=== PATIENT | female | born 1940 | race Caucasian/White ===

== ENCOUNTER 2016-03-14 10:18 | Inpatient (IN) | payer BC, OTHER ==
[~2016-03-14] VITALS: Ht 154.9 cm; Wt 45.2 kg
[2016-03-14] MEDS ORDERED: SODIUM CHLORIDE 0.9% 1000ML 1,000 ML IV STA (10:57)
[2016-03-14] MEDS ORDERED: MoRPHine SULFATE 10 MG/ML CARP/VIAL IV STA (10:57)
[2016-03-14] MEDS ORDERED: ONDANSETRON INJ 2 MG/ML 2 ML VIAL IV STA (10:57)
[2016-03-14 11:30] LABS: COMPLETE YES; HEMATOCRIT 44.2 % (37-47); IG% 0.2 %; LYMPH % 13.1 %; LYMPH ABS # 1.34 K/uL (1.2-3.4); MEAN CELL VOLUME 89.8 fL (80-100); MEAN CORPUSCULAR HEMOGLOBIN 30.7 pg (25-34); MEAN CORPUSCULAR HGB CONC 34.2 g/dl (32-36); MEAN PLATELET VOLUME 9.8 fL (7.4-10.4); MONO % 5.8 %; NEUT % 80.9 %; PLATELET COUNT 299 K/uL (130-400); RED BLOOD COUNT 4.92 M/uL (4.2-5.4); WHITE BLOOD COUNT 10.25 K/uL (4.8-10.8)
[2016-03-14 11:59] LABS: BUN/CREATININE RATIO 26.3 (10-20); CALCIUM 10.1 mg/dl (8.5-10.1); CREATININE 1.8 mg/dl (0.60-1.20); POTASSIUM 2.3 mmol/L (3.5-5.1)
[2016-03-14] MEDS ORDERED: POTASSIUM CHLORIDE 10 MEQ / 100ML WTR IV STA (12:01)
[2016-03-14] MEDS ORDERED: PRMVC EXT (12:12)
[2016-03-14] MEDS ORDERED: MAGNESIUM SULFATE 1GM / D5W 1 GM BAG IV STA (12:20)
[2016-03-14 13:28] VITALS: BP 128/71; PULSE 84; TEMP 36.9; O2SAT 97; Ht 154.9 cm; Wt 45.2 kg
--- NOTE | 2016-03-14 14:10 | DIAGNOSTIC IMAGING REPORT ---
CT OF THE ABDOMEN AND PELVIS WITH ORAL CONTRAST CT DOSE: 265.37 mGy.cm CLINICAL HISTORY: Abdominal pain and vomiting. TECHNIQUE: Axial images of the abdomen and pelvis were obtained without IV contrast. Oral contrast was administered. COMPARISON STUDY: CT of the abdomen and pelvis March 03, 2015 and abdominal series March 07, 2015. FINDINGS: Lung bases are clear. No pneumatosis, free air or portal venous gas is present. Evaluation of the abdomen and pelvis is suboptimal given the lack of IV contrast. Mild biliary ductal dilatation is similar to CT of March 03, 2015. Unenhanced images of the liver, spleen, adrenal glands, left kidney and pancreas are normal. There is a suspected 8 mm hyperdense cyst within the midpole of the right kidney. This lesion is suboptimally assessed on this unenhanced exam. There are postsurgical findings consistent with a left colon resection. There is a left sided colostomy with a small parastomal hernia containing a small portion of the colon. Note is made of distention of the stomach as well as moderate dilatation of the proximal to mid small bowel. Transition point is difficult to visualize on this exam but is likely within the pelvis. The findings suggest a moderate to high-grade small bowel obstruction. There is minimal associated mesenteric infiltration. The distal small bowel is decompressed. No suspicious skeletal lesions are identified. IMPRESSION: 1. Findings consistent with a moderate to high-grade small bowel obstruction. Transition point is obscured on this exam but likely within the pelvis. Evaluation is suboptimal given the lack of IV contrast. Mild mesenteric infiltration. No pneumatosis, free air or portal venous gas. 2. Findings consistent with a left colon resection with left-sided colostomy. A small parastomal hernia which does not result in the bowel obstruction. Electronically signed by: Cristiano Rosales M.D. 03/14/2016 2:08 PM
--- NOTE | 2016-03-14 14:32 | DIAGNOSTIC IMAGING REPORT ---
ABDOMEN 2VIEW W/PA CHEST RTN CLINICAL HISTORY: Nausea, vomiting, abdominal pain COMPARISON STUDY: CT scan dated 03/14/2016 FINDINGS: The erect chest reveals no free air. There is no focal pulmonary consolidation. There are old left-sided rib fractures.] Supine views the abdomen reveal multiple scattered air-fluid levels. There is a distended stomach. There is a left lower quadrant ostomy. There is an old left ischio pubic ring deformity IMPRESSION: Postsurgical changes of a left-sided ostomy. Probable bowel obstruction with a fluid distended stomach and multiple small bowel air-fluid levels. No free air identified Electronically signed by: Elkin Newby M.D. 03/14/2016 2:30 PM
[2016-03-14 14:56] LABS: URINE APPEARANCE TURBID (CLEAR); URINE BILIRUBIN NEG (NEG); URINE COLOR YELLOW; URINE EPITHELIAL CELL AUTO >30 /lpf (0-5); URINE NITRITE NEG (NEG); URINE PH >= 9.0 (4.5-7.5); URINE SPECIFIC GRAVITY 1.013 (1.000-1.030); UROBILINOGEN NEG (NEG); ZZUR CULT IF INDIC CLEAN CATCH NO
[2016-03-14 15:14] LABS: MANUAL MICROSCOPIC REQUIRED? NO; REVIEW REQ? YES; SULFASALICYLIC ACID POS (NEG)
[2016-03-14] MEDS ORDERED: HYDROmorphone INJ 1 MG/ML SYR IV PRN (15:30)
[2016-03-14] MEDS ORDERED: ONDANSETRON INJ 2 MG/ML 2 ML VIAL IV PRN (15:30)
--- NOTE | 2016-03-14 15:51 | History and Physical ---
History & Physical Date & Time of Service: Mar 14, 2016 at 15:41 Chief Complaint: Abd Pain, Vomiting, Dehydration, Chest Tightness Primary Care Physician: Chris Hendrickson M.D. History of Present Illness Source: patient, spouse Past Medical/Surgical History pt is a 75 year old female who presents to Er for one days history abdominal and nausea & vomiting, pt denies fever, last year pt had same symptom, at that time pt was dx SBO, pt had left colectomy with colostomy in 2007 at [facility], pt had hysterectomy for cancer and radiotion history.now pt denies abdominal pain, some stool in colostomy bag, Family History Cancer Social History Smoking Status: Never Smoker Smokeless Tobacco Use: No Alcohol Use: occasionally Drug Use: none Marital Status: Occupational Status: retired Multi-Drug Resistant Organisms History of MDRO: No Allergies Coded Allergies: No Known Allergies (Unverified , 03/14/16) Home Medications Scheduled Estrogens, Conjugated (Premarin), 1 APPLN EXT 2XWK Review of Systems Constitutional: No chills, No fatigue, No fever, No problem reported, No sweats , No weakness, No weight loss Eyes: No diplopia, No discharge, No eye pain, No problem reported, No redness, No worsening of vision ENT: No dental problems, No hearing loss, No nasal symptoms, No problem reported, No sore throat, No tinnitus, No trouble swallowing, No unusual epistaxis Respiratory: No cough, No dyspnea at rest, No dyspnea on exertion, No hemoptysis, No problem reported, No shortness of breath, No sputum, No wheezing Cardiovascular: No PND, No chest pain, No claudication, No edema, No orthopnea , No palpitations, No problem reported Abdomen: + nausea, + pain, + vomiting Musculoskeletal: No calf pain, No joint pain, No muscle pain, No problem reported, No swelling Neurologic: No balance problems, No memory loss, No numbness/tingling, No paralysis, No problem reported, No vertigo, No weakness Psychiatric: No anhedonism, No anxiety, No depression symptoms, No insomnia, No problem reported, No substance abuse Endocrine: No excessive thirst, No excessive urination, No fatigue, No problem reported Hematologic / Lymphatic: No abnormal bleeding/bruising, No clotting problems, No night sweats, No problem reported, No swollen lymph nodes Allergic / Immunologic: No environmental allergies, No food allergies, No frequent infections, No hives, No pet sensitivities, No poor healing, No problem reported, No prolonged convalescence, No seasonal allergies Physical Exam Vital Signs Date Time Temp Pulse Resp B/P Pulse Ox O2 Delivery O2 Flow Rate FiO2 03/14/16 15:35 76 18 138/78 93 Room Air 03/14/16 14:14 82 20 154/78 96 Room Air 03/14/16 13:28 36.9 84 18 128/71 97 Room Air 03/14/16 12:30 87 18 128/71 97 Room Air 03/14/16 10:41 36.9 94 18 137/94 94 Room Air General Appearance: WD/WN, no apparent distress Head: normocephalic Eyes: normal inspection ENT: normal ENT inspection Neck: supple, no adenopathy Respiratory/Chest: chest non-tender, lungs clear Cardiovascular: regular rate, rhythm, no edema, no gallop, no JVD Abdomen/GI: normal bowel sounds, non tender, soft, no organomegaly Back: normal inspection Extremities/Musculoskelatal: normal inspection 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, no motor/sensory deficits Skin: normal color, warm/dry, no rash Diagnostics Laboratory Results Results Past 24 Hours Test 03/14/16 11:15 03/14/16 14:05 Range/Units White Blood Count 10.25 4.8-10.8 K/uL Red Blood Count 4.92 4.2-5.4 M/uL Hemoglobin 15.1 12.0-16.0 g/dL Hematocrit 44.2 37-47 % Mean Corpuscular Volume 89.8 80-100 fL Mean Corpuscular Hemoglobin 30.7 25-34 pg Mean Corpuscular Hemoglobin Concent 34.2 32-36 g/dl Platelet Count 299 130-400 K/uL Mean Platelet Volume 9.8 7.4-10.4 fL Neutrophils (%) (Auto) 80.9 % Lymphocytes (%) (Auto) 13.1 % Monocytes (%) (Auto) 5.8 % Eosinophils (%) (Auto) 0.0 % Basophils (%) (Auto) 0.0 % Neutrophils # (Auto) 8.30 1.4-6.5 K/uL Lymphocytes # (Auto) 1.34 1.2-3.4 K/uL Monocytes # (Auto) 0.59 0.11-0.59 K/uL Eosinophils # (Auto) 0.00 0-0.5 K/uL Basophils # (Auto) 0.00 0-0.2 K/uL RDW Standard Deviation 44.1 36.4-46.3 fL RDW Coefficient of Variation 13.4 11.5-14.5 % Immature Granulocyte % (Auto) 0.2 % Immature Granulocyte # (Auto) 0.02 0.00-0.02 K/uL Sodium Level 136 136-145 mmol/L Potassium Level 2.3 3.5-5.1 mmol/L Chloride Level 74 98-107 mmol/L Carbon Dioxide Level 55 21-32 mmol/L Anion Gap 7.0 3-11 mmol/L Blood Urea Nitrogen 47 7-18 mg/dl Creatinine 1.80 0.60-1.20 mg/dl Est Creatinine Clear Calc Drug Dose 19.9 ml/min Estimated GFR () 31.8 Estimated GFR (Non- 27.4 BUN/Creatinine Ratio 26.3 10-20 Random Glucose 148 70-99 mg/dl Calcium Level 10.1 8.5-10.1 mg/dl Total Bilirubin 2.2 0.2-1 mg/dl Direct Bilirubin 0.4 0-0.2 mg/dl Aspartate Amino Transf (AST/SGOT) 40 15-37 U/L Alanine Aminotransferase (ALT/SGPT) 36 12-78 U/L Alkaline Phosphatase 54 45-117 U/L Troponin I 0.059 0-0.045 ng/ml Total Protein 8.3 6.4-8.2 gm/dl Albumin 4.5 3.4-5.0 gm/dl Lipase 764 73-393 U/L Urine Color YELLOW Urine Appearance TURBID CLEAR Urine pH >= 9.0 4.5-7.5 Urine Specific [place] 1.013 1.000-1.030 Urine Protein 2+ NEG Urine Glucose (UA) NEG NEG Urine Ketones NEG NEG Urine Occult Blood NEG NEG Urine Nitrite NEG NEG Urine Bilirubin NEG NEG Urine Urobilinogen NEG NEG Urine Leukocyte Esterase NEG NEG Urine WBC (Auto) 1-5 0-5 /hpf Urine RBC (Auto) 5-10 0-4 /hpf Urine Hyaline Casts (Auto) 5-10 0-5 /lpf Urine Epithelial Cells (Auto) >30 0-5 /lpf Urine Bacteria (Auto) NEG NEG Urine Renal Epithelial Cells 0-5 0-5 /lpf Urine Crystals See comments NONE PRSENT Diagnostic Radiology CT scan - abd + pelvis-IMPRESSION: 1. Findings consistent with a moderate to high-grade small bowel obstruction. Transition point is obscured on this exam but likely within the pelvis. Evaluation is suboptimal given the lack of IV contrast. Mild mesenteric infiltration. No pneumatosis, free air or portal venous gas. 2. Findings consistent with a left colon resection with left-sided colostomy. A small parastomal hernia which does not result in the bowel obstruction. Impression Assessment and Plan IMP- SBO Plan: admit to hospital IV fluid, NPO repeat labs in AM, Will F/U, D/W benefits, risks and alternatives of admition, pt and her understood , they agree with the plan, Advanced Directives Existing Advance Directive: No Existing Living Will: No Existing Power of Food Technician: No VTE Prophylaxis VTE Risk Assessment Done? Y/N: Yes Risk Level: Low
[2016-03-14 16:29] VITALS: O2SAT 94
[2016-03-14 16:50] VITALS: BP 150/79; PULSE 82; TEMP 36.8; O2SAT 91
[2016-03-14] MEDS: D5W AND 1/2NSS + 20MEQ KCL 1,000 ML IV SCH (17:35)
--- NOTE | 2016-03-14 18:22 | EMERGENCY ROOM VISIT NOTE ---
History Report prepared by Maggie: Radha Whitten Under the Supervision of: Dr. Morro Burgess D.O. First contact with patient: 10:44 Chief Complaint: ABDOMINAL PAIN Stated Complaint: ABD PAIN, VOMITING, DEHYDRATION, CHEST TIGHTNESS Nursing Triage Summary: Triage note: pt reports mid abd pain nausea and vomitting since sunday. pt reports she has a colostomy. History of Present Illness The patient is a 75 year old female who presents to the Emergency Room with complaints of constant diffuse abdominal pain that started 3 days ago. Nothing seems to make the pain better or worse. She states that the pain started 3 days ago after she ate a sandwich. The pain was severe for 2-3 hours after eating the sandwich and then she vomited up her meal. She continued to experience persistent vomiting the rest of the night. The vomit became clear and she continued to experience two episodes of vomiting 2 days ago. After those episodes, she stopped eating. Her adds that she has been belching more than usual and she states that she has been experiencing more reflux than normal also. The patient developed chest tightness last night that seemed to start at her sternum then radiate into both sides of her chest. She is unsure of if the chest pain is radiating from her abdomen. The chest pain does not radiate from her chest and nothing makes it better or worse. She denies shortness of breath. She has not taken aspirin. The patient denies any recent sick contacts. The patient's states that she had a bowel obstruction last year. She had a hysterectomy in 1992 as well as radiation treatments. After that, they identified rectal prolapse and rectal ulcers so a colostomy was put in. She has been experiencing decreased output in her colostomy. The patient still has her gallbladder but thinks that she had an appendectomy. The patient denies any history of MIs. Source of History: patient, spouse/significant other () Onset: 3 days ago Position: abdomen (diffuse) Timing: constant Modifying Factors (Worsening): other (none) Modifying Factors (Relieving): other (none) Associated Symptoms: + chest pain (tightness), + nausea, + vomiting, No SOB Note: increased belching and reflux Review of Systems See HPI for pertinent positives & negatives. A total of 10 systems reviewed and were otherwise negative. Past Medical & Surgical Medical Problems: (1) SBO (small bowel obstruction) Family History Cancer Social History Smoking Status: Never Smoker Alcohol Use: none Drug Use: none Marital Status: Housing Status: lives with significant other Occupation Status: retired Current/Historical Medications Scheduled Estrogens, Conjugated (Premarin), 1 APPLN EXT 2XWK Allergies Coded Allergies: No Known Allergies (Unverified , 03/14/16) Physical Exam Vital Signs Date Time Temp Pulse Resp B/P Pulse Ox O2 Delivery O2 Flow Rate FiO2 03/14/16 15:35 76 18 138/78 93 Room Air 03/14/16 14:14 82 20 154/78 96 Room Air 03/14/16 13:28 36.9 84 18 128/71 97 Room Air 03/14/16 12:30 87 18 128/71 97 Room Air 03/14/16 10:41 36.9 94 18 137/94 94 Room Air Physical Exam GENERAL: alert, sitting up in bed, well appearing, well nourished, no distress, non-toxic EYE EXAM: normal conjunctiva OROPHARYNX: no exudate, no erythema, lips, buccal mucosa, and tongue normal and mucous membranes are moist NECK: supple, no nuchal rigidity, no adenopathy, non-tender LUNGS: Clear to auscultation. Normal chest wall mechanics HEART: no murmurs, S1 normal and S2 normal ABDOMEN: abdomen soft, non-tender, normo-active bowel sounds, no masses, no rebound or guarding, ostomy in place left of umbilicus with minimal dark stool in ostomy bag. BACK: Back is symmetrical on inspection and there is no deformity, no midline tenderness, no CVA tenderness. SKIN: no rashes and no bruising UPPER EXTREMITIES: upper extremities are grossly normal. Radial pulses equal bilaterally. LOWER EXTREMITIES: No pitting edema. NEURO EXAM: Normal sensorium, cranial nerves II-XII grossly intact, normal speech, no gross weakness of arms, no gross weakness of legs. Medical Decision & Procedures ER Provider Diagnostic Interpretation: Xray results per the radiologist and my interpretation. Other results have been interpreted by the radiologist and reviewed by me. ABDOMEN 2VIEW W/PA CHEST RTN CLINICAL HISTORY: Nausea, vomiting, abdominal pain COMPARISON STUDY: CT scan dated 03/14/2016 FINDINGS: The erect chest reveals no free air. There is no focal pulmonary consolidation. There are old left-sided rib fractures.] Supine views the abdomen reveal multiple scattered air-fluid levels. There is a distended stomach. There is a left lower quadrant ostomy. There is an old left ischio pubic ring deformity IMPRESSION: Postsurgical changes of a left-sided ostomy. Probable bowel obstruction with a fluid distended stomach and multiple small bowel air-fluid levels. No free air identified Electronically signed by: Elkin Newby M.D. 03/14/2016 2:[address] OF THE ABDOMEN AND PELVIS WITH ORAL CONTRAST CT DOSE: 265.37 mGy.cm CLINICAL HISTORY: Abdominal pain and vomiting. TECHNIQUE: Axial images of the abdomen and pelvis were obtained without IV contrast. Oral contrast was administered. COMPARISON STUDY: CT of the abdomen and pelvis March 03, 2015 and abdominal series March 07, 2015. FINDINGS: Lung bases are clear. No pneumatosis, free air or portal venous gas is present. Evaluation of the abdomen and pelvis is suboptimal given the lack of IV contrast. Mild biliary ductal dilatation is similar to CT of March 03, 2015. Unenhanced images of the liver, spleen, adrenal glands, left kidney and pancreas are normal. There is a suspected 8 mm hyperdense cyst within the midpole of the right kidney. This lesion is suboptimally assessed on this unenhanced exam. There are postsurgical findings consistent with a left colon resection. There is a left sided colostomy with a small parastomal hernia containing a small portion of the colon. Note is made of distention of the stomach as well as moderate dilatation of the proximal to mid small bowel. Transition point is difficult to visualize on this exam but is likely within the pelvis. The findings suggest a moderate to high-grade small bowel obstruction. There is minimal associated mesenteric infiltration. The distal small bowel is decompressed. No suspicious skeletal lesions are identified. IMPRESSION: 1. Findings consistent with a moderate to high-grade small bowel obstruction. Transition point is obscured on this exam but likely within the pelvis. Evaluation is suboptimal given the lack of IV contrast. Mild mesenteric infiltration. No pneumatosis, free air or portal venous gas. 2. Findings consistent with a left colon resection with left-sided colostomy. A small parastomal hernia which does not result in the bowel obstruction. Electronically signed by: Cristiano Rosales M.D. 03/14/2016 2:08 PM Laboratory Results 03/14/16 11:15 Red Blood Count 4.92, Mean Corpuscular Volume 89.8, Mean Corpuscular Hemoglobin 30.7, Mean Corpuscular Hemoglobin Concent 34.2, Mean Platelet Volume 9.8, Neutrophils (%) (Auto) 80.9, Lymphocytes (%) (Auto) 13.1, Monocytes (%) (Auto) 5.8, Eosinophils (%) (Auto) 0.0, Basophils (%) (Auto) 0.0, Neutrophils # (Auto) 8.30, Lymphocytes # (Auto) 1.34, Monocytes # (Auto) 0.59, Eosinophils # (Auto) 0.00, Basophils # (Auto) 0.00 03/14/16 11:15 Test 03/14/16 11:15 03/14/16 14:05 White Blood Count 10.25 K/uL (4.8-10.8) Red Blood Count 4.92 M/uL (4.2-5.4) Hemoglobin 15.1 g/dL (12.0-16.0) Hematocrit 44.2 % (37-47) Mean Corpuscular Volume 89.8 fL (80-100) Mean Corpuscular Hemoglobin 30.7 pg (25-34) Mean Corpuscular Hemoglobin Concent 34.2 g/dl (32-36) Platelet Count 299 K/uL (130-400) Mean Platelet Volume 9.8 fL (7.4-10.4) Neutrophils (%) (Auto) 80.9 % Lymphocytes (%) (Auto) 13.1 % Monocytes (%) (Auto) 5.8 % Eosinophils (%) (Auto) 0.0 % Basophils (%) (Auto) 0.0 % Neutrophils # (Auto) 8.30 K/uL (1.4-6.5) Lymphocytes # (Auto) 1.34 K/uL (1.2-3.4) Monocytes # (Auto) 0.59 K/uL (0.11-0.59) Eosinophils # (Auto) 0.00 K/uL (0-0.5) Basophils # (Auto) 0.00 K/uL (0-0.2) RDW Standard Deviation 44.1 fL (36.4-46.3) RDW Coefficient of Variation 13.4 % (11.5-14.5) Immature Granulocyte % (Auto) 0.2 % Immature Granulocyte # (Auto) 0.02 K/uL (0.00-0.02) Anion Gap 7.0 mmol/L (3-11) Est Creatinine Clear Calc Drug Dose 19.9 ml/min Estimated GFR () 31.8 Estimated GFR (Non- 27.4 BUN/Creatinine Ratio 26.3 (10-20) Calcium Level 10.1 mg/dl (8.5-10.1) Total Bilirubin 2.2 mg/dl (0.2-1) Direct Bilirubin 0.4 mg/dl (0-0.2) Aspartate Amino Transf (AST/SGOT) 40 U/L (15-37) Alanine Aminotransferase (ALT/SGPT) 36 U/L (12-78) Alkaline Phosphatase 54 U/L (45-117) Troponin I 0.059 ng/ml (0-0.045) Total Protein 8.3 gm/dl (6.4-8.2) Albumin 4.5 gm/dl (3.4-5.0) Lipase 764 U/L (73-393) Urine Color YELLOW Urine Appearance TURBID (CLEAR) Urine pH >= 9.0 (4.5-7.5) Urine Specific [place] 1.013 (1.000-1.030) Urine Protein 2+ (NEG) Urine Glucose (UA) NEG (NEG) Urine Ketones NEG (NEG) Urine Occult Blood NEG (NEG) Urine Nitrite NEG (NEG) Urine Bilirubin NEG (NEG) Urine Urobilinogen NEG (NEG) Urine Leukocyte Esterase NEG (NEG) Urine WBC (Auto) 1-5 /hpf (0-5) Urine RBC (Auto) 5-10 /hpf (0-4) Urine Hyaline Casts (Auto) 5-10 /lpf (0-5) Urine Epithelial Cells (Auto) >30 /lpf (0-5) Urine Bacteria (Auto) NEG (NEG) Urine Renal Epithelial Cells 0-5 /lpf (0-5) Urine Crystals See comments (NONE PRSENT) Laboratory results per my review. Medications Administered Medications (Trade) Dose Ordered Sig/Nimisha Route Start Time Stop Time Status Last Admin Dose Admin Sodium Chloride (Nss 1000ml) 1,000 ml @ 999 mls/hr Q1H1M STAT IV 03/14/16 10:57 03/14/16 11:57 DC 03/14/16 11:21 999 MLS/HR Ondansetron HCl (Zofran Inj) 4 mg NOW STAT IV 1/3/17 10:57 03/14/16 10:59 DC 03/14/16 11:22 4 MG Morphine Sulfate (MoRPHine SULFATE INJ) 6 mg NOW STAT IV 03/14/16 10:57 03/14/16 10:59 DC 03/14/16 11:22 6 MG Potassium Chloride (Kcl 10 Meq / Wtr) 10 meq NOW STAT IV 03/14/16 12:01 03/14/16 12:02 DC 03/14/16 12:53 10 MEQ Magnesium Sulfate (Magnesium Sulfate) 2 gm NOW STAT IV 03/14/16 12:20 03/14/16 12:21 DC 03/14/16 12:53 2 GM ECG Indication: abdominal pain Rate (beats per minute): 80 Rhythm: sinus rhythm Findings: nonspecific-ST abn (Lateral), no ectopy, other (normal axis, poor baseline in inferior leads) Comparison ECG Date: 03/03/2015 Change: nonspecific ST abnormalities in lateral leads are new ED Course ED COURSE: Vital signs were reviewed and showed normal. The patients medical record was reviewed The above diagnostic studies were performed and reviewed. ED treatments and interventions as stated above. 1048: The patient was evaluated in room C10. A complete history and physical examination was performed. 1057: Ordered Morphine Sulfate 6 mg IV, Zofran 4 mg IV, Sodium Chloride 1000 ml @ 999 mls/hr IV 1201: Ordered Potassium Chloride 10 meq IV 1218: I reevaluated the patient. 1220: Ordered Magnesium Sulfate 2 gm IV 1326: I reassessed and updated the patient. 1432: I reviewed the patient's case with Dr. Sommer - General Surgery. The patient will be evaluated for further management. 1440: Upon reevaluation, the patient is resting comfortably. I discussed my findings with the patient and she understands and agrees with the treatment plan. Based on the patients age, coexisting illnesses, exam and lab findings the decision to treat as an inpatient was made. The patient remained stable while under my care. The patient will be evaluated for further management. Medical Decision Differential diagnoses includes but is not limited to gastritis, peptic ulcer disease, GERD, gallbladder disease, pancreatitis, small bowel obstruction, acute coronary syndrome, pericarditis, ischemic bowel, irritable bowel disease, irritable bowel syndrome, appendicitis, diverticulitis, malignancy, hernia, urinary tract infection, torsion, /ectopic , perforation, trauma, infectious. Patient is a 75-year-old female who presents the ER for abdominal pain associated with vomiting and low ostomy outputs. Multiple previous bili surgeries. On exam she slightly distended. No fevers. IV was established she is given Zofran along with normal saline and IV narcotics. Labs show a significant hypokalemia along with an elevated bilirubin and acute kidney injury with a creatinine of 1.8. Her troponin was also elevated with minimal chest pressure. CT of the abdomen and pelvis shows a high-grade small bowel obstruction. EKG was nondiagnostic for acute STEMI. Based on exam and presentation I do feel this is likely secondary to obstruction. I did not place her on any heparin because of this. The potassium was repleted. Patient family were updated at bedside and she is evaluated by general surgery. She is admitted for further workup of her small bowel obstruction hypokalemia elevated troponin along with acute kidney injury. Consults Time Called: 1415 Consulting Physician: Dr. Sommer - General Surgery Returned Call: [phone] I reviewed the patient's case with Dr. Sommer - General Surgery. The patient will be evaluated for further management. Impression Primary Impression: Small bowel obstruction Additional Impressions: Hypokalemia, Elevated troponin, Elevated bilirubin, INNA (acute kidney injury) Scribe Attestation The scribe's documentation has been prepared under my direction and personally reviewed by me in its entirety. I confirm that the note above accurately reflects all work, treatment, procedures, and medical decision making performed by me. Departure Information Dispostion Being Evaluated By Surgeon Chris Mccollum M.D. (PCP)
[2016-03-14] MEDS ORDERED: NURSING VERBAL MED ORDER ONE ×2 (22:15→22:30)
[2016-03-14] MEDS: CEFAZOLIN IV 1,000 MG in DEXTROSE 5% 50ML 50 ML IV SCH (22:24)
[2016-03-14] MEDS ORDERED: BISACODYL 5 MG TABEC PO ONE (22:45)
[2016-03-14 22:58] VITALS: BP 156/77; PULSE 71; TEMP 37; O2SAT 91
[2016-03-14] MEDS ORDERED: PREMARIN VAG CRM 14 APPLN/30 GM TUBE PV SCH (23:00)
[2016-03-15] MEDS: D5W AND 1/2NSS + 20MEQ KCL 1,000 ML IV SCH ×3 (03:15→22:37)
[2016-03-15] MEDS ORDERED: NURSING VERBAL MED ORDER ONE ×2 (03:45→16:45)
[2016-03-15] MEDS ORDERED: PROMETHAZINE HCL INJ 25 MG in SODIUM CHLORIDE 0.9% 50ML 50 ML IV PRN (04:15)
[2016-03-15] MEDS: CEFAZOLIN IV 1,000 MG in DEXTROSE 5% 50ML 50 ML IV SCH ×2 (05:29→14:00)
[2016-03-15 07:00] VITALS: BP 113/68; PULSE 71; TEMP 36.6; O2SAT 92
[2016-03-15 07:13] LABS: BASO % 0.1 %; BASO ABS # 0.01 K/uL (0-0.2); COMPLETE YES; HEMATOCRIT 38.9 % (37-47); IG% 0.2 %; LYMPH % 8.5 %; LYMPH ABS # 0.88 K/uL (1.2-3.4); MEAN CELL VOLUME 90.7 fL (80-100); MEAN CORPUSCULAR HEMOGLOBIN 29.8 pg (25-34); MEAN CORPUSCULAR HGB CONC 32.9 g/dl (32-36); MEAN PLATELET VOLUME 9.9 fL (7.4-10.4); MONO % 10.6 %; NEUT % 80.6 %; PLATELET COUNT 246 K/uL (130-400); RED BLOOD COUNT 4.29 M/uL (4.2-5.4); WHITE BLOOD COUNT 10.33 K/uL (4.8-10.8)
[2016-03-15 08:05] LABS: CARBON DIOXIDE 49 mmol/L (21-32)
[2016-03-15 08:08] LABS: ALKALINE PHOSPHATASE 44 U/L (45-117); ALT/SGPT 26 U/L (12-78); AST/SGOT 38 U/L (15-37); BLOOD UREA NITROGEN 39 mg/dl (7-18); BUN/CREATININE RATIO 35.5 (10-20); CALCIUM 8.1 mg/dl (8.5-10.1); CHLORIDE 83 mmol/L (98-107); GLUCOSE 136 mg/dl (70-99); POTASSIUM 2.3 mmol/L (3.5-5.1); SODIUM 138 mmol/L (136-145)
[2016-03-15] MEDS ORDERED: NURSING DECISION MEDICATION ORDER SCH (08:30)
[2016-03-15] MEDS: BISACODYL 5 MG TABEC PO SCH (08:42)
[2016-03-15] MEDS: POTASSIUM CHLR 10MEQ / WTR IV SCH ×6 (09:31→19:33)
--- NOTE | 2016-03-15 13:48 | Surgery Progress Note ---
Surgery Progress Note Date of Service Mar 15, 2016. Subjective + feeling well last night , pt had one time vomiting, pt had NG tube placement, now pt feels better, no abdominal pain, no N/V, some stool on colostomy bag, pt's K is 2.3, I ordered to replace low K. Objective Vital Signs: Date Time Temp Pulse Resp B/P Pulse Ox O2 Delivery O2 Flow Rate FiO2 03/15/16 08:05 Room Air 03/15/16 07:00 36.6 71 18 113/68 92 Room Air 03/14/16 23:45 Room Air 03/14/16 22:58 37.0 71 16 156/77 91 Room Air 03/14/16 17:15 Room Air 03/14/16 16:50 36.8 82 16 150/79 91 Room Air 03/14/16 16:29 72 16 135/79 94 Room Air 03/14/16 15:35 76 18 138/78 93 Room Air 03/14/16 14:14 82 20 154/78 96 Room Air General Appearance: WD/WN Head: normocephalic Neck: supple Respiratory/Chest: chest non-tender, lungs clear Cardiovascular: regular rate, rhythm, no edema Abdomen: normal bowel sounds, non tender Extremities: normal range of motion, non-tender Laboratory Results: Results Past 24 Hours Test 03/14/16 14:05 03/15/16 06:20 Range/Units Urine Color YELLOW Urine Appearance TURBID CLEAR Urine pH >= 9.0 4.5-7.5 Urine Specific [place] 1.013 1.000-1.030 Urine Protein 2+ NEG Urine Glucose (UA) NEG NEG Urine Ketones NEG NEG Urine Occult Blood NEG NEG Urine Nitrite NEG NEG Urine Bilirubin NEG NEG Urine Urobilinogen NEG NEG Urine Leukocyte Esterase NEG NEG Urine WBC (Auto) 1-5 0-5 /hpf Urine RBC (Auto) 5-10 0-4 /hpf Urine Hyaline Casts (Auto) 5-10 0-5 /lpf Urine Epithelial Cells (Auto) >30 0-5 /lpf Urine Bacteria (Auto) NEG NEG Urine Renal Epithelial Cells 0-5 0-5 /lpf Urine Crystals See comments NONE PRSENT White Blood Count 10.33 4.8-10.8 K/uL Red Blood Count 4.29 4.2-5.4 M/uL Hemoglobin 12.8 12.0-16.0 g/dL Hematocrit 38.9 37-47 % Mean Corpuscular Volume 90.7 80-100 fL Mean Corpuscular Hemoglobin 29.8 25-34 pg Mean Corpuscular Hemoglobin Concent 32.9 32-36 g/dl Platelet Count 246 130-400 K/uL Mean Platelet Volume 9.9 7.4-10.4 fL Neutrophils (%) (Auto) 80.6 % Lymphocytes (%) (Auto) 8.5 % Monocytes (%) (Auto) 10.6 % Eosinophils (%) (Auto) 0.0 % Basophils (%) (Auto) 0.1 % Neutrophils # (Auto) 8.32 1.4-6.5 K/uL Lymphocytes # (Auto) 0.88 1.2-3.4 K/uL Monocytes # (Auto) 1.10 0.11-0.59 K/uL Eosinophils # (Auto) 0.00 0-0.5 K/uL Basophils # (Auto) 0.01 0-0.2 K/uL RDW Standard Deviation 44.3 36.4-46.3 fL RDW Coefficient of Variation 13.5 11.5-14.5 % Immature Granulocyte % (Auto) 0.2 % Immature Granulocyte # (Auto) 0.02 0.00-0.02 K/uL Sodium Level 138 136-145 mmol/L Potassium Level 2.3 3.5-5.1 mmol/L Chloride Level 83 98-107 mmol/L Carbon Dioxide Level 49 21-32 mmol/L Anion Gap 3-11 mmol/L Blood Urea Nitrogen 39 7-18 mg/dl Creatinine 1.10 0.60-1.20 mg/dl Est Creatinine Clear Calc Drug Dose 32.5 ml/min Estimated GFR () 57.7 Estimated GFR (Non- 49.8 BUN/Creatinine Ratio 35.5 10-20 Random Glucose 136 70-99 mg/dl Calcium Level 8.1 8.5-10.1 mg/dl Total Bilirubin 1.3 0.2-1 mg/dl Aspartate Amino Transf (AST/SGOT) 38 15-37 U/L Alanine Aminotransferase (ALT/SGPT) 26 12-78 U/L Alkaline Phosphatase 44 45-117 U/L Total Protein 6.1 6.4-8.2 gm/dl Albumin 3.1 3.4-5.0 gm/dl Globulin 3.0 2.5-4.0 gm/dl Albumin/Globulin Ratio 1.0 0.9-2 Assessment & Plan IMP, SBO Plan: corect low K, continue NGT, repeat labs in AM, Will F/U
[2016-03-15 15:13] VITALS: BP 115/69; PULSE 76; TEMP 37.8; O2SAT 91
[2016-03-15 15:35] LABS: BASO % 0.1 %; BASO ABS # 0.01 K/uL (0-0.2); COMPLETE YES; EOS % 0.4 %; HEMATOCRIT 37.8 % (37-47); IG% 0.2 %; LYMPH % 11.6 %; LYMPH ABS # 0.99 K/uL (1.2-3.4); MEAN CELL VOLUME 90.2 fL (80-100); MEAN CORPUSCULAR HEMOGLOBIN 29.8 pg (25-34); MEAN CORPUSCULAR HGB CONC 33.1 g/dl (32-36); MEAN PLATELET VOLUME 9.2 fL (7.4-10.4); NEUT % 76.7 %; PLATELET COUNT 220 K/uL (130-400); RED BLOOD COUNT 4.19 M/uL (4.2-5.4); WHITE BLOOD COUNT 8.53 K/uL (4.8-10.8)
[2016-03-15 16:16] LABS: BUN/CREATININE RATIO 35.4 (10-20); CALCIUM 8.1 mg/dl (8.5-10.1); CREATININE 0.92 mg/dl (0.60-1.20); POTASSIUM 2.6 mmol/L (3.5-5.1)
[2016-03-15 23:06] VITALS: BP 110/70; PULSE 69; TEMP 36.9; O2SAT 92
[2016-03-16 05:12] LABS: CALCIUM 7.9 mg/dl (8.5-10.1); CREATININE 0.82 mg/dl (0.60-1.20); POTASSIUM 2.9 mmol/L (3.5-5.1)
[2016-03-16] MEDS ORDERED: NURSING VERBAL MED ORDER ONE (05:30)
[2016-03-16] MEDS: POTASSIUM CHLR 10MEQ / WTR IV SCH ×4 (05:53→09:05)
--- NOTE | 2016-03-16 06:44 | Surgery Progress Note ---
Surgery Progress Note Date of Service Mar 16, 2016. Subjective + feeling well F/U SBO, pt is stable, no abdominal pain, no N/V, pt passed some stool yesterday , Objective Vital Signs: Date Time Temp Pulse Resp B/P Pulse Ox O2 Delivery O2 Flow Rate FiO2 03/15/16 23:20 Room Air 03/15/16 23:06 36.9 69 18 110/70 92 Room Air 03/15/16 19:30 Room Air 03/15/16 15:13 37.8 76 16 115/69 91 Room Air 03/15/16 08:05 Room Air 03/15/16 07:00 36.6 71 18 113/68 92 Room Air General Appearance: WD/WN Head: normocephalic Neck: supple Respiratory/Chest: chest non-tender, lungs clear Cardiovascular: regular rate, rhythm, no edema Abdomen: normal bowel sounds, non tender, non distended, soft Laboratory Results: Results Past 24 Hours Test 03/15/16 15:29 03/16/16 04:34 Range/Units White Blood Count 8.53 4.8-10.8 K/uL Red Blood Count 4.19 4.2-5.4 M/uL Hemoglobin 12.5 12.0-16.0 g/dL Hematocrit 37.8 37-47 % Mean Corpuscular Volume 90.2 80-100 fL Mean Corpuscular Hemoglobin 29.8 25-34 pg Mean Corpuscular Hemoglobin Concent 33.1 32-36 g/dl Platelet Count 220 130-400 K/uL Mean Platelet Volume 9.2 7.4-10.4 fL Neutrophils (%) (Auto) 76.7 % Lymphocytes (%) (Auto) 11.6 % Monocytes (%) (Auto) 11.0 % Eosinophils (%) (Auto) 0.4 % Basophils (%) (Auto) 0.1 % Neutrophils # (Auto) 6.54 1.4-6.5 K/uL Lymphocytes # (Auto) 0.99 1.2-3.4 K/uL Monocytes # (Auto) 0.94 0.11-0.59 K/uL Eosinophils # (Auto) 0.03 0-0.5 K/uL Basophils # (Auto) 0.01 0-0.2 K/uL RDW Standard Deviation 44.3 36.4-46.3 fL RDW Coefficient of Variation 13.3 11.5-14.5 % Immature Granulocyte % (Auto) 0.2 % Immature Granulocyte # (Auto) 0.02 0.00-0.02 K/uL Sodium Level 137 137 136-145 mmol/L Potassium Level 2.6 2.9 3.5-5.1 mmol/L Chloride Level 88 90 98-107 mmol/L Carbon Dioxide Level 43 41 21-32 mmol/L Anion Gap 6.0 6.0 3-11 mmol/L Blood Urea Nitrogen 33 27 7-18 mg/dl Creatinine 0.92 0.82 0.60-1.20 mg/dl Est Creatinine Clear Calc Drug Dose 38.9 43.6 ml/min Estimated GFR () 71.6 82.3 Estimated GFR (Non- 61.8 71.0 BUN/Creatinine Ratio 35.4 33.0 10-20 Random Glucose 126 116 70-99 mg/dl Calcium Level 8.1 7.9 8.5-10.1 mg/dl Total Bilirubin 1.7 1.6 0.2-1 mg/dl Aspartate Amino Transf (AST/SGOT) 30 27 15-37 U/L Alanine Aminotransferase (ALT/SGPT) 26 23 12-78 U/L Alkaline Phosphatase 43 40 45-117 U/L Total Protein 5.9 5.3 6.4-8.2 gm/dl Albumin 3.0 2.7 3.4-5.0 gm/dl Globulin 2.9 2.6 2.5-4.0 gm/dl Albumin/Globulin Ratio 1.0 1.0 0.9-2 Assessment & Plan IMP, SBO K is low 2.9 Plan: correct low K, continue NGT, repeat labs in AM, Will F/U IMP, SBO Plan: corect low K, continue NGT, repeat labs in AM, Will F/U
[2016-03-16 07:06] VITALS: BP 159/83; PULSE 66; TEMP 37; O2SAT 92
--- NOTE | 2016-03-16 07:31 | Clinical Documentation Query ---
QUERY 1 OF [address] DOVER, In your clinical opinion is this patient being managed for: ( ) Acute kidney failure ( ) Other explanation of clinical findings (Please Explain) ( ) Unable to determine (Please Define) ( ) Need to Discuss ( ) Not Agree The medical record reflects the following clinical findings, treatment, and risk factors. Clinical Indicators: 75 yo female presenting with a small bowel obstruction. Initial BUN 47, Cr 1.80 which has improved significantly to BUN 27, Cr 0.82. Treatment: IV fluids, daily CMP, I/O Risk Factors: small bowel obstruction, NG tube drainage (2800 cc), vomiting Please clarify and document your clinical opinion in the progress notes and discharge summary. Terms such as "probable", "suspected", "likely", "questionable", "possible", or "still to be ruled out" are acceptable. IF IN AGREEMENT, YOU MUST DOCUMENT ABOVE DIAGNOSTIC STATEMENT IN DAILY PROGRESS NOTES AND DISCHARGE SUMMARY. This document is not part of the patient's record. QUERY 2 OF 2 "Low K" cannot be coded as hypokalemia In your clinical opinion is this patient being managed for: ( ) Hypokalemia ( ) Other explanation of clinical findings (Please Explain) ( ) Unable to determine (Please Define) ( ) Need to Discuss ( ) Not Agree The medical record reflects the following clinical findings, treatment, and risk factors. Clinical Indicators: Documentation in the clinical record indicates low K. Treatment: IV KCL replacements, daily CMP, I/O Risk Factors: SBO, NG tube drainage, vomiting Please clarify and document your clinical opinion in the progress notes and discharge summary. Terms such as "probable", "suspected", "likely", "questionable", "possible", or "still to be ruled out" are acceptable. IF IN AGREEMENT, YOU MUST DOCUMENT ABOVE DIAGNOSTIC STATEMENT IN DAILY PROGRESS NOTES AND DISCHARGE SUMMARY. This document is not part of the patient's record. Thank You, Maria E Fischer, DON [phone]
[2016-03-16] MEDS: D5W AND 1/2NSS + 20MEQ KCL 1,000 ML IV SCH ×2 (08:14→17:57)
[2016-03-16] MEDS: BISACODYL 5 MG TABEC PO SCH (09:03)
--- NOTE | 2016-03-16 15:07 | Surgery Progress Note ---
Surgery Progress Note Date of Service Mar 16, 2016. Subjective + feeling well some stool in colostomy bag, pt is doing fine, no abdominal pain, no N/V, Objective Vital Signs: Date Time Temp Pulse Resp B/P Pulse Ox O2 Delivery O2 Flow Rate FiO2 03/16/16 07:44 Room Air 03/16/16 07:06 37.0 66 16 159/83 92 Room Air 03/15/16 23:20 Room Air 03/15/16 23:06 36.9 69 18 110/70 92 Room Air 03/15/16 19:30 Room Air 03/15/16 15:13 37.8 76 16 115/69 91 Room Air General Appearance: WD/WN Head: normocephalic Neck: supple Respiratory/Chest: chest non-tender, lungs clear Cardiovascular: regular rate, rhythm, no edema Abdomen: normal bowel sounds, non tender, non distended, soft Laboratory Results: Results Past 24 Hours Test 03/15/16 15:29 03/16/16 04:34 Range/Units White Blood Count 8.53 4.8-10.8 K/uL Red Blood Count 4.19 4.2-5.4 M/uL Hemoglobin 12.5 12.0-16.0 g/dL Hematocrit 37.8 37-47 % Mean Corpuscular Volume 90.2 80-100 fL Mean Corpuscular Hemoglobin 29.8 25-34 pg Mean Corpuscular Hemoglobin Concent 33.1 32-36 g/dl Platelet Count 220 130-400 K/uL Mean Platelet Volume 9.2 7.4-10.4 fL Neutrophils (%) (Auto) 76.7 % Lymphocytes (%) (Auto) 11.6 % Monocytes (%) (Auto) 11.0 % Eosinophils (%) (Auto) 0.4 % Basophils (%) (Auto) 0.1 % Neutrophils # (Auto) 6.54 1.4-6.5 K/uL Lymphocytes # (Auto) 0.99 1.2-3.4 K/uL Monocytes # (Auto) 0.94 0.11-0.59 K/uL Eosinophils # (Auto) 0.03 0-0.5 K/uL Basophils # (Auto) 0.01 0-0.2 K/uL RDW Standard Deviation 44.3 36.4-46.3 fL RDW Coefficient of Variation 13.3 11.5-14.5 % Immature Granulocyte % (Auto) 0.2 % Immature Granulocyte # (Auto) 0.02 0.00-0.02 K/uL Sodium Level 137 137 136-145 mmol/L Potassium Level 2.6 2.9 3.5-5.1 mmol/L Chloride Level 88 90 98-107 mmol/L Carbon Dioxide Level 43 41 21-32 mmol/L Anion Gap 6.0 6.0 3-11 mmol/L Blood Urea Nitrogen 33 27 7-18 mg/dl Creatinine 0.92 0.82 0.60-1.20 mg/dl Est Creatinine Clear Calc Drug Dose 38.9 43.6 ml/min Estimated GFR () 71.6 82.3 Estimated GFR (Non- 61.8 71.0 BUN/Creatinine Ratio 35.4 33.0 10-20 Random Glucose 126 116 70-99 mg/dl Calcium Level 8.1 7.9 8.5-10.1 mg/dl Total Bilirubin 1.7 1.6 0.2-1 mg/dl Aspartate Amino Transf (AST/SGOT) 30 27 15-37 U/L Alanine Aminotransferase (ALT/SGPT) 26 23 12-78 U/L Alkaline Phosphatase 43 40 45-117 U/L Total Protein 5.9 5.3 6.4-8.2 gm/dl Albumin 3.0 2.7 3.4-5.0 gm/dl Globulin 2.9 2.6 2.5-4.0 gm/dl Albumin/Globulin Ratio 1.0 1.0 0.9-2 Assessment & Plan IMP, SBO, resolved K is low 2.9 Plan: correct low K, D/C NGT, clear diet repeat labs in AM, Will F/U possible D/c home tomorrow. I update information to pt and her . IMP, SBO K is low 2.9 Plan: correct low K, continue NGT, repeat labs in AM, Will F/U
[2016-03-16 15:23] VITALS: BP 161/91; PULSE 74; TEMP 36.9; O2SAT 94
[2016-03-16 23:09] VITALS: BP 156/84; PULSE 70; TEMP 37.1; O2SAT 97
[2016-03-17] MEDS: D5W AND 1/2NSS + 20MEQ KCL 1,000 ML IV SCH (03:53)
[2016-03-17 06:55] LABS: BASO % 0.2 %; BASO ABS # 0.01 K/uL (0-0.2); COMPLETE YES; HEMATOCRIT 36.7 % (37-47); IG% 0.2 %; LYMPH % 19.3 %; LYMPH ABS # 1.28 K/uL (1.2-3.4); MEAN CELL VOLUME 88.2 fL (80-100); MEAN CORPUSCULAR HEMOGLOBIN 30.3 pg (25-34); MEAN CORPUSCULAR HGB CONC 34.3 g/dl (32-36); MEAN PLATELET VOLUME 9.6 fL (7.4-10.4); NEUT % 70.3 %; PLATELET COUNT 219 K/uL (130-400); RED BLOOD COUNT 4.16 M/uL (4.2-5.4); WHITE BLOOD COUNT 6.62 K/uL (4.8-10.8)
[2016-03-17 07:05] VITALS: BP 151/83; PULSE 68; TEMP 36.8; O2SAT 96
[2016-03-17 09:09] LABS: ALB/GLOB RATIO 0.9 (0.9-2); BUN/CREATININE RATIO 25.7 (10-20); CALCIUM 8.1 mg/dl (8.5-10.1); CREATININE 0.63 mg/dl (0.60-1.20)
[2016-03-17 09:15] LABS: POTASSIUM 3.5 mmol/L (3.5-5.1)
[2016-03-17] MEDS: BISACODYL 5 MG TABEC PO SCH (10:08)
--- NOTE | 2016-03-17 13:21 | Surgery Progress Note ---
Surgery Progress Note Date of Service Mar 17, 2016. Subjective + feeling well pt passed BM, she tolerated clear diet, pt has no abdominal pain, no N/V, pt wants to go home today. Objective Vital Signs: Date Time Temp Pulse Resp B/P Pulse Ox O2 Delivery O2 Flow Rate FiO2 03/17/16 08:00 Room Air 03/17/16 07:05 36.8 68 15 151/83 96 Room Air 03/16/16 23:09 37.1 70 18 156/84 97 Room Air 03/16/16 20:20 Room Air 03/16/16 16:25 Room Air 03/16/16 15:23 36.9 74 16 161/91 94 Room Air General Appearance: WD/WN Head: normocephalic Neck: supple, no adenopathy Respiratory/Chest: chest non-tender, lungs clear Cardiovascular: regular rate, rhythm, no edema, no gallop Abdomen: normal bowel sounds, non tender, non distended, soft Extremities: normal range of motion, non-tender Laboratory Results: Results Past 24 Hours Test 03/17/16 06:25 03/17/16 08:15 Range/Units White Blood Count 6.62 4.8-10.8 K/uL Red Blood Count 4.16 4.2-5.4 M/uL Hemoglobin 12.6 12.0-16.0 g/dL Hematocrit 36.7 37-47 % Mean Corpuscular Volume 88.2 80-100 fL Mean Corpuscular Hemoglobin 30.3 25-34 pg Mean Corpuscular Hemoglobin Concent 34.3 32-36 g/dl Platelet Count 219 130-400 K/uL Mean Platelet Volume 9.6 7.4-10.4 fL Neutrophils (%) (Auto) 70.3 % Lymphocytes (%) (Auto) 19.3 % Monocytes (%) (Auto) 10.0 % Eosinophils (%) (Auto) 0.0 % Basophils (%) (Auto) 0.2 % Neutrophils # (Auto) 4.66 1.4-6.5 K/uL Lymphocytes # (Auto) 1.28 1.2-3.4 K/uL Monocytes # (Auto) 0.66 0.11-0.59 K/uL Eosinophils # (Auto) 0.00 0-0.5 K/uL Basophils # (Auto) 0.01 0-0.2 K/uL RDW Standard Deviation 39.6 36.4-46.3 fL RDW Coefficient of Variation 12.4 11.5-14.5 % Immature Granulocyte % (Auto) 0.2 % Immature Granulocyte # (Auto) 0.01 0.00-0.02 K/uL Sodium Level 136 136-145 mmol/L Potassium Level 3.5 3.5-5.1 mmol/L Chloride Level 97 98-107 mmol/L Carbon Dioxide Level 33 21-32 mmol/L Anion Gap 6.0 3-11 mmol/L Blood Urea Nitrogen 16 7-18 mg/dl Creatinine 0.63 0.60-1.20 mg/dl Est Creatinine Clear Calc Drug Dose 56.7 ml/min Estimated GFR () 103.1 Estimated GFR (Non- 89.0 BUN/Creatinine Ratio 25.7 10-20 Random Glucose 96 70-99 mg/dl Calcium Level 8.1 8.5-10.1 mg/dl Total Bilirubin 1.8 0.2-1 mg/dl Aspartate Amino Transf (AST/SGOT) 44 15-37 U/L Alanine Aminotransferase (ALT/SGPT) 46 12-78 U/L Alkaline Phosphatase 46 45-117 U/L Total Protein 5.0 6.4-8.2 gm/dl Albumin 2.4 3.4-5.0 gm/dl Globulin 2.6 2.5-4.0 gm/dl Albumin/Globulin Ratio 0.9 0.9-2 Assessment & Plan IMP, SBO, resolved K is low 3.5 D/C home today, I gave pt the instruction, F/U 1 week, IMP, SBO, resolved K is low 2.9 Plan: correct low K, D/C NGT, clear diet repeat labs in AM, Will F/U possible D/c home tomorrow. I update information to pt and her .
--- NOTE | 2016-03-17 13:25 | Discharge Instructions ---
Discharge Instructions Admission Reason for Admission: SBO Discharge Discharge Diagnosis / Problem: SBO Discharge Goals Goal(s): Decrease discomfort, Improve function Activity Recommendations Activity Limitations: resume your previous activity Lifting Limitations: none Exercise/Sports Limitations: gradually increase as tolerated May Resume Sexual Activity: when tolerated Shower/Bathe: no limitations Driving or Machine Use: no limitations . Instructions / Follow-Up Instructions / Follow-Up follow up 1 week [phone] Current Hospital Diet Patient's current hospital diet: Clear Liquid Diet Discharge Diet Recommended Diet: Regular Diet Procedures Procedures Performed: none Pending Studies Studies pending at discharge: no Laboratory Results K 3.5 Medical Emergencies . Who to Call and When: Medical Emergencies: If at any time you feel your situation is an emergency, please call 911 immediately. . Non-Emergent Contact Non-Emergency issues call your: Primary Care Provider Call Non-Emergent contact if: you have a fever, temperature is above 100.5, your pain is not controlled, your pain is worsening Dr. Sommer [phone] follow up 1 week, . "Provider Documentation" section prepared by Debra Sommer. VTE Core Measure Inpt VTE Proph given/why not?: SCD's
[2016-03-17 13:35] VITALS: BP 151/83; PULSE 68; TEMP 36.8; O2SAT 96
--- NOTE | 2016-03-17 14:59 | DISCHARGE SUMMARY ---
DATE OF DISCHARGE: 03/17/2016. ADMITTING DIAGNOSIS: Small bowel obstruction. DISCHARGE DIAGNOSIS: Same. OPERATION: None. SURGEON: Dr. Debra Sommer. DETAILS OF DISCHARGE SUMMARY: This is a 75-year-old female who presented to the ER with couple day history of nausea and vomiting and abdominal pain. The patient had CT scan that shows small bowel obstruction. The patient was admitted to the hospital, given IV fluid, NPO, NG tube and later we found patient has a low potassium 2.3 so we corrected the potassium and gave IV potassium. Over 2 days the potassium go back normal 3.5. Since yesterday the patient already passed stool, passed gas. The patient started clear diet yesterday. The patient tolerated clear diet. The patient has no abdominal pain, no nausea, no vomiting. On physical exam temperature is 36.8, heart rate is 68, respiratory rate 16, blood pressure 161/83, O2 sat reaching 96% on room air. The patient is alert, awake, oriented x3, no distress. HEENT within normal limitation. Neurologic exam intact. On the neck no JVD. On chest bilateral lung sounds clear. Heart normal S1 and S2. No murmur. Abdomen is soft, no tenderness, no distention. Bowel sounds positive. Extremities no edema. The patient wanted to go home today. I gave the patient instructions at home and the patient will resume the soft diet at home then take advanced diet. We will follow up the patient in 1 week. Also instructed the patient the patient should come back to the hospital ER if patient develops severe abdominal pain, nausea, vomiting. The patient understands. The patient agreed to go home.
== END 2016-03-17 15:00 | disposition home or self-care (01) | DRG 390 ==
LOC: ENRESERVTM → ENRESERVDT → C.EDB 10:20 → C.MSW 15:41
PROVIDERS: ADMIT Surgery; ATTEND Surgery
DX: K56.60 Unspecified intestinal obstruction (principal); Z93.3 Colostomy status; E86.0 Dehydration; Z90.49 Acquired absence of other specified parts of digestive tract; Z90.710 Acquired absence of both cervix and uterus; Z80.9 Family history of malignant neoplasm, unspecified; E87.6 Hypokalemia

== ENCOUNTER → 2016-06-26 | Outpatient (CLI) | payer BC ==
[~2016-06-26] MED LIST: PRMVC EXT
== END | disposition home or self-care (01) ==
LOC: C.PAPS 14:40
PROVIDERS: ATTEND Obstetrics & Gynecology
DX: Z01.419 Encounter for gynecological examination (general) (routine) without abnormal findings (principal); Z85.42 Personal history of malignant neoplasm of other parts of uterus

== ENCOUNTER → 2016-06-29 | Outpatient (CLI) | payer BC ==
[2016-06-29 17:07] LABS: BASO % 0.3 %; BASO ABS # 0.02 K/uL (0-0.2); COMPLETE YES; EOS % 1.2 %; HEMATOCRIT 38.9 % (37-47); IG% 0.1 %; LYMPH % 12.8 %; LYMPH ABS # 0.89 K/uL (1.2-3.4); MEAN CELL VOLUME 90.7 fL (80-100); MEAN CORPUSCULAR HEMOGLOBIN 30.5 pg (25-34); MEAN CORPUSCULAR HGB CONC 33.7 g/dl (32-36); MEAN PLATELET VOLUME 10.6 fL (7.4-10.4); MONO % 8.1 %; NEUT % 77.5 %; PLATELET COUNT 273 K/uL (130-400); RED BLOOD COUNT 4.29 M/uL (4.2-5.4); WHITE BLOOD COUNT 6.95 K/uL (4.8-10.8)
[2016-06-29 17:27] LABS: ALT/SGPT 30 U/L (12-78); BLOOD UREA NITROGEN 17 mg/dl (7-18); BUN/CREATININE RATIO 22.5 (10-20); CARBON DIOXIDE 29 mmol/L (21-32); CHLORIDE 99 mmol/L (98-107); CHOLESTEROL 210 mg/dl (0-200); CREATININE 0.75 mg/dl (0.60-1.20); GLUCOSE 94 mg/dl (70-99); POTASSIUM 4.1 mmol/L (3.5-5.1); SODIUM 135 mmol/L (136-145); TRIGLYCERIDES 98 mg/dl (0-150); VERY LOW DENSITY LIPOPROT CALC 20 mg/dl
[2016-06-29 17:37] LABS: ALB/GLOB RATIO 1.3 (0.9-2); ALKALINE PHOSPHATASE 53 U/L (45-117); AST/SGOT 35 U/L (15-37); CHOLESTEROL/HDL RATIO 2.2; HDL CHOLESTEROL 95 mg/dl; LDL CHOLESTEROL CALCULATED 95 mg/dl; THYROID STIMULATING HORMONE 0.652 uIu/ml (0.300-4.500)
== END | disposition home or self-care (01) ==
LOC: C.LABBC 15:12
PROVIDERS: ATTEND Internal Medicine Geriatric Medicine
DX: M85.80 Other specified disorders of bone density and structure, unspecified site (principal); I70.0 Atherosclerosis of aorta; Z85.42 Personal history of malignant neoplasm of other parts of uterus; Z86.2 Personal history of diseases of the blood and blood-forming organs and certain disorders involving the immune mechanism

== ENCOUNTER → 2016-09-07 | Outpatient (CLI) | payer BC ==
--- NOTE | 2016-09-08 12:10 | MAMMOGRAPHY REPORT ---
BILATERAL DIGITAL SCREENING MAMMOGRAM WITH CAD: 09/07/2016 CLINICAL HISTORY: Routine screening. Patient has no complaints. TECHNIQUE: Current study was also evaluated with a Computer Aided Detection (CAD) system. Bilateral CC and MLO views were obtained. COMPARISON: Comparison is made to exams dated: 09/06/2015 mammogram, 09/02/2014 mammogram, 09/01/2013 m ammogram, 08/29/2012 mammogram, 08/29/2011 mammogram, and 08/25/2010 mammogram - [facility] enter. BREAST COMPOSITION: There are scattered areas of fibroglandular density in both breasts. FINDINGS: No suspicious masses, calcifications, or areas of architectural distortion are noted in ei ther breast. There has been no significant interval change compared to prior exams. Scattered bilater al benign-appearing calcifications are not significantly changed. Nodular asymmetry in the right sup erior breast on the MLO view is stable dating back to at least the 2006 exam. IMPRESSION: ACR BI-RADS CATEGORY 2: BENIGN There is no mammographic evidence of malignancy. A 1 year screening mammogram is recommended. The pa tient will receive written notification of the results. Approximately 10% of breast cancers are not detected with mammography. A negative mammographic report should not delay biopsy if a clinically suggestive mass is present. Cleena Brizuela M.D. /:09/07/2016 14:46:34 Blankbook Forwarder: Maxine TAM(Jennifer)(Elvi)(BD), [facility] letter sent: Normal 1/2 BI-RADS Code: ACR BI-RADS Category 2: Benign
== END | disposition home or self-care (01) ==
LOC: C.MAMM 13:13
PROVIDERS: ATTEND Obstetrics & Gynecology
DX: Z12.31 Encounter for screening mammogram for malignant neoplasm of breast (principal)

== ENCOUNTER → 2017-06-29 | Outpatient (CLI) | payer BC ==
--- NOTE | 2017-06-29 16:03 | DIAGNOSTIC IMAGING REPORT ---
L FOOT MIN 3 VIEWS ROUTINE CLINICAL HISTORY: LEFT ANKLE PAIN pain COMPARISON: None. DISCUSSION: Moderate degenerative change first metatarsophalangeal joint. Minimal degenerative change of the remaining articular services. Mild soft tissue edema. IMPRESSION: 1. Moderate degenerative change first metatarsophalangeal joint. 2. Minimal degenerative change all remaining articular services. 3. No acute process. The above report was generated using voice recognition software. It may contain grammatical, syntax or spelling errors. Electronically signed by: Dani Little M.D. 06/29/2017 4:01 PM Dictated Date/Time: 06/29/2017 4:00 PM
== END | disposition home or self-care (01) ==
LOC: C.RADBC 15:15
PROVIDERS: ATTEND Family Medicine Adult Medicine
DX: M25.572 Pain in left ankle and joints of left foot (principal)

== ENCOUNTER → 2017-07-03 | Outpatient (CLI) | payer BC ==
[2017-07-03 17:00] LABS: BASO % 0.4 %; BASO ABS # 0.03 K/uL (0-0.2); EOS ABS # 0.14 K/uL (0-0.5); HEMATOCRIT 37.4 % (37-47); HEMOGLOBIN 12.6 g/dL (12.0-16.0); IG# 0.01 K/uL (0.00-0.02); LYMPH % 12.5 %; LYMPH ABS # 0.89 K/uL (1.2-3.4); MEAN CELL VOLUME 88.4 fL (80-100); MEAN CORPUSCULAR HEMOGLOBIN 29.8 pg (25-34); MEAN CORPUSCULAR HGB CONC 33.7 g/dl (32-36); MEAN PLATELET VOLUME 9.8 fL (7.4-10.4); MONO ABS # 0.57 K/uL (0.11-0.59); NEUT ABS # 5.48 K/uL (1.4-6.5); PLATELET COUNT 307 K/uL (130-400); RED CELL DISTRIBUTION WIDTH CV 13.3 % (11.5-14.5); RED CELL DISTRIBUTION WIDTH SD 43.2 fL (36.4-46.3); WHITE BLOOD COUNT 7.12 K/uL (4.8-10.8)
[2017-07-03 17:12] LABS: ALBUMIN 3.8 gm/dl (3.4-5.0); AST/SGOT 29 U/L (15-37); BLOOD UREA NITROGEN 17 mg/dl (7-18); CALCIUM 8.6 mg/dl (8.5-10.1); CARBON DIOXIDE 28 mmol/L (21-32); CHOLESTEROL 177 mg/dl (0-200); CREATININE 0.83 mg/dl (0.60-1.20); GLUCOSE 90 mg/dl (70-99); POTASSIUM 4.1 mmol/L (3.5-5.1); SODIUM 133 mmol/L (136-145)
[2017-07-03 17:23] LABS: ALKALINE PHOSPHATASE 55 U/L (45-117); ALT/SGPT 26 U/L (12-78); LDL CHOLESTEROL CALCULATED 68 mg/dl; TOTAL PROTEIN 7.2 gm/dl (6.4-8.2)
== END | disposition home or self-care (01) ==
LOC: C.LABBC 15:12
PROVIDERS: ATTEND Internal Medicine Geriatric Medicine
DX: Z00.00 Encounter for general adult medical examination without abnormal findings (principal); M85.80 Other specified disorders of bone density and structure, unspecified site; Z85.42 Personal history of malignant neoplasm of other parts of uterus; Z86.2 Personal history of diseases of the blood and blood-forming organs and certain disorders involving the immune mechanism; I70.0 Atherosclerosis of aorta

== ENCOUNTER → 2017-10-02 | Outpatient (CLI) | payer BC | END | disposition home or self-care (01) | LOC: C.LABSPEC 17:40 | PROVIDERS: ATTEND Obstetrics & Gynecology | DX: R35.0 Frequency of micturition (principal); R39.15 Urgency of urination; M85.80 Other specified disorders of bone density and structure, unspecified site; Z93.3 Colostomy status ==

== ENCOUNTER → 2017-10-03 | Outpatient (CLI) | payer BC | END | disposition home or self-care (01) | LOC: C.PAPS 08:48 | PROVIDERS: ATTEND Obstetrics & Gynecology | DX: Z85.42 Personal history of malignant neoplasm of other parts of uterus (principal) ==

== ENCOUNTER 2018-07-08 15:51 | Inpatient (IN) ==
[2018-07-08] MEDS ORDERED: MoRPHine SULFATE 4 MG/ML 1 ML CARP\\VIAL IV STA ×2 (16:42→20:19)
[2018-07-08] MEDS ORDERED: ONDANSETRON INJ 2 MG/ML 2 ML VIAL IV STA ×2 (16:42→20:19)
[2018-07-08] MEDS ORDERED: SODIUM CHLORIDE 0.9% 1000ML 1,000 ML IV SCH (16:45)
[2018-07-08 17:30] LABS: Basophils # (auto) 0.01 K/uL (0-0.2); Basophils % (auto) 0.1 %; Hematocrit (blood only) 35.9 % (37-47); Hemoglobin 12.3 g/dL (12.0-16.0); Immature Granulocytes # (auto) 0.03 K/uL (0.00-0.02); Immature Granulocytes % (auto) 0.3 %; Lymphocytes # (auto) 0.75 K/uL (1.2-3.4); Lymphocytes % (auto) 7.3 %; Mean Corpuscular Hgb Conc 34.3 g/dL (32-36); Mean Platelet Volume 9.9 fL (7.4-10.4); Monocytes # (auto) 0.33 K/uL (0.11-0.59); Monocytes % (auto) 3.2 %; Neutrophils # (auto) 9.17 K/uL (1.4-6.5); Neutrophils % (auto) 89.1 %; Platelet Count 255 K/uL (130-400); RDW Coefficient of Variation 13.9 % (11.5-14.5); RDW Standard Deviation 45.1 fL (36.4-46.3); Red Blood Count 4.08 M/uL (4.2-5.4); White Blood Count 10.29 K/uL (4.8-10.8)
[2018-07-08 17:36] LABS: Alanine Aminotransferase 26 U/L (12-78); Albumin Level 3.4 gm/dl (3.4-5.0); Aspartate Aminotransferase 29 U/L (15-37); Blood Urea Nitrogen 22 mg/dl (7-18); Calcium 9.1 mg/dl (8.5-10.1); Carbon Dioxide 31 mmol/L (21-32); Chloride 101 mmol/L (98-107); Creatinine Clr Calc Pharmacy 28.9 ml/min; Est GFR (African American) 50.7; Est GFR (Non-African American) 43.7; Glucose 129 mg/dl (70-99); Potassium 3.4 mmol/L (3.5-5.1); Sodium 140 mmol/L (136-145)
[2018-07-08 17:41] LABS: Alkaline Phosphatase 49 U/L (45-117); Bilirubin,Total 1.3 mg/dl (0.2-1); Globulin 3.5 gm/dl (2.5-4.0); Total Protein 6.9 gm/dl (6.4-8.2); Troponin I < 0.015 ng/ml (0-0.045)
[2018-07-08 17:44] LABS: Prothrombin Time 10.3 Seconds (9.0-12.0)
[2018-07-08] MEDS ORDERED: IOVERSOL 100ml IV PRN (18:10)
--- NOTE | 2018-07-08 18:14 | XRay Report ---
KUB HISTORY: Acute generalized abdominal pain ab pain COMPARISON: CT abdomen and pelvis of same day FINDINGS: There are multiple dilated air-filled loops of small bowel noted throughout the central abd omen. No pneumatosis or pneumoperitoneum. No urolith identified. Degenerative changes of the spine, p roc and hips. IMPRESSION: Multiple air-filled dilated loops of small bowel are suspicious for small bowel obstruction. No pneum atosis or pneumoperitoneum. Electronically signed by: Nicholas Knowles M.D. 07/08/2018 6:13 PM
--- NOTE | 2018-07-08 18:31 | CT Scan Report ---
ABDOMEN AND PELVIS CT WITH IV CONTRAST CT DOSE: 241.48 mGy.cm HISTORY: Acute generalized abdominal pain with possible small bowel obstruction. History of prior lef t-sided partial colectomy with left-sided ostomy. h/o uter CA, colost, SBO TECHNIQUE: Multiaxial CT images of the abdomen and pelvis were performed following the use of intrave nous contrast. A dose lowering technique was utilized adhering to the principles of ALARA. COMPARISON STUDY: CT abdomen pelvis 04/29/2018. FINDINGS: Subsegmental bibasilar opacities suggestive of atelectasis/scarring. There is no pneumatosis or pneum operitoneum. The imaged inferior cardiac chambers are unremarkable with coronary arterial calcificati ons noted. Pancreatic duct measures in the upper limits of normal at 3 mm. The common bile duct is normal in jaziel iber. Gallbladder, liver, spleen and adrenal glands are unremarkable. Punctate calcifications noted a bout the pancreatic head. Mild bilateral hydronephrosis has decreased from comparison.] Left bilatera l urothelial enhancement is noted. Mild wall thickening about the urinary bladder. Moderate calcifica tion about the abdominal aorta without aneurysm. There is no adenopathy by CT size criteria. Patency of the hepatic and portal veins. There are multiple air and fluid-filled loops of small bowel throughout the abdomen and pelvis which measure up to 3.2 cm transversely. Moderate amount of interloop edema is noted along with trace volum e of abdominopelvic ascites. Postoperative changes from prior partial left colectomy with left lower quadrant ostomy. Stool-filled loops of distal ileum are noted. There is an apparent transition point noted within the left pelvis on image 234 series 3. No obstructing mass identified. Mild subcutaneous edema about the body wall. Degenerative changes of the spine, pelvis and hips. Unch anged mixed lucent and sclerotic changes about the left superior pubic ramus. Severe disc space narro wing at L5-S1 with spondylitic spurring. IMPRESSION: 1. High-grade small bowel obstruction with transition point noted about the left upper pelvis, likely secondary to underlying small bowel adhesions. 2. Moderate interloop edema with trace abdominopelvic ascites. No pneumatosis or pneumoperitoneum marizol ntified. 3. Postoperative changes from prior left partial colectomy with left lower quadrant ostomy. 4. Additional findings as above. Electronically signed by: Nicholas Knowles M.D. 07/08/2018 6:30 PM
--- NOTE | 2018-07-08 19:14 | Surgery Consultation ---
Date of Consultation July 08, 2018 Assessment & Plan (1) SBO (small bowel obstruction): Patient will be admitted to the hospital for medical management with NG decompression IV fluids close monitoring of her electrolytes. We will follow her closely from a surgical standpoint. With her prior history of hysterectomy, radiation, colectomy and colostomy-an operation may be quite difficult. She appears to be stable at the present time. History of Present Illness History of Present Illness Patient is a 77-year-old female admitted to the emergency room with nausea and vomiting and findings on CAT scan of small bowel obstruction. She has a prior history of multiple small bowel obstructions with resolution via nonsurgical intervention. He has a history of hysterectomy for uterine cancer with radiation back in the . He also has a history of elective me with colostomy at the [facility] in 2007. He does not complain of significant abdominal pain mostly nausea and vomiting. She has had worse pain in the past. Her white blood cell count is 10.2 her CO2 is 31. Allergies Allergy/AdvReac Type Severity Reaction Status Date / Time No Known Allergies Allergy Unverified 07/08/18 17:38 Home Medications Home Medications Medication Instructions Recorded Confirmed Type calcium citrate-vitamin D3 1 tab PO BID 02/13/18 07/08/18 History [Citracal Regular] lutein 10 mg PO QDL 02/13/18 07/08/18 History multivitamin [Multiple Vitamins] 1 tab PO QDL 02/13/18 07/08/18 History omega 7-wcg-dgy-fish oil [Fish Oil] 2,000 mg PO QDL 02/13/18 07/08/18 History amlodipine 2.5 mg PO QAM 07/08/18 07/08/18 History lisinopril 10 mg PO HS 07/08/18 07/08/18 History mirabegron [Myrbetriq] 0 mg PO QAM 07/08/18 07/08/18 History Patient History Medical History SBO (small bowel obstruction) (Acute) Hypertension Colostomy in place Uterine carcinoma Family History Other Heart attack Heart disease Liver disease Social History Preferred Language: Wolof Communication Ability: Effective Visual Impairment: No Limitations Hearing Ability: Normal Beliefs That Will Affect Care: None Current Living Situation: Spouse Feels Safe at Home: Yes Smoking Status: Never smoker Second Hand Exposure: No Hx Alcohol Use: Yes Alcohol type: beer Hx Substance Use: No Review of Systems Review of Systems: All systems reviewed & are unremarkable except as noted in HPI & below Physical Exam Physical Exam: Currently on examination her vital signs are stable her heart rate is in the 9 knees. She is awake and alert and responsive. She has dry mucous membranes. Sclera anicteric skin is without rashes neck is supple she has no respiratory difficulties. Heart shows regular rhythm. Her abdomen is mildly distended with decreased bowel sounds it is not rigid. Extremities are warm and well-perfused. Results & Data Vital Signs (Past 12 Hours) Vital Signs Temp Pulse Resp BP Pulse Ox 07/08/18 18:17 92 07/08/18 18:01 124/75 90 07/08/18 18:00 92 07/08/18 17:50 86 21 97 07/08/18 17:40 90 15 97 07/08/18 17:34 91 H 20 07/08/18 17:20 86 17 07/08/18 17:13 97 07/08/18 17:10 86 14 07/08/18 17:00 85 12 148/85 H 97 07/08/18 16:51 87 20 138/84 96 07/08/18 16:02 37.3 C 91 H 20 130/79 97 I did review the CAT scan
[2018-07-08] MEDS ORDERED: MoRPHine SULFATE 4 MG/ML 1 ML CARP\\VIAL ONE (20:21)
[2018-07-08] MEDS ORDERED: ONDANSETRON INJ 2 MG/ML 2 ML VIAL ONE (20:21)
[2018-07-08] MEDS: SODIUM CHLORIDE 0.9% 500 ML IV SCH ×2 (20:25→21:36)
[2018-07-08] MEDS ORDERED: PIPERACILL/TAZOBAC CONSULT ACTIVE PRN (20:56)
[2018-07-08] MEDS ORDERED: ONDANSETRON INJ 2 MG/ML 2 ML VIAL IV PRN ×2 (20:56)
[2018-07-08] MEDS ORDERED: ACETAMINOPHEN 1000 MG/100 ML IV IV PRN (20:56)
--- NOTE | 2018-07-08 21:02 | Emergency Department Note ---
Entered by Raoul Boykin acting as a scribe for Carlos Enrique Bentley MD History of Present Illness General Chief complaint: Constipation Stated complaint: BOWEL OBSTRUCTION Time Seen by Provider: 07/08/18 16:27 Source: patient History of Present Illness Onset (ago): day(s) (last night) Location: abdomen (left-lower) Severity: similar to prior episodes Pain Consistency: + constant Maximum Pain Intensity: 7 Associated symptoms: + other (Positive for nausea and vomiting. Negative for hematemesis. ) The patient is a 77 year old female with a PMHx of hypertension, uterine cancer, and a previous SBO who presents to the emergency department with complaints of constant left lower abdominal pain beginning last night. The patient states that her current symptoms feel like her previous SBO episodes. She also complains of nausea and vomiting x10. She denies any hematemesis. She also denies any recent travel, antibiotic use, and known sick contacts. She notes that she has not had any stream/well water recently. She reports that she has a colostomy bag and she states that it has been putting out stool. The patient states that she started taking myrbetriq a week ago. Home Medications Home Medications Medication Instructions Recorded Confirmed Type calcium citrate-vitamin D3 1 tab PO BID 02/13/18 07/08/18 History [Citracal Regular] lutein 10 mg PO QDL 02/13/18 07/08/18 History multivitamin [Multiple Vitamins] 1 tab PO QDL 02/13/18 07/08/18 History omega 8-jbr-ayx-fish oil [Fish Oil] 2,000 mg PO QDL 02/13/18 07/08/18 History amlodipine 2.5 mg PO QAM 07/08/18 07/08/18 History lisinopril 10 mg PO HS 07/08/18 07/08/18 History mirabegron [Myrbetriq] 0 mg PO QAM 07/08/18 07/08/18 History Allergies Allergy/AdvReac Type Severity Reaction Status Date / Time No Known Allergies Allergy Unverified 07/08/18 17:38 Past Med/Surg History Medical History SBO (small bowel obstruction) (Acute) Hypertension Colostomy in place Uterine carcinoma Family History Other Heart attack Heart disease Liver disease Social History Preferred Language: [place] Communication Ability: Effective Visual Impairment: No Limitations Hearing Ability: Normal 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 and A total of 10 systems reviewed and were otherwise negative Physical Exam Vital Signs Vital Signs - 24 hr 07/08/18 16:02 07/08/18 16:51 07/08/18 17:00 Temperature 37.3 C Temperature Source Oral Sepsis Recent Fever Within 48 Hours No Sepsis Action Taken by Nursing No Action Required Pulse Rate 91 H 87 85 Pulse Rate from SpO2 Sensor 88 85 Pulse Rhythm Regular Pulse Strength Normal Respiratory Rate 20 20 12 Respiratory Effort / Characteristics Non-Labored Spontaneous Respiratory Depth Normal Respiratory Pattern Regular Blood Pressure 130/79 138/84 148/85 H Blood Pressure Mean 96 102 106 Blood Pressure Position Sitting Pulse Oximetry 97 96 97 Oxygen Delivery Method Room Air 07/08/18 17:10 07/08/18 17:13 07/08/18 17:20 Temperature Temperature Source Sepsis Recent Fever Within 48 Hours Sepsis Action Taken by Nursing Pulse Rate 86 86 Pulse Rate from SpO2 Sensor Pulse Rhythm Pulse Strength Respiratory Rate 14 17 Respiratory Effort / Characteristics Respiratory Depth Respiratory Pattern Blood Pressure Blood Pressure Mean Blood Pressure Position Pulse Oximetry 97 Oxygen Delivery Method Room Air 07/08/18 17:34 07/08/18 17:40 07/08/18 17:50 Temperature Temperature Source Sepsis Recent Fever Within 48 Hours Sepsis Action Taken by Nursing Pulse Rate 91 H 90 86 Pulse Rate from SpO2 Sensor 91 H 86 Pulse Rhythm Pulse Strength Respiratory Rate 20 15 21 Respiratory Effort / Characteristics Respiratory Depth Respiratory Pattern Blood Pressure Blood Pressure Mean Blood Pressure Position Pulse Oximetry 97 97 Oxygen Delivery Method 07/08/18 18:00 07/08/18 18:01 07/08/18 18:17 Temperature Temperature Source Sepsis Recent Fever Within 48 Hours Sepsis Action Taken by Nursing Pulse Rate Pulse Rate from SpO2 Sensor 86 85 90 Pulse Rhythm Pulse Strength Respiratory Rate Respiratory Effort / Characteristics Respiratory Depth Respiratory Pattern Blood Pressure 124/75 Blood Pressure Mean 91 Blood Pressure Position Pulse Oximetry 92 90 92 Oxygen Delivery Method 07/08/18 18:20 07/08/18 18:30 07/08/18 18:40 Temperature Temperature Source Sepsis Recent Fever Within 48 Hours Sepsis Action Taken by Nursing Pulse Rate 94 H 90 Pulse Rate from SpO2 Sensor 93 H 94 H 91 H Pulse Rhythm Pulse Strength Respiratory Rate Respiratory Effort / Characteristics Respiratory Depth Respiratory Pattern Blood Pressure 138/78 Blood Pressure Mean 98 Blood Pressure Position Pulse Oximetry 91 92 95 Oxygen Delivery Method 07/08/18 18:50 07/08/18 19:00 07/08/18 19:10 Temperature Temperature Source Sepsis Recent Fever Within 48 Hours Sepsis Action Taken by Nursing Pulse Rate 93 H 86 89 Pulse Rate from SpO2 Sensor 93 H 87 89 Pulse Rhythm Pulse Strength Respiratory Rate Respiratory Effort / Characteristics Respiratory Depth Respiratory Pattern Blood Pressure 138/74 Blood Pressure Mean 95 Blood Pressure Position Pulse Oximetry 94 95 94 Oxygen Delivery Method 07/08/18 19:20 07/08/18 19:30 07/08/18 19:40 Temperature Temperature Source Sepsis Recent Fever Within 48 Hours Sepsis Action Taken by Nursing Pulse Rate 91 H 92 H Pulse Rate from SpO2 Sensor 88 91 H 93 H Pulse Rhythm Pulse Strength Respiratory Rate Respiratory Effort / Characteristics Respiratory Depth Respiratory Pattern Blood Pressure 141/78 H Blood Pressure Mean 99 Blood Pressure Position Pulse Oximetry 93 94 94 Oxygen Delivery Method 07/08/18 19:50 07/08/18 20:01 07/08/18 20:10 Temperature Temperature Source Sepsis Recent Fever Within 48 Hours Sepsis Action Taken by Nursing Pulse Rate 94 H Pulse Rate from SpO2 Sensor 92 H Pulse Rhythm Pulse Strength Respiratory Rate 20 Respiratory Effort / Characteristics Respiratory Depth Respiratory Pattern Blood Pressure 146/96 H Blood Pressure Mean 112 Blood Pressure Position Pulse Oximetry 93 Oxygen Delivery Method Room Air 07/08/18 20:33 Temperature Temperature Source Sepsis Recent Fever Within 48 Hours Sepsis Action Taken by Nursing Pulse Rate 90 Pulse Rate from SpO2 Sensor Pulse Rhythm Pulse Strength Respiratory Rate 20 Respiratory Effort / Characteristics Respiratory Depth Respiratory Pattern Blood Pressure 146/96 H Blood Pressure Mean Blood Pressure Position Pulse Oximetry 94 Oxygen Delivery Method Room Air GENERAL: Well appearing, well nourished, NAD, non-toxic, wearing glasses. EYE EXAM: Normal conjunctiva. PERRL, no anisocoria and EOM's grossly intact w/o pain. OROPHARYNX: Moist mucus membranes. Grossly normal dentition. NECK: Supple, no nuchal rigidity, no adenopathy, non-tender. no signs of meningismus. LUNGS: Clear to auscultation. Normal chest wall mechanics. HEART: NSR, no MRG. ABDOMEN: Abdomen soft, normo-active bowel sounds, no masses, no rebound or guarding, mild diffuse abdominal discomfort, colostomy in left abdomen, negative obturators and psoas. BACK: No CVA TTP. SKIN: No rashes and no bruising. UPPER EXTREMITIES: Upper extremities are grossly normal. LOWER EXTREMITIES: No pitting edema. No calf pain. NEURO EXAM: A&O x3, cranial nerves II-XII grossly intact, normal speech, moves all 4 extremities on command w/o issue. Course 1632: The patient was evaluated in room B8, and a complete history and physical examination were performed. 1839: I reevaluated and updated the patient. 1848: I discussed the patient's case [place] Dr[place] Medeiros [facility] [place] recommends medicine admit and an NG tube. 1853: I rechecked the patient. I informed her about the NG tube and she is agreeable. 2014: On reevaluation, the patient is stable. I discussed the results and findings with the patient. She verbalized agreement of the treatment plan. I spoke with Dr. Borja of the [facility] [place]. The patient will be evaluated for further management and care. Consultations Consultation #1: I discussed the patient's case with Dr. Mike Medeiros [facility] [place] recommends medicine admit and an NG tube. Time: 18:48 Consultation #2: I spoke with Dr. Borja of the [facility] [place]. The patient will be evaluated for further management and care. Time: 20:15 Administered Medications Sodium Chloride (Nss) 500 mls @ 80 mls/hr IV .[id number] [facility] Stop: 08/07/18 18:59 Last Admin: 07/08/18 20:25 Dose: 80 mls/hr Documented by: [id number] Ioversol (Optiray 320 100ml) 94 ml IV ONCE PRN PRN Reason: Interaction Checking Stop: 07/12/18 18:09 Last Admin: 07/08/18 18:11 Dose: 94 ml Documented by: [id number] Discontinued Medications Sodium Chloride (Nss 1000ml) 1,000 mls @ 999 mls/hr IV .Q1H1M [facility] Stop: 07/08/18 17:45 Last Infusion: 07/08/18 18:54 Dose: 0 mls/hr Documented by: [id number] Admin: 07/08/18 17:40 Dose: 999 mls/hr Documented by: [id number] Morphine Sulfate (Morphine Sulfate) 4 mg IV NOW STA Stop: 07/08/18 16:43 Last Admin: 07/08/18 17:39 Dose: 4 mg Documented by: [id number] Morphine Sulfate (Morphine Sulfate) 4 mg IV NOW STA Stop: 07/08/18 20:20 Last Admin: 07/08/18 20:23 Dose: 4 mg Documented by: [id number] Morphine Sulfate (Morphine Sulfate) Confirm Administered Dose 4 mg .ROUTE .STK- MED ONE Stop: 07/08/18 20:22 Last Admin: 07/08/18 20:23 Dose: Not Given Documented by: [id number] Ondansetron HCl (Zofran) 4 mg IV NOW STA Stop: 07/08/18 16:43 Last Admin: 07/08/18 17:39 Dose: 4 mg Documented by: [id number] Ondansetron HCl (Zofran) 4 mg IV NOW STA Stop: 07/08/18 20:20 Last Admin: 07/08/18 20:23 Dose: 4 mg Documented by: [id number] Ondansetron HCl (Zofran) Confirm Administered Dose 4 mg .ROUTE .STK-MED ONE Stop: 07/08/18 20:22 Last Admin: 07/08/18 20:24 Dose: Not Given Documented by: [id number] Medical Decision Making Medical Records Attestation: I reviewed the patient's medical records. Home Medications Current Medication List: was personally reviewed by me Laboratory Data Attestation: I reviewed the patient's lab results. Result diagrams: 07/08/18 17:15 07/08/18 17:09 Lab Results 07/08/18 07/08/18 07/08/18 Range/Units 17:09 17:09 17:15 WBC 10.29 (4.8-10.8) K/uL RBC 4.08 L (4.2-5.4) M/uL Hgb 12.3 (12.0-16.0) g/dL Hct 35.9 L (37-47) % MCV 88.0 (80-100) fL MCH 30.1 (25-34) pg MCHC 34.3 (32-36) g/dL RDW Std Deviation 45.1 (36.4-46.3) fL RDW Coeff of Pardeep 13.9 (11.5-14.5) % Plt Count 255 (130-400) K/uL MPV 9.9 (7.4-10.4) fL Immature Gran % (Auto) 0.3 % Neut % (Auto) 89.1 % Lymph % (Auto) 7.3 % [place] % (Auto) 3.2 % Eos % (Auto) 0.0 % Baso % (Auto) 0.1 % Immature Gran # (Auto) 0.03 H (0.00-0.02) K/uL Neut # (Auto) 9.17 H (1.4-6.5) K/uL Lymph # (Auto) 0.75 L (1.2-3.4) K/uL [place] # (Auto) 0.33 (0.11-0.59) K/uL Eos # (Auto) 0.00 (0-0.5) K/uL Baso # (Auto) 0.01 (0-0.2) K/uL PT 10.3 (9.0-12.0) Seconds INR 1.0 (0.9-1.1) Sodium 140 (136-145) mmol/L Potassium 3.4 L (3.5-5.1) mmol/L Chloride 101 (98-107) mmol/L Carbon Dioxide 31 (21-32) mmol/L Anion Gap 8.0 (3-11) BUN 22 H (7-18) mg/dl Creatinine 1.21 H (0.6-1.2) mg/dl Est Cr Clr Drug Dosing 28.9 ml/min Est GFR ( Amer) 50.7 Est GFR (Non-Af Amer) 43.7 BUN/Creatinine Ratio 18.0 (10-20) Glucose 129 H (70-99) mg/dl Calcium 9.1 (8.5-10.1) mg/dl Total Bilirubin 1.3 H (0.2-1) mg/dl AST 29 (15-37) U/L ALT 26 (12-78) U/L Alkaline Phosphatase 49 (45-117) U/L Troponin I < 0.015 (0-0.045) ng/ml Total Protein 6.9 (6.4-8.2) gm/dl Albumin 3.4 (3.4-5.0) gm/dl Globulin 3.5 (2.5-4.0) gm/dl Albumin/Globulin Ratio 1.0 (0.9-2) Lipase 111 (73-393) U/L Imaging Data Radiologist's Impression: Radiology results as stated below per my review and the radiologist's interpretation: KUB FINDINGS: There are multiple dilated air-filled loops of small bowel noted throughout the central abdomen. No pneumatosis or pneumoperitoneum. No urolith identified. Degenerative changes of the spine, pelvis and hips. IMPRESSION: Multiple air-filled dilated loops of small bowel are suspicious for small bowel obstruction. No pneumatosis or pneumoperitoneum. Electronically signed by: Nicholas Knowles M.D. 07/08/2018 6:13 [address] AND PELVIS CT WITH IV CONTRAST FINDINGS: Subsegmental bibasilar opacities suggestive of atelectasis/scarring. There is no pneumatosis or pneumoperitoneum. The imaged inferior cardiac chambers are unremarkable with coronary arterial calcifications noted. Pancreatic duct measures in the upper limits of normal at 3 mm. The common bile duct is normal in caliber. Gallbladder, liver, spleen and adrenal glands are unremarkable. Punctate calcifications noted about the pancreatic head. Mild bilateral hydronephrosis has decreased from comparison.] Left bilateral urothelial enhancement is noted. Mild wall thickening about the urinary bladder. Moderate calcification about the abdominal aorta without aneurysm. There is no adenopathy by CT size criteria. Patency of the hepatic and portal veins. There are multiple air and fluid-filled loops of small bowel throughout the abdomen and pelvis which measure up to 3.2 cm transversely. Moderate amount of interloop edema is noted along with trace volume of abdominopelvic ascites. Postoperative changes from prior partial left colectomy with left lower quadrant ostomy. Stool-filled loops of distal ileum are noted. There is an apparent transition point noted within the left pelvis on image 234 series 3. No obstructing mass identified. Mild subcutaneous edema about the body wall. Degenerative changes of the spine, pelvis and hips. Unchanged mixed lucent and sclerotic changes about the left superior pubic ramus. Severe disc space narrowing at L5-S1 with spondylitic spurring. IMPRESSION: 1. High-grade small bowel obstruction with transition point noted about the left upper pelvis, likely secondary to underlying small bowel adhesions. 2. Moderate interloop edema with trace abdominopelvic ascites. No pneumatosis or pneumoperitoneum identified. 3. Postoperative changes from prior left partial colectomy with left lower quadrant ostomy. 4. Additional findings as above. Electronically signed by: Nicholas Knowles M.D. 07/08/2018 6:30 PM ECG Data Attestation: I personally reviewed and interpreted this ECG as follows: Indication: abdominal pain Rate (beats per minute): 79 Rhythm: normal sinus Findings: no T-wave inversion Additional Comments: Normal axis, normal intervals, no ST changes. Blood Pressure Blood Pressure Findings: Normal blood pressure Blood Pressure Disposition: did not require urgent referral MDM Narrative The patient is a 77 year old female with a PMHx of hypertension, uterine cancer, and a previous SBO who presents to the emergency department with complaints of constant left lower abdominal pain beginning last night. Differential diagnosis: Etiologies such as biliary colic, cholecystitis, hepatitis, perihepatitis, pancreatitis, cardiac disease, pancreatitis, gastritis, peptic ulcer disease, appendicitis, ovarian cyst, ovarian torsion, ectopic , pelvic inflammatory disease, cystitis, diverticulitis, mesenteric ischemia, inflammatory bowel disease, ileus, bowel obstruction, aortic pathology, shingles, as well as others were considered. Patient was seen and evaluated the bedside. The patient was relating that she was having some mild diffuse abdominal discomfort and associated vomiting. Patient's believes that she has had 10 episodes of nonbloody nonbilious emesis over the last 12 to 24 hours. Patient denies any recent sick contacts, recent travel, or stream or well water tick bites. Patient never completed which is unremarkable. EKG was unremarkable. The patient had a CT scan concerning for small bowel obstruction. This was listed as high-grade. No evidence of any fluid collection. I did speak with the on- call general surgeon recommended given the high-grade nature even without vomiting should have an NG placed. This was ordered in place. I did speak the hospitalist agreed to further evaluate to the patient. Patient was admitted to the medicine service. Impression & Plan SBO (small bowel obstruction), Abdominal pain, Nausea & vomiting Discharge Plan Visit Data Chief Complaint: Constipation Stated Complaint: BOWEL OBSTRUCTION ED Provider: Carlos Enrique eBntley Discharge Problem: SBO (small bowel obstruction), Abdominal pain, Nausea & vomiting Patient Disposition: Being Evaluated by Hospitalist Discharge Instructions Interventions: ED Discharge Assessment Last Done: 07/08/18 20:33 Discharge Problem: Abdominal pain Qualifiers: Abdominal location: generalized Qualified Code(s): R10.84 - Generalized abdominal pain Nausea & vomiting Qualifiers: Vomiting type: unspecified Vomiting Intractability: non-intractable Qualified Code(s): R11.2 - Nausea with vomiting, unspecified The scribe's documentation has been prepared under my direction and personally reviewed by me in its entirety. I confirm that the note above accurately reflects all work, treatment, procedures, and medical decision making performed by me.
[2018-07-08] MEDS ORDERED: PIPERACILLIN/TAZOBACTAM 3.375 GM in DEXTROSE 5% 100 ML IV ONE (21:45)
[2018-07-08] MEDS ORDERED: ACETAMINOPHEN 65 ML IV PRN (22:00)
--- NOTE | 2018-07-08 22:02 | History & Physical Report ---
Date of Service July 08, 2018 Assessment & Plan (1) SBO (small bowel obstruction): Recurrent small bowel obstruction- Presenting with abdominal pain, nausea vomiting x10. CT suggests high-grade small bowel obstruction with transition point left upper pelvis, likely secondary to adhesions. Prior left partial colectomy. NG tube to low intermittent suction. N.p.o. NSS + KCl 20 mEq at 100 mils per hour. Zofran 4 mg IV every 6 hours as needed. Famotidine 20 mg IV every 12 hours. Zosyn 3.375 mg IV every [address] Mejia Mckeon has already seen the patient in the ED. Present on Admission?: Yes (2) Nausea & vomiting: See above Present on Admission?: Yes (3) Abdominal pain: See above Present on Admission?: Yes (4) Colostomy in place: Ostomy output appears to be normal. Present on Admission?: Yes (5) Hypertension: Hold amlodipine and lisinopril. Hydralazine 10 mg IV every 4 hours as needed systolic blood pressure above 160. Present on Admission?: Yes (6) Urinary retention: CT notes decreasing mild bilateral hydronephrosis and urothelial enhancement. Patient reports following with Dr. Gabriel in the outpatient setting, who is aware of these findings. Holding Myrbetriq while n.p.o. Monitor urinary output Present on Admission?: Yes (7) Uterine carcinoma: Noted. Not active Present on Admission?: Yes History of Present Illness And vomiting son which patch Chief Complaint: The patient presents to the emergency department with report of the acute onset of abdominal discomfort, nausea and vomiting at 11:30 the previous night. Primary Care Provider: Merrill Aleman MD The patient is a 77-year-old female with a past medical history including prior small bowel obstructions, left partial colectomy, and left lower quadrant ostomy, who presents to the emergency department with similar symptoms as in the past suggesting SBO with acute onset of left sided upper abdominal discomfort, nausea and vomiting x10. She has not had any recent changes in dietary habits to either liquids or solids. She has not had any recent travels or sick exposures. Allergies Allergy/AdvReac Type Severity Reaction Status Date / Time No Known Allergies Allergy Unverified 07/08/18 17:38 Home Medications Home Medications Medication Instructions Recorded Confirmed Type calcium citrate-vitamin D3 1 tab PO BID 02/13/18 07/08/18 History [Citracal Regular] lutein 10 mg PO QDL 02/13/18 07/08/18 History multivitamin [Multiple Vitamins] 1 tab PO QDL 02/13/18 07/08/18 History omega 1-nvp-cto-fish oil [Fish Oil] 2,000 mg PO QDL 02/13/18 07/08/18 History amlodipine 2.5 mg PO QAM 07/08/18 07/08/18 History lisinopril 10 mg PO HS 07/08/18 07/08/18 History mirabegron [Myrbetriq] 0 mg PO QAM 07/08/18 07/08/18 History Past Med/Surg History Medical History SBO (small bowel obstruction) (Acute) Hypertension Colostomy in place Uterine carcinoma Family History Other Heart attack Heart disease Liver disease Social History Preferred Language: Angolan Communication Ability: Effective Visual Impairment: No Limitations Hearing Ability: Normal Bsw Required: No Beliefs That Will Affect Care: Yazidism Yazidism Beliefs: Synagogue Current Living Situation: Spouse Other Information That Helps Us Care for You: No Feels Safe at Home: Yes Safety Concerns: Feels Safe At This Time Smoking Status: Never smoker Do You Dip or Chew Tobacco: No Second Hand Exposure: No Hx Alcohol Use: No Hx Substance Use: No Review of Systems Review of Systems: The patient denies chest pain, palpitations, shortness of breath, dyspnea on exertion, cough, lower extremity swelling, sore throat, fevers, chills, sweats, diarrhea , constipation, change in her usual ostomy output, Blood in urine or stool, dysuria, urinary frequency or urgency, lightheadedness, dizziness, headache, memory loss, loss of consciousness, rash, abnormal bruising or bleeding, imbalance, focal or generalized weakness, numbness or tingling in arms or legs, generalized arthralgias or myalgias, back or neck pain, or night sweats. The review of systems is otherwise negative other than for that already noted above, and at least 10 systems have been reviewed. Physical Exam Physical Exam: The patient is awake, alert and oriented 3, normocephalic and atraumatic, lying in bed and in no acute distress. HEENT--PERRL, EOMI, mucous membranes and oropharynx dry. Neck--supple. No JVD. No bruits. Thyroid normal, trachea midline, no adenopathy. Heart--normal S1 and S2. No murmurs, rubs or gallops. Lungs--clear bilaterally, no respiratory distress, no accessory muscle use. Abdomen--decreased bowel sounds, soft. Epigastric and left upper quadrant tenderness . Nondistended. Ostomy output noted. Extremities--no cyanosis or clubbing. No edema. There are good distal pulses b/l. Dermatologic--normal skin turgor, normal color, no abnormal lymph nodes, no rash. Neurologic--cranial nerves II through XII grossly intact. Rheumatologic--normal range of motion. Psychiatric--normal affect. Results & Data Vital Signs (Past 12 Hours) Vital Signs Temp Pulse Pulse Resp BP BP Pulse Ox 07/08/18 21:26 98.1 F 82 12 130/79 95 07/08/18 20:33 90 20 146/96 H 94 07/08/18 20:01 146/96 H 93 07/08/18 19:50 94 H 20 07/08/18 19:40 92 H 94 07/08/18 19:30 91 H 141/78 H 94 07/08/18 19:20 93 07/08/18 19:10 89 94 07/08/18 19:00 86 138/74 95 07/08/18 18:50 93 H 94 07/08/18 18:40 90 95 07/08/18 18:30 94 H 138/78 92 07/08/18 18:20 91 07/08/18 18:17 92 07/08/18 18:01 124/75 90 07/08/18 18:00 92 07/08/18 17:50 86 21 97 07/08/18 17:40 90 15 97 07/08/18 17:34 91 H 20 07/08/18 17:20 86 17 07/08/18 17:13 97 07/08/18 17:10 86 14 07/08/18 17:00 85 12 148/85 H 97 07/08/18 16:51 87 20 138/84 96 07/08/18 16:02 99.1 F 91 H 20 130/79 97 Laboratory Results Laboratory Results WBC 10.29 K/uL (4.8-10.8) 07/08/18 17:15 RBC 4.08 M/uL (4.2-5.4) L 07/08/18 17:15 Hgb 12.3 g/dL (12.0-16.0) 07/08/18 17:15 Hct 35.9 % (37-47) L 07/08/18 17:15 MCV 88.0 fL (80-100) 07/08/18 17:15 MCH 30.1 pg (25-34) 07/08/18 17:15 MCHC 34.3 g/dL (32-36) 07/08/18 17:15 RDW Std Deviation 45.1 fL (36.4-46.3) 07/08/18 17:15 RDW Coeff of Pardeep 13.9 % (11.5-14.5) 07/08/18 17:15 Plt Count 255 K/uL (130-400) 07/08/18 17:15 MPV 9.9 fL (7.4-10.4) 07/08/18 17:15 Immature Gran % (Auto) 0.3 % 07/08/18 17:15 Neut % (Auto) 89.1 % 07/08/18 17:15 Lymph % (Auto) 7.3 % 07/08/18 17:15 [place] % (Auto) 3.2 % 07/08/18 17:15 Eos % (Auto) 0.0 % 07/08/18 17:15 Baso % (Auto) 0.1 % 07/08/18 17:15 Immature Gran # (Auto) 0.03 K/uL (0.00-0.02) H 07/08/18 17:15 Neut # (Auto) 9.17 K/uL (1.4-6.5) H 07/08/18 17:15 Lymph # (Auto) 0.75 K/uL (1.2-3.4) L 07/08/18 17:15 [place] # (Auto) 0.33 K/uL (0.11-0.59) 07/08/18 17:15 Eos # (Auto) 0.00 K/uL (0-0.5) 07/08/18 17:15 Baso # (Auto) 0.01 K/uL (0-0.2) 07/08/18 17:15 PT 10.3 Seconds (9.0-12.0) 07/08/18 17:09 INR 1.0 (0.9-1.1) 07/08/18 17:09 Sodium 140 mmol/L (136-145) 07/08/18 17:09 Potassium 3.4 mmol/L (3.5-5.1) L 07/08/18 17:09 Chloride 101 mmol/L (98-107) 07/08/18 17:09 Carbon Dioxide 31 mmol/L (21-32) 07/08/18 17:09 Anion Gap 8.0 (3-11) 07/08/18 17:09 BUN 22 mg/dl (7-18) H 07/08/18 17:09 Creatinine 1.21 mg/dl (0.6-1.2) H 07/08/18 17:09 Est Cr Clr Drug Dosing 28.9 ml/min 07/08/18 17:09 Est GFR ( Amer) 50.7 07/08/18 17:09 Est GFR (Non-Af Amer) 43.7 07/08/18 17:09 BUN/Creatinine Ratio 18.0 (10-20) 07/08/18 17:09 Glucose 129 mg/dl (70-99) H 07/08/18 17:09 Calcium 9.1 mg/dl (8.5-10.1) 07/08/18 17:09 Total Bilirubin 1.3 mg/dl (0.2-1) H 07/08/18 17:09 AST 29 U/L (15-37) 07/08/18 17:09 ALT 26 U/L (12-78) 07/08/18 17:09 Alkaline Phosphatase 49 U/L (45-117) 07/08/18 17:09 Troponin I < 0.015 ng/ml (0-0.045) 07/08/18 17:09 Total Protein 6.9 gm/dl (6.4-8.2) 07/08/18 17:09 Albumin 3.4 gm/dl (3.4-5.0) 07/08/18 17:09 Globulin 3.5 gm/dl (2.5-4.0) 07/08/18 17:09 Albumin/Globulin Ratio 1.0 (0.9-2) 07/08/18 17:09 Lipase 111 U/L (73-393) 07/08/18 17:09 Diagnostic Findings [place], [place] [phone] CT Scan Report Patient: SHIVA GUO Date: 07/08/18 MR#: [id number]: [address] [facility] Acct ID:[id number]: [facility] Zip[facility] [place] [address] Age: 77Location: ED Sex: F Room/Bed: Att Phy: Diagnosis: BOWEL OBSTRUCTION Khushi Phy: Casey Aleman, MDService Date: 07/08/18 Fam Phy: Interpreting Phy: Devendra Knowles Admit Phy: Ordering Phy: Carlos Enrique Bentley M.D. cc: ~ ABDOMEN AND PELVIS CT WITH IV CONTRAST CT DOSE: 241.48 mGy.cm HISTORY: Acute generalized abdominal pain with possible small bowel obstruction. History of prior left-sided partial colectomy with left-sided ostomy. h/o uter CA, colost, SBO TECHNIQUE: Multiaxial CT images of the abdomen and pelvis were performed following the use of intravenous contrast. A dose lowering technique was utilized adhering to the principles of ALARA. COMPARISON STUDY: CT abdomen pelvis 04/29/2018. FINDINGS: Subsegmental bibasilar opacities suggestive of atelectasis/scarring. There is no pneumatosis or pneumoperitoneum. The imaged inferior cardiac chambers are unremarkable with coronary arterial calcifications noted. Pancreatic duct measures in the upper limits of normal at 3 mm. The common bile duct is normal in caliber. Gallbladder, liver, spleen and adrenal glands are unremarkable. Punctate calcifications noted about the pancreatic head. Mild bilateral hydronephrosis has decreased from comparison.] Left bilateral urothelial enhancement is noted. Mild wall thickening about the urinary bladder. Moderate calcification about the abdominal aorta without aneurysm. There is no adenopathy by CT size criteria. Patency of the hepatic and portal veins. There are multiple air and fluid-filled loops of small bowel throughout the abdomen and pelvis which measure up to 3.2 cm transversely. Moderate amount of interloop edema is noted along with trace volume of abdominopelvic ascites. Postoperative changes from prior partial left colectomy with left lower quadrant ostomy. Stool-filled loops of distal ileum are noted. There is an apparent transition point noted within the left pelvis on image 234 series 3. No obstructing mass identified. Mild subcutaneous edema about the body wall. Degenerative changes of the spine, pelvis and hips. Unchanged mixed lucent and sclerotic changes about the left superior pubic ramus. Severe disc space narrowing at L5-S1 with spondylitic spurring. IMPRESSION: 1. High-grade small bowel obstruction with transition point noted about the left upper pelvis, likely secondary to underlying small bowel adhesions. 2. Moderate interloop edema with trace abdominopelvic ascites. No pneumatosis or pneumoperitoneum identified. 3. Postoperative changes from prior left partial colectomy with left lower quadrant ostomy. 4. Additional findings as above. Electronically signed by: Nicholas Knowles M.D. 07/08/2018 6:30 PM Dictated: 07/08/181817 Transcribed: 07/08/181817 [place], [place] [phone] XRay Report Patient: SHIVA GUO Date: 07/08/18 MR#: [id number]: [facility] Acct ID:[id number]: [facility] Zip: [place] [address] Age: 77Location: ED Sex: F Room/Bed: Att Phy: Diagnosis: BOWEL OBSTRUCTION Khushi Phy: Casey Aleman, BHARATervice Date: 07/08/18 Fam Phy: Interpreting Phy: Devendra Knowles Admit Phy: Ordering Phy: Carlos Enrique Bentley M.D. cc: ~ KUB HISTORY: Acute generalized abdominal pain ab pain COMPARISON: CT abdomen and pelvis of same day FINDINGS: There are multiple dilated air-filled loops of small bowel noted throughout the central abdomen. No pneumatosis or pneumoperitoneum. No urolith identified. Degenerative changes of the spine, pelvis and hips. IMPRESSION: Multiple air-filled dilated loops of small bowel are suspicious for small bowel obstruction. No pneumatosis or pneumoperitoneum. Electronically signed by: Nicholas Knowles M.D. 07/08/2018 6:13 PM Dictated: 07/08/181811 Transcribed: 07/08/181811 Code Status & VTE Plan Code Status Full code VTE Prophylaxis Plan VTE Prophylaxis will be ordered: Yes (1) Nausea & vomiting Vomiting Intractability: non-intractable Vomiting type: unspecified Qualified Code(s): R11.2 - Nausea with vomiting, unspecified (2) Abdominal pain Abdominal location: generalized Qualified Code(s): R10.84 - Generalized abdominal pain
[2018-07-08] MEDS: NSS + 20MEQ KCL 20 MEQ/1,000 ML BAG IV SCH (22:06)
[2018-07-08] MEDS ORDERED: HydrALAZINE HCL 20 MG/ML VIAL IV PRN (22:29)
[2018-07-08] MEDS ORDERED: FAMOTIDINE 20 MG in DEXTROSE 5% 100 ML IV SCH (22:30)
--- OUTSIDE RECORDS SUMMARY | 2018-07-08 23:37 | External Medical Summary | Continuity of Care Document ---
:1940 Author Name Tawanda Sánchez, Provider Address Unavailable Unavailable , Care Team Providers Name Role Phone Pricila Dodd PA-C Unavailable [email or web address] Nery Sánchez, Chris Unavailable [email or web address] Unavailable [email or web address] M.[email or web address]. 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) Anemia, unspecified type (285.9) (D64.9) Hydronephrosis (591) (N13.30) Hematuria, microscopic (599.72) (R31.29) History of endometrial cancer (V10.42) (Z85.42) Status: Resolved Colostomy in place (V44.3) (Z93.3) Hospital discharge follow-up (V67.59) (Z09) Urinary urgency (788.63) (R39.15) Urinary frequency (788.41) (R35.0) Osteopenia (733.90) (M85.80) Pain in joint of left ankle or foot (719.47) (M25.572) Aortic atherosclerosis (440.0) (I70.0) History of adenomatous polyp of colon (V12.72) (Z86.010) Status: Resolved Rhinorrhea (478.19) (J34.89) Urinary tract infection (599.0) (N39.0) Allergies and Adverse Reactions No Known Drug Allergies (Allergy) Medications Shingrix 50 MCG Intramuscular Suspension Reconstituted; INJECT 0.5 ML Intramuscular JOSE Dodd Start: 08-Feb-2018 Quantity: 0.5 Refills: 0 Premarin 0.625 MG/GM Vaginal Cream; 1/4 applicatorful vaginally twice a week. Princess Ventura Obudlia BolesStiven Start: 15-Feb-2011 Quantity: 3 30 GM Tube Refills: 3 Multiple Vitamins Oral Tablet; TAKE 1 TABLET DAILY. Refills: 0 [place] Calcium/Vitamin D 200-250 MG-UNIT Oral Tablet; 2 tabs daily Refills: 0 Lee 3 CAPS; pt takes 1150 mg qd Refills: 0 Lisinopril 10 MG Oral Tablet; TAKE 1 TABLET BY MOUTH E VERY DAY DIRECTED MARY ELLEN Hendrickson Start: 09-Jun-2018 Quantity: 30 Refills: 0 Myrbetriq 25 MG Oral Tablet Extended Release 24 Hour; Take 1 tablet daily Princess Gabriel Start: 17-Jun-2018 Quantity: 30 Refills: 11 amLODIPine Besylate 2.5 MG Oral Tablet; TAKE 1 TABLET BY MOUTH EVERY DAY MARY ELLEN Hendrickson Start: 13-May-2018 Quantity: 30 Refills: 3 Procedures NM Renal Scan Diuretic - MAG3 Date: 12-Jun-2018 History of Total Abdominal Hysterectomy With Status: Completed Removal Of Both Ovaries History of Partial Colectomy - Sigmoid S tatus: Completed History of Tonsillectomy Status: Complet ed History of Complete Colonoscopy Status: Completed Immunizations Td On: 14-Oct-2009 Family History Unknown Family Member Family history of Father At Age ___ Status: Active Comments: Family History Family history of Mother At Age ___ Status: Active Comments: Family History Father Family history of Alcohol Abuse Status: Active Mother Family history of Heart Disease (V17.49) Status: Active natural daughter Family history of Systemic Lupus Erythematosus Status: Activ e Social History - Smoking Status Never smoker Plan of Treatment Planned Encounters Appointment; Chris Gabriel M.D. Start: 16-Dec-2018 1 4:00 Request Planned Observations Planned Goals not documented Results NM Renal Scan Diuretic - MAG3 Laboratory: [facility] [place] Diagnostic I aden [place] 13-Jun-2018 15:25 RENAL SCAN DIURETIC (MAG 3) [facility], [place] [phone] Nuclea r Medicine Report Patient: SHIVA GUO Admit Date: 06/28 MR#: [id number] Address1: [address] [place] [address] Acct ID:[id number] Add ress2: Date: [address] [facility] Zip: [place] [address] Age: 77 Location: CT Sex: F Room/Bed: Att Phy: Sharif Gabriel MD Diagnos is: HYDRONEPHROSIS Khushi Phy: Casey Aleman MD Service Date : 06/13/18 Fam Phy: Obdulia Ventura MD Interpret ing Phy: Cristiano Jordan Admit Phy: Ordering Phy: Chris Gabriel MD cc: NM renal scan diuretic MAG 3 CLINICAL HISTORY: Hydronephrosis. COMPARISON STUDY: CT of the abdomen and pelvis April 29, 2018. TECHNIQUE : 8.2 mCi of technetium 99m MAG3 was injected IV at 2:12 PM on June 13, 2018. Flow images in the posterior projection were immediately ob tained following injection. Split function was assessed. 20 mg of Lasix was administere d IV at 2:36 PM. Flow and function curves wer e obtained. FINDINGS: Flow to both ki dneys was preserved. There was slight delay in flow to the left kidney. Split function was 4 9% left kidney and 51% right kidney. Delaye d excretion of radiotracer from the right kidney was noted. No significant excretion from the right kidney was noted following Lasix administration initially. Eventually, excretion into the right ureter was note d. There was delayed excretion of radiotrac er from the left kidney. Partial response following Lasix administration was noted . Time to maximum for the left kidney was 21 mi nutes. Time to maximum for the right kidney was 45 minutes. IMPRESSION: 1. Spli t function 49% left kidney and 51% right k idney. 2. Abnormal radiotracer accumulatio n within the right collecting system with mild response to Lasix. This favors a partial ly obstructed system. 3. Abnormal radiotracer cannulation within the left collecting system with partial response to Lasix. This favors a patulous collecting system without significant obstruction. Electronically signed by: Cristiano Rosales M.D. 06/13/2018 3:33 PM Dictated: 06/13/18 1525 Transcribe d: 06/13/18 1525 In-House UA (Urology) (Pending) Laboratory: In House 17-Jun-2018 13:36 VOID, CC, CATH CC Turbid, Clear, Hazy Clear Gluc 0 Prot 0 Nitrate 0 Leuk 0 Blood 0 pH 7.0 X-ray 1 view Abdomen (KUB) (Pending) Laboratory: [facility] [place] Diagnostic Imaging [facility] 08-Jul-2018 18:12 KUB [facility] [place] [phone] XRay Report Patient: SHIVA GUO Admit Date: MR#: [id number] Address1: [address] [place] [address] Acct ID:[id number] Add ress2: Date: [address] [place] [address] Zip: [facility] [address] [address] Age: 77 Location: ED Sex: F Room/Bed: Att Phy: Diagnosis: BOWEL OBSTRUCTION Khushi Phy: Casey Aleman MD Service Date : 07/08/18 Fam Phy: Interpreting Phy: Devendra Mora her Admit Phy: Ordering Phy: Carlos Enrique Bentley M.D. c c: KUB HISTORY: Acute generalized abdominal pain ab pain COMPARISON: CT abdomen and pelvis of same day FIND INGS: There are multiple dilated air-filled lo ops of small bowel noted throughout the central abdomen. No pneumatosis or pneumoperiton eum. No urolith identified. Degenerative alvares ges of the spine, pelvis and hips. IMPRESS ION: Multiple air-filled dilated loops of s mall bowel are suspicious for small bowel obstruction. No pneumatosis or pneumoperitoneum. Electronica lly signed by: Nicholas Knowles M.D. 07/08 6:13 PM Dictated: 07/08/181811 Transcribed: 07/08/181811 CT abd pelvis IV con only (Pending) Laboratory: [facility] [place] Diagnostic Imaging [facility] 08-Jul-2018 18:18 CT abd pelvis IV con only [facility] [place] [phone] C T Scan Report Patient: ROSLYN GUO Admit Date: MR#: [id number] Address1: [address] [place] [address] A cct ID:[id number] Address2: Date: [address] Zip: [facility] [place] [address] Age: 77 Location: ED Sex: F Room/Bed: Att Phy: Diagnosis: BOWEL OBSTRUCTION Khushi Phy: Casey Aleman MD Service Date : 07/08/18 [facility] Phy: Interpreting Phy: Devendra Mora her Admit Phy: Ordering Phy: Carlos Enrique Bentley M.D. c c: ABDOMEN AND PELVIS CT WITH IV CONTR AST CT DOSE: 241.48 mGy.cm HISTORY: A cute generalized abdominal pain with possible small bowel obstruction. History of prior left -sided partial colectomy with left-sided ostomy . h/o uter CA, colost, SBO TECHNIQUE: Multiaxial CT images of the abdomen and pelvis were performed following the use of intravenous contrast. A dose lowering technique was utilized adhering to the principles of ALARA. COMPARISON FRANKY DY: CT abdomen pelvis 04/29/2018. FINDINGS: Subsegmental bibasilar opacities suggest bryce of atelectasis/scarring. There is no pneuma tosis or pneumoperitoneum. The imaged inferior cardiac chambers are unremarkable with coronary arterial calcifications noted. Pancreatic duct measures in the upper li mits of normal at 3 mm. The common bile duct is normal in caliber. Gallbladder, liver, s pleen and adrenal glands are unremarkable. Pun ctate calcifications noted about the pancreati c head. Mild bilateral hydronephrosis has decreased from comparison.] Left bilater al urothelial enhancement is noted. Mild wa ll thickening about the urinary bladder. Mo derate calcification about the abdominal aorta without aneurysm. There is no adenopathy by CT size criteria. Patency of the hepatic an d portal veins. There are multiple ai r and fluid-filled loops of small bowel throug hout the abdomen and pelvis which measure up to 3.2 cm transversely. Moderate amount of inte rloop edema is noted along with trace volume o f abdominopelvic ascites. Postoperative ch anges from prior partial left colectomy withle ft lower quadrant ostomy. Stool-filled loop s of distal ileum are noted. There is an appa rent transition point noted within the left p roc on image 234 series 3. No obstructing ma ss identified. Mild subcutaneous edema about the body wall. Degenerative changes of t he spine, pelvis and hips. Unchanged mixed lucent and sclerotic changes about the left sup erior pubic ramus. Severe disc space narrowing at L5-S1 with spondylitic spurring. IMPRESSION: 1. High-grade small jayden wel obstruction with transition point noted about the left upper pelvis, likely secondary to underlying small bowel adhesions. 2. Moderate interloop edema with trace abdominopelvic ascites. No pneumatosis o r pneumoperitoneum identified. 3. Postoperative changes from prior left pa rtial colectomy with left lower quadrant ostom y. 4. Additional findings as above. Electronically signed by: Nicholas garcia M.D. 07/08/2018 6:30 PM Dictat ed: 07/08/181817 Transcribed: 1817 Encounters Appointment; Chris Gabriel M.D. 17-Jun-2018 13:10 Encounter Diagnosis: Problem not documented Appointment; Nurse Amalia 09-Apr-2018 7:30 Encounter Diagnosis: Problem not documented Appointment; Elizabeth Hendrickson CRNP 27-Mar-2018 13:30 Encounter Diagnosis: Problem not documented Appointment; Chris Gabriel M.D. 08-Mar-2018 13:20 Encounter Diagnosis: Problem not documented Appointment; Chris Hendrickson M.D. 27-Feb-2018 10:30 Encounter Diagnosis: Problem not documented Appointment; Pricila Dodd PA-C 08-Feb-2018 14:00 Encounter Diagnosis: Problem not documented Appointment; Obdulia Ventura M.D. 02-Oct-2017 14:40 Encounter Diagnosis: Problem not documented Appointment; Chris Hendrickson M.D. 02-Jul-2017 14:00 Encounter Diagnosis: Problem not documented Appointment; Silva Wick M.D. 29-Jun-2017 14:45 Encounter Diagnosis: Problem not documented Appointment; Chris Gabriel M.D. 16-Dec-2018 14:00 Encounter Diagnosis: Problem not documented
[2018-07-08 23:50] LABS: Appearance Urine Clear (Clear); Bacteria Urine Automated Negative (Negative); Bilirubin Urine Negative (Negative); Blood Urine Negative (Negative); Color Urine Yellow; Epithelial Cell Urine Auto >30 /lpf (0-5); Glucose Urine UA Negative (Negative); Ketones Urine Trace (Negative); Leukocyte Esterase Urine Trace (Negative); Nitrite Urine Negative (Negative); Protein Urine Negative (Negative); RBC Urine Automated 0-4 /hpf (0-4); Specific Gravity Urine > 1.045 (1.000-1.030); Urobilinogen Urine Negative (Negative)
[2018-07-09] MEDS: FAMOTIDINE 20 MG in SYRINGE 3 ML IV SCH ×2 (00:32→13:08)
[2018-07-09] MEDS: HEPARIN SOD 5,000 UNIT/0.5 ML VIAL SQ SCH ×4 (00:38→21:23)
[2018-07-09] MEDS: PIPERACILLIN/TAZOBACTAM 3.375 GM in DEXTROSE 5% 100 ML IV SCH ×3 (04:28→20:43)
[2018-07-09 06:12] LABS: Basophils # (auto) 0.01 K/uL (0-0.2); Basophils % (auto) 0.2 %; Eosinophils # (auto) 0.11 K/uL (0-0.5); Hemoglobin 10.3 g/dL (12.0-16.0); Immature Granulocytes # (auto) 0.01 K/uL (0.00-0.02); Immature Granulocytes % (auto) 0.2 %; Lymphocytes # (auto) 0.63 K/uL (1.2-3.4); Lymphocytes % (auto) 11.2 %; Mean Corpuscular Hgb Conc 33.2 g/dL (32-36); Mean Corpuscular Volume 89.3 fL (80-100); Mean Platelet Volume 10.1 fL (7.4-10.4); Monocytes % (auto) 12.4 %; Neutrophils # (auto) 4.17 K/uL (1.4-6.5); Platelet Count 210 K/uL (130-400); RDW Coefficient of Variation 14.1 % (11.5-14.5); RDW Standard Deviation 46.4 fL (36.4-46.3); Red Blood Count 3.47 M/uL (4.2-5.4); White Blood Count 5.63 K/uL (4.8-10.8)
[2018-07-09 06:33] LABS: Partial Thromboplastin Ratio 0.9; Partial Thromboplastin Time 25.2 Seconds (21.0-31.0); Prothrombin Time 10.7 Seconds (9.0-12.0)
[2018-07-09 06:45] LABS: Albumin Globulin Ratio 0.9 (0.9-2); Albumin Level 2.6 gm/dl (3.4-5.0); BUN Creatinine Ratio 18.6 (10-20); Bilirubin,Total 1.4 mg/dl (0.2-1); Calcium 8.1 mg/dl (8.5-10.1); Creatinine Clr Calc Pharmacy 32.6 ml/min; Est GFR (African American) 58.8; Est GFR (Non-African American) 50.7; Globulin 3.1 gm/dl (2.5-4.0); Potassium 3.9 mmol/L (3.5-5.1); Total Protein 5.7 gm/dl (6.4-8.2)
[2018-07-09] MEDS: NSS + 20MEQ KCL 20 MEQ/1,000 ML BAG IV SCH ×2 (08:25→18:24)
--- NOTE | 2018-07-09 09:18 | Surgery Progress Note ---
Date of Service July 09, 2018 Assessment & Plan (1) SBO (small bowel obstruction): exam benign, awaiting ostomy output can have ice chips cont NG, consider clamping soon Subjective no complaints, no air in pouch but usually doesn't have much, no stool since Sunday Physical Exam Gastrointestinal (Abdomen): Inspection/Auscultation: abdomen not distended Percussion/Palpation: abdomen soft; abdomen nontender NG secure at 55 cm only 15 cc out overnight, flushes easily Results & Data Vital Signs (Past 12 Hours) Vital Signs Temp Pulse Pulse Resp BP Pulse Ox 07/09/18 07:10 36.9 C 70 16 128/66 94 07/08/18 23:10 37.1 C 74 16 118/65 93 07/08/18 21:26 36.7 C 82 12 130/79 95
[2018-07-09] MEDS: SODIUM CHLORIDE 0.9% 500 ML IV SCH (10:42)
--- NOTE | 2018-07-09 12:54 | Hospitalist Progress Note ---
Date of Service July 09, 2018 Assessment & Plan (1) SBO (small bowel obstruction): Recurrent small bowel obstruction- Presenting with abdominal pain, nausea vomiting x10. CT suggests high-grade small bowel obstruction with transition point left upper pelvis, likely secondary to adhesions. Prior left partial colectomy. NG tube to low intermittent suction. NPO but will allow ice chips today continue NSS + KCl 20 mEq at 100 mils per hour. Zofran 4 mg IV every 6 hours as needed. Famotidine 20 mg IV every 12 hours. Zosyn 3.375 mg IV every 8 hours. 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 Hydralazine 10 mg IV every 4 hours as needed systolic blood pressure above 160. (6) Urinary retention: CT notes decreasing mild bilateral hydronephrosis and urothelial enhancement. Patient reports following with Dr. Gabriel in the outpatient setting, who is aware of these findings. Holding Myrbetriq while n.p.o. Monitor urinary output (7) Uterine carcinoma: Noted. Not active Subjective patient feeling a little better today, nausea is controlled with the NGT no gas or liquids in ostomy appreciate surgery note, will allow some ice chips discussed ambulating in hallway with patient, she agrees discussed care plan with RN reviewed labs, electrolytes stable Review of Systems Review of Systems: All systems reviewed & are unremarkable except as noted in HPI & below Gastrointestinal: + constipation (and obstipation, nothing in ostomy bag); no abdominal pain, no nausea and no vomiting Physical Exam Constitutional: WD/WN, vitals as above Eyes: PERRL, conjunctivae normal, anicteric sclerae ENMT: external ear and nose normal, oropharynx normal Neck: trachea midline, no thyromegaly Respiratory: normal respiratory effort, lungs clear to auscultation Cardiovascular: RRR, no murmur, no edema Gastrointestinal (Abdomen): Inspection/Auscultation: abdomen normal to inspection; abdomen not distended and + abnormal bowel sounds (slightly hypoactive) Percussion/Palpation: abdomen soft; abdomen nontender, no abdominal mass and no ascites Musculoskeletal: no cyanosis or clubbing, extremities motor strength 5/5 Skin: no rashes, warm and dry Neurologic: patellar DTR's 2+ bilat, sensation intact and PERRL, EOMI, accommodation nl, no face palsy, no dysarthria Psychiatric: A+Ox3, euthymic affect Lymphatic: no cervical or axillary lymphadenopathy Results & Data Vital Signs (Past 12 Hours) Vital Signs Temp Pulse Resp BP Pulse Ox 07/09/18 07:10 36.9 C 70 16 128/66 94 Laboratory Results Laboratory Results - last 24 hr 07/08/18 07/08/18 07/08/18 17:09 17:09 17:15 WBC 10.29 RBC 4.08 L Hgb 12.3 Hct 35.9 L MCV 88.0 MCH 30.1 MCHC 34.3 RDW Std Deviation 45.1 RDW Coeff of Pardeep 13.9 Plt Count 255 MPV 9.9 Immature Gran % (Auto) 0.3 Neut % (Auto) 89.1 Lymph % (Auto) 7.3 [place] % (Auto) 3.2 Eos % (Auto) 0.0 Baso % (Auto) 0.1 Immature Gran # (Auto) 0.03 H Neut # (Auto) 9.17 H Lymph # (Auto) 0.75 L [place] # (Auto) 0.33 Eos # (Auto) 0.00 Baso # (Auto) 0.01 PT 10.3 INR 1.0 APTT PTT Ratio Sodium 140 Potassium 3.4 L Chloride 101 Carbon Dioxide 31 Anion Gap 8.0 BUN 22 H Creatinine 1.21 H Est Cr Clr Drug Dosing 28.9 Est GFR ( Amer) 50.7 Est GFR (Non-Af Amer) 43.7 BUN/Creatinine Ratio 18.0 Glucose 129 H Calcium 9.1 Total Bilirubin 1.3 H AST 29 ALT 26 Alkaline Phosphatase 49 Troponin I < 0.015 Total Protein 6.9 Albumin 3.4 Globulin 3.5 Albumin/Globulin Ratio 1.0 Lipase 111 Specimen Hemolysis Urine Color Urine Appearance Urine pH Ur Specific [place] Urine Protein Urine Glucose (UA) Urine Ketones Urine Blood Urine Nitrite Urine Bilirubin Urine Urobilinogen Ur Leukocyte Esterase Urine WBC (Auto) Urine RBC (Auto) U Hyaline Cast (Auto) U Epithel Cells (Auto) Urine Bacteria (Auto) 07/08/18 07/09/18 07/09/18 23:15 05:59 05:59 WBC 5.63 RBC 3.47 L Hgb 10.3 L Hct 31.0 L MCV 89.3 MCH 29.7 MCHC 33.2 RDW Std Deviation 46.4 H RDW Coeff of Pardeep 14.1 Plt Count 210 MPV 10.1 Immature Gran % (Auto) 0.2 Neut % (Auto) 74.0 Lymph % (Auto) 11.2 [place] % (Auto) 12.4 Eos % (Auto) 2.0 Baso % (Auto) 0.2 Immature Gran # (Auto) 0.01 Neut # (Auto) 4.17 Lymph # (Auto) 0.63 L [place] # (Auto) 0.70 H Eos # (Auto) 0.11 Baso # (Auto) 0.01 PT 10.7 INR 1.0 APTT 25.2 PTT Ratio 0.9 Sodium Potassium Chloride Carbon Dioxide Anion Gap BUN Creatinine Est Cr Clr Drug Dosing Est GFR ( Amer) Est GFR (Non-Af Amer) BUN/Creatinine Ratio Glucose Calcium Total Bilirubin AST ALT Alkaline Phosphatase Troponin I Total Protein Albumin Globulin Albumin/Globulin Ratio Lipase Specimen Hemolysis Urine Color Yellow Urine Appearance Clear Urine pH 7.0 Ur Specific [place] > 1.045 H Urine Protein Negative Urine Glucose (UA) Negative Urine Ketones Trace H Urine Blood Negative Urine Nitrite Negative Urine Bilirubin Negative Urine Urobilinogen Negative Ur Leukocyte Esterase Trace H Urine WBC (Auto) 5-10 H Urine RBC (Auto) 0-4 U Hyaline Cast (Auto) 1-5 U Epithel Cells (Auto) >30 H Urine Bacteria (Auto) Negative 07/09/18 05:59 WBC RBC Hgb Hct MCV MCH MCHC RDW Std Deviation RDW Coeff of Pardeep Plt Count MPV Immature Gran % (Auto) Neut % (Auto) Lymph % (Auto) [place] % (Auto) Eos % (Auto) Baso % (Auto) Immature Gran # (Auto) Neut # (Auto) Lymph # (Auto) [place] # (Auto) Eos # (Auto) Baso # (Auto) PT INR APTT PTT Ratio Sodium 144 Potassium 3.9 Chloride 112 H Carbon Dioxide 27 Anion Gap 5.0 BUN 20 H Creatinine 1.07 Est Cr Clr Drug Dosing 32.6 Est GFR ( Amer) 58.8 Est GFR (Non-Af Amer) 50.7 BUN/Creatinine Ratio 18.6 Glucose 99 Calcium 8.1 L Total Bilirubin 1.4 H AST 30 ALT 22 Alkaline Phosphatase 41 L Troponin I Total Protein 5.7 L Albumin 2.6 L Globulin 3.1 Albumin/Globulin Ratio 0.9 Lipase Specimen Hemolysis Urine Color Urine Appearance Urine pH Ur Specific [place] Urine Protein Urine Glucose (UA) Urine Ketones Urine Blood Urine Nitrite Urine Bilirubin Urine Urobilinogen Ur Leukocyte Esterase Urine WBC (Auto) Urine RBC (Auto) U Hyaline Cast (Auto) U Epithel Cells (Auto) Urine Bacteria (Auto) Medications Administered Current Inpatient Medications Heparin Sodium (Porcine) (Heparin Sodium (Porcine)) 5,000 units SQ Q8 [facility] Stop: 08/07/18 21:59 Last Admin: 07/09/18 05:45 Dose: 5,000 units Documented by: Hydralazine HCl (Hydralazine Hcl) 10 mg IV Q4H PRN PRN Reason: Blood Pressure - High Stop: 08/07/18 22:28 Potassium Chloride/Sodium Chloride (Normal Saline W/20 Meq Kcl) 20 meq in 1,000 mls @ 100 mls/hr IV .Q10H [facility] Stop: 08/07/18 21:59 Last Admin: 07/09/18 08:25 Dose: 100 mls/hr Documented by: Piperacillin Sod/Tazobactam (Sod 3.375 gm/ Dextrose) 115 mls @ 28.75 mls/hr IV Q8H [facility]; Protocol Stop: 07/19/18 03:59 Last Infusion: 07/09/18 08:31 Dose: Infused Documented by: Acetaminophen (Ofirmev) 65 mls @ 260 mls/hr IV Q6H PRN PRN Reason: Pain or Fever Stop: 08/07/18 21:59 Famotidine 20 mg/ Syringe 5 mls @ 2.5 mls/min IV Q12H [facility] Stop: 08/07/18 23:29 Last Admin: 07/09/18 00:32 Dose: 2.5 mls/min Documented by: Ioversol (Optiray 320 100ml) 94 ml IV ONCE PRN PRN Reason: Interaction Checking Stop: 07/12/18 18:09 Last Admin: 07/08/18 18:11 Dose: 94 ml Documented by: Miscellaneous Information (Consult) 1 ea N/A UD PRN PRN Reason: Consult Stop: 08/07/18 20:55 Ondansetron HCl (Zofran) 4 mg IV Q6H PRN PRN Reason: NAUSEA/VOMITING Stop: 08/07/18 20:55 (1) Nausea & vomiting Vomiting Intractability: non-intractable Vomiting type: unspecified Qualified Code(s): R11.2 - Nausea with vomiting, unspecified (2) Abdominal pain Abdominal location: generalized Qualified Code(s): R10.84 - Generalized abdominal pain
[2018-07-10] MEDS: FAMOTIDINE 20 MG in SYRINGE 3 ML IV SCH ×2 (00:39→11:35)
[2018-07-10] MEDS: NSS + 20MEQ KCL 20 MEQ/1,000 ML BAG IV SCH ×2 (03:57→13:29)
[2018-07-10] MEDS: PIPERACILLIN/TAZOBACTAM 3.375 GM in DEXTROSE 5% 100 ML IV SCH ×2 (03:57→11:35)
[2018-07-10] MEDS: HEPARIN SOD 5,000 UNIT/0.5 ML VIAL SQ SCH ×3 (05:39→21:11)
[2018-07-10 06:54] LABS: Basophils # (auto) 0.01 K/uL (0-0.2); Basophils % (auto) 0.2 %; Eosinophils % (auto) 2.4 %; Hematocrit (blood only) 25.2 % (37-47); Hemoglobin 8.7 g/dL (12.0-16.0); Lymphocytes # (auto) 0.79 K/uL (1.2-3.4); Lymphocytes % (auto) 18.6 %; Mean Corpuscular Hgb Conc 34.5 g/dL (32-36); Mean Corpuscular Volume 89.4 fL (80-100); Mean Platelet Volume 9.9 fL (7.4-10.4); Monocytes # (auto) 0.38 K/uL (0.11-0.59); Monocytes % (auto) 8.9 %; Neutrophils # (auto) 2.97 K/uL (1.4-6.5); Neutrophils % (auto) 69.9 %; Platelet Count 176 K/uL (130-400); RDW Standard Deviation 46.3 fL (36.4-46.3); Red Blood Count 2.82 M/uL (4.2-5.4); White Blood Count 4.25 K/uL (4.8-10.8)
[2018-07-10 07:01] LABS: INR 1.1 (0.9-1.1); Prothrombin Time 11.5 Seconds (9.0-12.0)
[2018-07-10] MEDS ORDERED: SENNA 8.8 MG/5 ML UDP PO PRN (07:35)
[2018-07-10] MEDS ORDERED: MINERAL OIL 30 ML UDC PO ONE (07:35)
--- NOTE | 2018-07-10 07:40 | Progress Note ---
Date of Service July 10, 2018 Assessment & Plan (1) Nausea & vomiting: appears to be gaining some GI function will give some min oil and senna syrup via NG/ clamp- may consider removing NG later today Vomiting Intractability: non-intractable Vomiting type: unspecified Qualified Code(s): R11.2 - Nausea with vomiting, unspecified Subjective resting comfortably had bowel movement last pm min from NG Physical Exam Physical Exam: no acute chgs Results & Data Vital Signs (Past 12 Hours) Vital Signs Temp Pulse Resp BP Pulse Ox 07/09/18 23:20 37 C 81 16 153/68 H 95
[2018-07-10 07:43] LABS: Albumin Globulin Ratio 0.9 (0.9-2); Albumin Level 2.4 gm/dl (3.4-5.0); BUN Creatinine Ratio 19.1 (10-20); Bilirubin,Total 1.4 mg/dl (0.2-1); Calcium 7.7 mg/dl (8.5-10.1); Creatinine Clr Calc Pharmacy 44.8 ml/min; Est GFR (African American) 86.2; Est GFR (Non-African American) 74.4; Globulin 2.6 gm/dl (2.5-4.0); Magnesium 1.6 mg/dl (1.8-2.4); Potassium 3.1 mmol/L (3.5-5.1)
[2018-07-10] MEDS: POTASSIUM CHLORIDE / WTR 10 MEQ/100 ML PLCT IV SCH ×3 (13:58→16:00)
--- NOTE | 2018-07-10 20:49 | Hospitalist Progress Note ---
Date of Service July 10, 2018 Assessment & Plan (1) SBO (small bowel obstruction): Recurrent small bowel obstruction- Presenting with abdominal pain, nausea vomiting x10. CT suggests high-grade small bowel obstruction with transition point left upper pelvis, likely secondary to adhesions. Prior left partial colectomy. 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 Patient reports following with Dr. Gabriel in the outpatient setting, who is aware of these findings. Holding Myrbetriq while n.p.o. Monitor urinary output (7) Uterine carcinoma: Noted. Not active (8) Hypokalemia: low at 3.1, will replace with 30mEq IV today repeat tomorrow Subjective patient feeling a lot better had several stools in her ostomy with gas as well tolerating liquid diet, she would take it slow ambulating a lot in the hallway d/w Dr. Mckeon, likely okay for d/c tomorrow labs reviewed Review of Systems Review of Systems: All systems reviewed & are unremarkable except as noted in HPI & below Gastrointestinal: no abdominal pain, no nausea, no vomiting, no constipation and no diarrhea/loose stools Physical Exam Constitutional: WD/WN, vitals as above Eyes: PERRL, conjunctivae normal, anicteric sclerae ENMT: external ear and nose normal, oropharynx normal Neck: trachea midline, no thyromegaly Respiratory: normal respiratory effort, lungs clear to auscultation Cardiovascular: RRR, no murmur, no edema Gastrointestinal (Abdomen): Inspection/Auscultation: abdomen normal to inspection and normal bowel sounds; abdomen not distended Percussion/Palpation: abdomen soft; abdomen nontender, no abdominal mass and no ascites Musculoskeletal: no cyanosis or clubbing, extremities motor strength 5/5 Skin: no rashes, warm and dry Neurologic: patellar DTR's 2+ bilat, sensation intact and PERRL, EOMI, accommodation nl, no face palsy, no dysarthria Psychiatric: A+Ox3, euthymic affect Lymphatic: no cervical or axillary lymphadenopathy Results & Data Vital Signs (Past 12 Hours) Vital Signs Temp Pulse Resp BP Pulse Ox 07/10/18 15:41 36.5 C 64 19 167/75 H 97 (1) Nausea & vomiting Vomiting Intractability: non-intractable Vomiting type: unspecified Qualified Code(s): R11.2 - Nausea with vomiting, unspecified (2) Abdominal pain Abdominal location: generalized Qualified Code(s): R10.84 - Generalized abdominal pain
[2018-07-10] MEDS ORDERED: LISINOPRIL 10 MG TAB PO SCH (22:00)
[2018-07-11] MEDS: HEPARIN SOD 5,000 UNIT/0.5 ML VIAL SQ SCH ×2 (05:58→15:10)
[2018-07-11 08:08] LABS: Basophils # (auto) 0.03 K/uL (0-0.2); Basophils % (auto) 0.7 %; Hematocrit (blood only) 29.9 % (37-47); Hemoglobin 10.2 g/dL (12.0-16.0); Immature Granulocytes # (auto) 0.01 K/uL (0.00-0.02); Immature Granulocytes % (auto) 0.2 %; Lymphocytes # (auto) 1.16 K/uL (1.2-3.4); Lymphocytes % (auto) 27.5 %; Mean Corpuscular Hgb Conc 34.1 g/dL (32-36); Mean Corpuscular Volume 87.7 fL (80-100); Monocytes # (auto) 0.32 K/uL (0.11-0.59); Monocytes % (auto) 7.6 %; Platelet Count 201 K/uL (130-400); RDW Coefficient of Variation 13.7 % (11.5-14.5); RDW Standard Deviation 43.9 fL (36.4-46.3); Red Blood Count 3.41 M/uL (4.2-5.4); White Blood Count 4.22 K/uL (4.8-10.8)
[2018-07-11 08:16] LABS: INR 1.1 (0.9-1.1); Prothrombin Time 11.2 Seconds (9.0-12.0)
[2018-07-11 08:39] LABS: Albumin Level 2.8 gm/dl (3.4-5.0); BUN Creatinine Ratio 10.2 (10-20); Calcium 8.2 mg/dl (8.5-10.1); Creatinine Clr Calc Pharmacy 39.7 ml/min; Est GFR (African American) 74.5; Est GFR (Non-African American) 64.3; Magnesium 1.6 mg/dl (1.8-2.4); Potassium 2.6 mmol/L (3.5-5.1)
[2018-07-11 08:43] LABS: Albumin Globulin Ratio 0.8 (0.9-2); Bilirubin,Total 1.2 mg/dl (0.2-1); Globulin 3.3 gm/dl (2.5-4.0); Total Protein 6.1 gm/dl (6.4-8.2)
[2018-07-11] MEDS ORDERED: AMLODIPINE BESYLATE 5 MG TAB PO SCH (09:00)
--- NOTE | 2018-07-11 10:09 | Discharge Summary ---
Date of Service July 11, 2018 Admission HPI Per Admitting Provider The patient is a 77-year-old female with a past medical history including prior small bowel obstructions, left partial colectomy, and left lower quadrant ostomy, who presents to the emergency department with similar symptoms as in the past suggesting SBO with acute onset of left sided upper abdominal discomfort, nausea and vomiting x10. She has not had any recent changes in dietary habits to either liquids or solids. She has not had any recent travels or sick exposures. Admission Exam Per Admitting Provider The patient is awake, alert and oriented 3, normocephalic and atraumatic, lying in bed and in no acute distress. HEENT--PERRL, EOMI, mucous membranes and oropharynx dry. Neck--supple. No JVD. No bruits. Thyroid normal, trachea midline, no adenopathy. Heart--normal S1 and S2. No murmurs, rubs or gallops. Lungs--clear bilaterally, no respiratory distress, no accessory muscle use. Abdomen--decreased bowel sounds, soft. Epigastric and left upper quadrant tenderness . Nondistended. Ostomy output noted. Extremities--no cyanosis or clubbing. No edema. There are good distal pulses b/l. Dermatologic--normal skin turgor, normal color, no abnormal lymph nodes, no rash. Neurologic--cranial nerves II through XII grossly intact. Rheumatologic--normal range of motion. Psychiatric--normal affect. Principal Diagnosis Partial small bowel obstruction, resolved Discharge Exam Constitutional WD/WN, vitals as above Eyes PERRL, conjunctivae normal, anicteric sclerae ENMT external ear and nose normal, oropharynx normal Neck trachea midline, no thyromegaly Respiratory normal respiratory effort, lungs clear to auscultation Cardiovascular RRR, no murmur, no edema Gastrointestinal (Abdomen) Inspection/Auscultation: abdomen normal to inspection (ostomy in right lower quadrant, with bowel function) and normal bowel sounds; abdomen not distended Percussion/Palpation: abdomen soft; abdomen nontender, no abdominal mass and no ascites Musculoskeletal no cyanosis or clubbing, extremities motor strength 5/5 Skin no rashes, warm and dry Neurologic patellar DTR's 2+ bilat, sensation intact and PERRL, EOMI, accommodation nl, no face palsy, no dysarthria Psychiatric A+Ox3, euthymic affect Lymphatic no cervical or axillary lymphadenopathy Discharge Data Allergies Allergy/AdvReac Type Severity Reaction Status Date / Time No Known Allergies Allergy Unverified 07/08/18 17:38 Consultations 07/08/18 18:59 ED Decision to Admit Stat 07/08/18 20:56 Consult General Surgery Routine Ordered Studies 07/08/18 16:42 CT abd pelvis IV con only Stat Hospital Course (1) SBO (small bowel obstruction): Recurrent small bowel obstruction- Presenting with abdominal pain, nausea vomiting x10. CT suggests high-grade small bowel obstruction with transition point left upper pelvis, likely secondary to adhesions. Prior left partial colectomy. 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 Patient reports following with Dr. Gabriel in the outpatient setting, who is aware of these findings. Holding Myrbetriq while n.p.o. Monitor urinary output (7) Uterine carcinoma: Noted. Not active (8) Hypokalemia: resolved with IV replacement Total Time Total Time Spent Total Time Spent (In Minutes): 35 minutes Total Time Includes: Examination of the Patient, Discharge Planning, Medication Reconciliation and Communication With Other Providers (Dr. Mckeon) Discharge Plan Discharge Items Patient Disposition: Home - Self-Care Reason For Visit: SMALL BOWEL OBSTRUCTION Discharge Diagnosis: Small bowel obstruction Condition: Good Discharge Goals: Improve disease control and Improve function Activity: Resume your previous activity Non-emergency contact: Primary Care Provider and Surgeon Call non-emergency contact if: you have any medication questions Follow-up/Referrals: Merrill Aleman MD [Primary Care Provider] - 07/17/18 11:30 am (Please, follow up at Dr. Aleman's office with his associate, Olivia HYDE, on SundayJuly 17 at 11:30 am. *If you need to change this appointment, call the office at [phone].) Diet: Regular Addtl Provider Instructions: Medications: no changes Continue to stay well hydrated, stay active, eat high fiber diet Prescriptions: Continued multivitamin [Multiple Vitamins] Tablet 1 tab PO QDL RF: 0 calcium citrate-vitamin D3 [Citracal Regular] 250 mg calcium- 200 unit Tablet 1 tab PO BID RF: 0 lutein 10 mg Tablet 10 mg PO QDL RF: 0 omega [id number] oil [Fish Oil] 1,000 mg (120 mg-180 mg) Capsule 2,000 mg PO QDL RF: 0 Myrbetriq 25 mg Tablet Extended Release 24 Hr PO QAM RF: 0 amlodipine 2.5 mg tablet 2.5 mg PO QAM RF: 0 lisinopril 10 mg tablet 10 mg PO HS RF: 0 Stand-Alone Forms: [facility]/Other Patient Handouts: Diet Low Residue Discharge Orders: Discharge Order (Routine); Ordered 07/11/18 Ordered By: Ray Myers Admission Data Admit Date/Time: 07/08/18 19:49 Attending Provider: Ray Myers Admit Provider: Manuelito Borja Primary Care Provider: Merrill Aleman Other Providers: Flo Gabriel ; Elizabeth Hendrickson I ; Manuelito Borja ; Ravi Mckoen Service: Surgical Services Other Interventions: Discharge Summary Assessment (RN) Last Done: 07/11/18 15:06 DC Date/Time DO NOT enter until pt leaves facility: 07/11/18 16:00
== END 2018-07-11 16:00 | disposition home or self-care (01) | DRG 390 ==
LOC: ED 15:51 → SUATTDRO 19:49 → 3N 19:49

== ENCOUNTER 2019-06-03 15:16 | Inpatient (IN) ==
[2019-06-03] MEDS ORDERED: SODIUM CHLORIDE 0.9% 1000ML 1,000 ML IV ONE ×2 (15:39→16:39)
[2019-06-03] MEDS ORDERED: ACETAMINOPHEN 1,000 MG/100 ML VIAL IV STA (15:39)
[2019-06-03] MEDS ORDERED: cefTRIAXone SODIUM 1,000 MG/50 ML BAG IV STA (15:43)
--- NOTE | 2019-06-03 16:01 | XRay Report ---
XR chest 1V portable CLINICAL HISTORY: SEPSIS COMPARISON STUDY: No previous studies for comparison. FINDINGS: The bones soft tissues and hemidiaphragms are normal. The cardiomediastinal silhouette is n ormal. The lungs are clear. The pulmonary vasculature is normal. IMPRESSION: Negative chest. ACT 112: Negative or not required by law. The above report was generated using voice recognition software. It may contain grammatical, syntax or spelling errors. Electronically signed by: Dani Little M.D. 06/03/2019 3:59 PM
[2019-06-03 16:07] LABS: Basophils # (auto) 0.01 K/uL (0-0.2); Basophils % (auto) 0.1 %; Hematocrit (blood only) 29.1 % (37-47); Hemoglobin 9.8 g/dL (12.0-16.0); Immature Granulocytes # (auto) 0.02 K/uL (0.00-0.02); Immature Granulocytes % (auto) 0.3 %; Lymphocytes # (auto) 0.22 K/uL (1.2-3.4); Lymphocytes % (auto) 2.8 %; Mean Corpuscular Hemoglobin 29.8 pg (25-34); Mean Corpuscular Hgb Conc 33.7 g/dL (32-36); Mean Corpuscular Volume 88.4 fL (80-100); Mean Platelet Volume 9.8 fL (7.4-10.4); Monocytes # (auto) 0.27 K/uL (0.11-0.59); Monocytes % (auto) 3.4 %; Neutrophils # (auto) 7.46 K/uL (1.4-6.5); Neutrophils % (auto) 93.4 %; Platelet Count 210 K/uL (130-400); RDW Coefficient of Variation 13.4 % (11.5-14.5); RDW Standard Deviation 43.5 fL (36.4-46.3); Red Blood Count 3.29 M/uL (4.2-5.4); White Blood Count 7.98 K/uL (4.8-10.8)
[2019-06-03 16:21] LABS: Alanine Aminotransferase 28 U/L (12-78); Albumin Level 3.1 gm/dl (3.4-5.0); Aspartate Aminotransferase 39 U/L (15-37); BUN Creatinine Ratio 28.5 (10-20); Blood Urea Nitrogen 32 mg/dl (7-18); Calcium 8.4 mg/dl (8.5-10.1); Carbon Dioxide 24 mmol/L (21-32); Chloride 105 mmol/L (98-107); Creatinine Clr Calc Pharmacy 32.2 ml/min; Est GFR (African American) 55.3; Est GFR (Non-African American) 47.7; Glucose 133 mg/dl (70-99); Magnesium 1.4 mg/dl (1.8-2.4); Sodium 132 mmol/L (136-145)
[2019-06-03 16:26] LABS: Albumin Globulin Ratio 0.9 (0.9-2); Alkaline Phosphatase 49 U/L (45-117); Globulin 3.3 gm/dl (2.5-4.0); Total Protein 6.4 gm/dl (6.4-8.2); Troponin I < 0.015 ng/ml (0-0.045)
[2019-06-03 16:28] LABS: Partial Thromboplastin Ratio 0.9; Partial Thromboplastin Time 25.6 Seconds (21.0-31.0)
--- NOTE | 2019-06-03 16:33 | Emergency Department Note ---
History of Present Illness General Chief complaint: Fever Stated complaint: fever Time Seen by Provider: 06/03/19 15:28 Source: patient and family Mode of arrival: ambulatory Limitations: no limitations History of Present Illness Provider complaint: Fever Onset (ago): hour(s) 2 Radiation: non-radiation Pain Consistency: + constant Maximum Pain Intensity: 0 Quality: + constant Relieved By: + none Exacerbated By: + none Associated symptoms: + confusion, + fever/chills, + malaise, + nausea/vomiting and + weakness This is a 78-year-old female who presents today due to concern for fever, confusion, and urinary tract infection. Patient has been states she has had urinary tract infections previously and does follow with Dr. Gabriel. Patient states she has been taking Macrobid for 3 days. They also states she had a urine culture performed yesterday. They do not know the results of this yet. states patient was acting normally until she developed a fever this afternoon. He states after that she appeared to be in distress, seemed confused, and not look well. They deny any loss of consciousness. No trauma, no other change in activities. Patient denies any other change in recent medica tions. Patient denies vomiting or change in bowel movements, however states she was slightly nauseated. Patient admits to pelvic pain recently which she associates as being part of her urinary tract infection. Denies abdominal pain or back pain. No other recent URI symptoms. No travel or recent exposure to coronavirus positive individual. No recent Grullon catheter or instrumentation of the urinary tract. Home Medications Home Medications Medication Instructions Recorded Confirmed Type multivitamin [Multiple Vitamins] 1 tab PO QDL 02/13/18 06/03/19 History omega 0-bhj-ueh-fish oil [Fish Oil] 2,000 mg PO QDL 02/13/18 06/03/19 History conjugated estrogens 0.625 mg/gram 0.25 applic PV DAILY PRN #3 gm 09/25/18 History vaginal cream calcium citrate 250 mg 1 tab PO QAM tab 05/08/19 06/03/19 History calcium-vitamin D3 200 unit tablet nitrofurantoin 100 mg PO BID 3 Days #6 cap 06/02/19 06/03/19 Rx monohydrate/macrocrystals 100 mg capsule amlodipine 2.5 mg PO QAM 06/03/19 06/03/19 History lisinopril 10 mg PO HS 06/03/19 06/03/19 History mirabegron [Myrbetriq] 50 mg PO HS 06/03/19 06/03/19 History Allergies Allergy/AdvReac Type Severity Reaction Status Date / Time No Known Drug Allergies Allergy Verified 06/03/19 16:15 Past Med/Surg History Medical History Colostomy in place History of anemia Hx of colonic polyp Hypertension Uterine carcinoma Surgical History History of total abdominal hysterectomy S/P colostomy S/P tonsillectomy Family History Daughter Systemic lupus Mother Myocardial infarction Brother Pancreatic cancer Brain cancer Lung cancer Denies family history of Ovarian cancer Prostate cancer Breast cancer Colorectal cancer Stroke Social History Preferred Language: Portuguese Communication Ability: Effective Visual Impairment: No Limitations Hearing Ability: Normal Investor Relations Manager Required: No Beliefs That Will Affect Care: None Current Living Situation: Spouse Other Information That Helps Us Care for You: No Feels Safe at Home: Yes Safety Concerns: Feels Safe At This Time Smoking Status: Never smoker Do You Dip or Chew Tobacco: No ; Second Hand Exposure: No ; Tobacco Cessation Education Requested by Patient: No Hx Alcohol Use: No Hx Substance Use: No Review of Systems See HPI for pertinent positives & negatives. and A total of 10 systems reviewed and were otherwise negative Physical Exam Vital Signs Vital Signs - 24 hr 06/03/19 15:22 06/03/19 16:32 06/03/19 17:00 Temperature 39.9 C H Temperature Source Oral Pulse Rate 114 H 99 H 94 H Pulse Rate from SpO2 Sensor 99 H 94 H Respiratory Rate 24 20 18 Respiratory Effort / Characteristics Non-Labored Spontaneous Respiratory Depth Normal Blood Pressure 163/81 H 130/72 130/77 Blood Pressure Mean 108 78 92 Blood Pressure Position Sitting Pulse Oximetry 95 94 96 Oxygen Delivery Method Room Air Sepsis Recent Fever Within 48 Hours Yes Sepsis New/Unexplained Change in Mental Status Yes Sepsis Action Taken by Nursing Physician Notified 06/03/19 17:29 Temperature 37.4 C Temperature Source Oral Pulse Rate Pulse Rate from SpO2 Sensor Respiratory Rate Respiratory Effort / Characteristics Respiratory Depth Blood Pressure Blood Pressure Mean Blood Pressure Position Pulse Oximetry Oxygen Delivery Method Sepsis Recent Fever Within 48 Hours Sepsis New/Unexplained Change in Mental Status Sepsis Action Taken by Nursing GENERAL: alert, ill appearing, well nourished, no distress, non-toxic, warm to touch EYE EXAM: normal conjunctiva, PERRL and EOM's grossly intact OROPHARYNX: no exudate, no erythema, lips, buccal mucosa, and tongue normal and mucous membranes are moist NECK: supple, no nuchal rigidity, no adenopathy, non-tender LUNGS: Clear to auscultation. Normal chest wall mechanics, no w/r/r HEART: no murmurs, S1 normal and S2 normal, tachycardia ABDOMEN: abdomen soft, non-tender, normo-active bowel sounds, no masses, no rebound or guarding. BACK: Back is symmetrical on inspection and there is no deformity, no midline tenderness, no CVA tenderness. SKIN: no rashes and no bruising, no petechiae UPPER EXTREMITIES: upper extremities are grossly normal. FROM, nml pulses b/l. LOWER EXTREMITIES: No pitting edema. FROM, nml pulses b/l. NEURO EXAM: Patient answers questions appropriately, however catches herself occasionally with providing incorrect information normal sensorium, cranial nerves II-XII grossly intact, normal speech, no gross weakness of arms, no gross weakness of legs. Gross sensation intact. Course Course 165: Patient states she is feeling improved. Discussed all results with she and at bedside. Discussed concern given likely evolving sepsis, they were in agreement with plan. 1710: Case discussed with Jessica Rodriguez PA-C with [facility]. Administered Medications Discontinued Medications Sodium Chloride (Nss 1000ml) 1,000 mls @ 999 mls/hr IV .Q1H1M ONE Stop: 06/03/19 16:39 Last Infusion: 06/03/19 18:15 Dose: 0 mls/hr Documented by: [id number] Admin: 06/03/19 16:15 Dose: 999 mls/hr Documented by: [id number] Acetaminophen (Ofirmev) 1,000 mg in 100 mls @ 400 mls/hr IV NOW STA Stop: 06/03/19 15:53 Last Infusion: 06/03/19 16:46 Dose: 0 mls/hr Documented by: [id number] Admin: 06/03/19 16:20 Dose: 400 mls/hr Documented by: [id number] Ceftriaxone Sodium (Rocephin) 1,000 mg in 50 mls @ 100 mls/hr IV NOW STA Stop: 06/03/19 16:12 Last Infusion: 06/03/19 17:02 Dose: 0 mls/hr Documented by: [id number] Admin: 06/03/19 16:38 Dose: 100 mls/hr Documented by: [id number] Sodium Chloride (Nss 1000ml) 1,000 mls @ 999 mls/hr IV .Q1H1M ONE Stop: 06/03/19 17:39 Last Admin: 06/03/19 18:16 Dose: Not Given Documented by: [id number] Medical Decision Making Differential Diagnosis Differential diagnosis includes etiologies such as sepsis, UTI, pneumonia, metabolic, electrolyte abnormalities, cardiac sources, intracerebral event, toxicologic, neurologic, as well as others were entertained. Medical Records Attestation: I reviewed the patient's medical records. Home Medications Current Medication List: was personally reviewed by me Laboratory Data Attestation: I reviewed the patient's lab results. Result diagrams: 06/03/19 15:45 06/03/19 15:45 Lab Results 06/03/19 06/03/19 06/03/19 Range/Units 15:45 15:45 15:45 WBC 7.98 (4.8-10.8) K/uL RBC 3.29 L (4.2-5.4) M/uL Hgb 9.8 L (12.0-16.0) g/dL Hct 29.1 L (37-47) % MCV 88.4 (80-100) fL MCH 29.8 (25-34) pg MCHC 33.7 (32-36) g/dL RDW Std Deviation 43.5 (36.4-46.3) fL RDW Coeff of Pardeep 13.4 (11.5-14.5) % Plt Count 210 (130-400) K/uL MPV 9.8 (7.4-10.4) fL Immature Gran % (Auto) 0.3 % Neut % (Auto) 93.4 % Lymph % (Auto) 2.8 % Baxter % (Auto) 3.4 % Eos % (Auto) 0.0 % Baso % (Auto) 0.1 % Immature Gran # (Auto) 0.02 (0.00-0.02) K/uL Neut # (Auto) 7.46 H (1.4-6.5) K/uL Lymph # (Auto) 0.22 L (1.2-3.4) K/uL Baxter # (Auto) 0.27 (0.11-0.59) K/uL Eos # (Auto) 0.00 (0-0.5) K/uL Baso # (Auto) 0.01 (0-0.2) K/uL PT 11.0 (9.0-12.0) Seconds INR 1.0 (0.9-1.1) APTT 25.6 (21.0-31.0) Seconds PTT Ratio 0.9 Sodium 132 L (136-145) mmol/L Potassium 4.0 (3.5-5.1) mmol/L Chloride 105 (98-107) mmol/L Carbon Dioxide 24 (21-32) mmol/L Anion Gap 3.0 (3-11) BUN 32 H (7-18) mg/dl Creatinine 1.12 (0.6-1.2) mg/dl Est Cr Clr Drug Dosing 32.2 ml/min Est GFR ( Amer) 55.3 Est GFR (Non-Af Amer) 47.7 BUN/Creatinine Ratio 28.5 H (10-20) Glucose 133 H (70-99) mg/dl Lactate (0.4-2.0) mmol/L Calcium 8.4 L (8.5-10.1) mg/dl Magnesium 1.4 L (1.8-2.4) mg/dl Total Bilirubin 1.0 (0.2-1) mg/dl AST 39 H (15-37) U/L ALT 28 (12-78) U/L Alkaline Phosphatase 49 (45-117) U/L Troponin I < 0.015 (0-0.045) ng/ml Total Protein 6.4 (6.4-8.2) gm/dl Albumin 3.1 L (3.4-5.0) gm/dl Globulin 3.3 (2.5-4.0) gm/dl Albumin/Globulin Ratio 0.9 (0.9-2) Procalcitonin (0-0.5) ng/ml Urine Color Urine Appearance (Clear) Urine pH (4.5-7.5) Ur Specific [place] (1.000-1.030) Urine Protein (Negative) Urine Glucose (UA) (Negative) Urine Ketones (Negative) Urine Blood (Negative) Urine Nitrite (Negative) Urine Bilirubin (Negative) Urine Urobilinogen (Negative) Ur Leukocyte Esterase (Negative) Urine RBC (0-4) /hpf Urine WBC (0-5) /hpf Ur Epithelial Cells (0-5) /lpf Urine Bacteria (Negative) 06/03/19 06/03/19 06/03/19 Range/Units 15:45 15:45 16:30 WBC (4.8-10.8) K/uL RBC (4.2-5.4) M/uL Hgb (12.0-16.0) g/dL Hct (37-47) % MCV (80-100) fL MCH (25-34) pg MCHC (32-36) g/dL RDW Std Deviation (36.4-46.3) fL RDW Coeff of Pardeep (11.5-14.5) % Plt Count (130-400) K/uL MPV (7.4-10.4) fL Immature Gran % (Auto) % Neut % (Auto) % Lymph % (Auto) % Baxter % (Auto) % Eos % (Auto) % Baso % (Auto) % Immature Gran # (Auto) (0.00-0.02) K/uL Neut # (Auto) (1.4-6.5) K/uL Lymph # (Auto) (1.2-3.4) K/uL Baxter # (Auto) (0.11-0.59) K/uL Eos # (Auto) (0-0.5) K/uL Baso # (Auto) (0-0.2) K/uL PT (9.0-12.0) Seconds INR (0.9-1.1) APTT (21.0-31.0) Seconds PTT Ratio Sodium (136-145) mmol/L Potassium (3.5-5.1) mmol/L Chloride (98-107) mmol/L Carbon Dioxide (21-32) mmol/L Anion Gap (3-11) BUN (7-18) mg/dl Creatinine (0.6-1.2) mg/dl Est Cr Clr Drug Dosing ml/min Est GFR ( Amer) Est GFR (Non-Af Amer) BUN/Creatinine Ratio (10-20) Glucose (70-99) mg/dl Lactate 1.1 (0.4-2.0) mmol/L Calcium (8.5-10.1) mg/dl Magnesium (1.8-2.4) mg/dl Total Bilirubin (0.2-1) mg/dl AST (15-37) U/L ALT (12-78) U/L Alkaline Phosphatase (45-117) U/L Troponin I (0-0.045) ng/ml Total Protein (6.4-8.2) gm/dl Albumin (3.4-5.0) gm/dl Globulin (2.5-4.0) gm/dl Albumin/Globulin Ratio (0.9-2) Procalcitonin 0.07 (0-0.5) ng/ml Urine Color Yellow Urine Appearance Slightly Cloudy (Clear) Urine pH 6.5 (4.5-7.5) Ur Specific [place] 1.020 (1.000-1.030) Urine Protein Trace H (Negative) Urine Glucose (UA) Negative (Negative) Urine Ketones Negative (Negative) Urine Blood 3+ H (Negative) Urine Nitrite Negative (Negative) Urine Bilirubin Negative (Negative) Urine Urobilinogen Negative (Negative) Ur Leukocyte Esterase 2+ H (Negative) Urine RBC 5-10 H (0-4) /hpf Urine WBC 5-10 H (0-5) /hpf Ur Epithelial Cells 10-20 H (0-5) /lpf Urine Bacteria Negative (Negative) Imaging Data Radiologist's Impression: XR chest 1V portable CLINICAL HISTORY: SEPSIS COMPARISON STUDY: No previous studies for comparison. FINDINGS: The bones soft tissues and hemidiaphragms are normal. The cardiomediastinal silhouette is normal. The lungs are clear. The pulmonary vasculature is normal. IMPRESSION: Negative chest. ACT 112: Negative or not required by law. The above report was generated using voice recognition software. It may contain grammatical, syntax or spelling errors. Electronically signed by: Dani Little M.D. 06/03/2019 3:59 PM ABDOMEN AND PELVIS CT WITHOUT CONTRAST CT DOSE: 226.19 mGy.cm HISTORY: Acute low back pain with urinary tract infection uti, fever, back pain TECHNIQUE: Multiaxial CT images of the abdomen and pelvis were performed without contrast. A dose lowering technique was utilized adhering to the principles of ALARA. COMPARISON STUDY: CT abdomen and pelvis 07/08/2018, 04/29/2018, 02/13/2018. FINDINGS: Lung bases are generally clear. There is no pneumatosis or pneumoperitoneum. Coronary artery calcifications. The imaged inferior cardiac chambers are unremarkable. Limited evaluation of the solid abdominal organs without the use of IV contrast. Within the limitations of the exam the spleen, pancreas, visualized adrenal glands, gallbladder and liver appear unremarkable. Progressively worsened bilateral hydroureteronephrosis, severe on the right and moderate on the left. Right greater than left perinephric stranding is also progressed. 8 mm hyperdense lesion of the inferior pole right kidney is suggestive of proteinaceous or hemorrhagic cyst. There has been chronic dilation of the ureters and collecting systems which was moderate on the 04/29/2018 study bilaterally. Again, no obstructing calculus or lesion identified. Tapered narrowing of the mid to distal ureters redemonstrated. Circumferential wall thickening the bladder with perivesicular stranding. Hysterectomy. No adnexal mass lesion identified. Calcified plaque of the abdominal aorta without aneurysm. Retroaortic left renal vein. No definite adenopathy. Trace free fluid within the dependent pelvis. Moderate fecal retention. Postoperative changes of partial left hemicolectomy with left lower quadrant colostomy. Small parastomal hernia contains a loop of colon without obstruction. No small bowel obstruction. Soft tissues are unremarkable. Healed remote fracture of the left inferior pubic ramus. Unchanged bony expansion with sclerosis and possible hemangioma of the left pubic bone. Severe disc space narrowing at L5-S1. Severe facet arthrosis at L4-L5 and L5-S1 with multilevel annular disc bulging and spurring. IMPRESSION: 1. Progressively worsened right greater than left hydroureteronephrosis, now severe on the right and moderate on the left. Again, there are no obstructing stones or lesions identified and there is progressive tapering/narrowing of the distal ureters. Waxing and waning degrees of obstructive uropathy have been present on multiple exams dating back to 2018. 2. Urinary bladder wall thickening with perivesicular stranding suggests cystitis. Additionally, there is asymmetric right-sided perinephric stranding which may be reactive secondary to the obstructive uropathy or be secondary to ascending infectious etiology. Correlate with urinalysis. 3. Postoperative changes of partial left hemicolectomy with left lower quadrant colostomy. 4. Moderate fecal retention. 5. No bowel obstruction or bowel wall thickening. 6. Additional findings as above. ACT 112: Negative or not required by law. The above report was generated using voice recognition software. It may contain grammatical, syntax or spelling errors. Electronically signed by: Nicholas Knowles M.D. 06/03/2019 4:36 PM Blood Pressure Blood Pressure Findings: Elevated blood pressure Blood Pressure Disposition: further management by hospitalist MDM Narrative Patient ill-appearing on arrival and concern for evolving sepsis. Patient with recent use of antibiotics for 3 days for a urinary tract infection which she has had previously. Patient with fever and slight confusion per description of . This resolved with resolution of fever and improved hydration. No significant leukocytosis noted, although I question if she has been partially treated with antibiotic. Patient with anemia, this stable compared to prior. No evidence of acute renal dysfunction. CT suggestive of evolving cystitis and possible pyelonephritis. Patient with hydroureter and hydronephrosis that appears stable compared to prior as this is been previously noted. Patient's heart rate improved with fever control and IV fluids. Patient was given 30 mL/KG of normal saline per sepsis protocol. Patient started on IV Rocephin for likely urine etiology. No history of drug-resistant organisms. Patient with no other URI symptoms or GI symptoms to suggest other source of infection. Patient and family made aware of all results. Case discussed with hospitalist for additional evaluation and management. Impression & Plan Sepsis, Acute UTI (urinary tract infection), Hydroureter, Hydronephrosis, Anemia, Hypomagnesemia Discharge Plan Visit Data Chief Complaint: Fever Stated Complaint: fever ED Provider: Ailyn Lainez Discharge Problem: Sepsis, Acute UTI (urinary tract infection), Hydroureter, Hydronephrosis, Anemia, Hypomagnesemia Patient Disposition: Being Evaluated by Hospitalist Condition: Good Discharge Instructions Interventions: ED Discharge Assessment Last Done: 06/03/19 18:16 Forms Stand Alone Forms: Seelio Prescriptions Prescriptions: No Action nitrofurantoin monohyd/m-cryst [Macrobid] 100 mg capsule 100 mg PO BID 3 Days Qty: 6 RF: 0 Premarin 0.625 mg/gram cream 0.25 applic PV DAILY PRN (Reason: Other) Qty: 3 RF: 0 multivitamin [Multiple Vitamins] Tablet 1 tab PO QDL RF: 0 omega 5-xau-lrn-fish oil [Fish Oil] 1,000 mg (120 mg-180 mg) Capsule 2,000 mg PO QDL RF: 0 calcium citrate-vitamin D3 [Citracal Regular] 250 mg calcium- 200 unit tablet 1 tab PO QAM RF: 0 amlodipine 2.5 mg tablet 2.5 mg PO QAM RF: 0 lisinopril 10 mg tablet 10 mg PO HS RF: 0 Myrbetriq 50 mg tablet extended release 24 hr 50 mg PO HS RF: 0 Referrals Referrals: Arian Shah MD [Primary Care Provider] -
--- NOTE | 2019-06-03 16:38 | CT Scan Report ---
ABDOMEN AND PELVIS CT WITHOUT CONTRAST CT DOSE: 226.19 mGy.cm HISTORY: Acute low back pain with urinary tract infection uti, fever, back pain TECHNIQUE: Multiaxial CT images of the abdomen and pelvis were performed without contrast. A dose lo wering technique was utilized adhering to the principles of ALARA. COMPARISON STUDY: CT abdomen and pelvis 07/08/2018, 04/29/2018, 02/13/2018. FINDINGS: Lung bases are generally clear. There is no pneumatosis or pneumoperitoneum. Coronary artery calcific ations. The imaged inferior cardiac chambers are unremarkable. Limited evaluation of the solid abdomi nal organs without the use of IV contrast. Within the limitations of the exam the spleen, pancreas, v isualized adrenal glands, gallbladder and liver appear unremarkable. Progressively worsened bilateral hydroureteronephrosis, severe on the right and moderate on the left. Right greater than left perinephric stranding is also progressed. 8 mm hyperdense lesion of the infe rior pole right kidney is suggestive of proteinaceous or hemorrhagic cyst. There has been chronic dil ation of the ureters and collecting systems which was moderate on the 04/29/2018 study bilaterally. Ag ain, no obstructing calculus or lesion identified. Tapered narrowing of the mid to distal ureters red emonstrated. Circumferential wall thickening the bladder with perivesicular stranding. Hysterectomy. No adnexal mass lesion identified. Calcified plaque of the abdominal aorta without aneurysm. Retroaor tic left renal vein. No definite adenopathy. Trace free fluid within the dependent pelvis. Moderate fecal retention. Postoperative changes of part ial left hemicolectomy with left lower quadrant colostomy. Small parastomal hernia contains a loop of colon without obstruction. No small bowel obstruction. Soft tissues are unremarkable. Healed remote fracture of the left inferior pubic ramus. Unchanged bony expansion with sclerosis and possible heman gioma of the left pubic bone. Severe disc space narrowing at L5-S1. Severe facet arthrosis at L4-L5 a nd L5-S1 with multilevel annular disc bulging and spurring. IMPRESSION: 1. Progressively worsened right greater than left hydroureteronephrosis, now severe on the right and moderate on the left. Again, there are no obstructing stones or lesions identified and there is progr essive tapering/narrowing of the distal ureters. Waxing and waning degrees of obstructive uropathy colmenares ve been present on multiple exams dating back to 2018. 2. Urinary bladder wall thickening with perivesicular stranding suggests cystitis. Additionally, ther e is asymmetric right-sided perinephric stranding which may be reactive secondary to the obstructive uropathy or be secondary to ascending infectious etiology. Correlate with urinalysis. 3. Postoperative changes of partial left hemicolectomy with left lower quadrant colostomy. 4. Moderate fecal retention. 5. No bowel obstruction or bowel wall thickening. 6. Additional findings as above. ACT 112: Negative or not required by law. The above report was generated using voice recognition software. It may contain grammatical, syntax o r spelling errors. Electronically signed by: Nicholas Knowles M.D. 06/03/2019 4:36 PM
[2019-06-03 16:46] LABS: Appearance Urine Slightly Cloudy (Clear); Bilirubin Urine Negative (Negative); Blood Urine 3+ (Negative); Color Urine Yellow; Glucose Urine UA Negative (Negative); Ketones Urine Negative (Negative); Leukocyte Esterase Urine 2+ (Negative); Nitrite Urine Negative (Negative); Protein Urine Trace (Negative); Urobilinogen Urine Negative (Negative); pH Urine 6.5 (4.5-7.5)
[2019-06-03 17:05] LABS: Bacteria Urine Negative (Negative)
--- NOTE | 2019-06-03 17:46 | History & Physical Report ---
Date of Service June 03, 2019 Assessment & Plan (1) Sepsis: - Febrile, tachycardic in setting of known UTI. - IV fluids in the ER + NS at 80 cc/hr. - Ceftriaxone IV for empiric coverage, will follow UC from 06/01. (2) Acute UTI (urinary tract infection): - UC 06/01 +gram negative bacilli, will follow culture results. - CT A/P with urinary bladder wall thickening c/w cystitis. - U/a on admission +3 blood, +2 leuk est, 10-20 epithelial cells. - On Macrobid x 3 doses as outpatient; started Ceftriaxone IV for empiric coverage. - NS at 80 cc/hr for IV fluid hydration. (3) Hydronephrosis: - CT A/P showed right > left hydroureteronephrosis, appears to be chronic issue for patient. No evidence of obstructing stones. - Monitor as outpatient, follows with urology. (4) Hematuria: - U/a positive for blood dating back to Feb 2018. - Follows with urology; unclear if hematuria is related to acute infections vs. require further work up. - CT A/P did show hydronephrosis but was negative for obstructing stones. (5) Dehydration: - Elevated BUN noted on labs in setting of poor PO intake. - NS at 80 cc/hr. (6) Hyponatremia: - Na level 132, hypovolemic hyponatremia. - NS at 80 cc/hr. - Repeat BMP level in the morning. (7) History of endometrial cancer: - H/o, in the . - Led to radiation therapy induced colonic bleeding, placement of ostomy. (8) Colostomy in place: - Due to complications noted above. (9) Hypertension: - Continue Lisinopril and Amlodipine as prescribed. - BP has been normo-hypertensive. (10) Anemia: - Baseline hgb ~10, normocytic. - Continue to monitor closely. (11) Hypomagnesemia: - Mag level 1.4 - mag sulfate 2 gm IV. - Repeat level in the AM. (12) DVT prophylaxis: - SCDs; holding Heparin in setting of acute hematuria. Dispo: Med/surg with tele for treatment of UTI. History of Present Illness Chief Complaint: UTI Primary Care Provider: Arian Shah MD Ms. Goncalves is a 78 y/o female with PMHx HTN, Overactive bladder, Uterine cancer, Ostomy placement who presented with UTI related symptoms. Patient started a course of Macrobid on 06/01 for newly diagnosed UTI; she took 2 doses yesterday and one dose this morning. Patient developed a high fever this morning but did not take temp at home. She initially complained of dysuria and hematuria starting on Sunday evening. Denies flank pain, suprapubic pain, chills at home. Symptoms were improving after starting Macrobid leading up to fever/confusion this morning. Her is present at bedside, stated that patient is usually alert and oriented x 3 but was very confused this morning. She received IV fluids and IV abx in the ER. Will admit for treatment of UTI. Allergies Allergy/AdvReac Type Severity Reaction Status Date / Time No Known Drug Allergies Allergy Verified 06/03/19 16:15 Home Medications Home Medications Medication Instructions Recorded Confirmed Type multivitamin [Multiple Vitamins] 1 tab PO QDL 02/13/18 06/03/19 History omega 2-vfu-aqn-fish oil [Fish Oil] 2,000 mg PO QDL 02/13/18 06/03/19 History conjugated estrogens 0.625 mg/gram 0.25 applic PV DAILY PRN #3 gm 09/25/18 06/03/19 History vaginal cream calcium citrate 250 mg 1 tab PO QAM tab 05/08/19 06/03/19 History calcium-vitamin D3 200 unit tablet nitrofurantoin 100 mg PO BID 3 Days #6 cap 06/02/19 06/03/19 Rx monohydrate/macrocrystals 100 mg capsule amlodipine 2.5 mg PO QAM 06/03/19 06/03/19 History lisinopril 10 mg PO HS 06/03/19 06/03/19 History mirabegron [Myrbetriq] 50 mg PO HS 06/03/19 06/03/19 History Past Med/Surg History Medical History Colostomy in place History of anemia Hx of colonic polyp Hypertension Uterine carcinoma Surgical History History of total abdominal hysterectomy S/P colostomy S/P tonsillectomy Family History Daughter Systemic lupus Mother Myocardial infarction Brother Pancreatic cancer Brain cancer Lung cancer Denies family history of Ovarian cancer Prostate cancer Breast cancer Colorectal cancer Stroke Social History Preferred Language: Occitan Communication Ability: Effective Visual Impairment: No Limitations Hearing Ability: Normal Recreation Therapy Aide Required: No Beliefs That Will Affect Care: None Current Living Situation: Spouse Other Information That Helps Us Care for You: No Feels Safe at Home: Yes Safety Concerns: Feels Safe At This Time Smoking Status: Never smoker Do You Dip or Chew Tobacco: No ; Second Hand Exposure: No ; Tobacco Cessation Education Requested by Patient: No Hx Alcohol Use: No Hx Substance Use: No Review of Systems Review of Systems: All systems reviewed & are unremarkable except as noted in HPI & below Constitutional: + fever, + fatigue and + weakness; no chills and no anorexia Respiratory: no cough, no dyspnea and no dyspnea on exertion Cardiovascular: no chest pain, no palpitations and no edema Gastrointestinal: no abdominal pain, no nausea, no vomiting, no constipation and no diarrhea/loose stools Genitourinary: + dysuria, + urinary frequency and + hematuria; no difficulty urinating and no flank pain Musculoskeletal: no back pain and no joint pain Integumentary: no non-healing lesions Neurologic: + confusion Physical Exam Physical Exam: General: Resting comfortably HEENT: NC/AT; PERRLA with EOMI; Casas conjunctiva, MMM. No erythema of posterior pharynx Neck: Supple and nontender Cardiac: RRR Lungs: CTA bilaterally Abdomen: Ostomy with good output; Bowel normoactive X 4; Nontender to palpation Extremities: Warm. No edema present Neuro: No focal weakness Skin: No rash Results & Data Vital Signs (Past 12 Hours) Vital Signs Temp Pulse Resp BP Pulse Ox 06/03/19 17:29 37.4 C 06/03/19 17:00 94 H 18 130/77 96 06/03/19 16:32 99 H 20 130/72 94 06/03/19 15:22 39.9 C H 114 H 24 163/81 H 95 Laboratory Results 06/03/19 06/03/19 06/03/19 Range/Units 16:30 15:45 15:45 WBC (4.8-10.8) K/uL RBC (4.2-5.4) M/uL Hgb (12.0-16.0) g/dL Hct (37-47) % MCV (80-100) fL MCH (25-34) pg MCHC (32-36) g/dL RDW Std Deviation (36.4-46.3) fL RDW Coeff of Pardeep (11.5-14.5) % Plt Count (130-400) K/uL MPV (7.4-10.4) fL Immature Gran % (Auto) % Neut % (Auto) % Lymph % (Auto) % [place] % (Auto) % Eos % (Auto) % Baso % (Auto) % Immature Gran # (Auto) (0.00-0.02) K/uL Neut # (Auto) (1.4-6.5) K/uL Lymph # (Auto) (1.2-3.4) K/uL [place] # (Auto) (0.11-0.59) K/uL Eos # (Auto) (0-0.5) K/uL Baso # (Auto) (0-0.2) K/uL PT (9.0-12.0) Seconds INR (0.9-1.1) APTT (21.0-31.0) Seconds PTT Ratio Sodium (136-145) mmol/L Potassium (3.5-5.1) mmol/L Chloride (98-107) mmol/L Carbon Dioxide (21-32) mmol/L Anion Gap (3-11) BUN (7-18) mg/dl Creatinine (0.6-1.2) mg/dl Est Cr Clr Drug Dosing ml/min Est GFR ( Amer) Est GFR (Non-Af Amer) BUN/Creatinine Ratio (10-20) Glucose (70-99) mg/dl Lactate 1.1 (0.4-2.0) mmol/L Calcium (8.5-10.1) mg/dl Magnesium (1.8-2.4) mg/dl Total Bilirubin (0.2-1) mg/dl AST (15-37) U/L ALT (12-78) U/L Alkaline Phosphatase (45-117) U/L Troponin I (0-0.045) ng/ml Total Protein (6.4-8.2) gm/dl Albumin (3.4-5.0) gm/dl Globulin (2.5-4.0) gm/dl Albumin/Globulin Ratio (0.9-2) Procalcitonin 0.07 (0-0.5) ng/ml Urine Color Yellow Urine Appearance Slightly Cloudy (Clear) Urine pH 6.5 (4.5-7.5) Ur Specific Boyd 1.020 (1.000-1.030) Urine Protein Trace H (Negative) Urine Glucose (UA) Negative (Negative) Urine Ketones Negative (Negative) Urine Blood 3+ H (Negative) Urine Nitrite Negative (Negative) Urine Bilirubin Negative (Negative) Urine Urobilinogen Negative (Negative) Ur Leukocyte Esterase 2+ H (Negative) Urine RBC 5-10 H (0-4) /hpf Urine WBC 5-10 H (0-5) /hpf Ur Epithelial Cells 10-20 H (0-5) /lpf Urine Bacteria Negative (Negative) 06/03/19 06/03/19 06/03/19 Range/Units 15:45 15:45 15:45 WBC 7.98 (4.8-10.8) K/uL RBC 3.29 L (4.2-5.4) M/uL Hgb 9.8 L (12.0-16.0) g/dL Hct 29.1 L (37-47) % MCV 88.4 (80-100) fL MCH 29.8 (25-34) pg MCHC 33.7 (32-36) g/dL RDW Std Deviation 43.5 (36.4-46.3) fL RDW Coeff of Pardeep 13.4 (11.5-14.5) % Plt Count 210 (130-400) K/uL MPV 9.8 (7.4-10.4) fL Immature Gran % (Auto) 0.3 % Neut % (Auto) 93.4 % Lymph % (Auto) 2.8 % [place] % (Auto) 3.4 % Eos % (Auto) 0.0 % Baso % (Auto) 0.1 % Immature Gran # (Auto) 0.02 (0.00-0.02) K/uL Neut # (Auto) 7.46 H (1.4-6.5) K/uL Lymph # (Auto) 0.22 L (1.2-3.4) K/uL [place] # (Auto) 0.27 (0.11-0.59) K/uL Eos # (Auto) 0.00 (0-0.5) K/uL Baso # (Auto) 0.01 (0-0.2) K/uL PT 11.0 (9.0-12.0) Seconds INR 1.0 (0.9-1.1) APTT 25.6 (21.0-31.0) Seconds PTT Ratio 0.9 Sodium 132 L (136-145) mmol/L Potassium 4.0 (3.5-5.1) mmol/L Chloride 105 (98-107) mmol/L Carbon Dioxide 24 (21-32) mmol/L Anion Gap 3.0 (3-11) BUN 32 H (7-18) mg/dl Creatinine 1.12 (0.6-1.2) mg/dl Est Cr Clr Drug Dosing 32.2 ml/min Est GFR ( Amer) 55.3 Est GFR (Non-Af Amer) 47.7 BUN/Creatinine Ratio 28.5 H (10-20) Glucose 133 H (70-99) mg/dl Lactate (0.4-2.0) mmol/L Calcium 8.4 L (8.5-10.1) mg/dl Magnesium 1.4 L (1.8-2.4) mg/dl Total Bilirubin 1.0 (0.2-1) mg/dl AST 39 H (15-37) U/L ALT 28 (12-78) U/L Alkaline Phosphatase 49 (45-117) U/L Troponin I < 0.015 (0-0.045) ng/ml Total Protein 6.4 (6.4-8.2) gm/dl Albumin 3.1 L (3.4-5.0) gm/dl Globulin 3.3 (2.5-4.0) gm/dl Albumin/Globulin Ratio 0.9 (0.9-2) Procalcitonin (0-0.5) ng/ml Urine Color Urine Appearance (Clear) Urine pH (4.5-7.5) Ur Specific Boyd (1.000-1.030) Urine Protein (Negative) Urine Glucose (UA) (Negative) Urine Ketones (Negative) Urine Blood (Negative) Urine Nitrite (Negative) Urine Bilirubin (Negative) Urine Urobilinogen (Negative) Ur Leukocyte Esterase (Negative) Urine RBC (0-4) /hpf Urine WBC (0-5) /hpf Ur Epithelial Cells (0-5) /lpf Urine Bacteria (Negative) Code Status & VTE Plan VTE Prophylaxis Plan VTE Prophylaxis will be ordered: Yes Supervising Physician Co-Signing Physician Notes During my face to face encounter, patient seen and examined at bedside. Discussed case with APC Jessica Rodriguez. I reviewed above note and agree with it. My history and physical examination did not differ. Patient is a 78 yo female who came in for change of mental status and urinary tract infection. By time of admission, her mental status had improved. As stated above, patient tried one day of antibiotics but did not feel significant improvement in regards to fever. Patient will be admitted with a UTI and placed on IV antibiotics while waiting the urine culture that was done on 06/01. Hoping sensitivity results come back by tomorrow. PG Care Time/CCT Total # of Minutes Spent Total Time Spent with Patient: Total time spent is greater than 50% in coordination of care (as documented) at patient's floor/unit and/or counseling patient: Coding Level of Care Code 38305 Initial Inpt Care Lvl 3 Diagnoses Sepsis A41.9 Sepsis acute organ dysfunction status: without acute organ dysfunction Sepsis type: sepsis due to unspecified organism Acute UTI (urinary tract infection) N39.0 Hydronephrosis N13.30 Hydronephrosis type: unspecified Hematuria R31.9 Dehydration E86.0 Hyponatremia E87.1 History of endometrial cancer Z85.[address] Z93.3 Hypertension I10 Anemia D64.9 Hypomagnesemia E83.42 DVT prophylaxis Z29.9 (1) Hydronephrosis Hydronephrosis type: unspecified Qualified Code(s): N13.30 - Unspecified hydronephrosis (2) Sepsis Sepsis acute organ dysfunction status: without acute organ dysfunction Sepsis type: sepsis due to unspecified organism Qualified Code(s): A41.9 - Sepsis, unspecified organism
[2019-06-03] MEDS ORDERED: ACETAMINOPHEN 325 MG TAB PO PRN (19:15)
[2019-06-03] MEDS: MAGNESIUM SULFATE / D5W 1 GM/100 ML BAG IV SCH ×2 (19:40→20:45)
[2019-06-03] MEDS: SODIUM CHLORIDE 0.9% 1000ML 1,000 ML IV SCH (19:41)
[2019-06-03] MEDS: MIRABEGRON ER 25 MG TAB PO SCH (20:47)
[2019-06-03] MEDS ORDERED: lisinopriL 10 MG TAB PO SCH (21:00)
[2019-06-04 05:48] LABS: Hematocrit (blood only) 25.2 % (37-47); Hemoglobin 8.6 g/dL (12.0-16.0); Mean Corpuscular Hemoglobin 30.1 pg (25-34); Mean Corpuscular Hgb Conc 34.1 g/dL (32-36); Mean Corpuscular Volume 88.1 fL (80-100); Mean Platelet Volume 9.3 fL (7.4-10.4); Platelet Count 166 K/uL (130-400); RDW Coefficient of Variation 13.6 % (11.5-14.5); RDW Standard Deviation 43.9 fL (36.4-46.3); Red Blood Count 2.86 M/uL (4.2-5.4); White Blood Count 5.17 K/uL (4.8-10.8)
[2019-06-04 06:22] LABS: BUN Creatinine Ratio 23.8 (10-20); Calcium 7.7 mg/dl (8.5-10.1); Creatinine Clr Calc Pharmacy 35.1 ml/min; Est GFR (African American) 61.2; Est GFR (Non-African American) 52.8; Magnesium 2.1 mg/dl (1.8-2.4); Potassium 3.9 mmol/L (3.5-5.1)
[2019-06-04] MEDS: SODIUM CHLORIDE 0.9% 1000ML 1,000 ML IV SCH ×2 (08:23→20:30)
[2019-06-04] MEDS: AMLODIPINE BESYLATE 5 MG TAB PO SCH (08:24)
--- NOTE | 2019-06-04 10:08 | Hospitalist Progress Note ---
Date of Service June 04, 2019 Assessment & Plan (1) Sepsis: - Sepsis related to gram negative bacteremia likely primary urinary source - presented febrile, tachycardic, source - urine -- Low normal pressures today but mentation is appropriate - will hold anti- hypertensives at this time - BCx (1 of 2) + for gram neg bacilli - UCx from 06/01 with proteus vulgaris - Continue NS at 80 mL/hr - boluses pending further BP monitoring - Continue Rocephin and await Cx; repeat BCx obtained this AM (2) Acute UTI (urinary tract infection): - UCx with proteus vulgaris - which likely will correspond with one positive BCx -- Largely pansensitive - intermediate resistance to amp/sul and imipenem - CT - urinary bladder wall thickening c/w cystitis - Started Macrobid as outpatient - only took 3 doses prior to coming in; continue Rocephin daily for now -- Suspect can convert to oral antibiotics x 14 days from sterile BCx (3) Hydronephrosis: - CT A/P showed progressively worsening right > left hydrouretero nephrosis, appears to be chronic issue for patient. No evidence of obstructing stones. - Monitor as outpatient, follows with urology. -given sepsis, UTI, progressive hydro--> consult Urology to see if any further urological eval needs to be done while inpatient (4) Hematuria: - U/A positive for blood dating back to Feb 2018; Follows with Urology (5) Hyponatremia: - Na level 132, hypovolemic hyponatremia. - Resolved on AM labs; continue to monitor (6) History of endometrial cancer: - ; S/P radiation therapy -- Due to this resulted in colonic bleeding and placement of ostomy (7) Hypertension: - Was normotensive on admission; having softer BPs today but mentation is stable - Will hold Amlodipine and Lisinopril at this time; bolus fluids PRN (8) Anemia: - Baseline hgb ~10, normocytic. - Slight drop today at 8.6 and will monitor - possibly related to dilution with IVF - Continue to monitor closely. (9) DVT prophylaxis: - SCDs; holding Heparin in setting of acute hematuria. Disposition; New BCx are pending at this time - await identification of 1 of 2 + BC; likely can convert to oral medications on D/C Admission and Anticipated Discharge Date Admission Date: June 03, 2019 Supervising Physician Co-Signing Physician Notes PA Supervision Note: I did not personally see or examine the patient today, but I verified all knapp points of GONZALES Moreland's assessment and plan with the following exceptions/additions: None Subjective Reports she is feeling much better today. Still with occasional fevers this afternoon. Denies feeling fevered/chilled. She is alert and oriented at this time. She states she only took about 3 pills of the Macrobid before her symptoms worsened. She is tolerating a diet without issue. Verbalizes no complaints at this time Review of Systems Constitutional: + fever; no chills Respiratory: no cough and no dyspnea Cardiovascular: no chest pain, no lightheadedness and no edema Gastrointestinal: no abdominal pain, no nausea and no vomiting Genitourinary: no dysuria Integumentary: no rash Physical Exam Constitutional: WD/WN, vitals as above Eyes: + anicteric sclerae ENMT: Ears: no hearing impairment Neck: trachea midline Respiratory: normal respiratory effort, lungs clear to auscultation Cardiovascular: RRR, no murmur, no edema Gastrointestinal (Abdomen): Inspection/Auscultation: normal bowel sounds +ostomy Musculoskeletal: Head/Neck/Chest: normocephalic and head atraumatic Extremities: no cyanosis Skin: no rashes, warm and dry Neurologic: moves all extremities Psychiatric: A+Ox3, euthymic affect PG Care Time/CCT Total # of Minutes Spent Total Time Spent with Patient: Total time spent is greater than 50% in coordination of care (as documented) at patient's floor/unit and/or counseling patient: Coding Level of Care Code 95721 Subseq Hosp Care Lvl 3 Diagnoses Sepsis A41.9 Sepsis acute organ dysfunction status: without acute organ dysfunction Sepsis type: sepsis due to unspecified organism Acute UTI (urinary tract infection) N39.0 Hydronephrosis N13.30 Hydronephrosis type: unspecified Hematuria R31.9 Hyponatremia E87.1 History of endometrial cancer Z85.42 Hypertension I10 Anemia D64.9 DVT prophylaxis Z29.9 (1) Hydronephrosis Hydronephrosis type: unspecified Qualified Code(s): N13.30 - Unspecified hydronephrosis (2) Sepsis Sepsis acute organ dysfunction status: without acute organ dysfunction Sepsis type: sepsis due to unspecified organism Qualified Code(s): A41.9 - Sepsis, unspecified organism
[2019-06-04] MEDS: ACETAMINOPHEN 325 MG TAB PO PRN ×2 (11:16→23:28)
--- NOTE | 2019-06-04 14:03 | Electrocardiogram Report ---
Test Reason : Blood Pressure : / mmHG Vent. Rate : 097 BPM Atrial Rate : 097 BPM P-R Int : 146 ms QRS Dur : 072 ms QT Int : 318 ms P-R-T Axes : 078 050 065 degrees QTc Int : 403 ms Normal sinus rhythm Possible Left atrial enlargement Borderline ECG When compared with ECG of 08-JUL-2018 16:49, No significant change was found Confirmed by Chris Sánchez ([id number]) on 06/04/2019 2:02:56 PM Referred By: REFERRED SELF Confirmed By:Sharif Sánchez
[2019-06-04] MEDS: CEFTRIAXONE SODIUM IV SCH (15:57)
[2019-06-04] MEDS: DEXTROSE 5% IV SCH (15:57)
[2019-06-04] MEDS: METHYLCELLULOSE POWDER 454 GM JAR PO SCH (17:07)
[2019-06-04] MEDS: MIRABEGRON ER 25 MG TAB PO SCH (20:30)
--- NOTE | 2019-06-05 01:05 | Urology Consultation ---
Date of Consultation June 05, 2019 Assessment & Plan (1) Acute UTI (urinary tract infection): Assessment #1 urinary tract infection patient currently on IV antibiotics would continue these until she is afebrile x24 hours then switch to oral antibiotic for 2 weeks based on the sensitivities from the urine culture #2 bilateral hydronephrosis. This is a chronic problem. I do not see any point of obstruction there were no stones no obstructing lesions visible Since she is also having no flank pain or anything to suggest upper tract infection I do not think she needs stents placed at this time Since stenting would allow free reflux of the infected urine from the bladder up into the upper tracts which might potentially cause more problems History of Present Illness Attending Physician: Anne Messer MD History of Present Illness Patient is a 78-year-old white female admitted with fevers chills and apparent change in mental status. She was noted to have a urinary tract infection with a urine culture growing out Proteus. She had taken several doses of Macrobid before becoming more ill. While in the hospital she had spiking temperatures. She is currently on ceftriaxone. Her mental status currently seems intact that she is answering questions appropriately She says she actually feels better than when she came in. She is having no flank pain Said she is voiding without problem I reviewed her CT which shows bilateral hydronephrosis but there is no obstructing stone or lesion seen This hydronephrosis dates back at least to 2017 so is an old finding There does not appear to be any abscess in either kidney or any significant perinephric stranding Allergies Allergy/AdvReac Type Severity Reaction Status Date / Time No Known Drug Allergies Allergy Verified 06/03/19 16:15 Home Medications Home Medications Medication Instructions Recorded Confirmed Type multivitamin [Multiple Vitamins] 1 tab PO QDL 02/13/18 06/03/19 History omega 1-inh-ygi-fish oil [Fish Oil] 2,000 mg PO QDL 02/13/18 06/03/19 History conjugated estrogens 0.625 mg/gram 0.25 applic PV DAILY PRN #3 gm 09/25/18 06/03/19 History vaginal cream calcium citrate 250 mg 1 tab PO QAM tab 05/08/19 06/03/19 History calcium-vitamin D3 200 unit tablet nitrofurantoin 100 mg PO BID 3 Days #6 cap 06/02/19 06/03/19 Rx monohydrate/macrocrystals 100 mg capsule amlodipine 2.5 mg PO QAM 06/03/19 06/03/19 History lisinopril 10 mg PO HS 06/03/19 06/03/19 History mirabegron [Myrbetriq] 50 mg PO HS 06/03/19 06/03/19 History Patient History Medical History Colostomy in place History of anemia Hx of colonic polyp Hypertension Uterine carcinoma Surgical History History of total abdominal hysterectomy S/P colostomy S/P tonsillectomy Family History Daughter Systemic lupus Mother Myocardial infarction Brother Pancreatic cancer Brain cancer Lung cancer Denies family history of Ovarian cancer Prostate cancer Breast cancer Colorectal cancer Stroke Social History Preferred Language: Korean Communication Ability: Effective Visual Impairment: No Limitations Hearing Ability: Normal Photo Cartographer Required: No Beliefs That Will Affect Care: None Current Living Situation: Spouse Other Information That Helps Us Care for You: No Feels Safe at Home: Yes Safety Concerns: Feels Safe At This Time Smoking Status: Never smoker Do You Dip or Chew Tobacco: No ; Second Hand Exposure: No ; Tobacco Cessation Education Requested by Patient: No Hx Alcohol Use: No Hx Substance Use: No Physical Exam Physical Exam: Constitutional Well-developed well-nourished In no acute distress, Healthy appearing Neuro/psych Alert and oriented x3 Normal mood Normal affect Normal coordination Skin Normal color Normal turgor No rashes Warm and Dry Neck Normal visual inspection Pulmonary Normal rhythm and effort No respiratory distress No audible wheezes Able to speak in complete sentences Cardiac No peripheral edema Genitourinary No flank pain Results & Data Vital Signs (Past 12 Hours) Vital Signs Temp Pulse Pulse Resp BP BP Pulse Ox 06/05/19 00:13 39.0 C H 06/04/19 23:27 39.4 C H 96 H 20 137/71 94 06/04/19 22:56 106 H 06/04/19 19:47 37.1 C 89 18 120/57 L 94 06/04/19 16:05 79 06/04/19 15:03 37.6 C H 81 18 110/61 95 06/04/19 13:36 37.4 C Laboratory Results Laboratory Results - last 24 hr 06/04/19 06/04/19 06/04/19 05:35 05:35 22:23 WBC 5.17 RBC 2.86 L Hgb 8.6 L Hct 25.2 L MCV 88.1 MCH 30.1 MCHC 34.1 RDW Std Deviation 43.9 RDW Coeff of Pardeep 13.6 Plt Count 166 MPV 9.3 Sodium 136 Potassium 3.9 Chloride 109 H Carbon Dioxide 21 Anion Gap 6.0 BUN 25 H Creatinine 1.03 Est Cr Clr Drug Dosing 35.1 Est GFR ( Amer) 61.2 Est GFR (Non-Af Amer) 52.8 BUN/Creatinine Ratio 23.8 H Glucose 128 H Calcium 7.7 L Magnesium 2.1 Stool Occult Bld Scrn Negative PG Care Time/CCT Total # of Minutes Spent Total Time Spent with Patient: Total time spent is greater than 50% in coordination of care (as documented) at patient's floor/unit and/or counseling patient: Coding Level of Care Code 41237 Initial Inpt Care Lvl 2 Diagnoses Acute UTI (urinary tract infection) N39.0
[2019-06-05 06:57] LABS: Hematocrit (blood only) 28.4 % (37-47); Hemoglobin 9.5 g/dL (12.0-16.0); Mean Corpuscular Hemoglobin 29.7 pg (25-34); Mean Corpuscular Hgb Conc 33.5 g/dL (32-36); Mean Corpuscular Volume 88.8 fL (80-100); Mean Platelet Volume 9.9 fL (7.4-10.4); Platelet Count 181 K/uL (130-400); RDW Coefficient of Variation 13.8 % (11.5-14.5); RDW Standard Deviation 45.7 fL (36.4-46.3); White Blood Count 4.57 K/uL (4.8-10.8)
[2019-06-05 07:24] LABS: Creatinine Clr Calc Pharmacy 38.8 ml/min; Est GFR (African American) 69.2; Est GFR (Non-African American) 59.7; Potassium 3.8 mmol/L (3.5-5.1)
[2019-06-05 07:30] LABS: Ferritin 109.1 ng/ml (8-388)
[2019-06-05 08:17] LABS: Vitamin B12 603 pg/ml (211-911)
[2019-06-05 08:18] LABS: Folate (Folic Acid) > 24.00 ng/ml (>5.38)
[2019-06-05] MEDS: SODIUM CHLORIDE 0.9% 1000ML 1,000 ML IV SCH (08:31)
[2019-06-05] MEDS: METHYLCELLULOSE POWDER 454 GM JAR PO SCH (09:33)
[2019-06-05] MEDS ORDERED: IRON SUCROSE 200 MG in 0.9 % SODIUM CHLORIDE 100 ML IV ONE (10:30)
--- NOTE | 2019-06-05 10:48 | Hospitalist Progress Note ---
Date of Service June 05, 2019 Assessment & Plan (1) Sepsis: - Sepsis related to gram negative bacteremia likely primary urinary source - presented febrile, tachycardic, source - urine -- BP improving since yesterday - will monitor off antihypertensives at this time - BCx (1 of 2) + for gram neg bacilli - UCx from 06/01 with proteus vulgaris - Continue NS at 80 mL/hr - boluses pending further BP monitoring - Continue Rocephin and await Cx; repeat BCx so far NGTD -- Likely convert to Cefdinir to complete a total of 14 days Abx (2) Acute UTI (urinary tract infection): - UCx with proteus vulgaris - which likely will correspond with one posit bryce BCx -- Largely pansensitive - intermediate resistance to amp/sul and imipenem - CT - urinary bladder wall thickening c/w cystitis - Started Macrobid as outpatient - only took 3 doses prior to coming in; continue Rocephin daily for now -- Suspect can convert to oral antibiotics x 14 days from sterile BCx (3) Hydronephrosis: - CT A/P showed progressively worsening right > left hydroureteronephrosis, appears to be chronic issue for patient. No evidence of obstructing stones. - Monitor as outpatient, follows with urology - Given Sepsis/UTI/progressive hydro - consulted Urology - no intervention needed at this time - appreciate their input (4) Hematuria: - U/A positive for blood dating back to Feb 2018; Follows with Urology (5) Hyponatremia: - Na level 132, hypovolemic hyponatremia. - Resolved on AM labs; continue to monitor (6) History of endometrial cancer: - ; S/P radiation therapy -- Due to this resulted in colonic bleeding and placement of ostomy (7) Hypertension: - Was normotensive on admission; having softer BPs yesterday but improved today - Will hold Amlodipine and Lisinopril at this time; bolus fluids PRN (8) Anemia: - Baseline hgb ~10, normocytic. - Slight drop yesterday at 8.6 and now back to 9.5 - possibly related to dilution with IVF - Low iron levels - will utilize Venofer today and likely another dose tomorrow -- Reports H/O bowel obstructions and will try and avoid oral supplementation at this time - can supply list of foods with good iron sources (9) DVT prophylaxis: - SCDs; holding Heparin in setting of hematuria. Disposition: New BCx are pending at this time but NGTD; - await identification of 1 of 2 + BC; likely can convert to oral medications on D/C and possible home tomorrow Admission and Anticipated Discharge Date Admission Date: June 03, 2019 Supervising Physician Co-Signing Physician Notes GONZALES Supervision Note: I did not personally see or examine the patient today, but I verified all knapp points of GONZALES Moreland's assessment and plan with the following exceptions/additions: None Subjective Reports feeling well today. She did feel fevered overnight but can recall it breaking and having sweating overnight. She states she feels better today then yesterday even. Her Hgb is trending up and she reports she has had loss of blood with hematuria and previously with the bowels leading to her colostomy. Given her anemia her iron studies show NICOLE and will start Venofer. Hgb did improve to 9.5 today. She is tolerating her diet. Reports her bowels have been moving adequately and no changes noted in the presentation of her stool. Review of Systems Constitutional: + fever (overnight - felt it break) and + sweats (overnight with fever break); no chills Respiratory: no cough and no dyspnea Cardiovascular: no chest pain, no palpitations and no edema Gastrointestinal: no abdominal pain, no nausea, no vomiting, no constipation and no diarrhea/loose stools Genitourinary: no dysuria Integumentary: no rash Physical Exam Constitutional: WD/WN, vitals as above Eyes: + anicteric sclerae ENMT: Ears: no hearing impairment Neck: trachea midline Respiratory: normal respiratory effort, lungs clear to auscultation Cardiovascular: RRR, no murmur, no edema Gastrointestinal (Abdomen): Inspection/Auscultation: normal bowel sounds Percussion/Palpation: abdomen soft; abdomen nontender + ostomy Musculoskeletal: Head/Neck/Chest: normocephalic and head atraumatic Extremities: no cyanosis Skin: no rashes, warm and dry Neurologic: moves all extremities Psychiatric: A+Ox3, euthymic affect Results & Data Results & Data ([facility]) Vital Signs (Past 12 Hours) Vital Signs Temp Pulse Pulse Resp BP BP Pulse Ox 06/05/19 07:27 37.0 C 73 18 127/63 97 06/05/19 04:42 36.5 C 75 22 115/65 97 06/05/19 00:13 39.0 C H 06/04/19 23:27 39.4 C H 96 H 20 137/71 94 06/04/19 22:56 106 H PG Care Time/CCT Total # of Minutes Spent Total Time Spent with Patient: Total time spent is greater than 50% in coordination of care (as documented) at patient's floor/unit and/or counseling patient: Coding Level of Care Code 37706 Subseq Hosp Care Lvl 3 Diagnoses Sepsis A41.9 Sepsis acute organ dysfunction status: without acute organ dysfunction Sepsis type: sepsis due to unspecified organism Acute UTI (urinary tract infection) N39.0 Hydronephrosis N13.30 Hydronephrosis type: unspecified Hematuria R31.9 Hyponatremia E87.1 History of endometrial cancer Z85.42 Hypertension I10 Anemia D64.9 DVT prophylaxis Z29.9 (1) Hydronephrosis Hydronephrosis type: unspecified Qualified Code(s): N13.30 - Unspecified hydronephrosis (2) Sepsis Sepsis acute organ dysfunction status: without acute organ dysfunction Sepsis type: sepsis due to unspecified organism Qualified Code(s): A41.9 - Sepsis, unspecified organism
[2019-06-05] MEDS: metroNIDAZOLE 500 MG/100 ML BAG IV SCH ×2 (14:39→22:01)
[2019-06-05] MEDS: DEXTROSE 5% IV SCH (16:14)
[2019-06-05] MEDS: CEFTRIAXONE SODIUM IV SCH (16:14)
[2019-06-05] MEDS ORDERED: METHYLCELLULOSE POWDER 454 GM JAR PO SCH (16:30)
[2019-06-05] MEDS: MIRABEGRON ER 25 MG TAB PO SCH (21:09)
[2019-06-06 05:49] LABS: Hematocrit (blood only) 26.9 % (37-47); Hemoglobin 8.8 g/dL (12.0-16.0); Mean Corpuscular Hemoglobin 29.1 pg (25-34); Mean Corpuscular Hgb Conc 32.7 g/dL (32-36); Mean Corpuscular Volume 89.1 fL (80-100); Mean Platelet Volume 9.7 fL (7.4-10.4); Platelet Count 195 K/uL (130-400); RDW Coefficient of Variation 13.8 % (11.5-14.5); RDW Standard Deviation 45.2 fL (36.4-46.3); Red Blood Count 3.02 M/uL (4.2-5.4); White Blood Count 5.46 K/uL (4.8-10.8)
[2019-06-06] MEDS: metroNIDAZOLE 500 MG/100 ML BAG IV SCH (05:56)
[2019-06-06 06:22] LABS: BUN Creatinine Ratio 11.5 (10-20); Calcium 8.3 mg/dl (8.5-10.1); Creatinine Clr Calc Pharmacy 37.6 ml/min; Est GFR (African American) 66.6; Est GFR (Non-African American) 57.4; Potassium 3.9 mmol/L (3.5-5.1)
[2019-06-06] MEDS ORDERED: IRON SUCROSE 200 MG in 0.9 % SODIUM CHLORIDE 100 ML IV ONE (08:30)
--- NOTE | 2019-06-06 09:24 | Urology Progress Note ---
Date of Service June 06, 2019 Assessment & Plan (1) Acute UTI (urinary tract infection): (2) Sepsis: (3) Hydronephrosis: 78 year-old female patient admitted with sepsis, acute UTI, and bilateral hydronephrosis, right greater than left. -Patient clinically progressing. -Afebrile overnight. -Creatinine stable. -Preliminary urine culture growing Proteus Vulgaris - IV antibiotics per primary team. -Repeat blood cultures preliminary no growth after 24 hours. -Recommend continuing IV antibiotic therapy until she is afebrile x24 hours then transition to oral antibiotics for total of 2 weeks based on final sensitivities. -In regards to her bilateral hydronephrosis, does appear to be chronic for patient however has increased. No evidence of obstruction noted on CT. No visible stones. -No acute intervention required at this time. -Reviewed with Dr. Gabriel. Will need close follow-up as outpatient for on- going monitoring. -Recommend keeping scheduled appointment 06/18/19 with urology service. -Patient's updated. He and patient are in agreement with plan. -Continue to follow while inpatient. Subjective Patient alert, awake, non-toxic appearing. She reports she is feeling "much better". She slept well overnight without reported issues. Denies fevers or chills. She has been voiding spontaneously without dysuria, hematuria, frequency, or urgency. Denies flank or abdominal pain. Tolerating diet without nausea or vomiting. Has been up ambulating without dizziness or lightheadedness. She reports she would like to go home today. Chart Review: Afebrile overnight, last elevated temperature was 06/04 at 1500 (37.7). Wbc 5.46 Hgb 8.8 Creatinine 0.96 Urine culture from 06/01 showing Proteus Vulgaris - patient currently on IV Ceftriaxone and IV Flagyl. Initial preliminary blood culture x1 on 06/02 also showing Proteus Vulgaris. Repeat blood cultures 06/03 preliminary no growth after 24 hours. Review of Systems Constitutional: no fever and no chills Respiratory: no cough and no dyspnea Gastrointestinal: no nausea and no vomiting Genitourinary: as per Subjective / HPI Neurologic: no dizziness and no syncope Physical Exam Constitutional: well developed and well nourished; no acute distress and not ill appearing Respiratory: normal respiratory effort and able to speak in complete sentences; no respiratory distress and no audible wheezes Cardiovascular: Extremities: no calf tenderness and no edema Gastrointestinal (Abdomen): Inspection/Auscultation: abdomen normal to inspection; abdomen not distended Percussion/Palpation: abdomen soft; abdomen nontender and no guarding Psychiatric: Orientation: alert, oriented x 3 and cooperative Affect: euthymic affect Genitourinary: no CVA tenderness Results & Data Vital Signs (Past 12 Hours) Vital Signs Temp Pulse Resp BP BP Pulse Ox 06/06/19 07:00 36.8 C 81 16 161/80 H 94 06/05/19 23:43 37.4 C 87 18 159/75 H 94 PG Care Time/CCT Total # of Minutes Spent Total Time Spent with Patient: Total time spent is greater than 50% in coordination of care (as documented) at patient's floor/unit and/or counseling patient: Coding Level of Care Code 01099 Subseq Hosp Care Lvl 2 Diagnoses Acute UTI (urinary tract infection) N39.0 Sepsis A41.9 Sepsis acute organ dysfunction status: without acute organ dysfunction Sepsis type: sepsis due to unspecified organism Hydronephrosis N13.30 Hydronephrosis type: unspecified (1) Hydronephrosis Hydronephrosis type: unspecified Qualified Code(s): N13.30 - Unspecified hydronephrosis (2) Sepsis Sepsis acute organ dysfunction status: without acute organ dysfunction Sepsis type: sepsis due to unspecified organism Qualified Code(s): A41.9 - Sepsis, unspecified organism
[2019-06-06] MEDS: AMLODIPINE BESYLATE 5 MG TAB PO SCH (10:31)
[2019-06-06] MEDS: CEFTRIAXONE SODIUM IV SCH (10:57)
[2019-06-06] MEDS: DEXTROSE 5% IV SCH (10:57)
--- NOTE | 2019-06-06 11:33 | Discharge Summary ---
Date of Service June 06, 2019 Admission HPI Per Admitting Provider Ms. Goncalves is a 78 y/o female with PMHx HTN, Overactive bladder, Uterine cancer, Ostomy placement who presented with UTI related symptoms. Patient started a course of Macrobid on 06/01 for newly diagnosed UTI; she took 2 doses yesterday and one dose this morning. Patient developed a high fever this morning but did not take temp at home. She initially complained of dysuria and hematuria starting on Sunday evening. Denies flank pain, suprapubic pain, chills at home. Symptoms were improving after starting Macrobid leading up to fever/confusion this morning. Her is present at bedside, stated that patient is usually alert and oriented x 3 but was very confused this morning. She received IV fluids and IV abx in the ER. Will admit for treatment of UTI. Principal Diagnosis Sepsis from Bacteremia and UTI - Proteus Vulgaris Discharge Exam Constitutional WD/WN, vitals as above Eyes + anicteric sclerae ENMT Ears: no hearing impairment Neck trachea midline Respiratory normal respiratory effort, lungs clear to auscultation Cardiovascular RRR, no murmur, no edema Gastrointestinal (Abdomen) Inspection/Auscultation: normal bowel sounds Percussion/Palpation: abdomen soft; abdomen nontender Musculoskeletal Head/Neck/Chest: normocephalic and head atraumatic Extremities: no cyanosis Skin no rashes, warm and dry Neurologic moves all extremities Psychiatric A+Ox3, euthymic affect Discharge Data Allergies Allergy/AdvReac Type Severity Reaction Status Date / Time No Known Drug Allergies Allergy Verified 06/03/19 16:15 Consultations 06/03/19 17:15 ED Decision to Admit Stat 06/04/19 16:45 Consult Urology Routine Ordered Studies 06/03/19 15:39 CT abd pelvis wo con Stat Hospital Course (1) Sepsis: - Sepsis related to proteus vulgaris bacteremia likely primary urinary source - presented febrile, tachycardic, source - urine - BCx (1 of 2) + for proteus vulgaris - UCx from 06/01 with proteus vulgaris; Repeat BCx with NGTD - Treated with Rocephin IV; added Flagyl given blood culture was gram neg on the anaerobic culture however turned out to be proteus vulgaris regardless -- Will complete treatment with Cefdinir 300 mg BID x 10 more days to complete 14 days total. She had Rocephin on day of D/C. (2) Acute UTI (urinary tract infection): - UCx with proteus vulgaris -- Largely pansensitive - intermediate resistance to amp/sul and imipenem - CT - urinary bladder wall thickening c/w cystitis and progressive R>L hydronephrosis as below - Started Macrobid as outpatient - only took 3 doses prior to coming in -- Converted to oral antibiotics x 14 days total as discussed above (3) Hydronephrosis: - CT A/P showed progressively worsening right > left hydroureteronephrosis, appears to be chronic issue for patient. No evidence of obstructing stones. - Given Sepsis/UTI/progressive hydro - consulted Urology - no intervention needed at this time and will continue to monitor as outpatient - appreciate their input (4) Hematuria: - U/A positive for blood dating back to Feb 2018; Follows with Urology (5) History of endometrial cancer: - ; S/P radiation therapy -- Due to this resulted in colonic bleeding and placement of ostomy (6) Hypertension: - Was normotensive on admission; having softer BPs initially now improved and will continue Amlodipine and Lisinopril on D/C (7) Anemia: - Baseline hgb ~10, normocytic. - Slight drop yesterday at 8.6 and now at 8.8 - possibly related to dilution with IVF - Low iron levels - transferrin sat only 2%--> utilized Venofer x 2 doses; recommend slow Fe as outpatient to help bring these stores up and reduce GI upset/symptoms - strongly recommend GI evaluation with EGD and colonoscopy for iron deficiency anemia - will need to F/U with PCP-discussed with pt (8) DVT prophylaxis: - SCDs Disposition: Plans to return home; complete antibiotic course; Urology follow-up as deemed necessary by them. Total Time Total Time Spent Total Time Spent (In Minutes): Greater than 30 minutes Discharge Plan Discharge Items Patient Disposition: Home - Self-Care Reason For Visit: UTI Discharge Diagnosis: Urinary Tract Infection and Bacteremia Condition on Discharge: Good Activity: Resume your previous activity Non-emergency contact: Primary Care Provider and Urologist Call non-emergency contact if: you have any medication questions, your symptoms worsen and you have a fever Follow-up/Referrals: Pro,Arian Jacobsen MD [Primary Care Provider] - (Please call your primary care doctor's office and see if they want you to make a follow up appointment with them.) Diet: Regular Addtl Attending Provider Instructions: Urinary Tract Infection and Bacteremia: - Your urinary tract is growing Proteus vulgaris, this is a type of bacteria. This bacteria did get into your blood stream and we saw this on a blood culture. Thankfully, it appears this was caught pretty early and now new blood cultures do not show any bacterial growth. - We do need to complete a 14 day total course of antibiotics to make sure we get this all out of your system. This includes the antibiotics you had here in the hospital. -- You will take Cefdinir 300 mg twice a day until June 15. Therefore, you can get rid of the Macrobid you were given prior to admission as this is not needed. Hydronephrosis: - This is when fluid builds up around the kidney. This is chronic for you and will need to be continuously watched by your Urologist. They saw you here in the hospital and no intervention is needed at this time - Please follow-up with them as needed Anemia: - Your hemoglobin on average is around 10. It has been around 8.8-9.5 here. Some of this fluctuation can be from getting IV fluids as it can dilute out the count numbers when we run labs. - However, when looking at your lab work you are iron deficient. We gave you Venofer which is iron through the IV. Sometimes it is hard to take iron supplements and it can cause some GI upset or constipation. Could consider taking a once daily ferrous sulfate (iron) if you would want as it may cause less GI issues. -- Some foods that are good sources of iron are - iron-enriched cereals, liver, tuna, eggs, shrimp (meat iron tends to absorb better), tofu, spinach - It may not be a bad idea to have routine iron testing with your family doctor in a few months to see how this is going. They may also want to explore more as you can lose microscopic blood in your stool or urine. - We were discussing how you were on an easy to digest iron supplement. This is an over the counter formulation called Slow Fe. This is a slow release formulation that tends to cause less GI symptoms then the immediate release formulations we tend to use. If you would use this you can follow the directions on the package. Pending Studies at Discharge: No Stand-Alone Forms: My [facility] Medications and DC Order Prescriptions: New cefdinir 300 mg capsule 300 mg PO BID 10 Days Qty: 20 RF: 0 Continued conjugated estrogens 0.625 mg/gram cream 0.25 applic PV DAILY PRN (Reason: Other) Qty: 3 RF: 0 multivitamin [Multiple Vitamins] Tablet 1 tab PO QDL RF: 0 omega 7-cnx-yhg-fish oil [Fish Oil] 1,000 mg (120 mg-180 mg) Capsule 2,000 mg PO QDL RF: 0 calcium citrate-vitamin D3 [Citracal Regular] 250 mg calcium- 200 unit tablet 1 tab PO QAM RF: 0 amlodipine 2.5 mg tablet 2.5 mg PO QAM RF: 0 lisinopril 10 mg tablet 10 mg PO HS RF: 0 Myrbetriq 50 mg tablet extended release 24 hr 50 mg PO HS RF: 0 Discontinued nitrofurantoin monohyd/m-cryst [Macrobid] 100 mg capsule 100 mg PO BID 3 Days Qty: 6 RF: 0 Discharge Orders: Discharge Order (Routine); Ordered 06/06/19 Ordered By: Anne Messer Admission Data Admit Date/Time: 06/03/19 17:29 Attending Provider: Anne Messer Admit Provider: Napoleon Bishop Primary Care Provider: Arian Shah Other Providers: Napoleon Bishop ; Cayden Duran DC Date/Time DO NOT enter until pt leaves facility: 06/06/19 14:05 Supervising Physician Co-Signing Physician Notes PA Supervision Note: I personally saw and examined the patient. I verified all knapp points and agree with GONZALES Moreland with the following exceptions and/or additions: Pt feeling much improved. No abd pains, no fevers, Denies chest pain or SOB. Is ambulating the halls. No urinary symptoms Vitals reviewed NAD, AAOx3 RRR no mgr CTAB no wcr ABd +BS soft NT ND, colostomy in place with brown stool Ext no edema or calf tenderness 78 yo female who presented with acute metabolic encephalopathy with AMS, septicemia and UTI. With chronic urinary issues and hydronephrosis possibly due to previous h/o XRT to pelvis for endometrial CA. Overall much improved and dc to home on po antibiotics for Proteus vilgaris UTI and bacteremia for total 14 days. Seen by Urol for bilat hydro and no intervention deemed necessary Discussed importance of following up with PCP and GI for significant iron def anemia. Has not had colonoscopy in over 10 years she states Coding Level of Care Code D/C Day Management >30 mins Diagnoses Sepsis A41.9 Sepsis acute organ dysfunction status: without acute organ dysfunction Sepsis type: sepsis due to unspecified organism Acute UTI (urinary tract infection) N39.0 Hydronephrosis N13.30 Hydronephrosis type: unspecified Hematuria R31.9 History of endometrial cancer Z85.42 Hypertension I10 Anemia D64.9 DVT prophylaxis Z29.9
== END 2019-06-06 14:05 | disposition home or self-care (01) | DRG 871 ==
LOC: ED 15:16 → 2W 17:29 → SUATTDRO 17:29 → 2W 18:16

== ENCOUNTER 2019-07-31 20:04 | Inpatient (IN) ==
[2019-07-31] MEDS ORDERED: SODIUM CHLORIDE 0.9% 1000ML 1,000 ML IV ONE (20:11)
[2019-07-31] MEDS ORDERED: MoRPHine SULFATE 4 MG/ML 1 ML CARP\\VIAL IV STA (20:20)
[2019-07-31] MEDS ORDERED: ONDANSETRON INJ 2 MG/ML 2 ML VIAL IV STA (20:20)
[2019-07-31 20:35] LABS: Basophils # (auto) 0.02 K/uL (0-0.2); Basophils % (auto) 0.2 %; Hematocrit (blood only) 33.7 % (37-47); Hemoglobin 11.3 g/dL (12.0-16.0); Immature Granulocytes # (auto) 0.01 K/uL (0.00-0.02); Immature Granulocytes % (auto) 0.1 %; Lymphocytes # (auto) 0.72 K/uL (1.2-3.4); Lymphocytes % (auto) 6.9 %; Mean Corpuscular Hemoglobin 29.9 pg (25-34); Mean Corpuscular Hgb Conc 33.5 g/dL (32-36); Mean Corpuscular Volume 89.2 fL (80-100); Mean Platelet Volume 9.4 fL (7.4-10.4); Monocytes # (auto) 0.43 K/uL (0.11-0.59); Monocytes % (auto) 4.1 %; Neutrophils # (auto) 9.33 K/uL (1.4-6.5); Neutrophils % (auto) 88.7 %; Platelet Count 312 K/uL (130-400); RDW Coefficient of Variation 14.2 % (11.5-14.5); RDW Standard Deviation 46.5 fL (36.4-46.3); Red Blood Count 3.78 M/uL (4.2-5.4); White Blood Count 10.51 K/uL (4.8-10.8)
[2019-07-31 20:45] LABS: iSTAT Creatinine 1.2 mg/dl (0.6-1.3); iSTAT Hemoglobin 11.6 g/dl (12.0-16.0); iSTAT Ionized Calcium 1.15 mmol/l (1.12-1.32); iSTAT Potassium 3.7 mmol/L (3.3-5.0)
[2019-07-31] MEDS ORDERED: IOVERSOL 100ml IV PRN ×2 (20:51→20:52)
[2019-07-31 21:02] LABS: Albumin Level 3.4 gm/dl (3.4-5.0); BUN Creatinine Ratio 24.3 (10-20); Bilirubin,Total 1.4 mg/dl (0.2-1); Calcium 9.6 mg/dl (8.5-10.1); Creatinine Clr Calc Pharmacy 26.4 ml/min; Est GFR (African American) 44.9; Est GFR (Non-African American) 38.7; Globulin 3.6 gm/dl (2.5-4.0); Potassium 3.7 mmol/L (3.5-5.1)
--- NOTE | 2019-07-31 21:15 | CT Scan Report ---
ABDOMEN AND PELVIS CT WITH IV CONTRAST CT DOSE: 231.74 mGy.cm HISTORY: Acute generalized abdominal pain with history of prior small bowel obstruction. abd pain wi th previous sbo TECHNIQUE: Multiaxial CT images of the abdomen and pelvis were performed following the IV administrat ion of 93 cc of Optiray 320, A dose lowering technique was utilized adhering to the principles of AL KOKI. COMPARISON STUDY: CT abdomen and pelvis 06/03/2019, 02/13/2018 FINDINGS: Lung bases appear clear. No pneumatosis or pneumoperitoneum identified. The imaged inferior cardiac c hambers are unremarkable. Coronary artery calcifications. Spleen and adrenal glands are unremarkable. Liver is also within normal limits. Mild to moderate gallbladder distention. No cholelithiasis. Ther e is mild dilation of the common bile duct measures 8 mm transversely. The pancreatic duct measures t he upper limits of normal at 3 mm. No obstructing stone or lesion identified. Bilateral cortical thinning of the kidneys with severe right and moderate to severe left hydrouretero nephrosis, unchanged from comparison. There is tapering of the distal ureters without obstructing sto ne or lesion identified. Moderate wall thickening of the urinary bladder. Calcified plaque of the abd ominal aorta without aneurysm. No adenopathy. Unremarkable IVC. Retroaortic left renal vein. Postoperative changes of partial left hemicolectomy with left lower quadrant colostomy. Moderate-size d parastomal hernia is unchanged which contains mesenteric fat, free fluid and a loop of decompressed large bowel. Moderate fecal retention. Trace abdominopelvic ascites with mild diffuse mesenteric bryan ma. Multiple stool-filled loops of small bowel. Multiple air and fluid-filled distended loops of smal l bowel are also noted measuring up to 4.1 cm transversely. With tapering narrowed loop of bowel seen within the abdominal right lower quadrant on image 220 series 3 with decompressed loops seen distall y. No obstructing lesion identified. Degenerative changes of the pelvis and spine. Unchanged bony exp ansion with sclerosis and possible hemangioma of the left pubic body. IMPRESSION: 1. Multiple air and fluid-filled dilated loops of small bowel and stool-filled loops of small bowel a re noted compatible with at least a moderate grade small bowel obstruction with transition point with in the abdominal right lower quadrant. 2. No pneumatosis or pneumoperitoneum. 3. Trace likely reactive abdominal pelvic ascites. 4. Severe right and moderate to severe left hydroureteronephrosis appears unchanged from comparison. 5. Prior partial left hemicolectomy with left lower quadrant colostomy. 6. Additional findings as above. ACT 112: Negative or not required by law. The above report was generated using voice recognition software. It may contain grammatical, syntax o r spelling errors. Electronically signed by: Nicholas Knowles M.D. 07/31/2019 9:14 PM
--- NOTE | 2019-07-31 21:32 | Emergency Department Note ---
Impression & Plan Small bowel obstruction, Abdominal pain, Nausea, Vomiting ED Provider Note NAME: SHIVA GUO AGE: 78 SEX: F : 1940 ARRIVES VIA: Walk-In INFORMANT: Patient ED PROVIDER(S): Morro Burgess DO CHIEF COMPLAINT: Abdominal pain HPI: Patient is a 78-year-old female who presents the ER for abdominal pain. Pain is located in periumbilical region. She notes it started about 2 days ago and associated with nausea and vomiting. She does have an ostomy and notes that she has had diminished outputs for the past 48 hours. She notes the ostomy is secondary to uterine cancer and adhesions. Pain is currently a 7 out of 10. She does have some nausea now. No dysuria urgency or frequency. Pain is constant and has been unremitting. Notes this feels exactly like previous bowel obstructions. Symptoms are improved with not eating or drinking. ROS: See above HPI for pertinent positives & negatives. A total of 10 systems reviewed and were otherwise negative. PAST MEDICAL HISTORY:See Below PAST SURGICAL HISTORY:See Below FAMILY HISTORY:See Below SOCIAL HISTORY:See Below HOME MEDICATIONS:See Below ALLERGIES:See Below VITALS:See Below PHYSICAL EXAMINATION: GENERAL: Sitting up in bed, chronically ill-appearing, no acute distress, nontoxic EYE EXAM: normal conjunctiva. OROPHARYNX: no exudate, no erythema, lips, buccal mucosa, and tongue normal and mucous membranes are moist NECK: supple, no nuchal rigidity, no adenopathy, non-tender LUNGS: Clear to auscultation. Normal chest wall mechanics HEART: no murmurs, S1 normal and S2 normal ABDOMEN: abdomen soft, ostomy in the left midabdomen with no output, normo- active bowel sounds, no masses, no rebound or guarding. BACK: Back is symmetrical on inspection and there is no deformity, no midline te nderness, no CVA tenderness. SKIN: no rashes and no bruising UPPER EXTREMITIES: upper extremities are grossly normal. LOWER EXTREMITIES: No pitting edema. NEURO EXAM: Normal sensorium, cranial nerves II-XII grossly intact, normal speech, no gross weakness of arms, no gross weakness of legs. MEDICAL DECISION MAKING: Patient is a 78-year-old female with past medical history of bowel obstructions that presents the ER for abdominal pain, swelling and decreased ostomy outputs. IV was established blood work was obtained. Labs show no significant leukocytosis but a mild anemia. BMP was unremarkable. There were was a slightly elevated glucose at 132. LFTs bilirubin and lipase was unremarkable. CT abdomen pelvis shows small bowel obstruction. This was discussed with Benny Almanzar from general surgery. Recommended admission to the hospitalist. Discussed with Dr. Manuelito Dwyer. Patient was admitted for further work-up of her small bowel obstruction. Of note she was given IV fluids and Zofran as well as IV morphine while in the ER. Triage Nursing notes reviewed. Prior medical records reviewed Vital Signs: reviewed and remarkable for no significant abnormalities Differential diagnosis: Differential diagnoses includes but is not limited to gastritis, peptic ulcer disease, GERD, gallbladder disease, pancreatitis, small bowel obstruction, acute coronary syndrome, pericarditis, ischemic bowel, irritable bowel disease, irritable bowel syndrome, appendicitis, diverticulitis, malignancy, hernia, u rinary tract infection, torsion, [/ectopic (if female)], perforation, trauma, infectious. ER treatment provided: See below Diagnostics interpreted by me: ECG: none Cardiac Monitoring: An order was placed for continuous cardiac monitoring. The monitor shows a rate of 86 with sinus rhythm. Laboratory studies: As stated above and show below. Imaging studies: CT abdomen pelvis shows small bowel obstruction Consultation(s): Discussed with Christ Almanzar from [facility] surgery. Discussed with Dr. Manuelito Dwyer from not any hospitalist. ED COURSE: Procedures: none Critical Care: None Past Med/Surg History Medical History (Updated 07/31/19 @ 21:32 by Morro Buregss DO) Colostomy in place History of anemia History of urinary frequency (Inactive) Hx of colonic polyp Hypertension Uterine carcinoma Surgical History (Updated 07/01/19 @ 10:41 by Tatiana Braun MA) History of colonoscopy History of partial colectomy History of total abdominal hysterectomy S/P colostomy S/P tonsillectomy Family History (Updated 07/01/19 @ 10:42 by Tatiana Braun MA) Daughter Systemic lupus Mother Myocardial infarction Heart disease Brother Pancreatic cancer Brain cancer Lung cancer Father Alcohol abuse Denies family history of Ovarian cancer Prostate cancer Breast cancer Colorectal cancer Stroke Social History (Updated 07/01/19 @ 10:42 by Tatiana Braun MA) Preferred Language: Congolese Communication Ability: Effective Visual Impairment: No Limitations Hearing Ability: Normal Therapeutic Recreation Leader Required: No Beliefs That Will Affect Care: None marital status: Current Living Situation: Spouse current occupational status: retired Feels Safe at Home: Yes Smoking Status: Never smoker Second Hand Exposure: No ; Hx Alcohol Use: No Hx Substance Use: No Allergies Allergies Allergy/AdvReac Type Severity Reaction Status Date / Time No Known Drug Allergies Allergy Verified 07/31/19 21:10 Home Meds Home Medications Medication Instructions Recorded Confirmed multivitamin [Multiple Vitamins] 1 tab PO QDL 02/13/18 07/31/19 omega 7-zrn-vjj-fish oil [Fish Oil] 2,000 mg PO QDL 02/13/18 07/31/19 conjugated estrogens 0.625 mg/gram 0.25 applic PV DAILY PRN #3 gm 09/25/18 0 07/31/19 vaginal cream calcium citrate 250 mg 1 tab PO QAM tab 05/08/19 07/31/19 calcium-vitamin D3 200 unit tablet amlodipine 2.5 mg PO QAM 06/03/19 07/31/19 lisinopril 10 mg PO HS 06/03/19 07/31/19 acetaminophen [Tylenol] 325 mg PO QID PRN 07/31/19 07/31/19 nitrofurantoin macrocrystal 50 mg PO QAM 07/31/19 07/31/19 Previous Rx's Medication Instructions Recorded mirabegron 50 mg tablet,extended 50 mg PO HS #90 tab 06/18/19 release 24 hr Results & Data (ED) Vital Signs Vital Signs - 24 hr 07/31/19 20:06 07/31/19 21:27 Temperature 36.8 C Temperature Source Oral Pulse Rate 95 H Pulse Rate [Right Finger] 88 Respiratory Rate 18 16 Respiratory Effort / Characteristics Non-Labored Spontaneous Respiratory Depth Normal Blood Pressure 142/85 H Blood Pressure [Right Arm] 141/77 H Blood Pressure Mean 104 Blood Pressure Mean [Right Arm] 98 Pulse Oximetry 95 97 Oxygen Delivery Method Room Air Sepsis Recent Fever Within 48 Hours No Sepsis New/Unexplained Change in Mental Status No Sepsis Action Taken by Nursing No Action Required Laboratory Data Result diagrams: 07/31/19 20:25 07/31/19 20:25 Lab Results 07/31/19 07/31/19 07/31/19 Range/Units 20:25 20:25 20:32 WBC 10.51 (4.8-10.8) K/uL RBC 3.78 L (4.2-5.4) M/uL Hgb 11.3 L (12.0-16.0) g/dL POC Hgb 11.6 L (12.0-16.0) g/dl Hct 33.7 L (37-47) % POC Hct 34 L (37-47) % MCV 89.2 (80-100) fL MCH 29.9 (25-34) pg MCHC 33.5 (32-36) g/dL RDW Std Deviation 46.5 H (36.4-46.3) fL RDW Coeff of Pardeep 14.2 (11.5-14.5) % Plt Count 312 (130-400) K/uL MPV 9.4 (7.4-10.4) fL Immature Gran % (Auto) 0.1 % Neut % (Auto) 88.7 % Lymph % (Auto) 6.9 % [place] % (Auto) 4.1 % Eos % (Auto) 0.0 % Baso % (Auto) 0.2 % Immature Gran # (Auto) 0.01 (0.00-0.02) K/uL Neut # (Auto) 9.33 H (1.4-6.5) K/uL Lymph # (Auto) 0.72 L (1.2-3.4) K/uL [place] # (Auto) 0.43 (0.11-0.59) K/uL Eos # (Auto) 0.00 (0-0.5) K/uL Baso # (Auto) 0.02 (0-0.2) K/uL POC Sodium 137 (135-144) mmol/L Sodium 138 (136-145) mmol/L POC Potassium 3.7 (3.3-5.0) mmol/L Potassium 3.7 (3.5-5.1) mmol/L POC Chloride 99 L (101-112) mmol/L Chloride 101 (98-107) mmol/L Carbon Dioxide 27 (21-32) mmol/L POC Total CO2 26 (24-31) mmol/L Anion Gap 10.0 (3-11) POC Anion Gap 17.0 (16-25) mmol/L POC BUN 30 H (7-18) mg/dl BUN 32 H (7-18) mg/dl Creatinine 1.33 H (0.6-1.2) mg/dl POC Creatinine 1.2 (0.6-1.3) mg/dl Est Cr Clr Drug Dosing 26.4 ml/min Est GFR ( Amer) 44.9 Est GFR (Non-Af Amer) 38.7 BUN/Creatinine Ratio 24.3 H (10-20) Glucose 132 H (70-99) mg/dl POC Glucose (other) 127 H (70-99) mg/dl Calcium 9.6 (8.5-10.1) mg/dl POC Ioniz Calcium Rafiq 1.15 (1.12-1.32) mmol/l Total Bilirubin 1.4 H (0.2-1) mg/dl AST 23 (15-37) U/L ALT 21 (12-78) U/L Alkaline Phosphatase 53 (45-117) U/L Total Protein 7.0 (6.4-8.2) gm/dl Albumin 3.4 (3.4-5.0) gm/dl Globulin 3.6 (2.5-4.0) gm/dl Albumin/Globulin Ratio 1.0 (0.9-2) Lipase 76 (73-393) U/L Administered Medications Ioversol (Optiray 320 100ml) 93 ml IV ONCE PRN PRN Reason: Interaction Checking Stop: 08/04/19 20:51 Last Admin: 07/31/19 20:52 Dose: 93 ml Documented by: [id number] Discontinued Medications Sodium Chloride (Nss 1000ml) 1,000 mls @ 999 mls/hr IV .Q1H1M ONE Stop: 07/31/19 21:11 Last Infusion: 07/31/19 21:28 Dose: 0 mls/hr Documented by: [id number] Admin: 07/31/19 20:38 Dose: 999 mls/hr Documented by: [id number] Morphine Sulfate (Morphine Sulfate) 4 mg IV NOW STA Stop: 07/31/19 20:21 Last Admin: 07/31/19 20:37 Dose: 4 mg Documented by: [id number] Ondansetron HCl (Zofran) 4 mg IV NOW STA Stop: 07/31/19 20:21 Last Admin: 07/31/19 20:37 Dose: 4 mg Documented by: [id number] Discharge Plan Visit Data Chief Complaint: GI Assessment Stated Complaint: BOWEL OBSTRUCTION ED Provider: Morro Burgess Discharge Problem: Small bowel obstruction, Abdominal pain, Nausea, Vomiting Forms Stand Alone Forms: My [facility] [employer] Prescriptions Prescriptions: No Action conjugated estrogens 0.625 mg/gram cream 0.25 applic PV DAILY PRN (Reason: Other) Qty: 3 RF: 0 Myrbetriq 50 mg tablet extended release 24 hr 50 mg PO HS Qty: 90 RF: 3 multivitamin [Multiple Vitamins] Tablet 1 tab PO QDL RF: 0 omega 7-occ-icj-fish oil [Fish Oil] 1,000 mg (120 mg-180 mg) Capsule 2,000 mg PO QDL RF: 0 calcium citrate-vitamin D3 [Citracal Regular] 250 mg calcium- 200 unit tablet 1 tab PO QAM RF: 0 acetaminophen [Tylenol] 325 mg Tablet 325 mg PO QID PRN (Reason: Pain) RF: 0 nitrofurantoin macrocrystal 50 mg capsule 50 mg PO QAM RF: 0 amlodipine 2.5 mg tablet 2.5 mg PO QAM RF: 0 lisinopril 10 mg tablet 10 mg PO HS RF: 0 Discharge Problem: Abdominal pain Qualifiers: Abdominal location: unspecified location Qualified Code(s): R10.9 - Unspecified abdominal pain Vomiting Qualifiers: Vomiting type: unspecified Vomiting Intractability: unspecified Nausea presence: unspecified Qualified Code(s): R11.10 - Vomiting, unspecified
--- NOTE | 2019-07-31 22:30 | History & Physical Report ---
Date of Service July 31, 2019 Assessment & Plan (1) Small bowel obstruction: Zina Goncalves is a 78y/o F w/ PMH significant for uterine cancer s/p hysterectomy, left hemicolectomy w/ colostomy, anemia, and HTN; who presented to the emergency department for continued abdominal pain. Small bowel obstruction: - CT Abd/Pelvis: 1. Multiple air and fluid-filled dilated loops of small bowel and stool- filled loops of small bowel are noted compatible with at least a moderate grade small bowel obstruction with transition point within the abdominal right lower quadrant. 2. No pneumatosis or pneumoperitoneum. 3. Trace likely reactive abdominal pelvic ascites. 4. Severe right and moderate to severe left hydroureteronephrosis appears unchanged from comparison. 5. Prior partial left hemicolectomy with left lower quadrant colostomy. - will make NPO for bowel rest - NG tube placed with KUB confirmation of placement Anemia: - Hgb 11.3 this admission, previous admissions Hgb 8-9 - continue to monitor HTN: - hold home oral regimen at this time' - continue to monitor Diet: NPO DVT ppx: deferred at this time Code Status: Full code History of Present Illness Primary Care Provider: Arian Shah MD Zina Goncalves is a 78y/o F w/ PMH significant for uterine cancer s/p hysterectomy, left hemicolectomy w/ colostomy, anemia, and HTN; who presented to the emergency department for continued abdominal pain. Started about 2 days ago and has been associated with nausea and vomiting. Pain has stuck around the center of her abdomen and has not moved or She does have an ostomy and notes that she has had diminished outputs for the past 48 hours. Pain is currently a 7 out of 10. She does have some nausea now. No dysuria urgency or frequency. Pain is constant and was unrelenting prior to receiving morphine in the ED. N this feels exactly like previous bowel obstructions, and since she has had this prior she attempted to do the bowel rest at home and has avoided eating or drinking since this initially started. Allergies Allergy/AdvReac Type Severity Reaction Status Date / Time No Known Drug Allergies Allergy Verified 07/31/19 21:10 Home Medications Home Medications Medication Instructions Recorded Confirmed Type multivitamin [Multiple Vitamins] 1 tab PO QDL 02/13/18 07/31/19 History omega 7-xvn-lna-fish oil [Fish Oil] 2,000 mg PO QDL 02/13/18 07/31/19 History conjugated estrogens 0.625 mg/gram 0.25 applic PV DAILY PRN #3 gm 09/25/18 07/31/19 History vaginal cream calcium citrate 250 mg 1 tab PO QAM tab 05/08/19 07/31/19 History calcium-vitamin D3 200 unit tablet amlodipine 2.5 mg PO QAM 06/03/19 07/31/19 History lisinopril 10 mg PO HS 06/03/19 07/31/19 History mirabegron 50 mg tablet,extended 50 mg PO HS #90 tab 06/18/19 07/31/19 Rx release 24 hr acetaminophen [Tylenol] 325 mg PO QID PRN 07/31/19 07/31/19 History nitrofurantoin macrocrystal 50 mg PO QAM 07/31/19 07/31/19 History Past Med/Surg History Medical History (Updated 08/01/19 @ 18:11 by Shona Rapp DO) Colostomy in place History of anemia History of urinary frequency (Inactive) Hx of colonic polyp Hypertension Uterine carcinoma Surgical History (Updated 07/01/19 @ 10:41 by Tatiana Braun MA) History of colonoscopy History of partial colectomy History of total abdominal hysterectomy S/P colostomy S/P tonsillectomy Family History (Updated 07/01/19 @ 10:42 by Tatiana Braun MA) Daughter Systemic lupus Mother Myocardial infarction Heart disease Brother Pancreatic cancer Brain cancer Lung cancer Father Alcohol abuse Denies family history of Ovarian cancer Prostate cancer Breast cancer Colorectal cancer Stroke Social History (Updated 07/01/19 @ 10:42 by Tatiana Braun MA) Preferred Language: Turkish Communication Ability: Effective Visual Impairment: No Limitations Hearing Ability: Normal Manufacturing Design Engineer Required: Yes Beliefs That Will Affect Care: Moravian Moravian Beliefs: Confucianism marital status: Current Living Situation: Spouse Current Living Situation Comment: Home with current occupational status: retired Feels Safe at Home: Yes Smoking Status: Never smoker Second Hand Exposure: No ; Hx Alcohol Use: Yes Alcohol type: beer Hx Substance Use: No Review of Systems Review of Systems: All systems reviewed & are unremarkable except as noted in HPI & below Physical Exam Constitutional: WD/WN, vitals as above Eyes: PERRL, conjunctivae normal, anicteric sclerae ENMT: external ear and nose normal, oropharynx normal Neck: normal visual inspection Respiratory: normal respiratory effort, lungs clear to auscultation Cardiovascular: Rate/Rhythm: regular rate and regular rhythm Heart Sounds: normal S1 and normal S2; no gallop, no murmur and no cardiac rub Vessels: no JVD Extremities: no edema Gastrointestinal (Abdomen): Inspection/Auscultation: abdomen not distended and + abnormal bowel sounds Percussion/Palpation: + abdomen tender and + guarding; abdomen not rigid ostomy present over LLQ Musculoskeletal: no cyanosis or clubbing, extremities motor strength 5/5 Skin: no rashes, warm and dry Neurologic: patellar DTR's 2+ bilat, sensation intact CN's II-XI intact bilaterally Psychiatric: A+Ox3, euthymic affect Lymphatic: no cervical or axillary lymphadenopathy Results & Data Results & Data ([facility]) Vital Signs (Past 12 Hours) Vital Signs Temp Pulse Pulse Resp BP BP Pulse Ox 07/31/19 21:27 88 16 141/77 H 97 07/31/19 20:06 36.8 C 95 H 18 142/85 H 95 Laboratory Results 08/01/19 07/31/19 07/31/19 Range/Units 00:40 20:32 20:25 WBC (4.8-10.8) K/uL RBC (4.2-5.4) M/uL Hgb (12.0-16.0) g/dL POC Hgb 11.6 L (12.0-16.0) g/dl Hct (37-47) % POC Hct 34 L (37-47) % MCV (80-100) fL MCH (25-34) pg MCHC (32-36) g/dL RDW Std Deviation (36.4-46.3) fL RDW Coeff of Pardeep (11.5-14.5) % Plt Count (130-400) K/uL MPV (7.4-10.4) fL Immature Gran % (Auto) % Neut % (Auto) % Lymph % (Auto) % Cross % (Auto) % Eos % (Auto) % Baso % (Auto) % Immature Gran # (Auto) (0.00-0.02) K/uL Neut # (Auto) (1.4-6.5) K/uL Lymph # (Auto) (1.2-3.4) K/uL Cross # (Auto) (0.11-0.59) K/uL Eos # (Auto) (0-0.5) K/uL Baso # (Auto) (0-0.2) K/uL POC Sodium 137 (135-144) mmol/L Sodium 138 (136-145) mmol/L POC Potassium 3.7 (3.3-5.0) mmol/L Potassium 3.7 (3.5-5.1) mmol/L POC Chloride 99 L (101-112) mmol/L Chloride 101 (98-107) mmol/L Carbon Dioxide 27 (21-32) mmol/L POC Total CO2 26 (24-31) mmol/L Anion Gap 10.0 (3-11) POC Anion Gap 17.0 (16-25) mmol/L POC BUN 30 H (7-18) mg/dl BUN 32 H (7-18) mg/dl Creatinine 1.33 H (0.6-1.2) mg/dl POC Creatinine 1.2 (0.6-1.3) mg/dl Est Cr Clr Drug Dosing 26.4 ml/min Est GFR ( Amer) 44.9 Est GFR (Non-Af Amer) 38.7 BUN/Creatinine Ratio 24.3 H (10-20) Glucose 132 H (70-99) mg/dl POC Glucose (other) 127 H (70-99) mg/dl Calcium 9.6 (8.5-10.1) mg/dl POC Ioniz Calcium Rafiq 1.15 (1.12-1.32) mmol/l Total Bilirubin 1.4 H (0.2-1) mg/dl AST 23 (15-37) U/L ALT 21 (12-78) U/L Alkaline Phosphatase 53 (45-117) U/L Total Protein 7.0 (6.4-8.2) gm/dl Albumin 3.4 (3.4-5.0) gm/dl Globulin 3.6 (2.5-4.0) gm/dl Albumin/Globulin Ratio 1.0 (0.9-2) Lipase 76 (73-393) U/L Urine Color Yellow Urine Appearance Clear (Clear) Urine pH 6.5 (4.5-7.5) Ur Specific [place] 1.045 H (1.000-1.030) Urine Protein Negative (Negative) Urine Glucose (UA) Negative (Negative) Urine Ketones 1+ H (Negative) Urine Blood 1+ H (Negative) Urine Nitrite Negative (Negative) Urine Bilirubin Negative (Negative) Urine Urobilinogen Negative (Negative) Ur Leukocyte Esterase Negative (Negative) Urine WBC (Auto) 5-10 H (0-5) /hpf Urine RBC (Auto) 5-10 H (0-4) /hpf U Hyaline Cast (Auto) 0 (0-5) /lpf U Epithel Cells (Auto) 10-20 H (0-5) /lpf Urine Bacteria (Auto) Negative (Negative) 07/31/19 Range/Units 20:25 WBC 10.51 (4.8-10.8) K/uL RBC 3.78 L (4.2-5.4) M/uL Hgb 11.3 L (12.0-16.0) g/dL POC Hgb (12.0-16.0) g/dl Hct 33.7 L (37-47) % POC Hct (37-47) % MCV 89.2 (80-100) fL MCH 29.9 (25-34) pg MCHC 33.5 (32-36) g/dL RDW Std Deviation 46.5 H (36.4-46.3) fL RDW Coeff of Pardeep 14.2 (11.5-14.5) % Plt Count 312 (130-400) K/uL MPV 9.4 (7.4-10.4) fL Immature Gran % (Auto) 0.1 % Neut % (Auto) 88.7 % Lymph % (Auto) 6.9 % Cross % (Auto) 4.1 % Eos % (Auto) 0.0 % Baso % (Auto) 0.2 % Immature Gran # (Auto) 0.01 (0.00-0.02) K/uL Neut # (Auto) 9.33 H (1.4-6.5) K/uL Lymph # (Auto) 0.72 L (1.2-3.4) K/uL Cross # (Auto) 0.43 (0.11-0.59) K/uL Eos # (Auto) 0.00 (0-0.5) K/uL Baso # (Auto) 0.02 (0-0.2) K/uL POC Sodium (135-144) mmol/L Sodium (136-145) mmol/L POC Potassium (3.3-5.0) mmol/L Potassium (3.5-5.1) mmol/L POC Chloride (101-112) mmol/L Chloride (98-107) mmol/L Carbon Dioxide (21-32) mmol/L POC Total CO2 (24-31) mmol/L Anion Gap (3-11) POC Anion Gap (16-25) mmol/L POC BUN (7-18) mg/dl BUN (7-18) mg/dl Creatinine (0.6-1.2) mg/dl POC Creatinine (0.6-1.3) mg/dl Est Cr Clr Drug Dosing ml/min Est GFR ( Amer) Est GFR (Non-Af Amer) BUN/Creatinine Ratio (10-20) Glucose (70-99) mg/dl POC Glucose (other) (70-99) mg/dl Calcium (8.5-10.1) mg/dl POC Ioniz Calcium Rafiq (1.12-1.32) mmol/l Total Bilirubin (0.2-1) mg/dl AST (15-37) U/L ALT (12-78) U/L Alkaline Phosphatase (45-117) U/L Total Protein (6.4-8.2) gm/dl Albumin (3.4-5.0) gm/dl Globulin (2.5-4.0) gm/dl Albumin/Globulin Ratio (0.9-2) Lipase (73-393) U/L Urine Color Urine Appearance (Clear) Urine pH (4.5-7.5) Ur Specific [place] (1.000-1.030) Urine Protein (Negative) Urine Glucose (UA) (Negative) Urine Ketones (Negative) Urine Blood (Negative) Urine Nitrite (Negative) Urine Bilirubin (Negative) Urine Urobilinogen (Negative) Ur Leukocyte Esterase (Negative) Urine WBC (Auto) (0-5) /hpf Urine RBC (Auto) (0-4) /hpf U Hyaline Cast (Auto) (0-5) /lpf U Epithel Cells (Auto) (0-5) /lpf Urine Bacteria (Auto) (Negative) Medications Administered Current Inpatient Medications Sodium Chloride (Nss 1000ml) 1,000 mls @ 80 mls/hr IV .[id number] Stop: 08/30/19 23:41 Last Admin: 08/01/19 00:19 Dose: 80 mls/hr Documented by: Ioversol (Optiray 320 100ml) 933 ml IV ONCE PRN PRN Reason: Interaction Checking Stop: 08/04/19 20:50 Ioversol (Optiray 320 100ml) 93 ml IV ONCE PRN PRN Reason: Interaction Checking Stop: 08/04/19 20:51 Last Admin: 07/31/19 20:52 Dose: 93 ml Documented by: Ondansetron HCl (Zofran) 4 mg IV Q6H PRN PRN Reason: Nausea Stop: 08/30/19 23:41 Supervising Physician Co-Signing Physician Notes Attending addendum: I have physically seen this patient, have supervised the medical residents activities, and agree with the H&P unless as otherwise noted. Assessment and Plan: Moderate grade small bowel obstruction/transition point in right lower quadrant, with previous transition in left upper quadrant- Partial left hemicolectomy with left lower quadrant colostomy N.p.o. NG tube to low intermittent suction IV fluids Zosyn IV. Famotidine 20 mg IV every 12 hours. Zofran 4 mg IV every 6 hours PRN Consult general surgery, and has seen Dr. Mckeon in the past Remainder of orders and notations as noted. Resident Activity Tracking Resident Involvement: Resident Care Provided Care Provided: Adult Hospital Medicine
--- NOTE | 2019-07-31 23:06 | XRay Report ---
KUB HISTORY: Status post placement of an enteric tube NG placement COMPARISON: CT abdomen and pelvis of same day FINDINGS: Status post placement of an enteric tube, distal tip terminating in the expected location o f the gastric antrum. Persistent small bowel dilation. Bilateral hydroureteronephrosis redemonstrated . Degenerative changes of the spine. IMPRESSION: Status post placement of an enteric tube, distal tip terminating in the expected location of the jenni jacque antrum. ACT 112: Negative or not required by law. The above report was generated using voice recognition software. It may contain grammatical, syntax o r spelling errors. Electronically signed by: Nicholas Knowles M.D. 07/31/2019 11:04 PM
[2019-07-31] MEDS ORDERED: ONDANSETRON INJ 2 MG/ML 2 ML VIAL IV PRN (23:42)
[2019-08-01] MEDS: SODIUM CHLORIDE 0.9% 1000ML 1,000 ML IV SCH ×2 (00:19→13:26)
[2019-08-01 00:52] LABS: Appearance Urine Clear (Clear); Bacteria Urine Automated Negative (Negative); Bilirubin Urine Negative (Negative); Blood Urine 1+ (Negative); Cast Urine Automated 0 /lpf (0-5); Color Urine Yellow; Glucose Urine UA Negative (Negative); Ketones Urine 1+ (Negative); Leukocyte Esterase Urine Negative (Negative); Nitrite Urine Negative (Negative); Protein Urine Negative (Negative); Specific Gravity Urine 1.045 (1.000-1.030); Urobilinogen Urine Negative (Negative); pH Urine 6.5 (4.5-7.5)
--- NOTE | 2019-08-01 06:40 | Surgery Consultation ---
Date of Consultation August 01, 2019 Assessment & Plan (1) Small bowel obstruction: Patient admitted with abdominal pain nausea and vomiting with evidence of mild bowel dilatation consistent with small bowel obstruction This is very similar to an episode 1 year ago which resolved typically well with medical management We will continue her NG tube at least 24 to 48 hours IV fluids and electrolytes as needed, check her mag and Phos We will give her some senna syrup and mineral oil via the NG tube Depending on her progress may consider CT with contrast via the NG tube in 1 to 2 days when she does advance well Dr. Sommer will be covering over the weekend History of Present Illness Attending Physician: Manuelito Borja MD History of Present Illness Patient is a 78-year-old female admitted to the emergency room with abdominal pain nausea and vomiting She was noted on CAT scan to have moderate small bowel dilatation with a possible transition point in the right lower quadrant This is very similar to an episode in June 2018 which appeared to be almost identical-this resolved without operation She does have a history of colostomy for surgery secondary to uterine cancer Currently she is in bed awake in no distress with an NG tube in place Allergies Allergy/AdvReac Type Severity Reaction Status Date / Time No Known Drug Allergies Allergy Verified 07/31/19 21:10 Home Medications Home Medications Medication Instructions Recorded Confirmed Type multivitamin [Multiple Vitamins] 1 tab PO QDL 02/13/18 07/31/19 History omega 5-hxv-igl-fish oil [Fish Oil] 2,000 mg PO QDL 02/13/18 07/31/19 History conjugated estrogens 0.625 mg/gram 0.25 applic PV DAILY PRN #3 gm 09/25/18 07/31/19 History vaginal cream calcium citrate 250 mg 1 tab PO QAM tab 05/08/19 07/31/19 History calcium-vitamin D3 200 unit tablet amlodipine 2.5 mg PO QAM 06/03/19 07/31/19 History lisinopril 10 mg PO HS 06/03/19 07/31/19 History mirabegron 50 mg tablet,extended 50 mg PO HS #90 tab 06/18/19 07/31/19 Rx release 24 hr acetaminophen [Tylenol] 325 mg PO QID PRN 07/31/19 07/31/19 History nitrofurantoin macrocrystal 50 mg PO QAM 05/21/20 05/21/20 History Patient History Medical History (Updated 07/31/19 @ 21:32 by Morro Burgess DO) Colostomy in place History of anemia History of urinary frequency (Inactive) Hx of colonic polyp Hypertension Uterine carcinoma Surgical History (Updated 07/01/19 @ 10:41 by Tatiana Braun MA) History of colonoscopy History of partial colectomy History of total abdominal hysterectomy S/P colostomy S/P tonsillectomy Family History (Updated 07/01/19 @ 10:42 by Tatiana Braun MA) Daughter Systemic lupus Mother Myocardial infarction Heart disease Brother Pancreatic cancer Brain cancer Lung cancer Father Alcohol abuse Denies family history of Ovarian cancer Prostate cancer Breast cancer Colorectal cancer Stroke Social History (Updated 07/01/19 @ 10:42 by Tatiana Braun MA) Preferred Language: Georgian Communication Ability: Effective Visual Impairment: No Limitations Hearing Ability: Normal Supply Person Required: Yes Beliefs That Will Affect Care: Denominational Denominational Beliefs: Lutheran marital status: Current Living Situation: Spouse Current Living Situation Comment: Home with current occupational status: retired Feels Safe at Home: Yes Smoking Status: Never smoker Second Hand Exposure: No ; Hx Alcohol Use: Yes Alcohol type: beer Hx Substance Use: No Review of Systems Review of Systems: All systems reviewed & are unremarkable except as noted in HPI & below Physical Exam Physical Exam: Patient does have an NG tube in place draining clear bilious fluid 200 cc overnight She does have a small amount of stool in her stoma bag Pain has improved Her abdomen is relatively soft and nontender Constitutional: no acute distress Respiratory: normal respiratory effort; no respiratory distress Cardiovascular: Rate/Rhythm: regular rate Gastrointestinal (Abdomen): Inspection/Auscultation: abdomen not distended Skin: no rashes, warm and dry Neurologic: awake Psychiatric: Orientation: alert Results & Data Vital Signs (Past 12 Hours) Vital Signs Temp Pulse Pulse Resp BP BP Pulse Ox 08/01/19 00:15 165/70 H 07/31/19 23:43 37 C 87 18 179/89 H 98 07/31/19 23:10 79 19 150/86 H 97 07/31/19 22:43 83 17 165/90 H 97 07/31/19 21:27 88 16 141/77 H 97 07/31/19 20:06 36.8 C 95 H 18 142/85 H 95 I did review her CAT scan PG Care Time/CCT Total # of Minutes Spent Total Time Spent with Patient: Total time spent is greater than 50% in coordination of care (as documented) at patient's floor/unit and/or counseling patient: Coding Level of Care Code 24001 Initial Inpt Care Lvl 3 Diagnoses Small bowel obstruction K56.609
[2019-08-01] MEDS ORDERED: MINERAL OIL 30 ML UDC PO ONE (06:42)
[2019-08-01 07:37] LABS: Basophils # (auto) 0.01 K/uL (0-0.2); Basophils % (auto) 0.2 %; Eosinophils # (auto) 0.03 K/uL (0-0.5); Eosinophils % (auto) 0.5 %; Hematocrit (blood only) 28.6 % (37-47); Hemoglobin 9.2 g/dL (12.0-16.0); Immature Granulocytes # (auto) 0.01 K/uL (0.00-0.02); Immature Granulocytes % (auto) 0.2 %; Lymphocytes # (auto) 1.03 K/uL (1.2-3.4); Lymphocytes % (auto) 16.1 %; Mean Corpuscular Hemoglobin 29.2 pg (25-34); Mean Corpuscular Hgb Conc 32.2 g/dL (32-36); Mean Corpuscular Volume 90.8 fL (80-100); Mean Platelet Volume 9.5 fL (7.4-10.4); Monocytes # (auto) 0.68 K/uL (0.11-0.59); Monocytes % (auto) 10.7 %; Neutrophils # (auto) 4.62 K/uL (1.4-6.5); Neutrophils % (auto) 72.3 %; Platelet Count 245 K/uL (130-400); RDW Coefficient of Variation 14.4 % (11.5-14.5); RDW Standard Deviation 47.9 fL (36.4-46.3); Red Blood Count 3.15 M/uL (4.2-5.4); White Blood Count 6.38 K/uL (4.8-10.8)
[2019-08-01] MEDS: SENNA 17.6 MG/10 ML UDP PO SCH ×2 (07:58→21:24)
--- NOTE | 2019-08-01 08:03 | Family Medicine Progress Note ---
Date of Service August 01, 2019 Assessment & Plan (1) Small bowel obstruction: 78 yo F PMHx uterine cancer s/p hysterectomy and radiation, SBO with adhesions s/p left hemicolectomy w/ colostomy, anemia, and HTN; who presented to the emergency department for continued abdominal pain. SBO: - Doing well today and without complains of abdominal pain or nausea. - CT Abd/Pelvis: 1. Multiple air and fluid-filled dilated loops of small bowel and stool- filled loops of small bowel are noted compatible with at least a moderate grade small bowel obstruction with transition point within the abdominal right lower quadrant. 2. No pneumatosis or pneumoperitoneum. 3. Trace likely reactive abdominal pelvic ascites. 4. Severe right and moderate to severe left hydroureteronephrosis appears unchanged from comparison. 5. Prior partial left hemicolectomy with left lower quadrant colostomy. - Continue NPO, NGT; if continues to do well without nausea can consider advancing diet tomorrow. - Zofran PRN nausea. - NSS @ 80cc/hr. Anemia: - Hgb 11.3 this admission, previous admissions Hgb 8-9. - Continue to monitor. HTN: - Pt received home amlodipine and lisinopril while NGT clamped this AM. - Hydralazine PRN SBP > 180, DBP > 110. - Continue to monitor. Hx recurrent UTIs with bilateral hydroureteronephrosis: - Follows with Urology for this. Unchanged findings on CTAP. - Takes daily nitrofurantoin 50mg for UTI prophylaxis. Gave dose this afternoon with NGT clamped. - Continue daily via clamped NGT, and eventually PO once NGT removed. - No urinary signs or symptoms. Diet: NPO, NSS @ 80cc/hr DVT ppx: deferred at this time, SCDs Code Status: Full code Dispo: Med/Surg (2) Hypertension: (3) History of recurrent UTI (urinary tract infection): (4) Anemia: Admission and Anticipated Discharge Date Admission Date: July 31, 2019 Supervising Physician Co-Signing Physician Notes I personally examined the patient and verified all knapp points of history and exam, discussed case, and agree with decision making with Dr. Don with the following additions/exceptions: Patient feeling much improved. NG tube remains to low intermittent suction. She denies any nausea or abdominal pains. She is passing some hard balls of stool in her colostomy bag. She is very concerned about getting back on her nitrofurantoin for UTI prophylaxis. She has a history of radiation to the pelvis for her uterine cancer likely contributing to her severe bilateral hydroureteronephrosis Vitals reviewed Gen: AAOx3, NAD HEENT: Anicteric sclerae, EOMI, NG tube in place with 100 mL's of bilious fluid in the canister CV: RRR no mgr nl S1S2 Pulm: CTAB no wcr Abd: +BS soft NT ND no masses or hernias, colostomy bag in place with 2 balls of hard stool Ext: No edema, 2+ DP pulses Skin: No rashes, warm/dry Neuro: Full strength throughout 78-year-old female with a history of small bowel obstructions, colostomy, endometrial cancer, recurrent UTIs with bilateral hydroureteronephrosis, HTN, here with recurrent small bowel obstruction. Improving with NG tube in place -Continue n.p.o. status, IV fluids, electrolyte replacement -Consider clamping of NG tube in the morning if continues to pass stool after being given mineral oil today -Appreciate general surgery following Okay to restart home p.o. nitrofurantoin Ambulate Subjective Pt without acute events overnight. Has some formed stool in her colostomy bag this morning. No nausea or vomiting, no abdominal pain. Seen by Dr. Mckeon this morning for her SBO. Review of Systems Constitutional: no fever, no chills and no malaise Respiratory: no cough and no dyspnea Cardiovascular: no chest pain, no palpitations and no edema Gastrointestinal: no abdominal pain, no constipation and no diarrhea/loose stools Genitourinary: no dysuria and no hematuria Physical Exam Constitutional: WD/WN, vitals as above ENMT: NGT with clear bilious drainage Neck: normal visual inspection Respiratory: normal respiratory effort, lungs clear to auscultation Cardiovascular: RRR, no murmur, no edema Gastrointestinal (Abdomen): normal bowel sounds, soft, nontender, no hepatosplenomegaly colostomy bag with small amount of formed stool Skin: no rashes, warm and dry Psychiatric: A+Ox3, euthymic affect Results & Data ([facility]) Vital Signs (Past 12 Hours) Vital Signs Temp Pulse Pulse Resp BP BP BP 08/01/19 07:14 37.2 C 71 18 165/78 H 08/01/19 00:15 165/70 H 07/31/19 23:43 37 C 87 18 179/89 H 07/31/19 23:10 79 19 150/86 H 07/31/19 22:43 83 17 165/90 H 07/31/19 21:27 88 16 141/77 H 07/31/19 20:06 36.8 C 95 H 18 142/85 H Pulse Ox 08/01/19 07:14 97 08/01/19 00:15 07/31/19 23:43 98 07/31/19 23:10 97 07/31/19 22:43 97 07/31/19 21:27 97 07/31/19 20:06 95 Resident Activity Tracking Resident Involvement: Resident Care Provided Care Provided: Adult Hospital Medicine (1) Anemia Anemia type: unspecified type Qualified Code(s): D64.9 - Anemia, unspecified
[2019-08-01] MEDS ORDERED: AMLODIPINE BESYLATE 5 MG TAB PO ONE (08:11)
[2019-08-01] MEDS ORDERED: HydrALAZINE HCL 20 MG/ML VIAL IV PRN (08:12)
[2019-08-01] MEDS ORDERED: lisinopriL 10 MG TAB PO ONE (08:12)
[2019-08-01 08:14] LABS: BUN Creatinine Ratio 28.5 (10-20); Calcium 8.1 mg/dl (8.5-10.1); Creatinine Clr Calc Pharmacy 37.3 ml/min; Est GFR (African American) 68.3; Est GFR (Non-African American) 58.9; Potassium 3.1 mmol/L (3.5-5.1)
[2019-08-01 08:16] LABS: Albumin Level 2.7 gm/dl (3.4-5.0); BUN Creatinine Ratio 29.4 (10-20); Calcium 8.1 mg/dl (8.5-10.1); Creatinine Clr Calc Pharmacy 37.3 ml/min; Est GFR (African American) 68.3; Est GFR (Non-African American) 58.9; Magnesium 1.8 mg/dl (1.8-2.4)
[2019-08-01 08:17] LABS: Globulin 2.6 gm/dl (2.5-4.0); Phosphorus 2.7 mg/dl (2.5-4.9); Total Protein 5.3 gm/dl (6.4-8.2)
[2019-08-01] MEDS: nitrofurantoin macrocrystaL 50 MG CAP PO SCH (17:18)
--- NOTE | 2019-08-01 21:10 | Billing Data ---
Date of Service August 01, 2019 Coding Level of Care Code 39810 Initial Inpt Care Lvl 3
--- NOTE | 2019-08-01 21:20 | Billing Data ---
Date of Service August 01, 2019 Coding Level of Care Code 57937 Initial Inpt Care Lvl 3
[2019-08-02] MEDS: SODIUM CHLORIDE 0.9% 1000ML 1,000 ML IV SCH (04:32)
[2019-08-02 05:41] LABS: Basophils # (auto) 0.03 K/uL (0-0.2); Basophils % (auto) 0.5 %; Eosinophils # (auto) 0.04 K/uL (0-0.5); Eosinophils % (auto) 0.7 %; Hemoglobin 8.8 g/dL (12.0-16.0); Immature Granulocytes # (auto) 0.01 K/uL (0.00-0.02); Immature Granulocytes % (auto) 0.2 %; Lymphocytes # (auto) 0.74 K/uL (1.2-3.4); Lymphocytes % (auto) 12.6 %; Mean Corpuscular Hemoglobin 29.2 pg (25-34); Mean Corpuscular Hgb Conc 32.6 g/dL (32-36); Mean Corpuscular Volume 89.7 fL (80-100); Mean Platelet Volume 9.1 fL (7.4-10.4); Monocytes # (auto) 0.44 K/uL (0.11-0.59); Monocytes % (auto) 7.5 %; Neutrophils % (auto) 78.5 %; Platelet Count 216 K/uL (130-400); RDW Coefficient of Variation 14.2 % (11.5-14.5); RDW Standard Deviation 46.8 fL (36.4-46.3); Red Blood Count 3.01 M/uL (4.2-5.4); White Blood Count 5.86 K/uL (4.8-10.8)
[2019-08-02 06:13] LABS: BUN Creatinine Ratio 39.7 (10-20); Calcium 7.9 mg/dl (8.5-10.1); Creatinine Clr Calc Pharmacy 44.1 ml/min; Est GFR (African American) 85.6; Est GFR (Non-African American) 73.8; Magnesium 1.7 mg/dl (1.8-2.4); Potassium 2.7 mmol/L (3.5-5.1)
[2019-08-02 06:14] LABS: Phosphorus 2.6 mg/dl (2.5-4.9)
--- NOTE | 2019-08-02 08:01 | Family Medicine Progress Note ---
Date of Service August 02, 2019 Assessment & Plan (1) Small bowel obstruction: Ms. Goncalves is a 78 year old female with a past medical history of uterine cancer s/p hysterectomy and radiation, SBO with adhesions s/p left hemicolectomy w/ colostomy, anemia, and HTN; who presented to the emergency department for continued abdominal pain. Small Bowel Obstruction: - confirmed on CT abdomen and pelvis which revealed a "moderate grade small bowel obstruction with transition point within the abdominal right lower quadrant" - greatly improved today - no nausea, abdominal pain. Several BMs overnight - surgery following, thank you for recommendations -> d/c NG tube -> trial of clears, advance as tolerated - Zofran PRN nausea. - IVF changed from NSS @ 80cc/hr to D5 1/2 NS w/20mEq of KCl @ 80 cc/hr (given low glucose and potassium on AM labs) --> d/c once tolerating diet Electrolyte Abnormalities - hypokalemia, hypomagnesemia - potassium 2.7 and Mg 1.7 on AM labs - phos normal at 2.6 - 40mEq of potassium chloride ordered IV, as well as 1g of magnesium sulfate - repeat labs in PM as well as tomorrow AM Iron Deficiency Anemia: - Hgb 8.8 this AM, a drop from admission Hgb of 11.3 - no signs or symptoms of bleeding noted, potentially related to hemodilution? - b/l appears to be approx 10 - Labs from prior admission in 05/2019 reveal iron deficiency w/an iron level of 6 and transferrin saturation of 2% -> s/p venofer infusion x 2 -> patient has been increasing dietary iron intake -> will repeat iron studies w/AM labs & also order fecal occult to rule out GI bleed. - endoscopy and colonoscopy recommended outpatient - pt states last colonoscopy was in 2007 and normal HTN: - home amlodipine and lisinopril resumed. Hx recurrent UTIs with bilateral hydroureteronephrosis: - Follows with Urology for this. Unchanged findings on CTAP. - Takes daily nitrofurantoin 50mg for UTI prophylaxis and mirabegron - No urinary signs or symptoms. Diet: Clears, D5 1/2 NS with 20 mEq of potassium chloride at 80 mls/hr DVT ppx: deferred at this time, SCDs Code Status: Full code Dispo: Med/Surg. Anticipate d/c tomorrow (2) Hypertension: (3) History of recurrent UTI (urinary tract infection): (4) Anemia: Admission and Anticipated Discharge Date Admission Date: July 31, 2019 Supervising Physician Co-Signing Physician Notes I personally examined the patient and verified all knapp points of history and exam, discussed case, and agree with decision making with Dr. Parrish with the following additions/exceptions: Patient feels great today. NG tube is removed she is tolerating clear liquids. She was on her fourth lap around the entire third floor out of goal of 10 laps when I found her ambulating. Denies any abdominal pain, no nausea or vomiting. She had a lot of stool in her ostomy overnight status post mineral oil through the NG yesterday ordered by general surgery. Vitals reviewed Gen: AAOx3, NAD HEENT: Anicteric sclerae CV: RRR no mgr nl S1S2 Pulm: CTAB no wcr Abd: +BS soft NT ND no masses or hernias, colostomy bag in place with moderate amount of soft stool Ext: No edema, 2+ DP pulses Skin: No rashes, warm/dry Neuro: Full strength throughout 78-year-old female with a history of small bowel obstructions, colostomy, endometrial cancer, recurrent UTIs with bilateral hydroureteronephrosis, HTN, here with recurrent small bowel obstruction. Obstruction is now resolved -Advance diet to full liquids tonight and stop IV fluids Follow electrolytes and replace as needed Restarted all home meds Likely discharge home tomorrow if advances to low fiber diet in the morning Subjective Ms. Goncalves reports improvement in her symptoms today. She states she had several BMs overnight and this AM, and states a couple were so large that she actually had to navarro to the restroom to empty her bag. She states her abdominal pain is essentially resolved, and reports feeling very hungry. With regards to iron deficiency anemia, she states that since her last admission, she has been trying to increase her dietary iron intake. She states her last colonoscopy was in 2007, and was normal. She denies seeing black, tarry stools or blood in her ostomy. Review of Systems Constitutional: no fever and no chills Respiratory: no cough and no dyspnea Cardiovascular: no chest pain, no palpitations and no edema Gastrointestinal: no abdominal pain, no nausea and no vomiting Physical Exam Constitutional: WD/WN, vitals as above ENMT: + NG tube in place, draining dark green/brown liquid Respiratory: normal respiratory effort, lungs clear to auscultation Gastrointestinal (Abdomen): normal bowel sounds, soft, nontender, no hepatosplenomegaly + ostomy in place Skin: no rashes, warm and dry Results & Data ([facility]) Vital Signs (Past 12 Hours) Vital Signs Temp Pulse Resp BP Pulse Ox Pulse Ox 08/02/19 07:36 37.3 C 77 18 160/82 H 77 L 08/02/19 00:20 95 08/01/19 23:23 37.1 C 87 16 150/71 H 95 Resident Activity Tracking Resident Involvement: Resident Care Provided Care Provided: Adult Hospital Medicine (1) Anemia Anemia type: unspecified type Qualified Code(s): D64.9 - Anemia, unspecified
[2019-08-02] MEDS ORDERED: SODIUM CHLOR 0.45% + 20MEQ KCL 20 MEQ/1,000 ML BAG IV SCH (08:30)
[2019-08-02] MEDS ORDERED: MAGNESIUM SULFATE / D5W 1 GM/100 ML BAG IV ONE (08:30)
[2019-08-02] MEDS: nitrofurantoin macrocrystaL 50 MG CAP PO SCH (08:31)
[2019-08-02] MEDS: POTASSIUM CHLORIDE / WTR 10 MEQ/100 ML PLCT IV SCH ×4 (08:31→11:28)
[2019-08-02] MEDS: SENNA 17.6 MG/10 ML UDP PO SCH ×2 (08:32→20:36)
[2019-08-02] MEDS ORDERED: D5W AND 1/2NSS + 20MEQ KCL 20 MEQ/1,000 ML BAG IV SCH (09:45)
--- NOTE | 2019-08-02 10:20 | Surgery Progress Note ---
Date of Service August 02, 2019 Assessment & Plan (1) Small bowel obstruction: Improved significantly. Will d/c ng tube and ok to start clears. I ordered her home meds for her (BP meds and urinary med) at her request. If tolerates clears, advance diet as tolerated. Subjective Feels much better. Multiple large stools overnight that completely filled bag. No nausea/ vomiting. No further abdominal pain. Hungry. Wondering about starting diet and resuming her home medications as her blood pressure has been trending slightly higher than usual. Review of Systems Review of Systems: All systems reviewed & are unremarkable except as noted in HPI & below Physical Exam Constitutional: WD/WN, vitals as above Eyes: PERRL, conjunctivae normal, anicteric sclerae ENMT: external ear and nose normal, oropharynx normal Ears: no hearing impairment Respiratory: normal respiratory effort, lungs clear to auscultation Cardiovascular: RRR, no murmur, no edema Gastrointestinal (Abdomen): normal bowel sounds, soft, nontender, no hepatosplenomegaly ostomy functioning with gas /stool in bag Neurologic: moves all extremities; no focal motor deficits Psychiatric: A+Ox3, euthymic affect Results & Data Vital Signs (Past 12 Hours) Vital Signs Temp Pulse Resp BP Pulse Ox Pulse Ox 08/02/19 07:36 37.3 C 77 18 160/82 H 95 08/02/19 00:20 95 08/01/19 23:23 37.1 C 87 16 150/71 H 95 Laboratory Results Abnormal lab results 08/02/19 08/02/19 Range/Units 05:27 05:27 RBC 3.01 L (4.2-5.4) M/uL Hgb 8.8 L (12.0-16.0) g/dL Hct 27.0 L (37-47) % RDW Std Deviation 46.8 H (36.4-46.3) fL Lymph # (Auto) 0.74 L (1.2-3.4) K/uL Potassium 2.7 L (3.5-5.1) mmol/L Anion Gap 12.0 H (3-11) BUN 31 H (7-18) mg/dl BUN/Creatinine Ratio 39.7 H (10-20) Glucose 67 L (70-99) mg/dl Calcium 7.9 L (8.5-10.1) mg/dl Magnesium 1.7 L (1.8-2.4) mg/dl
[2019-08-02] MEDS: AMLODIPINE BESYLATE 5 MG TAB PO SCH (10:38)
[2019-08-02 16:22] LABS: BUN Creatinine Ratio 21.3 (10-20); Calcium 8.1 mg/dl (8.5-10.1); Creatinine Clr Calc Pharmacy 29.9 ml/min; Est GFR (African American) 53.5; Est GFR (Non-African American) 46.2; Potassium 3.2 mmol/L (3.5-5.1)
[2019-08-02] MEDS ORDERED: POTASSIUM CHLORIDE 20 MEQ TABCR PO STA (18:05)
--- NOTE | 2019-08-02 18:54 | Billing Data ---
Date of Service August 02, 2019 Coding Level of Care Code 07717 Subseq Hosp Care Lvl 3
[2019-08-02] MEDS ORDERED: MIRABEGRON ER 25 MG TAB PO SCH (21:00)
[2019-08-02] MEDS ORDERED: lisinopriL 10 MG TAB PO SCH (21:00)
[2019-08-03 05:37] LABS: Basophils # (auto) 0.03 K/uL (0-0.2); Basophils % (auto) 0.5 %; Eosinophils # (auto) 0.17 K/uL (0-0.5); Hematocrit (blood only) 30.4 % (37-47); Hemoglobin 10.1 g/dL (12.0-16.0); Immature Granulocytes # (auto) 0.01 K/uL (0.00-0.02); Immature Granulocytes % (auto) 0.2 %; Lymphocytes # (auto) 1.31 K/uL (1.2-3.4); Mean Corpuscular Hemoglobin 29.5 pg (25-34); Mean Corpuscular Hgb Conc 33.2 g/dL (32-36); Mean Corpuscular Volume 88.9 fL (80-100); Mean Platelet Volume 9.7 fL (7.4-10.4); Monocytes # (auto) 0.55 K/uL (0.11-0.59); Monocytes % (auto) 9.6 %; Neutrophils # (auto) 3.63 K/uL (1.4-6.5); Neutrophils % (auto) 63.7 %; Platelet Count 235 K/uL (130-400); RDW Coefficient of Variation 13.9 % (11.5-14.5); RDW Standard Deviation 45.4 fL (36.4-46.3); Red Blood Count 3.42 M/uL (4.2-5.4)
[2019-08-03 06:13] LABS: BUN Creatinine Ratio 17.8 (10-20); Calcium 7.9 mg/dl (8.5-10.1); Est GFR (African American) 76.1; Est GFR (Non-African American) 65.6; Magnesium 1.8 mg/dl (1.8-2.4); Potassium 3.1 mmol/L (3.5-5.1)
[2019-08-03] MEDS ORDERED: POTASSIUM CHLORIDE 20 MEQ TABCR PO STA (06:46)
--- NOTE | 2019-08-03 06:50 | Discharge Summary ---
Date of Service August 03, 2019 Admission HPI Per Admitting Provider Zina Goncalves is a 78y/o F w/ PMH significant for uterine cancer s/p hysterectomy, left hemicolectomy w/ colostomy, anemia, and HTN; who presented to the emergency department for continued abdominal pain. Started about 2 days ago and has been associated with nausea and vomiting. Pain has stuck around the center of her abdomen and has not moved or She does have an ostomy and notes that she has had diminished outputs for the past 48 hours. Pain is currently a 7 out of 10. She does have some nausea now. No dysuria urgency or frequency. Pain is constant and was unrelenting prior to receiving morphine in the ED. N this feels exactly like previous bowel obstructions, and since she has had this prior she attempted to do the bowel rest at home and has avoided eating or drinking since this initially started. Admission Exam Per Admitting Provider Constitutional: WD/WN, vitals as above Eyes: PERRL, conjunctivae normal, anicteric sclerae ENMT: external ear and nose normal, oropharynx normal Neck: normal visual inspection Respiratory: normal respiratory effort, lungs clear to auscultation Cardiovascular: Rate/Rhythm: regular rate and regular rhythm Heart Sounds: normal S1 and normal S2; no gallop, no murmur and no cardiac rub Vessels: no JVD Extremities: no edema Gastrointestinal (Abdomen): Inspection/Auscultation: abdomen not distended and + abnormal bowel sounds Percussion/Palpation: + abdomen tender and + guarding; abdomen not rigid ostomy present over LLQ Musculoskeletal: no cyanosis or clubbing, extremities motor strength 5/5 Skin: no rashes, warm and dry Neurologic: patellar DTR's 2+ bilat, sensation intact CN's II-XI intact bilaterally Psychiatric: A+Ox3, euthymic affect Lymphatic: no cervical or axillary lymphadenopathy Principal Diagnosis Small Bowel Obstruction Discharge Exam Constitutional WD/WN, vitals as above Respiratory normal respiratory effort, lungs clear to auscultation Gastrointestinal (Abdomen) normal bowel sounds, soft, nontender, no hepatosplenomegaly + ostomy in place Skin no rashes, warm and dry Psychiatric A+Ox3, euthymic affect Discharge Data Allergies Allergy/AdvReac Type Severity Reaction Status Date / Time No Known Drug Allergies Allergy Verified 07/31/19 21:10 Consultations 07/31/19 21:32 ED Decision to Admit Stat Ordered Studies 07/31/19 20:20 CT abd pelvis IV con only Stat Hospital Course (1) Small bowel obstruction: Ms. Goncalves is a 78 year old female with a past medical history of uterine cancer s/p hysterectomy and radiation, SBO with adhesions s/p left hemicolectomy w/ colostomy, anemia, and HTN; who presented to the emergency department for continued abdominal pain. Small Bowel Obstruction: - confirmed on CT abdomen and pelvis which revealed a "moderate grade small bowel obstruction with transition point within the abdominal right lower quadrant" - general surgery was consulted -> pt was treated with NG tube, NPO, senna and mineral oil - patient tolerating low fiber diet on d/c w/out nausea, or abdominal pain. Several BMs prior to d/c Electrolyte Abnormalities - hypokalemia, hypomagnesemia - potassium as low as 2.7 and Mg 1.7 -> repleted - phos normal at 2.6 - potassium 3.5 on d/c - recommend repeating BMP within 1 week outpatient Iron Deficiency Anemia: - Hgb 10.1 on day of d/c, similar to baseline - no signs or symptoms of bleeding noted, hemeoccult negative - Labs from prior admission in 05/2019 reveal iron deficiency w/an iron level of 6 and transferrin saturation of 2% -> s/p venofer infusion x 2 -> patient has been increasing dietary iron intake -> repeat iron studies revealed an improved iron level of 28, and transferrin saturation of 14% -> hesitant to prescribe p.o. iron supplementation given hx of SBO, continue to encourage dietary iron intake - endoscopy and colonoscopy recommended outpatient - pt states last colonoscopy was in 2007 and normal HTN: - home amlodipine and lisinopril continued Hx recurrent UTIs with bilateral hydroureteronephrosis: - Follows with Urology for this. Unchanged findings on CTAP. - Takes daily nitrofurantoin 50mg for UTI prophylaxis and mirabegron - No urinary signs or symptoms. Stable for discharge to home (2) Hypertension: (3) History of recurrent UTI (urinary tract infection): (4) Anemia: Total Time Total Time Spent Total Time Spent (In Minutes): See attending addendum Discharge Plan Discharge Items Patient Disposition: Home - Self-Care Reason For Visit: SMALL BOWEL OBSTRUCTION Discharge Diagnosis: Small Bowel Obstruction Activity: Resume your previous activity Non-emergency contact: Primary Care Provider Call non-emergency contact if: you have any medication questions, your symptoms worsen and your pain is worsening Follow-up/Referrals: Pro,Arian Jacobsen MD [Primary Care Provider] - Diet: Low Fiber Addtl Attending Provider Instructions: Ms. Goncalves, you were admitted to [facility] due to a small bowel obstruction. You recovered very well with the use of stool softeners, and an NG tube. Please continue to eat a low fiber diet over the next few days, until your bowel function returns to normal. Your electrolyte levels were low while you were in the hospital, particularly your magnesium and potassium. This is due to your NG tube, and your subsequent multiple bowel movements after the stool softeners. You do not need to take additional potassium supplementation at home, but it may be worth having your family doctor recheck your electrolyte levels in a few days time. We recommend calling them on Sunday to set up an appointment to see them next week. We also rechecked your iron levels, which have improved from your last admission. Please continue to eat a diet high in iron, as this will help improve your anemia. If you have worsening abdominal pain, nausea, vomiting, or are unable to have a bowel movement, please seek medical attention. Pending Studies at Discharge: No Stand-Alone Forms: My [facility], Smoking Cessation Medications and DC Order Prescriptions: Continued conjugated estrogens 0.625 mg/gram cream 0.25 applic PV DAILY PRN (Reason: Other) Qty: 3 RF: 0 Myrbetriq 50 mg tablet extended release 24 hr 50 mg PO HS Qty: 90 RF: 3 multivitamin [Multiple Vitamins] Tablet 1 tab PO QDL RF: 0 omega 2-ynk-ogz-fish oil [Fish Oil] 1,000 mg (120 mg-180 mg) Capsule 2,000 mg PO QDL RF: 0 calcium citrate-vitamin D3 [Citracal Regular] 250 mg calcium- 200 unit tablet 1 tab PO QAM RF: 0 acetaminophen [Tylenol] 325 mg Tablet 325 mg PO QID PRN (Reason: Pain) RF: 0 nitrofurantoin macrocrystal 50 mg capsule 50 mg PO QAM RF: 0 amlodipine 2.5 mg tablet 2.5 mg PO QAM RF: 0 lisinopril 10 mg tablet 10 mg PO HS RF: 0 Discharge Orders: Discharge Order (Routine); Ordered 08/03/19 Ordered By: Nader Parrish Admission Data Admit Date/Time: 07/31/19 22:30 Attending Provider: Anne Messer Admit Provider: Manuelito Borja Primary Care Provider: Arian Shah Other Providers: Manuelito Borja Other Interventions: Discharge Summary Assessment (RN) Last Done: 08/03/19 14:04 DC Date/Time DO NOT enter until pt leaves facility: 08/03/19 14:53 Supervising Physician Co-Signing Physician Notes I personally examined the patient and verified all knapp points of history and exam, discussed case, and agree with decision making with Dr. Parrish with the following additions/exceptions: Patient feels great today. Is rajeev low fiber diet, ambulating, no CP/SOB, no N/V, no abd pain at all. Lytes replaced and hypokalemia resolved Vitals reviewed Gen: AAOx3, NAD HEENT: Anicteric sclerae CV: RRR no mgr nl S1S2 Pulm: CTAB no wcr Abd: +BS soft NT ND no masses or hernias, colostomy bag in place with small amount of soft stool Ext: No edema, 2+ DP pulses Skin: No rashes, warm/dry Neuro: Full strength throughout 78-year-old female with a history of small bowel obstructions, colostomy, endometrial cancer, recurrent UTIs with bilateral hydroureteronephrosis, HTN, here with recurrent small bowel obstruction. SBO secondary to adhesions from prior surgeries. Obstruction is now resolved Appreciate Surgery consult -tolerating low fiber diet Stable for diharge I spent greater than 30 minutes coordinating the discharge Resident Activity Tracking Resident Involvement: Resident Care Provided Care Provided: Adult Hospital Medicine
[2019-08-03] MEDS: nitrofurantoin macrocrystaL 50 MG CAP PO SCH (08:24)
[2019-08-03] MEDS: AMLODIPINE BESYLATE 5 MG TAB PO SCH (08:24)
--- NOTE | 2019-08-03 10:10 | Surgery Progress Note ---
Date of Service August 03, 2019 Assessment & Plan (1) Small bowel obstruction: Improved significantly. Tolerating diet. Stable for discharge from surgical standpoint. Subjective Feels much better today. Tolerating diet. Ostomy functional. No abdominal pain or nausea/ vomiting. Review of Systems Review of Systems: All systems reviewed & are unremarkable except as noted in HPI & below Physical Exam Constitutional: WD/WN, vitals as above Eyes: PERRL, conjunctivae normal, anicteric sclerae ENMT: external ear and nose normal, oropharynx normal Ears: no hearing impairment Respiratory: normal respiratory effort, lungs clear to auscultation Cardiovascular: RRR, no murmur, no edema Gastrointestinal (Abdomen): normal bowel sounds, soft, nontender, no hepatosplenomegaly ostomy with gas and stool in bag Neurologic: moves all extremities; no focal motor deficits Psychiatric: A+Ox3, euthymic affect Results & Data Vital Signs (Past 12 Hours) Vital Signs Temp Pulse Resp BP Pulse Ox 08/03/19 07:37 36.7 C 60 18 138/78 98 08/02/19 22:52 37.1 C 61 16 143/75 H 97
[2019-08-03 12:49] LABS: BUN Creatinine Ratio 19.2 (10-20); Calcium 7.7 mg/dl (8.5-10.1); Creatinine Clr Calc Pharmacy 44.6 ml/min; Est GFR (African American) 86.9; Potassium 3.5 mmol/L (3.5-5.1)
--- NOTE | 2019-08-03 16:49 | Billing Data ---
Date of Service August 03, 2019 Coding Level of Care Code D/C Day Management >30 mins
== END 2019-08-03 14:53 | disposition home or self-care (01) | DRG 390 ==
LOC: ED 20:04 → 2N 22:30 → SUATTDRO 22:30 → 2N 23:09 → 3N 08-01 13:00

== ENCOUNTER 2020-03-16 22:12 | Inpatient (IN) ==
[2020-03-16] MEDS ORDERED: ONDANSETRON INJ 2 MG/ML 2 ML VIAL IV STA (22:32)
[2020-03-16] MEDS ORDERED: SODIUM CHLORIDE 0.9% 1000ML 1,000 ML IV ONE (22:32)
[2020-03-16] MEDS ORDERED: MoRPHine SULFATE 4 MG/ML 1 ML CARP\\VIAL IV STA (22:35)
--- NOTE | 2020-03-16 22:51 | Emergency Department Note ---
Impression & Plan SBO (small bowel obstruction), Abdominal pain ED Provider Note Provider: Wagner Rivera MD DATE OF SERVICE:03/16/2020 CHIEF COMPLAINT: Abdominal pain HISTORY OF PRESENT ILLNESS: Patient is a 79-year-old female history of small bowel obstruction and uterine cancer status post colectomy with recurrent UTIs presenting here today complaining of development of abdominal pain over approximately the past 24 hours. States has had multiple episodes of nausea and vomiting today and not able to keep very much down. States she is had some small amount of output from her ostomy site but less than normal. States she is recently evaluated and treated for UTI several weeks ago finished antibiotics several days ago. States that the softer stools some. She denies other fever. Denies chest pain or shortness of breath. States it feels similar to prior bowel obstruction so came here for evaluation. She feels thirsty but does not have an appetite. No trauma reported. Patient states the abdominal pain ripples across the abdomen fluctuates to some degree. REVIEW OF SYSTEMS: A total of 10 review of systems was obtained and negative except as stated above in the HPI. PAST MEDICAL HISTORY: As noted above MEDICATIONS: Reviewed home medications SOCIAL HISTORY: Lives at home with PHYSICAL EXAM: GENERAL: alert and oriented in no acute distress on stretcher Head: normocephalic and atraumatic EYES: No injection, discharge or icterus. NECK: Trachea midline. Supple. ENT: Mucous membranes pink and moist. LUNGS: Airway patent. No retractions. Breath sounds clear HEART: Regular rate and rhythm. No chest wall tenderness ABDOMEN: Soft with some mild diffuse tenderness but not peritoneal. Does have a left-sided ostomy that is pink and healthy-appearing. SKIN: Acyanotic, warm, dry, without rashes EXTREMITIES: Without swelling, tenderness or deformity NEUROLOGICAL: No focal deficits. No aphasia. No facial droop or slurred speech. EK bpm normal sinus rhythm without PVC or PAC. No acute ST segment elevation or depressions noted. Normal axis with a QTC of 449. CONTINUOUS CARDIAC MONITORING: was ordered and showed a heart rate of 82 bpm in normal sinus rhythm Patient's laboratory studies and imaging reviewed. Differential includes Appendicitis, infections, diverticulitis, UTI, obstruction, mesenteric ischemia, aortic pathology, inflammatory bowel disease, renal colic, PUD, pancreatitis, biliary pathology, hernia, volvulus, constipation, as well as other pathologies. IMPRESSION/MEDICAL DECISION MAKING: Patient presents with concern for possible current SBO given her history. Decreased ostomy output but not totally ceased. Given some IV fluid as well as morphine and Zofran to help with symptoms. Denies significant chest pain or shortness of breath low suspicion this is cardiac or pulmonary in nature. Given her age however did complete a troponin EKG. CT the abdomen pelvis contrast given her history of renal dysfunction was completed look for possible obstruction. Urine sample be sent does appear somewhat concentrated grossly in the room. Urine appears slightly concentrated but no evidence of infection noted here. No evidence of transaminitis and doubt hepatitis. Do note bilirubin is 2.1 which is somewhat higher than previous baseline. Lipase is low and not indicative of pancreatitis. Troponin is undetectable. Renal function appears somewhat better than recent previous values with creatinine 1.58. No significant leukocytosis is noted. Stable mild anemia. Per stat rad, CT consistent with either partial small bowel obstruction or early high-grade small bowel obstruction. No pneumatosis is noted. Chronic hydroureter nephrosis is noted. Again the patient does not look severely ill any doubt ischemic bowel. Discussed with the patient use of a NG tube and conservative treatment with IV fluids here in the hospital. Patient was agreeable to plan for NG tube. Hospitalist will be contacted. DIAGNOSIS: Small bowel obstruction, abdominal pain DISPOSITION: Hospitalist will evaluate Patient was agreeable with this plan Preliminary Findings Only See Final Report For Complete Findings CT ABDOMEN & PELVIS Without Contrast: Limited examination due to lack of intravenous and/or oral contrast. There are multiple fluid-filled and dilated loops of small bowel predominantly in the left hemiabdomen, dilated up to 3.1 cm with air-fluid levels and decompressed small bowel loops in the right lower quadrant, suggesting either a partial or early high-grade small bowel obstruction. No free fluid or free air is visualized within the abdomen or pelvis. No pneumatosis or portal venous gas is seen. Severe right and moderate to severe left hydroureteronephrosis. Radiologist: Glory Dutta M.D. Study ready at 23:47 and initial results transmitted at 00:00 Past Med/Surg History Medical History Colostomy in place History of anemia History of urinary frequency Hx of colonic polyp Hypertension Uterine carcinoma Surgical History History of colonoscopy History of partial colectomy History of total abdominal hysterectomy S/P colostomy S/P tonsillectomy Family History Daughter Systemic lupus Mother Myocardial infarction Heart disease Brother Pancreatic cancer Brain cancer Lung cancer Father Alcohol abuse Denies family history of Ovarian cancer Prostate cancer Breast cancer Colorectal cancer Stroke Social History Smoking Status: Never smoker Second Hand Exposure: No; Hx Alcohol Use: Yes Alcohol type: beer Alcohol Intake Frequency: Monthly or Less Hx Substance Use: No Preferred Language: Upper Sorbian Communication Ability: Effective Visual Impairment: No Limitations Hearing Ability: Normal Health Insurance Agent Required: Yes Beliefs That Will Affect Care: Gnosticism Gnosticism Beliefs: Episcopal marital status: Current Living Situation: Spouse Current Living Situation Comment: Home with current occupational status: retired Feels Safe at Home: Yes Childhood Exposure to Second-Hand Smoke: Yes Dental Care, Regularly: Yes Physical Activity Frequency: Daily Seatbelt Use: always Sunscreen Use: No Assistive Devices: Glasses Allergies Allergies Allergy/AdvReac Type Severity Reaction Status Date / Time No Known Allergies Allergy Verified 03/16/20 22:44 Home Meds Home Medications Medication Instructions Recorded Confirmed multivitamin [Multiple Vitamins] 1 tab PO QDL 02/13/18 03/16/20 omega 4-vgi-vvx-fish oil [Fish Oil] 2,000 mg PO QDL 02/13/18 03/16/20 calcium citrate 250 mg 1 tab PO QAM tab 05/08/19 03/16/20 calcium-vitamin D3 5 mcg (200 unit) tablet acetaminophen [Tylenol] 325 - 650 mg PO QID PRN 07/31/19 03/16/20 lutein 20 mg capsule 20 mg PO DAILY 10/14/19 03/16/20 lycopene 10 mg capsule 10 mg PO DAILY 10/14/19 03/16/20 conjugated estrogens 0.25 applic PV 2XWK PRN 03/16/20 03/16/20 Previous Rx's Medication Instructions Recorded amlodipine 2.5 mg tablet 2.5 mg PO QAM #90 tab 09/01/19 nitrofurantoin macrocrystal 50 mg 50 mg PO QAM #90 cap 09/17/19 capsule mirabegron 50 mg tablet,extended 50 mg PO HS #90 tab 02/11/20 release 24 hr lisinopril 10 mg tablet 10 mg PO HS #90 tab 03/03/20 Results & Data (ED) Vital Signs Vital Signs - 24 hr 03/16/20 22:15 03/16/20 22:59 03/16/20 23:24 Temperature 36.8 C Temperature Source Temporal Artery Scan Pulse Rate 95 H Pulse Rate [Bilateral Apical] 74 77 Respiratory Rate 16 20 20 Respiratory Effort / Characteristics Non-Labored Spontaneous Respiratory Depth Normal Respiratory Pattern Regular Blood Pressure 121/75 Blood Pressure [Right Arm] 109/62 104/56 L Blood Pressure Mean 90 Blood Pressure Mean [Right Arm] 77 72 Blood Pressure Position Sitting Pulse Oximetry 95 95 95 Oxygen Delivery Method Room Air Room Air Room Air Sepsis Recent Fever Within 48 Hours No Sepsis New/Unexplained Change in Mental Status No Sepsis Action Taken by Nursing No Action Required 03/17/20 00:15 Temperature Temperature Source Pulse Rate Pulse Rate [Bilateral Apical] 79 Respiratory Rate 20 Respiratory Effort / Characteristics Respiratory Depth Respiratory Pattern Blood Pressure Blood Pressure [Right Arm] 144/72 H Blood Pressure Mean Blood Pressure Mean [Right Arm] 96 Blood Pressure Position Pulse Oximetry 98 Oxygen Delivery Method Room Air Sepsis Recent Fever Within 48 Hours Sepsis New/Unexplained Change in Mental Status Sepsis Action Taken by Nursing Laboratory Data Result diagrams: 03/16/20 22:51 03/16/20 22:51 Lab Results 03/16/20 03/16/20 03/16/20 Range/Units 22:44 22:51 22:51 WBC 10.40 (4.8-10.8) K/uL RBC 3.39 L (4.2-5.4) M/uL Hgb 10.2 L (12.0-16.0) g/dL Hct 30.8 L (37-47) % MCV 90.9 (80-100) fL MCH 30.1 (25-34) pg MCHC 33.1 (32-36) g/dL RDW Std Deviation 44.5 (36.4-46.3) fL RDW Coeff of Pardeep 13.6 (11.5-14.5) % Plt Count 400 (130-400) K/uL MPV 9.4 (7.4-10.4) fL Immature Gran % (Auto) 0.1 % Neut % (Auto) 88.8 % Lymph % (Auto) 6.0 % [place] % (Auto) 4.9 % Eos % (Auto) 0.0 % Baso % (Auto) 0.2 % Neut # (Auto) 9.24 H (1.4-6.5) K/uL Lymph # (Auto) 0.62 L (1.2-3.4) K/uL [place] # (Auto) 0.51 (0.11-0.59) K/uL Eos # (Auto) 0.00 (0-0.5) K/uL Baso # (Auto) 0.02 (0-0.2) K/uL Immature Gran # (Auto) 0.01 (0.00-0.02) K/uL Sodium 136 (136-145) mmol/L Potassium 3.5 (3.5-5.1) mmol/L Chloride 101 (98-107) mmol/L Carbon Dioxide 29 (21-32) mmol/L Anion Gap 6.0 (3-11) BUN 28 H (7-18) mg/dl Creatinine 1.58 H (0.6-1.2) mg/dl Est Cr Clr Drug Dosing 21.4 ml/min Est GFR ( Amer) 36.2 Est GFR (Non-Af Amer) 31.2 BUN/Creatinine Ratio 17.5 (10-20) Glucose 137 H (70-99) mg/dl Calcium 9.3 (8.5-10.1) mg/dl Magnesium 1.8 (1.8-2.4) mg/dl Total Bilirubin 2.1 H (0.2-1) mg/dl AST 24 (15-37) U/L ALT 29 (12-78) U/L Alkaline Phosphatase 58 (45-117) U/L Troponin I < 0.015 (0-0.045) ng/ml Total Protein 6.2 L (6.4-8.2) gm/dl Albumin 3.0 L (3.4-5.0) gm/dl Globulin 3.2 (2.5-4.0) gm/dl Albumin/Globulin Ratio 0.9 (0.9-2) Lipase 88 (73-393) U/L Urine Color Yellow Urine Appearance Clear (Clear) Urine pH 6.5 (4.5-7.5) Ur Specific [place] 1.017 (1.000-1.030) Urine Protein Negative (Negative) Urine Glucose (UA) Negative (Negative) Urine Ketones 1+ H (Negative) Urine Blood Negative (Negative) Urine Nitrite Negative (Negative) Urine Bilirubin Negative (Negative) Urine Urobilinogen Negative (Negative) Ur Leukocyte Esterase Negative (Negative) SARS-CoV-2 Ag (Rapid) (Negative) 03/17/20 Range/Units 00:45 WBC (4.8-10.8) K/uL RBC (4.2-5.4) M/uL Hgb (12.0-16.0) g/dL Hct (37-47) % MCV (80-100) fL MCH (25-34) pg MCHC (32-36) g/dL RDW Std Deviation (36.4-46.3) fL RDW Coeff of Pardeep (11.5-14.5) % Plt Count (130-400) K/uL MPV (7.4-10.4) fL Immature Gran % (Auto) % Neut % (Auto) % Lymph % (Auto) % [place] % (Auto) % Eos % (Auto) % Baso % (Auto) % Neut # (Auto) (1.4-6.5) K/uL Lymph # (Auto) (1.2-3.4) K/uL [place] # (Auto) (0.11-0.59) K/uL Eos # (Auto) (0-0.5) K/uL Baso # (Auto) (0-0.2) K/uL Immature Gran # (Auto) (0.00-0.02) K/uL Sodium (136-145) mmol/L Potassium (3.5-5.1) mmol/L Chloride (98-107) mmol/L Carbon Dioxide (21-32) mmol/L Anion Gap (3-11) BUN (7-18) mg/dl Creatinine (0.6-1.2) mg/dl Est Cr Clr Drug Dosing ml/min Est GFR ( Amer) Est GFR (Non-Af Amer) BUN/Creatinine Ratio (10-20) Glucose (70-99) mg/dl Calcium (8.5-10.1) mg/dl Magnesium (1.8-2.4) mg/dl Total Bilirubin (0.2-1) mg/dl AST (15-37) U/L ALT (12-78) U/L Alkaline Phosphatase (45-117) U/L Troponin I (0-0.045) ng/ml Total Protein (6.4-8.2) gm/dl Albumin (3.4-5.0) gm/dl Globulin (2.5-4.0) gm/dl Albumin/Globulin Ratio (0.9-2) Lipase (73-393) U/L Urine Color Urine Appearance (Clear) Urine pH (4.5-7.5) Ur Specific [place] (1.000-1.030) Urine Protein (Negative) Urine Glucose (UA) (Negative) Urine Ketones (Negative) Urine Blood (Negative) Urine Nitrite (Negative) Urine Bilirubin (Negative) Urine Urobilinogen (Negative) Ur Leukocyte Esterase (Negative) SARS-CoV-2 Ag (Rapid) Negative (Negative) Administered Medications Discontinued Medications Sodium Chloride (Nss 1000ml) 1,000 mls @ 999 mls/hr IV .Q1H1M ONE Stop: 03/16/20 23:32 Last Infusion: 03/17/20 00:20 Dose: 0 mls/hr Documented by: [id number] Admin: 03/16/20 22:58 Dose: 999 mls/hr Documented by: [id number] Morphine Sulfate (Morphine Sulfate 4 Mg/Ml 1 Ml Carp\Vial) 4 mg IV NOW STA Stop: 03/16/20 22:36 Last Admin: 03/16/20 22:58 Dose: 4 mg Documented by: [id number] Ondansetron HCl (Ondansetron Inj 2 Mg/Ml 2 Ml Vial) 4 mg IV NOW STA Stop: 03/16/20 22:33 Last Admin: 03/16/20 22:58 Dose: 4 mg Documented by: [id number] Discharge Plan Visit Data Chief Complaint: Abdominal Pain Stated Complaint: BUDDY OROZCO ED Provider: Wagner Rivera Discharge Problem: SBO (small bowel obstruction), Abdominal pain Patient Disposition: Being Evaluated by Hospitalist Condition: Good Forms Stand Alone Forms: My [facility] Prescriptions Prescriptions: No Action amlodipine 2.5 mg tablet 2.5 mg PO QAM Qty: 90 RF: 3 lisinopril 10 mg tablet 10 mg PO HS Qty: 90 RF: 1 nitrofurantoin macrocrystal 50 mg capsule 50 mg PO QAM Qty: 90 RF: 3 lycopene 10 mg capsule 10 mg PO DAILY RF: 0 lutein 20 mg capsule 20 mg PO DAILY RF: 0 Myrbetriq 50 mg tablet extended release 24 hr 50 mg PO HS Qty: 90 RF: 3 multivitamin [Multiple Vitamins] Tablet 1 tab PO QDL RF: 0 omega 7-xfk-jpu-fish oil [Fish Oil] 1,000 mg (120 mg-180 mg) Capsule 2,000 mg PO QDL RF: 0 calcium citrate-vitamin D3 [Citracal Regular] 250 mg calcium- 200 unit tablet 1 tab PO QAM RF: 0 acetaminophen [Tylenol] 325 mg Tablet 325 - 650 mg PO QID PRN (Reason: Pain) RF: 0 conjugated estrogens 0.625 mg/gram cream 0.25 applic PV 2XWK PRN (Reason: NEEDED) RF: 0 Referrals Referrals: Arian Shah MD [Primary Care Provider] - Discharge Problem: Abdominal pain Qualifiers: Abdominal location: generalized Qualified Code(s): R10.84 - Generalized abdominal pain
[2020-03-16 22:55] LABS: Appearance Urine Clear (Clear); Bilirubin Urine Negative (Negative); Blood Urine Negative (Negative); Color Urine Yellow; Glucose Urine UA Negative (Negative); Ketones Urine 1+ (Negative); Leukocyte Esterase Urine Negative (Negative); Nitrite Urine Negative (Negative); Protein Urine Negative (Negative); Specific Gravity Urine 1.017 (1.000-1.030); Urobilinogen Urine Negative (Negative); pH Urine 6.5 (4.5-7.5)
[2020-03-16 23:05] LABS: Basophils # (auto) 0.02 K/uL (0-0.2); Basophils % (auto) 0.2 %; Hematocrit (blood only) 30.8 % (37-47); Hemoglobin 10.2 g/dL (12.0-16.0); Immature Granulocytes # (auto) 0.01 K/uL (0.00-0.02); Immature Granulocytes % (auto) 0.1 %; Lymphocytes # (auto) 0.62 K/uL (1.2-3.4); Mean Corpuscular Hemoglobin 30.1 pg (25-34); Mean Corpuscular Hgb Conc 33.1 g/dL (32-36); Mean Corpuscular Volume 90.9 fL (80-100); Mean Platelet Volume 9.4 fL (7.4-10.4); Monocytes # (auto) 0.51 K/uL (0.11-0.59); Monocytes % (auto) 4.9 %; Neutrophils # (auto) 9.24 K/uL (1.4-6.5); Neutrophils % (auto) 88.8 %; Platelet Count 400 K/uL (130-400); RDW Coefficient of Variation 13.6 % (11.5-14.5); RDW Standard Deviation 44.5 fL (36.4-46.3); Red Blood Count 3.39 M/uL (4.2-5.4)
[2020-03-16 23:25] LABS: Alanine Aminotransferase 29 U/L (12-78); Aspartate Aminotransferase 24 U/L (15-37); BUN Creatinine Ratio 17.5 (10-20); Blood Urea Nitrogen 28 mg/dl (7-18); Calcium 9.3 mg/dl (8.5-10.1); Carbon Dioxide 29 mmol/L (21-32); Chloride 101 mmol/L (98-107); Creatinine Clr Calc Pharmacy 21.4 ml/min; Est GFR (African American) 36.2; Est GFR (Non-African American) 31.2; Glucose 137 mg/dl (70-99); Lipase 88 U/L (73-393); Magnesium 1.8 mg/dl (1.8-2.4); Potassium 3.5 mmol/L (3.5-5.1); Sodium 136 mmol/L (136-145)
[2020-03-16 23:30] LABS: Albumin Globulin Ratio 0.9 (0.9-2); Alkaline Phosphatase 58 U/L (45-117); Bilirubin,Total 2.1 mg/dl (0.2-1); Globulin 3.2 gm/dl (2.5-4.0); Total Protein 6.2 gm/dl (6.4-8.2); Troponin I < 0.015 ng/ml (0-0.045)
--- NOTE | 2020-03-17 01:00 | History & Physical Report ---
Date of Service March 17, 2020 Assessment & Plan (1) SBO (small bowel obstruction): Patient is a 79-year-old female with a past medical history of small bowel obstruction and uterine cancer status post colectomy with recurrent UTIs and hypertension who presents this evening for evaluation of abdominal pain. #Nausea, vomiting, abdominal pain, decreased ostomy output secondary to small bowel obstruction complicated by history of endometrial cancer and colostomy Patient presenting with a clinical history concerning for small bowel obstruction, this was subsequently confirmed by physical exam findings and imaging. There is no evidence for acute surgical intervention, and patient is currently doing well with conservative medical management. The patient does not currently have a white count, and has been afebrile. Given history of abdominal surgery this is likely secondary to adhesive disease she will be admitted to [facility] for further evaluation and management of her small bowel obstruction in consultation with general surgery. -Admit to [facility] -Consult general surgery -NG tube in place -LR with D5 at 90 -Serial abdominal exams -Pain control with morphine -Trend daily CBC -Trend BMP -Zosyn #Known history of recurrent UTIs with associated hydronephrosis Follows with outpatient urology for this, recently completed a course of antibiotics for prolonged urinary tract infection. UA on admission was clean, monitor for symptom development. -No need to consult urology at present -Continue home Myrbetriq 50 mg every 24 -Continue home nitrofurantoin #Osteopenia -Continue home calcium #Hypertension -Continue lisinopril 10 mg p.o. at bedtime -Continue amlodipine 2.5 mg every morning FENa: NG tube in place LR with D5 at 90 Code Status: Full code DVT PPX: SCDs PT/OT: Not indicated Dispo: [facility] Rafi Hampton MD PGY 3, FCM This chart was completed utilizing [employer] voice recognition software. Grammatical errors, random word insertions, pronoun errors, and in complete sentences are an occasional consequence of the system. Any questions or concerns about the content, text, or information contained within the body of this dictation should be addressed directly to the physician for clarification. (2) Abdominal pain: (3) History of recurrent UTI (urinary tract infection): (4) Nausea: (5) Vomiting: (6) Hydronephrosis: (7) Lower urinary tract symptoms (LUTS): (8) Osteopenia: (9) History of endometrial cancer: (10) S/P colostomy: (11) Hypertension: History of Present Illness Patient is a 79-year-old female with a past medical history of small bowel obstruction and uterine cancer status post colectomy with recurrent UTIs and hypertension who presents this evening for evaluation of abdominal pain. Patient states her abdominal pain started on Sunday. She states the pain is across the center of her abdomen and is poorly localized describing is diffuse with intermittent bouts of sharp pains. She states nothing makes the pain worse and nothing makes the pain better, she states that pain is similar to previous episodes of small bowel obstructions. She presented to hospital for this pain. Aside from nausea and vomiting associated with this pain she endorses no other constitutional symptoms. Specifically denying fever, chills, shortness of breath, chest pressure, chest pain, pain in her legs, neurological symptoms, other concerning symptoms. Patient reports that she has been having soft bowel movements in her ostomy bag recently, decreased output compared to normal. She had attributed this previously to antibiotic therapy with cefdinir for her urinary tract infection she completed this medication a few days ago. Patient reports her last bowel movement was earlier today and this is different from her prior episodes of small bowel obstruction. She has discussed with the surgeon in the past the pros and cons of adhesive lysis surgery and it has been felt that given the infrequency of her symptoms risks with outpatient weight any benefits In the emergency department routine labs were obtained CBC was within normal limits hemoglobin 10.2 which appears to be about her baseline, CMP showed a creatinine of 1.58 baseline seems to be 1 2-1 5, glucose of 137, bilirubin of 2.1, liver enzymes within normal limits, troponin negative UA negative, Covid negative.Multiple fluid-filled and dilated loops of small bowel predominantly in the left hemiabdomen dilated up to 3.1 cm with air-fluid levels suggesting either partial or early high-grade small bowel obstruction no free air was visualized no pneumatosis or portal venous gas severe right and moderate severe left hydroureteronephrosis. Emergency department physicians did not feel the patient looks severely ill, and elected to pursue medical management for presumed small bowel. An NG tube was placed, and IV fluids administered along with antinausea and pain medication. The patient improved. Given the patient's finding the hospital team was called for admission. The patient will be admitted for further evaluation management of her small bowel obstruction and consultation with general surgery. Primary Care Provider: Arian Shah MD Allergies Allergy/AdvReac Type Severity Reaction Status Date / Time No Known Allergies Allergy Verified 03/16/20 22:44 Home Medications Medication Instructions Recorded Confirmed Type multivitamin [Multiple Vitamins] 1 tab PO QDL 02/13/18 03/16/20 History omega 4-nhf-edd-fish oil [Fish Oil] 2,000 mg PO QDL 02/13/18 03/16/20 History calcium citrate 250 mg 1 tab PO QAM tab 05/08/19 03/16/20 History calcium-vitamin D3 5 mcg (200 unit) tablet acetaminophen [Tylenol] 325 - 650 mg PO QID PRN 07/31/19 03/16/20 History amlodipine 2.5 mg tablet 2.5 mg PO QAM #90 tab 09/01/19 03/16/20 Rx nitrofurantoin macrocrystal 50 mg 50 mg PO QAM #90 cap 09/17/19 03/16/20 Rx capsule lutein 20 mg capsule 20 mg PO DAILY 10/14/19 03/16/20 History lycopene 10 mg capsule 10 mg PO DAILY 10/14/19 03/16/20 History mirabegron 50 mg tablet,extended 50 mg PO HS #90 tab 02/11/20 03/16/20 Rx release 24 hr lisinopril 10 mg tablet 10 mg PO HS #90 tab 03/03/20 03/16/20 Rx conjugated estrogens 0.25 applic PV 2XWK PRN 03/16/20 03/16/20 History Past Med/Surg History Medical History Colostomy in place History of anemia History of urinary frequency Hx of colonic polyp Hypertension Uterine carcinoma Surgical History History of colonoscopy History of partial colectomy History of total abdominal hysterectomy S/P colostomy S/P tonsillectomy Family History Daughter Systemic lupus Mother Myocardial infarction Heart disease Brother Pancreatic cancer Brain cancer Lung cancer Father Alcohol abuse Denies family history of Ovarian cancer Prostate cancer Breast cancer Colorectal cancer Stroke Social History Smoking Status: Never smoker Second Hand Exposure: No; Do You Dip or Chew Tobacco: No; Tobacco Cessation Education Requested by Patient: No Hx Alcohol Use: Yes Alcohol type: beer and wine Alcohol Intake Frequency: Monthly or Less Hx Substance Use: No Preferred Language: Botswanan Communication Ability: Effective Visual Impairment: No Limitations Hearing Ability: Normal Mannequin Mounter Required: No Beliefs That Will Affect Care: None marital status: Current Living Situation: Spouse Current Living Situation Comment: Home with current occupational status: retired Other Information That Helps Us Care for You: No Feels Safe at Home: Yes Safety Concerns: Feels Safe At This Time Childhood Exposure to Second-Hand Smoke: Yes Dental Care, Regularly: Yes Physical Activity Frequency: Daily Seatbelt Use: always Sunscreen Use: No Assistive Devices: Glasses Review of Systems Review of Systems: All systems reviewed & are unremarkable except as noted in HPI & below Physical Exam Physical Exam: General: Lying in bed in no acute distress HEENT: Normocephalic atraumatic Neck: Visual inspection trachea midline did not appreciate JVD Cardiac: Regular rate and rhythm I did not appreciate significant murmurs rubs or gallops, normal S1, normal S2, negative pedal edema, negative calf tenderness Respiratory: Clear to auscultation bilaterally with symmetrical chest expansion I did not appreciate significant wheezes, rales, rhonchi, no increased work of breathing GI: Soft, diffusely tender to palpation, no rebound, no guarding, bowel sounds present MSK: Moves all extremities Neuro: Alert and oriented x4 Psych: Calm and cooperative Results & Data Results & Data ([facility]) Vital Signs (Past 12 Hours) Vital Signs Temp Pulse Pulse Resp BP BP Pulse Ox 03/17/20 00:15 79 20 144/72 H 98 03/16/20 23:24 77 20 104/56 L 95 03/16/20 22:59 74 20 109/62 95 03/16/20 22:15 36.8 C 95 H 16 121/75 95 Laboratory Results 03/17/20 03/16/20 03/16/20 Range/Units 00:45 22:51 22:51 WBC 10.40 (4.8-10.8) K/uL RBC 3.39 L (4.2-5.4) M/uL Hgb 10.2 L (12.0-16.0) g/dL Hct 30.8 L (37-47) % MCV 90.9 (80-100) fL MCH 30.1 (25-34) pg MCHC 33.1 (32-36) g/dL RDW Std Deviation 44.5 (36.4-46.3) fL RDW Coeff of Pardeep 13.6 (11.5-14.5) % Plt Count 400 (130-400) K/uL MPV 9.4 (7.4-10.4) fL Immature Gran % (Auto) 0.1 % Neut % (Auto) 88.8 % Lymph % (Auto) 6.0 % Citrus % (Auto) 4.9 % Eos % (Auto) 0.0 % Baso % (Auto) 0.2 % Neut # (Auto) 9.24 H (1.4-6.5) K/uL Lymph # (Auto) 0.62 L (1.2-3.4) K/uL Citrus # (Auto) 0.51 (0.11-0.59) K/uL Eos # (Auto) 0.00 (0-0.5) K/uL Baso # (Auto) 0.02 (0-0.2) K/uL Immature Gran # (Auto) 0.01 (0.00-0.02) K/uL Sodium 136 (136-145) mmol/L Potassium 3.5 (3.5-5.1) mmol/L Chloride 101 (98-107) mmol/L Carbon Dioxide 29 (21-32) mmol/L Anion Gap 6.0 (3-11) BUN 28 H (7-18) mg/dl Creatinine 1.58 H (0.6-1.2) mg/dl Est Cr Clr Drug Dosing 21.4 ml/min Est GFR ( Amer) 36.2 Est GFR (Non-Af Amer) 31.2 BUN/Creatinine Ratio 17.5 (10-20) Glucose 137 H (70-99) mg/dl Calcium 9.3 (8.5-10.1) mg/dl Magnesium 1.8 (1.8-2.4) mg/dl Total Bilirubin 2.1 H (0.2-1) mg/dl AST 24 (15-37) U/L ALT 29 (12-78) U/L Alkaline Phosphatase 58 (45-117) U/L Troponin I < 0.015 (0-0.045) ng/ml Total Protein 6.2 L (6.4-8.2) gm/dl Albumin 3.0 L (3.4-5.0) gm/dl Globulin 3.2 (2.5-4.0) gm/dl Albumin/Globulin Ratio 0.9 (0.9-2) Lipase 88 (73-393) U/L Urine Color Urine Appearance (Clear) Urine pH (4.5-7.5) Ur Specific [place] (1.000-1.030) Urine Protein (Negative) Urine Glucose (UA) (Negative) Urine Ketones (Negative) Urine Blood (Negative) Urine Nitrite (Negative) Urine Bilirubin (Negative) Urine Urobilinogen (Negative) Ur Leukocyte Esterase (Negative) SARS-CoV-2 Ag (Rapid) Negative (Negative) 03/16/20 Range/Units 22:44 WBC (4.8-10.8) K/uL RBC (4.2-5.4) M/uL Hgb (12.0-16.0) g/dL Hct (37-47) % MCV (80-100) fL MCH (25-34) pg MCHC (32-36) g/dL RDW Std Deviation (36.4-46.3) fL RDW Coeff of Pardeep (11.5-14.5) % Plt Count (130-400) K/uL MPV (7.4-10.4) fL Immature Gran % (Auto) % Neut % (Auto) % Lymph % (Auto) % Citrus % (Auto) % Eos % (Auto) % Baso % (Auto) % Neut # (Auto) (1.4-6.5) K/uL Lymph # (Auto) (1.2-3.4) K/uL Citrus # (Auto) (0.11-0.59) K/uL Eos # (Auto) (0-0.5) K/uL Baso # (Auto) (0-0.2) K/uL Immature Gran # (Auto) (0.00-0.02) K/uL Sodium (136-145) mmol/L Potassium (3.5-5.1) mmol/L Chloride (98-107) mmol/L Carbon Dioxide (21-32) mmol/L Anion Gap (3-11) BUN (7-18) mg/dl Creatinine (0.6-1.2) mg/dl Est Cr Clr Drug Dosing ml/min Est GFR ( Amer) Est GFR (Non-Af Amer) BUN/Creatinine Ratio (10-20) Glucose (70-99) mg/dl Calcium (8.5-10.1) mg/dl Magnesium (1.8-2.4) mg/dl Total Bilirubin (0.2-1) mg/dl AST (15-37) U/L ALT (12-78) U/L Alkaline Phosphatase (45-117) U/L Troponin I (0-0.045) ng/ml Total Protein (6.4-8.2) gm/dl Albumin (3.4-5.0) gm/dl Globulin (2.5-4.0) gm/dl Albumin/Globulin Ratio (0.9-2) Lipase (73-393) U/L Urine Color Yellow Urine Appearance Clear (Clear) Urine pH 6.5 (4.5-7.5) Ur Specific [place] 1.017 (1.000-1.030) Urine Protein Negative (Negative) Urine Glucose (UA) Negative (Negative) Urine Ketones 1+ H (Negative) Urine Blood Negative (Negative) Urine Nitrite Negative (Negative) Urine Bilirubin Negative (Negative) Urine Urobilinogen Negative (Negative) Ur Leukocyte Esterase Negative (Negative) SARS-CoV-2 Ag (Rapid) (Negative) Code Status & VTE Plan Code Status Full code VTE Prophylaxis Plan VTE Prophylaxis will be ordered: Yes Supervising Physician Co-Signing Physician Notes Attending addendum: I have physically seen this patient, have supervised the medical residents activities, and agree with the H&P unless as otherwise noted. Assessment and Plan: Recurrent small bowel obstruction- Last admission 07/30-08/03/2019, that responded to conservative therapy. NPO D5 LR at 90 mils per hour NG tube to low intermittent suction Zosyn 3.375 mg IV every 8 hours Follow serial CBC with differential, and CMP Consult general surgery Chronic severe right hydroureteronephrosis/moderate to severe left hydroureteronephrosis- CT without acute changes. Following in the outpatient setting with urology While inpatient, on Zosyn, can resume nitrofurantoin in the outpatient setting Hypertension- Hold lisinopril and amlodipine while n.p.o. Hydralazine 10 mg IV every 4 hours as needed systolic blood pressure greater than 160 Remainder of orders and notations as noted Resident Activity Tracking Resident Involvement: Resident Care Provided Care Provided: Adult Hospital Medicine (1) Hydronephrosis Hydronephrosis type: unspecified Qualified Code(s): N13.30 - Unspecified hydronephrosis (2) Abdominal pain Abdominal location: generalized Qualified Code(s): R10.84 - Generalized abdominal pain (3) Vomiting Nausea presence: unspecified Vomiting Intractability: unspecified Vomiting type: unspecified Qualified Code(s): R11.10 - Vomiting, unspecified
[2020-03-17] MEDS ORDERED: MoRPHine SULFATE 2 MG/ML CARP IV PRN (03:08)
[2020-03-17] MEDS ORDERED: ONDANSETRON INJ 2 MG/ML 2 ML VIAL IV PRN (03:08)
[2020-03-17] MEDS ORDERED: ACETAMINOPHEN 325 MG TAB PO PRN (03:08)
[2020-03-17] MEDS ORDERED: MoRPHine SULFATE 4 MG/ML 1 ML CARP\\VIAL IV PRN (03:08)
[2020-03-17] MEDS ORDERED: D5W AND LACTATED RINGERS 1,000 ML IV SCH (03:08)
[2020-03-17] MEDS ORDERED: PREMARIN VAG CRM 14 APPLN/30 GM TUBE PV PRN (03:08)
[2020-03-17] MEDS ORDERED: PIPERACILL/TAZOBAC CONSULT ACTIVE PRN (03:08)
[2020-03-17] MEDS ORDERED: MIRABEGRON ER 25 MG TAB PO ONE (03:57)
[2020-03-17] MEDS ORDERED: lisinopril 10 MG TAB PO ONE (03:59)
[2020-03-17] MEDS ORDERED: PIPERACILLIN/TAZOBACTAM 3.375 GM in DEXTROSE 5% 100 ML IV ONE (04:00)
--- NOTE | 2020-03-17 07:24 | CT Scan Report ---
CT SCAN OF THE ABDOMEN AND PELVIS WITHOUT CONTRAST CLINICAL HISTORY: nausea, vomiting, decreased output, ?obstruction COMPARISON STUDY: 03/02/2020 TECHNIQUE: CT scan of the abdomen and pelvis was performed from the lung bases to the proximal femurs . Images are reviewed in the axial, sagittal, and coronal planes. IV contrast was not administered fo r this examination. A dose lowering technique was utilized adhering to the principles of ALARA. CT DOSE: 241.83 mGy.cm FINDINGS: Lower chest: The heart is normal in size and configuration, without pericardial effusion. The lung ba ses and pleural spaces are clear. Liver: The unenhanced liver is normal in size, contour, and attenuation. There is no intrahepatic rose mary iary ductal dilatation. Gallbladder: Distended. No calculi identified Spleen: Normal in size and attenuation. Pancreas: Unremarkable. Adrenal glands: There is moderate low-density left adrenal gland thickening Kidneys: There is persistent bilateral hydronephrosis. Bowel: There is a left lower quadrant ostomy. There are mildly dilated small bowel loops with air-flu id levels. The distal small bowel is of normal caliber. The findings are suggestive of a small bowel obstruction. Peritoneum: There is a small amount of ascites. No free air is visualized. Vasculature: The abdominal aorta is normal in course and caliber. Adenopathy: None. Pelvic viscera: The uterus appears surgically absent. Skeletal structures: No destructive lesions are visualized. There is an old left inferior pubic ramus fracture. IMPRESSION: 1. Significantly limited study secondary to the lack of intravenous and oral contrast 2. Left lower quadrant ostomy 3. Small bowel obstructive pattern. 4. Low volume ascites 5. Bilateral hydronephrosis ACT 112: Negative or not required by law. Electronically signed by: Elkin Newby M.D. 03/17/2020 7:23 AM
[2020-03-17 08:23] LABS: Hematocrit (blood only) 26.4 % (37-47); Hemoglobin 8.7 g/dL (12.0-16.0); Mean Platelet Volume 9.1 fL (7.4-10.4); Platelet Count 329 K/uL (130-400); RDW Coefficient of Variation 13.8 % (11.5-14.5); RDW Standard Deviation 46.1 fL (36.4-46.3); White Blood Count 6.67 K/uL (4.8-10.8)
[2020-03-17 08:47] LABS: Albumin Level 2.5 gm/dl (3.4-5.0); BUN Creatinine Ratio 18.5 (10-20); Calcium 8.7 mg/dl (8.5-10.1); Creatinine Clr Calc Pharmacy 21.8 ml/min; Potassium 3.3 mmol/L (3.5-5.1)
[2020-03-17 08:50] LABS: Albumin Globulin Ratio 0.9 (0.9-2); Bilirubin,Total 1.7 mg/dl (0.2-1); Globulin 2.8 gm/dl (2.5-4.0); Total Protein 5.3 gm/dl (6.4-8.2)
[2020-03-17] MEDS ORDERED: NON-FORMULARY MEDICATION (Lycopene 10 mg capsule) PO SCH (09:00)
[2020-03-17] MEDS: nitrofurantoin macrocrystaL 50 MG CAP PO SCH (09:23)
[2020-03-17] MEDS: CALCIUM 600MG + VIT D 400 IU TAB PO SCH (09:23)
[2020-03-17] MEDS: amLODIPine BESYLATE 5 MG TAB PO SCH (09:24)
[2020-03-17] MEDS: NSS + 20MEQ KCL 20 MEQ/1,000 ML BAG IV SCH ×2 (09:25→19:47)
[2020-03-17] MEDS ORDERED: PIPERACILLIN/TAZOBACTAM 3.375 GM in DEXTROSE 5% 100 ML IV SCH (10:00)
--- NOTE | 2020-03-17 11:49 | Surgery Consultation ---
Date of Consultation March 17, 2020 Assessment & Plan (1) SBO (small bowel obstruction): 79 year-old female with history of uterine cancer s/p resection and radiation as well as colon resection with colostomy and recurrent SBO presented to ED with 2 day history of abdominal pain with nausea and vomiting. CT scan showing evidence of SBO with distal decompressed small bowel. Ostomy is functioning. 250 cc NGT last shift, dark brown. NO leukocytosis, abdomen soft, nondistended today. (2) Abdominal pain: secondary to SBO Improved since NGT placed (3) Nausea: resolved (4) Vomiting: resolved Plan: Given patients history of multiple abdominal surgeries and radiation as well as recurrent SBO treated conservatively about 1-2 times per year will plan to cont inue conservative measures. Continue NPO, NGT to LIS today, Pain management as needed but limit narcotics, Zofran as needed. Encouraged to ambulate hallway as tolerated If ostomy output continues tonight, likely will remove NGT tomorrow as long as output is not high Continue medical management Dr. Sommer has seen patient and agrees with above. History of Present Illness Reason for Consultation: SBO Requesting Physician: Rafi Hampton MD Attending Physician: Morro Robison DO History of Present Illness Zina is a 79 year-old female with history of endometrial cancer s/p resection and radiation therapy, history of colon resection with LLQ colostomy , recurrent SBO, recurrent UTI, anemia, osteopenia, and hypertension who presented to emergency department last evening with complaint of abdominal pain, nausea, and vomiting that began Sunday morning. States she has had prior SBO about 1-2 every year treated conservatively. She has had output of her colostomy but has noticed decreased output. She was treated 2 weeks ago for recurrent UTI with antibiotics and noticed her stool to become loose. Abdominal pain was generalized in mid abdomen with nausea and vomiting. Denies of any fever, chills, chest pain, shortness of breath, difficulty urinating, blood in stool. Er work-up included labs which showed no leukocytosis. Creatinine elevated likely due to dehydration secondary to vomiting. CT scan of abdomen and pelvis without contrast showing evidence of SBO with distal decompressed small bowel. Zina states since NGT was placed she is feeling much better. Ostomy still has output. Dark in nature which is normal for her. Pain minimal. No further vomiting. Allergies Allergy/AdvReac Type Severity Reaction Status Date / Time No Known Allergies Allergy Verified 03/16/20 22:44 Home Medications Medication Instructions Recorded Confirmed Type multivitamin [Multiple Vitamins] 1 tab PO QDL 02/13/18 03/16/20 History omega 8-ywu-alz-fish oil [Fish Oil] 2,000 mg PO QDL 02/13/18 03/16/20 History calcium citrate 250 mg 1 tab PO QAM tab 05/08/19 03/16/20 History calcium-vitamin D3 5 mcg (200 unit) tablet acetaminophen [Tylenol] 325 - 650 mg PO QID PRN 07/31/19 03/16/20 History amlodipine 2.5 mg tablet 2.5 mg PO QAM #90 tab 09/01/19 03/16/20 Rx nitrofurantoin macrocrystal 50 mg 50 mg PO QAM #90 cap 09/17/19 03/16/20 Rx capsule lutein 20 mg capsule 20 mg PO DAILY 10/14/19 03/16/20 History lycopene 10 mg capsule 10 mg PO DAILY 10/14/19 03/16/20 History mirabegron 50 mg tablet,extended 50 mg PO HS #90 tab 02/11/20 03/16/20 Rx release 24 hr lisinopril 10 mg tablet 10 mg PO HS #90 tab 03/03/20 03/16/20 Rx conjugated estrogens 0.25 applic PV 2XWK PRN 03/16/20 03/16/20 History Patient History Medical History Colostomy in place History of anemia History of urinary frequency Hx of colonic polyp Hypertension Uterine carcinoma Surgical History History of colonoscopy History of partial colectomy History of total abdominal hysterectomy S/P colostomy S/P tonsillectomy Family History Daughter Systemic lupus Mother Myocardial infarction Heart disease Brother Pancreatic cancer Brain cancer Lung cancer Father Alcohol abuse Denies family history of Ovarian cancer Prostate cancer Breast cancer Colorectal cancer Stroke Social History Smoking Status: Never smoker Second Hand Exposure: No; Do You Dip or Chew Tobacco: No; Tobacco Cessation Education Requested by Patient: No Hx Alcohol Use: Yes Alcohol type: beer and wine Alcohol Intake Frequency: Monthly or Less Hx Substance Use: No Preferred Language: Setswana Communication Ability: Effective Visual Impairment: No Limitations Hearing Ability: Normal Pickle Cutter Required: No Beliefs That Will Affect Care: None marital status: Current Living Situation: Spouse Current Living Situation Comment: Home with current occupational status: retired Other Information That Helps Us Care for You: No Feels Safe at Home: Yes Safety Concerns: Feels Safe At This Time Childhood Exposure to Second-Hand Smoke: Yes Dental Care, Regularly: Yes Physical Activity Frequency: Daily Seatbelt Use: always Sunscreen Use: No Assistive Devices: Glasses Review of Systems Review of Systems: All systems reviewed & are unremarkable except as noted in HPI & below Physical Exam Constitutional: WD/WN, vitals as above Respiratory: normal respiratory effort, lungs clear to auscultation Cardiovascular: RRR, no murmur, no edema Gastrointestinal (Abdomen): Inspection/Auscultation: abdomen normal to inspection and normal bowel sounds; abdomen not distended Percussion/Palpation: abdomen soft; abdomen nontender, no guarding and abdomen not rigid LLQ colostomy presented with dark liquid stool output Skin: no rashes, warm and dry Psychiatric: A+Ox3, euthymic affect Results & Data ([facility]) Vital Signs (Past 12 Hours) Vital Signs Temp Pulse Pulse Resp BP Pulse Ox Pulse Ox 03/17/20 07:57 36.8 C 73 20 104/59 L 93 03/17/20 03:05 36.8 C 82 14 133/68 92 92 03/17/20 02:27 79 20 144/72 H 98 03/17/20 01:23 78 20 118/69 92 03/17/20 00:15 79 20 144/72 H 98 Laboratory Results 03/17/20 03/17/20 03/17/20 Range/Units 08:11 08:11 00:45 WBC 6.67 (4.8-10.8) K/uL RBC 2.90 L (4.2-5.4) M/uL Hgb 8.7 L (12.0-16.0) g/dL Hct 26.4 L (37-47) % MCV 91.0 (80-100) fL MCH 30.0 (25-34) pg MCHC 33.0 (32-36) g/dL RDW Std Deviation 46.1 (36.4-46.3) fL RDW Coeff of Pardeep 13.8 (11.5-14.5) % Plt Count 329 (130-400) K/uL MPV 9.1 (7.4-10.4) fL Immature Gran % (Auto) % Neut % (Auto) % Lymph % (Auto) % [place] % (Auto) % Eos % (Auto) % Baso % (Auto) % Neut # (Auto) (1.4-6.5) K/uL Lymph # (Auto) (1.2-3.4) K/uL [place] # (Auto) (0.11-0.59) K/uL Eos # (Auto) (0-0.5) K/uL Baso # (Auto) (0-0.2) K/uL Immature Gran # (Auto) (0.00-0.02) K/uL Sodium 141 (136-145) mmol/L Potassium 3.3 L (3.5-5.1) mmol/L Chloride 103 (98-107) mmol/L Carbon Dioxide 33 H (21-32) mmol/L Anion Gap 4.0 (3-11) BUN 29 H (7-18) mg/dl Creatinine 1.55 H (0.6-1.2) mg/dl Est Cr Clr Drug Dosing 21.8 ml/min Est GFR ( Amer) 37.0 Est GFR (Non-Af Amer) 32.0 BUN/Creatinine Ratio 18.5 (10-20) Glucose 112 H (70-99) mg/dl Calcium 8.7 (8.5-10.1) mg/dl Magnesium (1.8-2.4) mg/dl Total Bilirubin 1.7 H (0.2-1) mg/dl AST 23 (15-37) U/L ALT 26 (12-78) U/L Alkaline Phosphatase 50 (45-117) U/L Troponin I (0-0.045) ng/ml Total Protein 5.3 L (6.4-8.2) gm/dl Albumin 2.5 L (3.4-5.0) gm/dl Globulin 2.8 (2.5-4.0) gm/dl Albumin/Globulin Ratio 0.9 (0.9-2) Lipase (73-393) U/L Urine Color Urine Appearance (Clear) Urine pH (4.5-7.5) Ur Specific [place] (1.000-1.030) Urine Protein (Negative) Urine Glucose (UA) (Negative) Urine Ketones (Negative) Urine Blood (Negative) Urine Nitrite (Negative) Urine Bilirubin (Negative) Urine Urobilinogen (Negative) Ur Leukocyte Esterase (Negative) SARS-CoV-2 Ag (Rapid) Negative (Negative) 03/16/20 03/16/20 03/16/20 Range/Units 22:51 22:51 22:44 WBC 10.40 (4.8-10.8) K/uL RBC 3.39 L (4.2-5.4) M/uL Hgb 10.2 L (12.0-16.0) g/dL Hct 30.8 L (37-47) % MCV 90.9 (80-100) fL MCH 30.1 (25-34) pg MCHC 33.1 (32-36) g/dL RDW Std Deviation 44.5 (36.4-46.3) fL RDW Coeff of Pardeep 13.6 (11.5-14.5) % Plt Count 400 (130-400) K/uL MPV 9.4 (7.4-10.4) fL Immature Gran % (Auto) 0.1 % Neut % (Auto) 88.8 % Lymph % (Auto) 6.0 % [place] % (Auto) 4.9 % Eos % (Auto) 0.0 % Baso % (Auto) 0.2 % Neut # (Auto) 9.24 H (1.4-6.5) K/uL Lymph # (Auto) 0.62 L (1.2-3.4) K/uL [place] # (Auto) 0.51 (0.11-0.59) K/uL Eos # (Auto) 0.00 (0-0.5) K/uL Baso # (Auto) 0.02 (0-0.2) K/uL Immature Gran # (Auto) 0.01 (0.00-0.02) K/uL Sodium 136 (136-145) mmol/L Potassium 3.5 (3.5-5.1) mmol/L Chloride 101 (98-107) mmol/L Carbon Dioxide 29 (21-32) mmol/L Anion Gap 6.0 (3-11) BUN 28 H (7-18) mg/dl Creatinine 1.58 H (0.6-1.2) mg/dl Est Cr Clr Drug Dosing 21.4 ml/min Est GFR ( Amer) 36.2 Est GFR (Non-Af Amer) 31.2 BUN/Creatinine Ratio 17.5 (10-20) Glucose 137 H (70-99) mg/dl Calcium 9.3 (8.5-10.1) mg/dl Magnesium 1.8 (1.8-2.4) mg/dl Total Bilirubin 2.1 H (0.2-1) mg/dl AST 24 (15-37) U/L ALT 29 (12-78) U/L Alkaline Phosphatase 58 (45-117) U/L Troponin I < 0.015 (0-0.045) ng/ml Total Protein 6.2 L (6.4-8.2) gm/dl Albumin 3.0 L (3.4-5.0) gm/dl Globulin 3.2 (2.5-4.0) gm/dl Albumin/Globulin Ratio 0.9 (0.9-2) Lipase 88 (73-393) U/L Urine Color Yellow Urine Appearance Clear (Clear) Urine pH 6.5 (4.5-7.5) Ur Specific [place] 1.017 (1.000-1.030) Urine Protein Negative (Negative) Urine Glucose (UA) Negative (Negative) Urine Ketones 1+ H (Negative) Urine Blood Negative (Negative) Urine Nitrite Negative (Negative) Urine Bilirubin Negative (Negative) Urine Urobilinogen Negative (Negative) Ur Leukocyte Esterase Negative (Negative) SARS-CoV-2 Ag (Rapid) (Negative) Diagnostic Findings CT SCAN OF THE ABDOMEN AND PELVIS WITHOUT CONTRAST CLINICAL HISTORY: nausea, vomiting, decreased output, ?obstruction COMPARISON STUDY: 03/02/2020 TECHNIQUE: CT scan of the abdomen and pelvis was performed from the lung bases to the proximal femurs. Images are reviewed in the axial, sagittal, and coronal planes. IV contrast was not administered for this examination. A dose lowering technique was utilized adhering to the principles of ALARA. CT DOSE: 241.83 mGy.cm FINDINGS: Lower chest: The heart is normal in size and configuration, without pericardial effusion. The lung bases and pleural spaces are clear. Liver: The unenhanced liver is normal in size, contour, and attenuation. There is no intrahepatic biliary ductal dilatation. Gallbladder: Distended. No calculi identified Spleen: Normal in size and attenuation. Pancreas: Unremarkable. Adrenal glands: There is moderate low-density left adrenal gland thickening Kidneys: There is persistent bilateral hydronephrosis. Bowel: There is a left lower quadrant ostomy. There are mildly dilated small bowel loops with air-fluid levels. The distal small bowel is of normal caliber. The findings are suggestive of a small bowel obstruction. Peritoneum: There is a small amount of ascites. No free air is visualized. Vasculature: The abdominal aorta is normal in course and caliber. Adenopathy: None. Pelvic viscera: The uterus appears surgically absent. Skeletal structures: No destructive lesions are visualized. There is an old left inferior pubic ramus fracture. IMPRESSION: 1. Significantly limited study secondary to the lack of intravenous and oral contrast 2. Left lower quadrant ostomy 3. Small bowel obstructive pattern. 4. Low volume ascites 5. Bilateral hydronephrosis (1) Abdominal pain Abdominal location: generalized Qualified Code(s): R10.84 - Generalized abdominal pain (2) Vomiting Nausea presence: unspecified Vomiting Intractability: unspecified Vomiting type: unspecified Qualified Code(s): R11.10 - Vomiting, unspecified
--- NOTE | 2020-03-17 12:10 | Electrocardiogram Report ---
Test Reason : Blood Pressure : / mmHG Vent. Rate : 080 BPM Atrial Rate : 080 BPM P-R Int : 148 ms QRS Dur : 070 ms QT Int : 390 ms P-R-T Axes : 080 049 064 degrees QTc Int : 449 ms Normal sinus rhythm Possible Left atrial enlargement Borderline ECG When compared with ECG of 03-JUN-2019 16:07, QT has lengthened Confirmed by Arian Connolly ([id number]) on 03/17/2020 12:09:40 PM Referred By: REFERRED SELF Confirmed By:Arian Connolly
[2020-03-17] MEDS: OMEGA-3 (PURIFIED FISH OIL) 1 GM CAP PO SCH (13:01)
[2020-03-17] MEDS: MULTIVITAMIN TAB PO SCH (13:01)
--- NOTE | 2020-03-17 13:34 | Hospitalist Progress Note ---
Date of Service March 17, 2020 Assessment & Plan (1) SBO (small bowel obstruction): Consulted surgery - supportive care for now Continue NG tube, encourage ambulation, Continue IVF, pain control Hgb decreased to 8.7 this morning, 8.5 on recheck - possibly dilutional (2) Hydronephrosis: Chronic. Patient follows with urology and also has history of chronic UTI Hold nitrofurantoin for now, can resume when taking po (3) Hypertension: Blood pressure low normal, hold amlodipine until taking po Admission and Anticipated Discharge Date Admission Date: March 17, 2020 Supervising Physician Co-Signing Physician Notes chart reviewed and case d/w S Madhavi HYDE. As above Subjective Ms. Goncalves is no longer having any abdominal pain. She is not nauseas. Tolerating NG tube. Her ostomy is producing bowel movements Review of Systems Constitutional: no fever, no chills and no body aches Respiratory: no cough and no dyspnea Cardiovascular: no chest pain and no palpitations Gastrointestinal: as per Subjective / HPI Genitourinary: no dysuria and no urinary hesitancy Musculoskeletal: no back pain and no joint pain Integumentary: no rash Physical Exam Physical Exam: General: no distress Eyes: normal inspection, PERLL Respiratory: chest non tender, clear to auscultation, normal breath sounds, no respiratory distress, no accessory muscle use Cardiac: regular rate and rhythm, no rub or gallop, no murmur, no edema, no jvd GI/: active bowel sounds, no abd pain or tenderness, soft, non distended Extremities: normal range of motion, normal strength, non tender Neuro/Psych: alert and oriented x 3, normal mood and affect Skin: normal color, dry Results & Data Results & Data ([facility]) Vital Signs (Past 12 Hours) Vital Signs Temp Pulse Pulse Resp BP Pulse Ox Pulse Ox 03/17/20 07:57 36.8 C 73 20 104/59 L 93 03/17/20 03:05 36.8 C 82 14 133/68 92 92 03/17/20 02:27 79 20 144/72 H 98 03/17/20 01:23 78 20 118/69 92 PG Care Time/CCT Total # of Minutes Spent Total Time Spent with Patient: Total time spent is greater than 50% in coordination of care (as documented) at patient's floor/unit and/or counseling patient: Coding Level of Care Code 74960 Subseq Hosp Care Lvl 2 Diagnoses SBO (small bowel obstruction) K56.609 Hydronephrosis N13.30 Hydronephrosis type: unspecified Hypertension I10 (1) Hydronephrosis Hydronephrosis type: unspecified Qualified Code(s): N13.30 - Unspecified hydronephrosis
--- NOTE | 2020-03-17 15:23 | Ultrasound Report ---
US gallbladder CLINICAL HISTORY: Right upper quadrant abdominal pain COMPARISON STUDY: CT scan dated 03/16/2020 FINDINGS: The pancreas appears sonographically normal. No focal hepatic masses are visualized. There is perihep atic ascites. There is severe right-sided hydronephrosis. No gallstones are visualized. The gallbladd er is mildly distended. There is echogenic sludge within the gallbladder. There is no gallbladder wal l thickening. The common bile duct is minimally dilated measuring 8 mm. IMPRESSION: 1. Sludge in the gallbladder but no shadowing calculi, and no gallbladder wall thickening 2. Small amount of perihepatic ascites 3. Severe right-sided hydronephrosis 4. Mild common bile duct dilatation ACT 112: Negative or not required by law. Electronically signed by: Elkin Newby M.D. 03/17/2020 3:21 PM
--- NOTE | 2020-03-17 20:22 | Billing Data ---
Date of Service March 17, 2020 Coding Level of Care Code 10349 Initial Inpt Care Lvl 3
[2020-03-17] MEDS ORDERED: lisinopril 10 MG TAB PO SCH (21:00)
[2020-03-18] MEDS: NSS + 20MEQ KCL 20 MEQ/1,000 ML BAG IV SCH (05:32)
[2020-03-18 06:27] LABS: Hematocrit (blood only) 26.4 % (37-47); Hemoglobin 8.5 g/dL (12.0-16.0); Mean Corpuscular Hemoglobin 30.2 pg (25-34); Mean Corpuscular Hgb Conc 32.2 g/dL (32-36); Mean Platelet Volume 9.8 fL (7.4-10.4); Platelet Count 300 K/uL (130-400); RDW Coefficient of Variation 13.9 % (11.5-14.5); RDW Standard Deviation 48.2 fL (36.4-46.3); Red Blood Count 2.81 M/uL (4.2-5.4); White Blood Count 7.24 K/uL (4.8-10.8)
[2020-03-18 06:56] LABS: BUN Creatinine Ratio 23.8 (10-20); Calcium 8.5 mg/dl (8.5-10.1); Creatinine Clr Calc Pharmacy 28.2 ml/min; Est GFR (African American) 50.5; Est GFR (Non-African American) 43.6; Potassium 3.2 mmol/L (3.5-5.1)
[2020-03-18] MEDS: POTASSIUM CHLORIDE 40 MEQ in D5W AND NSS 1,000 ML IV SCH ×2 (10:00→21:00)
[2020-03-18] MEDS: MULTIVITAMIN TAB PO SCH (11:59)
--- NOTE | 2020-03-18 12:31 | Hospitalist Progress Note ---
Date of Service March 18, 2020 Assessment & Plan (1) SBO (small bowel obstruction): Consulted surgery - supportive care for now NG tube removed today Continue IVF, pain control (2) Hydronephrosis: Chronic. Patient follows with urology and also has history of chronic UTI Hold nitrofurantoin for now, can resume when taking po (3) Hypertension: Blood pressure low normal, resume amlodipine now that NG is removed (4) Hyperbilirubinemia: Bilirubin was 1.7 yesterday, todays lab pending Gallbladder US ordered: showed sludge but no evidence of gallbladder wall thickening, small amount of perihepatic ascites, mild common bile duct dilation MRCP Consult GI (5) Anemia: Normocytic, appears chronic Stable (6) DVT prophylaxis: SCDs, ambulating hall Admission and Anticipated Discharge Date Admission Date: March 17, 2020 Supervising Physician Co-Signing Physician Notes chart reviewed and case d/w S Madhavi HYDE. As above Subjective Ms. Goncalves is feeling hungry and ready for the NG to come out. She is passing gas and having bowel movements. She has been ambulating the [place] Review of Systems Constitutional: no fever, no chills and no body aches Respiratory: no cough and no dyspnea Cardiovascular: no chest pain and no dyspnea Gastrointestinal: no abdominal pain, no nausea and no vomiting Genitourinary: no dysuria and no urinary hesitancy Musculoskeletal: no back pain and no joint pain Integumentary: no rash Physical Exam Physical Exam: General: no distress Eyes: normal inspection, PERLL Respiratory: chest non tender, clear to auscultation, normal breath sounds, no respiratory distress, no accessory muscle use Cardiac: regular rate and rhythm, no rub or gallop, no murmur, no edema, no jvd GI/: active bowel sounds, no abd pain or tenderness, soft, non distended Extremities: normal range of motion, normal strength, non tender Neuro/Psych: alert and oriented x 3, normal mood and affect Skin: normal color, dry Results & Data Results & Data ([facility]) Vital Signs (Past 12 Hours) Vital Signs Temp Pulse Resp Pulse Ox 03/18/20 08:11 37.1 C 91 H 20 93 PG Care Time/CCT Total # of Minutes Spent Total Time Spent with Patient: Total time spent is greater than 50% in coordination of care (as documented) at patient's floor/unit and/or counseling patient: Coding Level of Care Code 81823 Subseq Hosp Care Lvl 3 Diagnoses SBO (small bowel obstruction) K56.609 Hydronephrosis N13.30 Hydronephrosis type: unspecified Hypertension I10 Hyperbilirubinemia E80.6 Anemia D64.9 Anemia type: unspecified type DVT prophylaxis Z29.9 (1) Hydronephrosis Hydronephrosis type: unspecified Qualified Code(s): N13.30 - Unspecified hydronephrosis (2) Anemia Anemia type: unspecified type Qualified Code(s): D64.9 - Anemia, unspecified
[2020-03-18 12:44] LABS: Albumin Level 2.5 gm/dl (3.4-5.0); Bilirubin Direct 0.3 mg/dl (0-0.2); Bilirubin,Total 1.1 mg/dl (0.2-1); Total Protein 5.4 gm/dl (6.4-8.2)
--- NOTE | 2020-03-18 13:13 | Gastrointestinal Consultation ---
Date of Consultation March 18, 2020 Assessment & Plan (1) Abnormal LFTs: (2) Biliary sludge: (3) SBO (small bowel obstruction): it appears likely that she passed a gallstone/sludge as her LFTs are now improving. SBO is also resolving, NG tube removed and stool in her ostomy bag more solid and formed. Recs: --obtain MRCP to evaluate for biliary obstruction --trend LFTs daily --clear liquid diet today, NPO post midnight in case she requires ERCP tomorrow --rest as per primary team Thank you for allowing me to participate in the care of this patient. History of Present Illness Attending Physician: Morro Robison, DO 79 yo female with hx uterine cancer s/p radiation tx and partial colectomy, multiple SBOs here for abdominal pains. She was found to have another SBO on imaging this admission, was treated conservatively with NG tube decompression and NPO and IVFs and improved, NG tube is now removed. GI consulted for elevated LFTs and abnormal US. Tbili noted to be 1.7, now 1.1; US abdomen shows biliary sludge in gallbladder and mildly dilated CBD. No fevers, VSS. Currently without any abdominal pains, n/v though she did have these on presentation. labs reviewed. Allergies Allergy/AdvReac Type Severity Reaction Status Date / Time No Known Allergies Allergy Verified 03/16/20 22:44 Home Medications Medication Instructions Recorded Confirmed Type multivitamin [Multiple Vitamins] 1 tab PO QDL 02/13/18 03/16/20 History omega 5-ieo-qec-fish oil [Fish Oil] 2,000 mg PO QDL 02/13/18 03/16/20 History calcium citrate 250 mg 1 tab PO QAM tab 05/08/19 03/16/20 History calcium-vitamin D3 5 mcg (200 unit) tablet acetaminophen [Tylenol] 325 - 650 mg PO QID PRN 07/31/19 03/16/20 History amlodipine 2.5 mg tablet 2.5 mg PO QAM #90 tab 09/01/19 03/16/20 Rx nitrofurantoin macrocrystal 50 mg 50 mg PO QAM #90 cap 09/17/19 03/16/20 Rx capsule lutein 20 mg capsule 20 mg PO DAILY 10/14/19 03/16/20 History lycopene 10 mg capsule 10 mg PO DAILY 10/14/19 03/16/20 History mirabegron 50 mg tablet,extended 50 mg PO HS #90 tab 02/11/20 03/16/20 Rx release 24 hr lisinopril 10 mg tablet 10 mg PO HS #90 tab 03/03/20 03/16/20 Rx conjugated estrogens 0.25 applic PV 2XWK PRN 03/16/20 03/16/20 History Patient History Medical History (Updated 03/18/20 @ 13:34 by Can Orellana MD) Colostomy in place History of anemia History of urinary frequency Hx of colonic polyp Hypertension Uterine carcinoma Surgical History History of colonoscopy History of partial colectomy History of total abdominal hysterectomy S/P colostomy S/P tonsillectomy Family History Daughter Systemic lupus Mother Myocardial infarction Heart disease Brother Pancreatic cancer Brain cancer Lung cancer Father Alcohol abuse Denies family history of Ovarian cancer Prostate cancer Breast cancer Colorectal cancer Stroke Social History Smoking Status: Never smoker Second Hand Exposure: No; Do You Dip or Chew Tobacco: No; Tobacco Cessation Education Requested by Patient: No Hx Alcohol Use: Yes Alcohol type: beer and wine Alcohol Intake Frequency: Monthly or Less Hx Substance Use: No Preferred Language: Sri Lankan Communication Ability: Effective Visual Impairment: No Limitations Hearing Ability: Normal Meat Team Member Required: No Beliefs That Will Affect Care: None marital status: Current Living Situation: Spouse Current Living Situation Comment: Home with current occupational status: retired Other Information That Helps Us Care for You: No Feels Safe at Home: Yes Safety Concerns: Feels Safe At This Time Childhood Exposure to Second-Hand Smoke: Yes Dental Care, Regularly: Yes Physical Activity Frequency: Daily Seatbelt Use: always Sunscreen Use: No Assistive Devices: None Review of Systems Constitutional: no fever, no chills and no weight loss Eyes: as per Subjective / HPI Ear, Nose, Mouth, Throat: as per Subjective / HPI Respiratory: no dyspnea and no dyspnea on exertion Cardiovascular: no chest pain and no palpitations Gastrointestinal: as per Subjective / HPI Musculoskeletal: no joint pain and no swelling Integumentary: no rash and no lesions Neurologic: no numbness and no paresthesia Psychiatric: no depression and no anxiety Endocrine: no fatigue Hematologic / Lymphatic: no easy bleeding and no easy bruising Physical Exam Constitutional: WD/WN, vitals as above Eyes: EOM intact bilaterally Neck: normal visual inspection Respiratory: normal respiratory effort, lungs clear to auscultation Cardiovascular: RRR, no murmur, no edema Gastrointestinal (Abdomen): Inspection/Auscultation: abdomen normal to inspection; abdomen not distended Percussion/Palpation: abdomen soft; abdomen nontender and no hepatosplenomegaly Musculoskeletal: Extremities: no cyanosis Gait: normal gait Skin: no rashes, warm and dry Neurologic: moves all extremities Psychiatric: A+Ox3, euthymic affect Results & Data ([facility]) Vital Signs (Past 12 Hours) Vital Signs Temp Pulse Resp Pulse Ox 03/18/20 08:11 37.1 C 91 H 20 93 PG Care Time/CCT Total # of Minutes Spent Total Time Spent with Patient: Total time spent is greater than 50% in coordination of care (as documented) at patient's floor/unit and/or counseling patient: Coding Level of Care Code 45562 Initial Inpt Care Lvl 3 Diagnoses Abnormal LFTs R94.5 Biliary sludge K83.8 SBO (small bowel obstruction) K56.609
--- NOTE | 2020-03-18 13:54 | Surgery Progress Note ---
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 CT scan showing evidence of SBO with distal decompressed small bowel. Ostomy is functioning. 400 cc NGT last shift, dark brown. NO leukocytosis, abdomen soft, nondistended today. Plan: Okay to remove NGT, and start clears once cleared from GI for need of MRCP Continue current medical management ambulate hallway (2) Abdominal pain: secondary to SBO, resolved (3) Biliary sludge: Ultrasound showing biliary sludge and slightly dilated CBD at 8 mm. There is no evidence of acute cholecystitis on ultrasound. Patient has had no postprandial abdominal pain with fatty/greasy foods or in general. No history of gallstones or gallbladder issues. Plan: Repeat Liver panel today to assess t. bili (1.7 yesterday) May require MRCP to rule out biliary obstruction Consult GI for their recommendation on MRCP or not given patient is asymptomatic NPO in case of need for MRCP Dr. Sommer has seen patient and present during my examination. Agrees with above. Admission and Anticipated Discharge Date Admission Date: March 17, 2020 Subjective feeling better today no abdominal pain, n/v Hungry and wants NGT removed ostomy functioning with more formed stool denies of history of gallbladder problems, postprandial pain specifically after fatty/greasy foods Physical Exam Constitutional: WD/WN, vitals as above Respiratory: normal respiratory effort; no respiratory distress Gastrointestinal (Abdomen): Inspection/Auscultation: + abdominal surgical drain present (NGT with dark brown output); abdomen not distended Percussion/Palpation: abdomen soft; abdomen nontender, no guarding and abdomen not rigid LLQ colostomy present with dark soft formed stool Skin: no rashes, warm and dry Psychiatric: A+Ox3, euthymic affect Results & Data ([facility]) Vital Signs (Past 12 Hours) Vital Signs Temp Pulse Resp Pulse Ox 03/18/20 08:11 37.1 C 91 H 20 93 Laboratory Results 03/18/20 03/18/20 03/18/20 Range/Units 05:49 05:49 05:49 WBC 7.24 (4.8-10.8) K/uL RBC 2.81 L (4.2-5.4) M/uL Hgb 8.5 L (12.0-16.0) g/dL Hct 26.4 L (37-47) % MCV 94.0 (80-100) fL MCH 30.2 (25-34) pg MCHC 32.2 (32-36) g/dL RDW Std Deviation 48.2 H (36.4-46.3) fL RDW Coeff of Pardeep 13.9 (11.5-14.5) % Plt Count 300 (130-400) K/uL MPV 9.8 (7.4-10.4) fL Sodium 145 (136-145) mmol/L Potassium 3.2 L (3.5-5.1) mmol/L Chloride 111 H (98-107) mmol/L Carbon Dioxide 26 (21-32) mmol/L Anion Gap 8.0 (3-11) BUN 29 H (7-18) mg/dl Creatinine 1.20 D (0.6-1.2) mg/dl Est Cr Clr Drug Dosing 28.2 ml/min Est GFR ( Amer) 50.5 Est GFR (Non-Af Amer) 43.6 BUN/Creatinine Ratio 23.8 H (10-20) Glucose 66 L (70-99) mg/dl Calcium 8.5 (8.5-10.1) mg/dl Total Bilirubin 1.1 H (0.2-1) mg/dl Direct Bilirubin 0.3 H (0-0.2) mg/dl AST 27 (15-37) U/L ALT 30 (12-78) U/L Alkaline Phosphatase 67 (45-117) U/L Total Protein 5.4 L (6.4-8.2) gm/dl Albumin 2.5 L (3.4-5.0) gm/dl Diagnostic Findings US gallbladder CLINICAL HISTORY: Right upper quadrant abdominal pain COMPARISON STUDY: CT scan dated 03/16/2020 FINDINGS: The pancreas appears sonographically normal. No focal hepatic masses are visualized. There is perihepatic ascites. There is severe right-sided hydronephrosis. No gallstones are visualized. The gallbladder is mildly distended. There is echogenic sludge within the gallbladder. There is no gallbladder wall thickening. The common bile duct is minimally dilated measuring 8 mm. IMPRESSION: 1. Sludge in the gallbladder but no shadowing calculi, and no gallbladder wall thickening 2. Small amount of perihepatic ascites 3. Severe right-sided hydronephrosis 4. Mild common bile duct dilatation (1) Abdominal pain Abdominal location: generalized Qualified Code(s): R10.84 - Generalized abdominal pain
--- NOTE | 2020-03-18 15:06 | Magnetic Resonance Report ---
MRCP CLINICAL HISTORY: Ductal dilatation. TECHNIQUE: Utilizing a 1.5 [place] magnet and dedicated coil, multiplanar, multiecho imaging of the [facility] er abdomen was performed utilizing heavily T2 weighted pulsing sequences without IV contrast. COMPARISON STUDY: CT of the abdomen and pelvis March 16, 2020. Right upper quadrant ultrasound Waqar [id number]. FINDINGS: No gallstones are identified. Gallbladder is not distended. There is no pericholecystic flu id. Mild dilatation of the common bile duct, measuring 8 mm in caliber is noted. This is similar to C T of June 03, 2019. No common bile duct calculi are identified although sensitivity is diminished gi antoine artifact on this exam. There is no pancreatic ductal dilatation. No peripancreatic infiltration o r fluid is noted. Unenhanced images of the liver, spleen and adrenal glands are unremarkable. No panc reatic lesion is identified on this unenhanced examination. No abdominal lymphadenopathy is present. Small bowel dilatation has improved since CT of March 16, 2019 although suboptimally assessed by MRI . A left lower quadrant colostomy is noted. Severe right and moderate to severe left hydronephrosis i s noted. This has been shown on multiple prior imaging studies. IMPRESSION: 1. Mild dilatation of the common bile duct, similar to CT of June 03, 2019. No common bile duct calc gauri identified although sensitivity diminished on this exam. 2. No change in severe right and moderate to severe left hydronephrosis. 3. Interval decrease in small bowel dilatation since CT of March 16, 2020. ACT 112: Negative or not required by law. Electronically signed by: Cristiano Rosales M.D. 03/18/2020 3:05 PM
[2020-03-18] MEDS: MIRABEGRON ER 25 MG TAB PO SCH (21:01)
[2020-03-19 07:07] LABS: Basophils # (auto) 0.04 K/uL (0-0.2); Basophils % (auto) 0.8 %; Eosinophils # (auto) 0.22 K/uL (0-0.5); Eosinophils % (auto) 4.7 %; Hematocrit (blood only) 23.4 % (37-47); Hemoglobin 7.6 g/dL (12.0-16.0); Immature Granulocytes # (auto) 0.01 K/uL (0.00-0.02); Immature Granulocytes % (auto) 0.2 %; Lymphocytes # (auto) 0.92 K/uL (1.2-3.4); Lymphocytes % (auto) 19.5 %; Mean Corpuscular Hemoglobin 29.9 pg (25-34); Mean Corpuscular Hgb Conc 32.5 g/dL (32-36); Mean Corpuscular Volume 92.1 fL (80-100); Monocytes # (auto) 0.48 K/uL (0.11-0.59); Monocytes % (auto) 10.2 %; Neutrophils # (auto) 3.04 K/uL (1.4-6.5); Neutrophils % (auto) 64.6 %; Platelet Count 271 K/uL (130-400); RDW Coefficient of Variation 13.7 % (11.5-14.5); RDW Standard Deviation 46.1 fL (36.4-46.3); Red Blood Count 2.54 M/uL (4.2-5.4); White Blood Count 4.71 K/uL (4.8-10.8)
[2020-03-19 07:39] LABS: RBC Morphology Unremarkable
[2020-03-19] MEDS: POTASSIUM CHLORIDE 40 MEQ in D5W AND NSS 1,000 ML IV SCH (07:39)
[2020-03-19 07:42] LABS: Albumin Globulin Ratio 0.8 (0.9-2); Albumin Level 2.3 gm/dl (3.4-5.0); BUN Creatinine Ratio 18.2 (10-20); Bilirubin,Total 0.8 mg/dl (0.2-1); Creatinine Clr Calc Pharmacy 34.9 ml/min; Est GFR (African American) 65.3; Est GFR (Non-African American) 56.3; Globulin 2.8 gm/dl (2.5-4.0); Potassium 3.4 mmol/L (3.5-5.1); Total Protein 5.1 gm/dl (6.4-8.2)
[2020-03-19] MEDS ORDERED: POTASSIUM CHLORIDE CRTAB 20 MEQ TABCR PO STA (08:39)
[2020-03-19] MEDS: amLODIPine BESYLATE 5 MG TAB PO SCH (08:45)
[2020-03-19] MEDS: nitrofurantoin macrocrystaL 50 MG CAP PO SCH (08:50)
[2020-03-19] MEDS: CALCIUM 600MG + VIT D 400 IU TAB PO SCH (08:50)
--- NOTE | 2020-03-19 09:42 | Gastroenterology Progress Note ---
Date of Service March 19, 2020 Assessment & Plan (1) Abnormal LFTs: LFTs have normalized. MRCP was unremarkable for acute issues. -Okay to advance to low residue diet, advance diet as tolerated. -No indication for ERCP at present--suspect a gallstone or sludge was passed through the ducts at some point. Thank you for allowing us to participate in the care of this patient. If you should have any further questions or concerns, do not hesitate to contact us at extension [phone] or [phone]. Admission and Anticipated Discharge Date Admission Date: March 17, 2020 Supervising Physician Co-Signing Physician Notes I personally evaluated the patient and agree with the findings as documented by Harmony Roldan, RULA Exam: abd: soft, nt, nd MRCP unremarkable, advance diet as tolerated. Subjective Patient is a 79 yo female with elevated LFTs. MRCP was unremarkable for acute issues that would warrant an MRCP. LFTs have normalized. No new symptoms reported by the patient. She is hungry. Review of Systems Constitutional: no fever and no chills Respiratory: no cough and no dyspnea Cardiovascular: no chest pain Gastrointestinal: + abdominal pain (improved) Integumentary: no rash Psychiatric: no problem reported Physical Exam Constitutional: well developed Respiratory: normal respiratory effort Cardiovascular: Extremities: no edema Gastrointestinal (Abdomen): normal bowel sounds, soft, nontender, no hepatosplenomegaly Psychiatric: A+Ox3, euthymic affect Results & Data Results & Data ([facility]) Vital Signs (Past 12 Hours) Vital Signs Temp Pulse Resp BP Pulse Ox 03/19/20 07:32 36.8 C 72 16 170/81 H 98 03/18/20 23:26 36.8 C 69 16 135/69 96 PG Care Time/CCT Total # of Minutes Spent Total Time Spent with Patient: Total time spent is greater than 50% in coordination of care (as documented) at patient's floor/unit and/or counseling patient: Coding Level of Care Code 38120 Subseq Hosp Care Lvl 3 Diagnoses Abnormal LFTs R94.5
--- NOTE | 2020-03-19 09:49 | Surgery Progress Note ---
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 CT scan showed evidence of SBO with distal decompressed small bowel. 03/19/2020 -resolved, + ostomy output, pain resolved, no n/v Plan: Okay from surgical standpoint for clears and advance as tolerated advised patient to avoid high fiber foods or fiber supplement for 1 week given bowel obstruction and then resume normal diet If she recognizes SBO symptoms at home (since she has 1-2 episodes per year) advised to start clear liquids at home for bowel rest. No surgical indication, our services signing off. (2) Abdominal pain: secondary to SBO, resolved (3) Biliary sludge: Ultrasound showing biliary sludge and slightly dilated CBD at 8 mm. There is no evidence of acute cholecystitis on ultrasound. Patient has had no postprandial abdominal pain with fatty/greasy foods or in general. No history of gallstones or gallbladder issues. MRCP negative for biliary obstruction. CBD dilated similar to prior CT scan. 03/19/2020: LFTS/T. bili wnl Plan: Clear liquids and advance as tolerated Dr. Sommer has seen patient and present during my examination. Agrees with above. Admission and Anticipated Discharge Date Admission Date: March 17, 2020 Subjective feeling good today, no abdominal pain, no nausea or vomiting ostomy functioning tolerated clear liquids last evening without pain, n/v Physical Exam Constitutional: WD/WN, vitals as above Respiratory: normal respiratory effort Gastrointestinal (Abdomen): Percussion/Palpation: abdomen soft (nontender, no guarding, rigidity, peritonitis) LLQ ostomy with formed soft stool present, dark Skin: no rashes, warm and dry Psychiatric: A+Ox3, euthymic affect Results & Data ([facility]) Vital Signs (Past 12 Hours) Vital Signs Temp Pulse Resp BP Pulse Ox 03/19/20 07:32 36.8 C 72 16 170/81 H 98 03/18/20 23:26 36.8 C 69 16 135/69 96 Laboratory Results 03/19/20 03/19/20 03/18/20 Range/Units 06:04 06:04 05:49 WBC 4.71 L (4.8-10.8) K/uL RBC 2.54 L (4.2-5.4) M/uL Hgb 7.6 L (12.0-16.0) g/dL Hct 23.4 L (37-47) % MCV 92.1 (80-100) fL MCH 29.9 (25-34) pg MCHC 32.5 (32-36) g/dL RDW Std Deviation 46.1 (36.4-46.3) fL RDW Coeff of Pardeep 13.7 (11.5-14.5) % Plt Count 271 (130-400) K/uL MPV 10.0 (7.4-10.4) fL Immature Gran % (Auto) 0.2 % Neut % (Auto) 64.6 % Lymph % (Auto) 19.5 % Cochran % (Auto) 10.2 % Eos % (Auto) 4.7 % Baso % (Auto) 0.8 % Neut # (Auto) 3.04 (1.4-6.5) K/uL Lymph # (Auto) 0.92 L (1.2-3.4) K/uL Cochran # (Auto) 0.48 (0.11-0.59) K/uL Eos # (Auto) 0.22 (0-0.5) K/uL Baso # (Auto) 0.04 (0-0.2) K/uL Immature Gran # (Auto) 0.01 (0.00-0.02) K/uL RBC Morphology Unremarkable Sodium 142 (136-145) mmol/L Potassium 3.4 L (3.5-5.1) mmol/L Chloride 111 H (98-107) mmol/L Carbon Dioxide 26 (21-32) mmol/L Anion Gap 5.0 (3-11) BUN 18 (7-18) mg/dl Creatinine 0.97 (0.6-1.2) mg/dl Est Cr Clr Drug Dosing 34.9 ml/min Est GFR ( Amer) 65.3 Est GFR (Non-Af Amer) 56.3 BUN/Creatinine Ratio 18.2 (10-20) Glucose 100 H (70-99) mg/dl Calcium 8.0 L (8.5-10.1) mg/dl Total Bilirubin 0.8 1.1 H (0.2-1) mg/dl Direct Bilirubin 0.3 H (0-0.2) mg/dl AST 21 27 (15-37) U/L ALT 24 30 (12-78) U/L Alkaline Phosphatase 55 67 (45-117) U/L Total Protein 5.1 L 5.4 L (6.4-8.2) gm/dl Albumin 2.3 L 2.5 L (3.4-5.0) gm/dl Globulin 2.8 (2.5-4.0) gm/dl Albumin/Globulin Ratio 0.8 L (0.9-2) Diagnostic Findings MRCP CLINICAL HISTORY: Ductal dilatation. TECHNIQUE: Utilizing a 1.5 [place] magnet and dedicated coil, multiplanar, multiecho imaging of the upper abdomen was performed utilizing heavily T2 weighted pulsing sequences without IV contrast. COMPARISON STUDY: CT of the abdomen and pelvis March 16, 2020. Right upper quadrant ultrasound March 17, 2020. FINDINGS: No gallstones are identified. Gallbladder is not distended. There is no pericholecystic fluid. Mild dilatation of the common bile duct, measuring 8 mm in caliber is noted. This is similar to CT of June 03, 2019. No common bile duct calculi are identified although sensitivity is diminished given artifact on this exam. There is no pancreatic ductal dilatation. No peripancreatic infiltration or fluid is noted. Unenhanced images of the liver, spleen and adrenal glands are unremarkable. No pancreatic lesion is identified on this unenhanced examination. No abdominal lymphadenopathy is present. Small bowel dilatation has improved since CT of March 16, 2019 although suboptimally assessed by MRI. A left lower quadrant colostomy is noted. Severe right and moderate to severe left hydronephrosis is noted. This has been shown on multiple prior imaging studies. IMPRESSION: 1. Mild dilatation of the common bile duct, similar to CT of June 03, 2019. No common bile duct calculi identified although sensitivity diminished on this exam. 2. No change in severe right and moderate to severe left hydronephrosis. 3. Interval decrease in small bowel dilatation since CT of March 16, 2020. (1) Abdominal pain Abdominal location: generalized Qualified Code(s): R10.84 - Generalized abdominal pain
[2020-03-19] MEDS: OMEGA-3 (PURIFIED FISH OIL) 1 GM CAP PO SCH (11:13)
[2020-03-19] MEDS: MULTIVITAMIN TAB PO SCH (11:14)
--- NOTE | 2020-03-19 15:04 | Hospitalist Progress Note ---
Date of Service March 19, 2020 Assessment & Plan (1) SBO (small bowel obstruction): Consulted surgery - supportive care for now Diet advanced Will discontinue IVF as taking po, pain control (2) Hydronephrosis: Chronic. Patient follows with urology and also has history of chronic UTI Resume prophylactic home nitrofurantoin (3) Hypertension: Resume amlodipine (4) Hyperbilirubinemia: Bilirubin peaked at 2.1 Gallbladder US ordered: showed sludge but no evidence of gallbladder wall thickening, small amount of perihepatic ascites, mild common bile duct dilation MRCP - Mild dilatation of the common bile duct, similar to CT of June 03, 2019. No common bile duct calculi identified although sensitivity diminished on this exam. Consult GI - patient likely passed sludge/small stone, no intervention necessary (5) Anemia: Hgb decreased to 7.6 this morning Fecal occult positive - discussed with GI - they will likely monitor for now without intervention unless worsening. Start oral pantoprazole Recheck hgb am (6) DVT prophylaxis: SCDs, ambulating halls, no chemoprophylaxis for possible GI bleeding Admission and Anticipated Discharge Date Admission Date: March 17, 2020 Supervising Physician Co-Signing Physician Notes Chart reviewed and case d/w S Madhavi HYDE. as above Subjective Ms. Goncalves is feeling better today, abdominal pain is resolved, no nausea. Ambulating the halls Review of Systems Constitutional: no fever, no chills and no body aches Respiratory: no cough and no dyspnea Cardiovascular: no chest pain and no palpitations Gastrointestinal: no abdominal pain, no nausea and no vomiting Genitourinary: no dysuria and no urinary hesitancy Musculoskeletal: no back pain and no joint pain Integumentary: no rash Physical Exam Physical Exam: General: no distress Eyes: normal inspection, PERLL Respiratory: chest non tender, clear to auscultation, normal breath sounds, no respiratory distress, no accessory muscle use Cardiac: regular rate and rhythm, no rub or gallop, no murmur, no edema, no jvd GI/: active bowel sounds, no abd pain or tenderness, soft, non distended Extremities: normal range of motion, normal strength, non tender Neuro/Psych: alert and oriented x 3, normal mood and affect Skin: normal color, dry Results & Data Results & Data ([facility]) Vital Signs (Past 12 Hours) Vital Signs Temp Pulse Resp BP Pulse Ox 03/19/20 07:32 36.8 C 72 16 170/81 H 98 PG Care Time/CCT Total # of Minutes Spent Total Time Spent with Patient: Total time spent is greater than 50% in coordination of care (as documented) at patient's floor/unit and/or counseling patient: Coding Level of Care Code 29182 Subseq Hosp Care Lvl 3 Diagnoses SBO (small bowel obstruction) K56.609 Hydronephrosis N13.30 Hydronephrosis type: unspecified Hypertension I10 Hyperbilirubinemia E80.6 Anemia D64.9 Anemia type: unspecified type DVT prophylaxis Z29.9 (1) Hydronephrosis Hydronephrosis type: unspecified Qualified Code(s): N13.30 - Unspecified hydronephrosis (2) Anemia Anemia type: unspecified type Qualified Code(s): D64.9 - Anemia, unspecified
[2020-03-19] MEDS: PANTOprazole 40 MG TAB PO SCH (16:00)
[2020-03-19] MEDS: MIRABEGRON ER 25 MG TAB PO SCH (21:17)
[2020-03-19] MEDS ORDERED: lisinopril 10 MG TAB PO SCH (23:00)
[2020-03-20] MEDS: CALCIUM 600MG + VIT D 400 IU TAB PO SCH (08:09)
[2020-03-20] MEDS: nitrofurantoin macrocrystaL 50 MG CAP PO SCH (08:09)
[2020-03-20] MEDS: PANTOprazole 40 MG TAB PO SCH (08:09)
[2020-03-20] MEDS: amLODIPine BESYLATE 5 MG TAB PO SCH (08:09)
[2020-03-20 08:34] LABS: Basophils # (auto) 0.05 K/uL (0-0.2); Basophils % (auto) 1.2 %; Eosinophils # (auto) 0.26 K/uL (0-0.5); Eosinophils % (auto) 6.2 %; Hematocrit (blood only) 28.5 % (37-47); Hemoglobin 9.3 g/dL (12.0-16.0); Lymphocytes # (auto) 0.98 K/uL (1.2-3.4); Lymphocytes % (auto) 23.4 %; Mean Corpuscular Hgb Conc 32.6 g/dL (32-36); Mean Corpuscular Volume 91.9 fL (80-100); Mean Platelet Volume 10.1 fL (7.4-10.4); Monocytes # (auto) 0.44 K/uL (0.11-0.59); Monocytes % (auto) 10.5 %; Neutrophils # (auto) 2.46 K/uL (1.4-6.5); Neutrophils % (auto) 58.7 %; Platelet Count 319 K/uL (130-400); RDW Coefficient of Variation 13.5 % (11.5-14.5); RDW Standard Deviation 45.2 fL (36.4-46.3); White Blood Count 4.19 K/uL (4.8-10.8)
[2020-03-20 09:15] LABS: Albumin Level 2.7 gm/dl (3.4-5.0); BUN Creatinine Ratio 15.6 (10-20); Bilirubin,Total 0.6 mg/dl (0.2-1); Calcium 8.6 mg/dl (8.5-10.1); Creatinine Clr Calc Pharmacy 32.2 ml/min; Est GFR (African American) 59.3; Est GFR (Non-African American) 51.2; Potassium 3.4 mmol/L (3.5-5.1)
[2020-03-20 09:16] LABS: Albumin Globulin Ratio 0.9 (0.9-2); Globulin 3.1 gm/dl (2.5-4.0); Total Protein 5.8 gm/dl (6.4-8.2)
[2020-03-20] MEDS ORDERED: POTASSIUM CHLORIDE CRTAB 20 MEQ TABCR PO STA (11:12)
--- NOTE | 2020-03-20 11:14 | Discharge Summary ---
Date of Service March 20, 2020 Admission HPI Per Admitting Provider Patient is a 79-year-old female with a past medical history of small bowel obstruction and uterine cancer status post colectomy with recurrent UTIs and hypertension who presents this evening for evaluation of abdominal pain. Patient states her abdominal pain started on Sunday. She states the pain is across the center of her abdomen and is poorly localized describing is diffuse with intermittent bouts of sharp pains. She states nothing makes the pain worse and nothing makes the pain better, she states that pain is similar to previous episodes of small bowel obstructions. She presented to hospital for this pain. Aside from nausea and vomiting associated with this pain she endorses no other constitutional symptoms. Specifically denying fever, chills, shortness of breath, chest pressure, chest pain, pain in her legs, neurological symptoms, other concerning symptoms. Patient reports that she has been having soft bowel movements in her ostomy bag recently, decreased output compared to normal. She had attributed this previously to antibiotic therapy with cefdinir for her urinary tract infection she completed this medication a few days ago. Patient reports her last bowel movement was earlier today and this is different from her prior episodes of small bowel obstruction. She has discussed with the surgeon in the past the pros and cons of adhesive lysis surgery and it has been felt that given the infrequency of her symptoms risks with outpatient weight any benefits In the emergency department routine labs were obtained CBC was within normal limits hemoglobin 10.2 which appears to be about her baseline, CMP showed a creatinine of 1.58 baseline seems to be 1 2-1 5, glucose of 137, bilirubin of 2.1, liver enzymes within normal limits, troponin negative UA negative, Covid negative.Multiple fluid-filled and dilated loops of small bowel predominantly in the left hemiabdomen dilated up to 3.1 cm with air-fluid levels suggesting either partial or early high-grade small bowel obstruction no free air was visualized no pneumatosis or portal venous gas severe right and moderate severe left hydroureteronephrosis. Emergency department physicians did not feel the patient looks severely ill, and elected to pursue medical management for presumed small bowel. An NG tube was placed, and IV fluids administered along with antinausea and pain medication. The patient improved. Given the patient's finding the hospital team was called for admission. The patient will be admitted for further evaluation management of her small bowel obstruction and consultation with general surgery. Primary Care Provider: Arian Shah MD Principal Diagnosis SBO Discharge Exam Constitutional WD/WN, vitals as above Respiratory normal respiratory effort, lungs clear to auscultation Cardiovascular Rate/Rhythm: regular rate and regular rhythm Heart Sounds: + murmur (systolic ) Gastrointestinal (Abdomen) normal bowel sounds, soft, nontender, no hepatosplenomegaly Musculoskeletal no cyanosis or clubbing, extremities motor strength 5/5 Skin no rashes, warm and dry Neurologic moves all extremities and awake Psychiatric A+Ox3, euthymic affect Discharge Data Allergies Allergy/AdvReac Type Severity Reaction Status Date / Time No Known Allergies Allergy Verified 03/16/20 22:44 Consultations 03/17/20 00:30 ED Decision to Admit Stat 03/17/20 03:08 Consult Case Management - Discharge Planning Routine Consult General Surgery Routine 03/18/20 11:45 Consult Gastroenterology Routine Ordered Studies 03/16/20 22:32 CT abd pelvis wo con Urgent 03/17/20 14:45 US gallbladder Routine 03/18/20 12:13 MR MRCP Routine Hospital Course (1) SBO (small bowel obstruction): Consulted surgery - supportive care Diet advanced and tolerating well, bms in ostomy (2) Hydronephrosis: Chronic. Patient follows with urology and also has history of chronic UTI Resume prophylactic home nitrofurantoin Follow up with urology (3) Hypertension: Resume amlodipine (4) Hyperbilirubinemia: Bilirubin peaked at 2.1 and resolved Gallbladder US ordered: showed sludge but no evidence of gallbladder wall thickening, small amount of perihepatic ascites, mild common bile duct dilation MRCP - Mild dilatation of the common bile duct, similar to CT of June 03, 2019. No common bile duct calculi identified although sensitivity diminished on this exam. Consult GI - patient likely passed sludge/small stone, no intervention necessary (5) Anemia: Hgb decreased to 7.6 03/19 but then rebounded to 9.3 on 03/20 Fecal occult positive - discussed with GI - they will likely monitor for now without intervention unless worsening. Started oral pantoprazole Will have patient recheck blood count on Sunday and follow up with GI (6) Cardiac murmur: Per patient, no know history of murmur Asymptomatic Follow with pcp (7) DVT prophylaxis: SCDs, ambulating barros Total Time Total Time Spent Total Time Spent (In Minutes): greater than 30 minutes Discharge Plan Discharge Items Patient Disposition: Home - Self-Care Reason For Visit: N/V, ABD PAIN, DECREASED OSTOMY OUTPUT Discharge Diagnosis: small bowel obstruction Condition on Discharge: Good Activity: Resume your previous activity Non-emergency contact: Primary Care Provider Call non-emergency contact if: you have any medication questions and your symptoms worsen Follow-up/Referrals: Arian Shah MD [Primary Care Provider] - (follow up one week ) Can Orellana MD [Physician] - (follow up one week ) Diet: Regular Diet Comment: advance diet slowly from soft diet Ambulatory Orders: Complete Blood Count with Diff (Routine) Timeframe: [id number] Location: Determined by Patient Ordered By: Shanta Salazar Attending Provider Instructions: (1) SBO (small bowel obstruction): You can advance your diet slowly as tolerated. Avoid high fiber foods or supplements for 1 week and then resume your normal diet. If you experience symptoms coming on in the future, you can try downgrading your diet to clear liquids at home for bowel rest. (2) Hyperbilirubinemia (elevated bilirubin) Your bilirubin was elevated and imaging showed that you had some sludge in your gallbladder. Likely this or a small stone was causing a blockage which cleared on its own as your bilirubin is now normal. (3) Anemia: Your hemoglobin is near your baseline today. I'll have you continue with pantoprazole until you follow up with gastroenterology. Please have your blood drawn on Sunday Pending Studies at Discharge: No Stand-Alone Forms: [facility], Smoking Cessation Medications and DC Order Prescriptions: New pantoprazole 40 mg Tablet,Delayed Release (Dr/Ec) 40 mg PO QAM Qty: 30 RF: 0 Continued amlodipine 2.5 mg tablet 2.5 mg PO QAM Qty: 90 RF: 3 lisinopril 10 mg tablet 10 mg PO HS Qty: 90 RF: 1 nitrofurantoin macrocrystal 50 mg capsule 50 mg PO QAM Qty: 90 RF: 3 lycopene 10 mg capsule 10 mg PO DAILY RF: 0 lutein 20 mg capsule 20 mg PO DAILY RF: 0 Myrbetriq 50 mg tablet extended release 24 hr 50 mg PO HS Qty: 90 RF: 3 multivitamin [Multiple Vitamins] Tablet 1 tab PO QDL RF: 0 omega 5-fdx-nmb-fish oil [Fish Oil] 1,000 mg (120 mg-180 mg) Capsule 2,000 mg PO QDL RF: 0 calcium citrate-vitamin D3 [Citracal Regular] 250 mg calcium- 200 unit tablet 1 tab PO QAM RF: 0 acetaminophen [Tylenol] 325 mg Tablet 325 - 650 mg PO QID PRN (Reason: Pain) RF: 0 conjugated estrogens 0.625 mg/gram cream 0.25 applic PV 2XWK PRN (Reason: NEEDED) RF: 0 Discharge Orders: Discharge Order (Routine); Ordered 03/20/20 Ordered By: Shanta Allen/Other Patient Handouts: Pantoprazole tablets Admission Data Admit Date/Time: 03/17/20 01:59 Attending Provider: Morro Robison Admit Provider: Rafi Hampton I. Primary Care Provider: Arian Shah Other Providers: Manuelito Borja ; Ravi Barros ; Maxi Borja ; Valente House ; Christ Harrington Jr ; Dylan Prignle ; Cayden Gonzalez ; Cintia Sharpe ; Venkat Hernandez ; Derick Gonzales ; Ray Myers ; Bry Fortune ; Dianne Nogueira ; Harmony Roldan ; Can Orellana Other Interventions: Discharge Summary Assessment (RN) Last Done: 03/20/20 13:03 Supervising Physician Co-Signing Physician Notes I personally examined the patient and verified all knapp points of history and exam, discussed case, and agree with decision making with S Madhavi HYDE feels up to going home. discussed f/u. answered all questions to the best of my ability and to her satisfaction vitals noted nad heent nc at mmm breathing unlabored no accessory muscles good effort sbo - resolved anemia - w heme positive stools but no s/s hemorrhage/acute active bleeding etc - hgb low but shifting appears likely to have been lab wobble as much as a trend. stable for home. PPI to cover for possible gastritis. CBC this week. GI f/u in office to discuss utility of endoscopic w/u further otherwise as above Coding Level of Care Code D/C Day Management >30 mins Diagnoses SBO (small bowel obstruction) K56.609 Hydronephrosis N13.30 Hydronephrosis type: unspecified Hypertension I10 Hyperbilirubinemia E80.6 Anemia D64.9 Anemia type: unspecified type Cardiac murmur R01.1 DVT prophylaxis Z29.9
[2020-03-20] MEDS: OMEGA-3 (PURIFIED FISH OIL) 1 GM CAP PO SCH (12:07)
[2020-03-20] MEDS: MULTIVITAMIN TAB PO SCH (12:07)
== END 2020-03-20 14:29 | disposition home or self-care (01) | DRG 389 ==
LOC: ED 22:12 → SUATTDRO 03-17 01:59 → 3N 03-17 01:59

== ENCOUNTER 2023-09-14 12:25 | Inpatient (IN) ==
[2023-09-14] MEDS: ONDANSETRON INJ 2 MG/ML 2 ML VIAL IV STA ×2 (13:09→17:44)
--- NOTE | 2023-09-14 13:28 | Emergency Department Note ---
History of Present Illness General Chief complaint: Referred by Doctor Stated complaint: IV ANTIBIOTICS, NAUSEA, ABD PAIN Time Seen by Provider: 09/14/23 13:13 Source: patient, family ( who is at the bedside), RN notes reviewed and old records reviewed (Urine culture results from ) Mode of arrival: ambulatory Limitations: no limitations History of Present Illness Maximum Pain Intensity: 9 This patient comes in as described above. She was called back after urine culture did grow out Morganella Morgani, that was resistant to oral antibiotics. She continues to have nausea. When she presented the night she was concerned she could have a bowel obstruction she gets these not infrequently but CAT scan did not show any definite bowel obstruction I reviewed the CAT scan and they read it as cannot rule out ileus. She denies dysuria or back pain she had a low-grade temperature 99.3 . no fall or trauma . no chest pain or shortness of breath. She had decreased appetite and she has not been able to eat she had nausea and vomiting. Ze, the ED pharmacist did discuss the case with me and the patient was told to return to the ER Home Medications Medication Instructions Recorded Confirmed Type multivitamin (Multiple Vitamins 1 tab PO QDL 02/13/18 09/12/23 History tablet) omega 8-lvr-qit-fish oil 1,000 mg 2,000 mg PO QDL 02/13/18 09/12/23 History (120 mg-180 mg) capsule (Fish Oil) calcium citrate 250 mg 1 tab PO QAM 05/08/19 09/12/23 History calcium-vitamin D3 5 mcg (200 unit) tablet (Citracal Regular) lutein 20 mg capsule 20 mg PO QPM 10/14/19 09/12/23 History lycopene 10 mg capsule 10 mg PO QPM 10/14/19 09/12/23 History mirabegron 50 mg tablet,extended 50 mg PO DAILY #90 tabs 04/09/23 09/12/23 Rx release 24 hr (Myrbetriq) nitrofurantoin macrocrystal 50 mg 50 mg PO QPM #90 caps 05/10/23 09/12/23 Rx capsule conjugated estrogens 0.625 mg/gram 0.25 applic vaginal 2XWK #30 grams 05/31/23 09/12/23 Rx vaginal cream lisinopril 10 mg tablet 10 mg PO HS #90 tabs 08/22/23 09/12/23 Rx ascorbic acid (vitamin C) 1,000 mg 1 g PO DAILY 09/12/23 09/12/23 History tablet (Vitamin C) cefdinir 300 mg capsule 300 mg PO BID #14 caps 09/12/23 Rx cefdinir 300 mg capsule 300 mg PO BID 7 days #14 caps 09/12/23 Rx cefdinir 300 mg capsule 300 mg PO BID PRN WHEN NEEDED PER 09/12/23 09/12/23 History PT Allergies Allergy/AdvReac Type Severity Reaction Status Date / Time No Known Allergies Allergy Verified 09/12/23 15:48 Past Med/Surg History Problem List (Updated 09/14/23 @ 14:57 by Olu Rich MD) Vomiting (Acute) Acute UTI (Acute) Abdominal pain (Acute) Acute UTI (urinary tract infection) (Acute) Nausea & vomiting (Acute) Abdominal pain (Acute) CKD (chronic kidney disease) stage 3, GFR 30-59 ml/min Low back pain H/O tooth extraction 11/07/22-2 teeth Chronic urethral stricture Encounter for pre-operative examination History of recurrent UTI (urinary tract infection) Anemia (Acute) Stable History of endometrial cancer Endometrial ca s/p RUTH/BSO (1992) + radiation. Radiation therapy cw nonhealing rectal ulcer. Underwent proctosigmoidectomy (09/16) with ostomy Hypertension Long standing. Managed with amlodipine + lisinopril Colostomy in place (Acute) Osteopenia DEXA (06/22) demonstrating minimum T score -1.9 involving forearm. Treated with bisphosponate for ~7 years, discontinued in 2013. Managed currently with Vit D + Ca. Lower urinary tract symptoms (LUTS) Long standing, primarily urgency and incontinence. Followed by urology. Managed medically with mirabegron. Hydroureter (Acute) Hydronephrosis (Acute) Hypomagnesemia (Acute) Hematuria Squamous cell carcinoma, leg (Acute) Postmenopausal atrophic vaginitis (Acute) Abnormal LFTs Medical History Cancer SQUAMOUS CELL REMOVED SBO (small bowel obstruction) Cardiac murmur Questionable. Per PCP records in plan section but no murmur noted on physical exam per PCP notes Biliary sludge DVT prophylaxis Hyperbilirubinemia Abdominal pain SBO (small bowel obstruction) Vomiting Nausea Abdominal pain Pain in joint involving left ankle and foot Rhinorrhea Dehydration Hyponatremia Acute UTI (urinary tract infection) Sepsis Small bowel obstruction Hx of recurrence SBO, most recently with partial SBO (/) felt to be 2/2 previous surgeries and adhesions related to endometrial ca treatment Hypertension Colostomy in place Placed after proctosigmoidectomy for non healing rectal ulcer in 2007 Surgical History History of esophagogastroduodenoscopy (EGD) History of partial colectomy FOR RECTAL PROLAPSE History of colonoscopy MULTIPLE LAST ONE 2007 S/P tonsillectomy History of total abdominal hysterectomy 1992 S/P colostomy Family History Daughter Systemic lupus Mother Myocardial infarction Heart disease Brother Pancreatic cancer Brain cancer Lung cancer Father Alcohol abuse Denies family history of Ovarian cancer Prostate cancer Breast cancer Colorectal cancer Stroke Social History Smoking Status: Never smoker Second Hand Exposure: No; Do You Dip or Chew Tobacco: No; Hx Alcohol Use: Yes Alcohol type: beer and wine Alcohol Intake Frequency: Monthly or Less Hx Substance Use: No Preferred Language: Romansh Communication Ability: Effective Visual Impairment: No Limitations Hearing Ability: Normal Fish Icer Required: No Beliefs That Will Affect Care: None marital status: Current Living Situation: Spouse Current Living Situation Comment: Home with current occupational status: retired Feels Safe at Home: Yes Childhood Exposure to Second-Hand Smoke: Yes Dental Care, Regularly: Yes Physical Activity Frequency: Daily Seatbelt Use: always Sunscreen Use: Yes Assistive Devices: Glasses Review of Systems A total of 10 systems reviewed and were otherwise negative Physical Exam Vital Signs Vital Signs - 24 hr 09/14/23 12:47 Temperature 36.6 C Temperature Source Skin Pulse Rate 93 H Respiratory Rate 18 Blood Pressure 132/78 Blood Pressure Mean 96 Pulse Oximetry 97 Oxygen Delivery Method Room Air Sepsis Recent Fever Within 48 Hours No Sepsis New/Unexplained Change in Mental Status No Sepsis Action Taken by Nursing No Action Required General: Well developed well nourished slender older female who appears in no acute distress, breathing comfortably on room air. Normal speech HEENT: Normal cephalic atraumatic. Pupils are equal round and reactive to light. Extraocular movements are intact. Oropharynx is pink with moist mucous membranes. No swelling of the mouth lips or tongue. Neck: Supple with a midline trachea. No meningeal signs or stiffness, no JVD or bruits. No Stridor. Chest: Clear to auscultation bilaterally. No wheezes or rhonchi. No increased work of breathing. Heart: Regular rate and rhythm without murmurs or gallops. Abdomen: Soft minimally diffusely tender, she does have an ostomy bag which is currently empty but she says she emptied it this morning. Nondistended without rebound guarding or rigidity. Extremities: No cyanosis clubbing or edema. No calf tenderness or assymetry Spine/Back. Non tender to palpation. No CVA tenderness Skin: Good turgor without rashes. Neurologic exam: Cranial nerves two through 12 are intact. Motor and sensation are intact and symmetrical throughout. Course Administered Medications Discontinued Medications Sodium Chloride (Nss) 500 mls @ 999 mls/hr IV .Q31M ONE Stop: 09/14/23 13:52 Last Admin: 09/14/23 13:59 Dose: 999 mls/hr Documented By: KATELYNN Piperacillin Sod/Tazobactam Sod (Zosyn) 4.5 gm in 100 mls @ 200 mls/hr IV NOW ONE Stop: 09/14/23 13:57 Last Admin: 09/14/23 14:17 Dose: 200 mls/hr Documented By: KATELYNN Ondansetron HCl (Ondansetron Inj 2 Mg/Ml 2 Ml Vial) 4 mg IV NOW STA Stop: 09/14/23 12:52 Last Admin: 09/14/23 13:09 Dose: 4 mg Documented By: CARLY Medical Decision Making Differential Diagnosis Urinary tract infection, bowel obstruction, intra-abdominal process, infection, dehydration, electrolyte or metabolic abnormality Medical Records Attestation: I reviewed the patient's medical records. Home Medications Current Medication List: was personally reviewed by me Laboratory Data Acute abdominal series 09/14/23 13:09 09/14/23 13:09 Lab Results 09/14/23 09/14/23 Range/Units 13:09 14:15 WBC 8.16 (4.8-10.8) K/ul RBC 4.09 L (4.20-5.40) M/uL Hgb 11.7 L (12.0-16.0) g/dl Hct 35.5 L (37.0-47.0) % MCV 86.8 (80.0-100.0) fL MCH 28.6 (25.0-34.0) pg MCHC 33.0 (32.0-36.0) g/dL RDW Std Deviation 45.1 (36.4-46.3) fL RDW Coeff of Pardeep 14.2 (11.5-14.5) % Plt Count 340 (130-400) K/uL MPV 10.3 (9.4-12.4) fL Immature Gran % (Auto) 0.4 % Neut % (Auto) 83.5 % Lymph % (Auto) 7.7 % Rogers % (Auto) 8.3 % Eos % (Auto) 0.0 % Baso % (Auto) 0.1 % Neut # (Auto) 6.81 H (1.40-6.50) K/uL Lymph # (Auto) 0.63 L (1.20-3.40) K/uL Rogers # (Auto) 0.68 H (0.11-0.59) K/uL Eos # (Auto) 0.00 (0.00-0.50) K/uL Baso # (Auto) 0.01 (0.00-0.20) K/uL Immature Gran # (Auto) 0.03 (0.01-0.20) K/uL Sodium 135 L (136-145) mmol/L Potassium 3.7 (3.5-5.1) mmol/L Chloride 94 L (98-107) mmol/L Carbon Dioxide 32 (21-32) mmol/L Anion Gap 9 (3-11) BUN 41 H (6-23) mg/dl Creatinine 1.68 H (0.6-1.2) mg/dl Est Cr Clr Drug Dosing 19.1 ml/min Est GFR ( Amer) 32.9 ml/min Est GFR (Non-Af Amer) 28.4 ml/min BUN/Creatinine Ratio 24.4 H (10-20) Glucose 113 H (70-99(Fasting)) mg/dl Lactate 1.0 (0.4-2.0) mmol/L Calcium 10.6 H (8.6-10.3) mg/dl Total Bilirubin 1.2 H (0.2-1.0) mg/dl AST 32 (13-39) U/L ALT 17 (7-52) U/L Alkaline Phosphatase 57 (34-104) U/L Total Protein 7.7 (6.0-8.3) gm/dl Albumin 4.4 (3.4-5.0) gm/dl Globulin 3.3 (2.5-4.0) gm/dl Albumin/Globulin Ratio 1.3 (0.9-2) Lipase 101 H (11-82) U/L Imaging Data Attestation: I personally reviewed and interpreted this imaging study as follows: My Impression: Abdominal x-ray seriesno free air or obstruction seen ECG Data Attestation: I personally reviewed and interpreted this ECG as follows: Indication: + nausea and + vomiting Rate (beats per minute): 80 Rhythm: + normal sinus ECG Intervals/blocks: + Normal QRS, + Normal QT and + Normal ME ECG [place]: + Normal ECG ST segments: + Normal ST segments ECG Findings: no PACs or no PVCs Comparison ECG Date: from (09/12/2023) Change: the following changes noted (PVCs are now absent) MDM Narrative This patient comes in as described above. She has persistence of symptoms and her urinalysis has a bacteria that is resistant to the p.o. antibiotics listed we therefore brought her back to the ER. I am also concerned about bowel issues. I did order acute abdominal series given the fact that she had a CAT scan 2 days ago IV X established was hydrated with 1 L IV normal saline bolus. she was given Zofran 4 mg IV after discussing antibiotic choices with Ze, our ED pharmacist , we are going to put her on Zosyn 4.5 g IV. The patient also did have acute abdominal series which shows no free air or obstruction. I do think the patient needs to be admitted/observed. she has no significant electrolyte or metabolic abnormalities today. EKG shows no ischemic changes., No change when compared to old. I have discussed the case in consultation with the [facility] hospitalist and the patient will be admitted to their service. Impression & Plan Abdominal pain, Colostomy in place, Acute UTI, Vomiting Discharge Plan Visit Data Chief Complaint: Referred by Doctor Stated Complaint: IV ANTIBIOTICS, NAUSEA, ABD PAIN ED Provider: Olu Rich Discharge Problem: Abdominal pain, Colostomy in place, Acute UTI, Vomiting Forms Stand Alone Forms: My [employer] Prescriptions Prescriptions: No Action Myrbetriq 50 mg tablet extended release 24 hr 50 mg PO DAILY Qty: 90 3RF nitrofurantoin macrocrystal 50 mg capsule 50 mg PO QPM Qty: 90 3RF Hold Instructions: Insurance not covering - exceeded yearly limit Rx Instructions: must administer with a meal/food conjugated estrogens 0.625 mg/gram cream 0.25 applic PV 2XWK Qty: 30 4RF lisinopril 10 mg tablet 10 mg PO HS Qty: 90 3RF lycopene 10 mg capsule 10 mg PO QPM lutein 20 mg capsule 20 mg PO QPM multivitamin [Multiple Vitamins] Tablet 1 tab PO QDL omega 3-rjs-rgu-fish oil [Fish Oil] 1,000 mg (120 mg-180 mg) Capsule 2,000 mg PO QDL calcium citrate-vitamin D3 [Citracal Regular] 250 mg calcium- 200 unit tablet 1 tab PO QAM ascorbic acid (vitamin C) [Vitamin C] 1,000 mg Tablet 1 g PO DAILY cefdinir 300 mg capsule 300 mg PO BID PRN (Reason: WHEN NEEDED PER PT) Rx Instructions: Take BID x3 days at UTI symptom onset. cefdinir 300 mg capsule 300 mg PO BID 7 Days Qty: 14 0RF cefdinir 300 mg capsule 300 mg PO BID Qty: 14 0RF Referrals Referrals: Arian Shah MD [Primary Care Provider] - Discharge Problem: Abdominal pain Qualifiers: Abdominal location: generalized Qualified Code(s): R10.84 - Generalized abdominal pain Vomiting Qualifiers: Vomiting type: unspecified Nausea presence: with nausea Qualified Code(s): R 11.2 - Nausea with vomiting, unspecified
[2023-09-14 13:34] LABS: Basophils # (auto) 0.01 K/uL (0.00-0.20); Basophils % (auto) 0.1 %; Hematocrit (blood only) 35.5 % (37.0-47.0); Hemoglobin 11.7 g/dl (12.0-16.0); Immature Granulocytes # (auto) 0.03 K/uL (0.01-0.20); Immature Granulocytes % (auto) 0.4 %; Lymphocytes # (auto) 0.63 K/uL (1.20-3.40); Lymphocytes % (auto) 7.7 %; Mean Corpuscular Hemoglobin 28.6 pg (25.0-34.0); Mean Corpuscular Volume 86.8 fL (80.0-100.0); Mean Platelet Volume 10.3 fL (9.4-12.4); Monocytes # (auto) 0.68 K/uL (0.11-0.59); Monocytes % (auto) 8.3 %; Neutrophils # (auto) 6.81 K/uL (1.40-6.50); Neutrophils % (auto) 83.5 %; Platelet Count 340 K/uL (130-400); RDW Coefficient of Variation 14.2 % (11.5-14.5); RDW Standard Deviation 45.1 fL (36.4-46.3); Red Blood Count 4.09 M/uL (4.20-5.40); White Blood Count 8.16 K/ul (4.8-10.8)
[2023-09-14 13:50] LABS: Albumin Globulin Ratio 1.3 (0.9-2); Albumin Level 4.4 gm/dl (3.4-5.0); BUN Creatinine Ratio 24.4 (10-20); Bilirubin,Total 1.2 mg/dl (0.2-1.0); Calcium 10.6 mg/dl (8.6-10.3); Creatinine Clr Calc Pharmacy 19.1 ml/min; Est GFR (African American) 32.9 ml/min; Est GFR (Non-African American) 28.4 ml/min; Globulin 3.3 gm/dl (2.5-4.0); Potassium 3.7 mmol/L (3.5-5.1); Total Protein 7.7 gm/dl (6.0-8.3)
[2023-09-14] MEDS: SODIUM CHLORIDE 0.9% 500 ML IV ONE (13:59)
[2023-09-14] MEDS: PIPERACILLIN/TAZOBACTAM 4.5 GM/100 ML BAG IV ONE (14:17)
--- NOTE | 2023-09-14 15:05 | History & Physical Report ---
Date of Service September 14, 2023 Assessment & Plan (1) Acute UTI: Plan: UCx on 09/11 grew Morganella Morganii; patient was instructed to return to the ED Start patient on ertapenem 1000 mg IV q24h IVF resuscitation with NSS at 100mL/hr x 2 L Strict I&O monitoring A.m. CBC, BMP, mag (2) Abdominal pain: Plan: Patient endorses 9/10 generalized abdominal pain on arrival Hx of SBO, patient reports it feels similar to past episodes Mildly elevated lipase at 101 However, A/P CT on 09/11 revealed no obstruction and unremarkable pancreas, and repeat KUB on 09/13 revealed no obstructive gas pattern Acetaminophen as needed for pain/fever Dilaudid IV every 4 hours as needed for breakthrough pain Zofran as needed for nausea/vomiting NPO for now except sips/chips and p.o. meds, then advance to clear liquid diet as tolerated (3) Hypertension: Plan: Hold lisinopril for now given renal function (4) History of recurrent UTI (urinary tract infection): Plan Disposition: Admit to [facility] telemetry Full code NPO (except p.o. meds) then advance to clear liquid diet as tolerated VTE PPx: SCDs History of Present Illness Chief Complaint: Abdominal pain, UCx results Primary Care Provider: Arian Shah MD Zina is an 82-year-old female with PMH of HTN, endometrial cancer, recurrent UTI, CKD stage III, and urethral stricture. She originally presented to CT on 09/11 for UTI and was given antibiotics; she was then called back to the hospital for IV antibiotics after culture results on 09/13. Urine culture on 09/11 grew Morganella morganii. At time of admission, patient endorses generalized, intermittent abdominal pain. She has not taken any pain medicine at home prior to coming to the hospital. She rates it 9/10 at present, and characterizes it as a strong, achy pain. No alleviating factors; she has not eaten over the past 24 hours that she has been unable to keep things down. Associated nausea and vomiting. She was prescribed cefdinir upon discharge 2 days ago, and reports she has been taking it. She also had a fever at home last night at 99.3 F. Did not take Tylenol. Clinically, she denies urinary symptoms such as burning with urination, dysuria, or lower back pain. She reports that her generalized abdominal pain is more in alignment with what she felt during her small bowel obstruction in 2020. She reports it feels different than prior UTIs. Blowing her nose exacerbates stomach pain. Patient denies smoking, tobacco use, and recent alcohol use. Patient's vitals are stable at time of admission ED course: Zosyn 4.5 g IV Morphine sulfate 2 mg IV Zofran 4 mg IV x 2 NSS 500 mL IV ROS: Patient endorses fever, generalized abdominal pain, and N/V (last night and this morning). Patient denies chills, night-sweats, dizziness, lightheadedness, ARNETT,chest pain, cough, SOB, pleuritic CP, hematemesis, diarrhea, burning with urination, lower back pain, blood in urine/stool, dysuria, saddle anesthesia, or num bness/tingling in the arms or legs. Allergies Allergy/AdvReac Type Severity Reaction Status Date / Time No Known Allergies Allergy Verified 09/12/23 15:48 Home Medications Medication Instructions Recorded Confirmed Type multivitamin (Multiple Vitamins 1 tab PO QDL 02/13/18 09/14/23 History tablet) omega 7-wjd-muy-fish oil 1,000 mg 2,000 mg PO QDL 02/13/18 09/14/23 History (120 mg-180 mg) capsule (Fish Oil) calcium citrate 250 mg 1 tab PO QAM 05/08/19 09/14/23 History calcium-vitamin D3 5 mcg (200 unit) tablet (Citracal Regular) lutein 20 mg capsule 20 mg PO QPM 10/14/19 09/14/23 History lycopene 10 mg capsule 10 mg PO QPM 10/14/19 09/14/23 History mirabegron 50 mg tablet,extended 50 mg PO DAILY #90 tabs 04/09/23 09/14/23 Rx release 24 hr (Myrbetriq) nitrofurantoin macrocrystal 50 mg 50 mg PO QPM #90 caps 05/10/23 09/14/23 Rx capsule conjugated estrogens 0.625 mg/gram 0.25 applic vaginal 2XWK #30 grams 05/31/23 09/14/23 Rx vaginal cream lisinopril 10 mg tablet 10 mg PO HS #90 tabs 08/22/23 09/14/23 Rx ascorbic acid (vitamin C) 1,000 mg 1 g PO DAILY 09/12/23 09/14/23 History tablet (Vitamin C) Past Med/Surg History Problem List (Updated 09/19/23 @ 17:26 by MARY ELLEN Hernandez) Urinary retention SBO (small bowel obstruction) Chronic kidney disease, stage IV (severe) Hypercalcemia Elevated lipase Abnormal abdominal x-ray Vomiting (Acute) Acute UTI (Acute) Abdominal pain (Acute) Acute UTI (urinary tract infection) (Acute) Nausea & vomiting (Acute) Abdominal pain (Acute) CKD (chronic kidney disease) stage 3, GFR 30-59 ml/min Low back pain H/O tooth extraction 11/07/22-2 teeth Chronic urethral stricture Encounter for pre-operative examination History of recurrent UTI (urinary tract infection) Anemia (Acute) Stable History of endometrial cancer Endometrial ca s/p RUTH/BSO (1992) + radiation. Radiation therapy cw nonhealing rectal ulcer. Underwent proctosigmoidectomy (09/16) with ostomy Hypertension Long standing. Managed with amlodipine + lisinopril Colostomy in place (Acute) Osteopenia DEXA (06/22) demonstrating minimum T score -1.9 involving forearm. Treated with bisphosponate for ~7 years, discontinued in 2013. Managed currently with Vit D + Ca. Lower urinary tract symptoms (LUTS) Long standing, primarily urgency and incontinence. Followed by urology. Managed medically with mirabegron. Hydroureter (Acute) Hydronephrosis (Acute) Hypomagnesemia (Acute) Hematuria Squamous cell carcinoma, leg (Acute) Postmenopausal atrophic vaginitis (Acute) Abnormal LFTs Medical History Cancer SQUAMOUS CELL REMOVED SBO (small bowel obstruction) Cardiac murmur Questionable. Per PCP records in plan section but no murmur noted on physical exam per PCP notes Biliary sludge DVT prophylaxis Hyperbilirubinemia Abdominal pain SBO (small bowel obstruction) Vomiting Nausea Abdominal pain Pain in joint involving left ankle and foot Rhinorrhea Dehydration Hyponatremia Acute UTI (urinary tract infection) Sepsis Small bowel obstruction Hx of recurrence SBO, most recently with partial SBO (06/28) felt to be 2/2 previous surgeries and adhesions related to endometrial ca treatment Hypertension Colostomy in place Placed after proctosigmoidectomy for non healing rectal ulcer in 2007 Surgical History History of esophagogastroduodenoscopy (EGD) History of partial colectomy FOR RECTAL PROLAPSE History of colonoscopy MULTIPLE LAST ONE 2007 S/P tonsillectomy History of total abdominal hysterectomy 1993 S/P colostomy Family History Daughter Systemic lupus Mother Myocardial infarction Heart disease Brother Pancreatic cancer Brain cancer Lung cancer Father Alcohol abuse Denies family history of Ovarian cancer Prostate cancer Breast cancer Colorectal cancer Stroke Social History Smoking Status: Never smoker Second Hand Exposure: No; Do You Dip or Chew Tobacco: No; Hx Alcohol Use: Yes Alcohol type: beer Alcohol Intake Frequency: Monthly or Less Hx Substance Use: No Preferred Language: Pashto Communication Ability: Effective Visual Impairment: No Limitations Hearing Ability: Normal Cco Required: No Beliefs That Will Affect Care: None marital status: Current Living Situation: Spouse Current Living Situation Comment: Home with current occupational status: retired Other Information That Helps Us Care for You: No Feels Safe at Home: Yes Safety Concerns: Feels Safe At This Time Childhood Exposure to Second-Hand Smoke: Yes Dental Care, Regularly: Yes Physical Activity Frequency: Daily Seatbelt Use: always Sunscreen Use: Yes Assistive Devices: Glasses Review of Systems Review of Systems: See HPI above Physical Exam Physical Exam: General: no acute distress; pleasant affect; non-toxic appearing; well- nourished; cooperative; SpO2 97% on RA HEENT: normocephalic, atraumatic; no scleral icterus; PERRLA; moist mucus membrane; vision and hearing grossly intact Neck: supple; no lymphadenopathy; trachea midline Skin: warm, dry without signs of tenting; no cyanosis; no rashes, bruising, lesions, or erythema noted CV: chest wall NTP; RRR; S1/S2 normal; no murmurs/rubs/gallops; pulses intact and symmetric at radial, DP, and PT Lungs: no acute respiratory distress; symmetrical chest wall expansion; clear breath sounds across all lung castro w/o adventitious sounds; no wheezing ABD: Soft, NTP; BS present, may be hyperactive bowel sounds; no rebound/guarding; no distention; colostomy in place without signs of erythema, drainage, or infection MSK: no tics or fasciculations; no edema noted in the LEs b/l, nonerythematous Neuro: A&Ox3; normal mood and affect; fluent speech; no focal deficits; sens ation grossly intact in the LEs b/l Results & Data Results & Data Vital Signs (Past 12 Hours) Vital Signs Temp Pulse Resp BP Pulse Ox O2 Del Method 09/14/23 12:47 36.6 C 93 H 18 132/78 97 Room Air Laboratory Results Abnormal lab results 09/14/23 Range/Units 13:09 RBC 4.09 L (4.20-5.40) M/uL Hgb 11.7 L (12.0-16.0) g/dl Hct 35.5 L (37.0-47.0) % Neut # (Auto) 6.81 H (1.40-6.50) K/uL Lymph # (Auto) 0.63 L (1.20-3.40) K/uL [place] # (Auto) 0.68 H (0.11-0.59) K/uL Sodium 135 L (136-145) mmol/L Chloride 94 L (98-107) mmol/L BUN 41 H (6-23) mg/dl Creatinine 1.68 H (0.6-1.2) mg/dl BUN/Creatinine Ratio 24.4 H (10-20) Glucose 113 H (70-99(Fasting)) mg/dl Calcium 10.6 H (8.6-10.3) mg/dl Total Bilirubin 1.2 H (0.2-1.0) mg/dl Lipase 101 H (11-82) U/L Diagnostic Findings Chest/Abdomen X-ray 09/14/23 13:22 XR abdomen 2V w PA chest CLINICAL HISTORY: eval for obst TECHNIQUE: 2 views of the abdomen were obtained. A single view of the chest was obtained. Comparison: Comparison is made to chest radiograph 03/02/2020 FINDINGS: No lines and tubes are seen. Calcified aortic knob is seen. The lungs are clear. No evidence of pleural effusion or pneumothorax. Degenerative changes are seen in the visualized skeleton. The bowel gas pattern is nonobstructive. A moderate amount of stool is noted within the large bowel. IMPRESSION: Nonobstructive bowel gas pattern. ACT 112: Negative or not required by law. Electronically signed by: Ray Barillas M.D. 09/14/2023 3:16 PM ECG Additional Comments: ECG revealed sinus rhythm with PVCs at 80bpm; QTc 447 Code Status & VTE Plan Code Status Full code VTE Prophylaxis Plan VTE Prophylaxis will be ordered: Yes Supervising Physician Co-Signing Physician Notes Attending Attestation & Admit Note: Pt seen/examined, chart reviewed, admit care plan d/w GONZALES Guzman. I agree w/ the knapp components of his documentation. Pleasant 82yo female with h/o HTN, endometrial cancer, prior SBOs, recurrent UTIs, CKD stage III, and urethral stricture. Presented to the ER after having been called that her urine cx from 09/11 showed multi-drug resistant morganella (only sensitive to IV abx). She had been evaluated in the ER on 09/11 due to abd pain, nausea, and emesis. CT a/p on that date did not show any SBO. U/a was highly suggestive of UTI and she was d/c home on PO abx. Patient reports that since her 09/11 ER visit she has felt very unwell with abdominal discomforts, decreased stool output via her colostomy, nausea, and excessive burping. She reports she "never burps." Very poor appetite. PMH/PSH/allerges/meds/sochx/famhx - reviewed VSS, afebrile gen - thin, but NAD; nontoxic mouth - MM dry neck - no JVD heart - RRR, s1 s2 lungs - CTA b/l abd - soft NT ND BS+; colostomy present left abdomen with parastomal hernia that is reducible; minimal stool in ostomy bag ext - no edema, pulses 2+ b/l labs reviewed recent urine cx - 09/11 - morganella, sens to ertapenem/cefepime/pip- tazo/meropenem A/P: 1. MDR morganella UTI - plan 7 day course of IV ertapenem daily 2. recent abd pain/nausea/emesis - 2nd to #1? 2nd to #3? combination of factors? 3. elevated lipase without signs of pancreatitis on CT a/p 4. CKD stage 3-4 5. b/l hydronephrosis. Hydrate with IVF. Repeat lipase am. Repeat BMP am. Ertapenem IV daily. Clear liquid diet. #5 - chronic, has been followed by urology in the past for such; was thought 2nd to urethral stenosis. consider urology consultation. Scott Mayo MD PG Care Time/CCT Total # of Minutes Spent Total Time Spent with Patient: Total time spent is greater than 50% in coordination of care (as documented) at patient's floor/unit and/or counseling patient: C[place] [address] INT INP/OBS CARE 2/55MIN Patient Type Established Medical Decision Making Moderate Complexity Diagnoses Acute UTI N39.0 Abdominal pain R10.84 Abdominal location: generalized Hypertension I10 History of recurrent UTI (urinary tract infection) Z87.440 (2) Abdominal pain Abdominal location: generalized Qualified Code(s): R10.84 - Generalized abdominal pain
--- NOTE | 2023-09-14 15:17 | XRay Report ---
XR abdomen 2V w PA chest CLINICAL HISTORY: eval for obst TECHNIQUE: 2 views of the abdomen were obtained. A single view of the chest was obtained. Comparison: Comparison is made to chest radiograph 03/02/2020 FINDINGS: No lines and tubes are seen. Calcified aortic knob is seen. The lungs are clear. No evidence of pleur al effusion or pneumothorax. Degenerative changes are seen in the visualized skeleton. The bowel gas pattern is nonobstructive. A moderate amount of stool is noted within the large bowel. IMPRESSION: Nonobstructive bowel gas pattern. ACT 112: Negative or not required by law. Electronically signed by: Ray Barillas M.D. 09/14/2023 3:16 PM
[2023-09-14] MEDS: MoRPHine SULFATE 2 MG/ML CARP IV STA (16:11)
[2023-09-14 16:34] LABS: Magnesium 1.8 mg/dl (1.7-2.4)
[2023-09-14 16:41] LABS: Troponin I High Sensitivity 33.1 pg/ml (0-14)
[2023-09-14] MEDS ORDERED: HYDROmorphone INJ 0.5 MG/0.5 ML SYR IV PRN (18:41)
[2023-09-14] MEDS ORDERED: HYDROmorphone INJ 1 MG/ML SYRINGE IV PRN (18:41)
[2023-09-14] MEDS: SODIUM CHLORIDE 0.9% 1,000 ML IV SCH (20:15)
[2023-09-14 20:33] LABS: Appearance Urine Cloudy (Clear); Bacteria Urine Automated None Seen (None Seen); Bilirubin Urine Negative (Negative); Blood Urine Trace (Negative); Cast Urine Automated 0-2 /lpf (0-2); Color Urine Yellow; Epithelial Cell Urine Auto 0-2 /hpf (0-2); Glucose Urine UA Negative (Negative); Ketones Urine 1+ (Negative); Leukocyte Esterase Urine 3+ (Negative); Nitrite Urine Negative (Negative); Protein Urine Trace (Negative); Specific Gravity Urine 1.018 (1.000-1.030); Urobilinogen Urine Negative (Negative); WBC Urine Automated >50 /hpf (0-5); pH Urine 6.5 (4.5-7.5)
[2023-09-14] MEDS: VIBEGRON 75 MG TAB PO SCH (20:56)
[2023-09-14] MEDS ORDERED: Nursing to Pharmacy Communication SCH (21:00)
[2023-09-14] MEDS ORDERED: NON-FORMULARY MEDICATION (Lycopene 10 mg capsule) PO SCH (21:00)
[2023-09-14] MEDS: ERTAPENEM SODIUM 500 MG in SYRINGE 0 ML IV SCH (21:05)
--- NOTE | 2023-09-14 23:32 | Electrocardiogram Report ---
Test Reason : Blood Pressure : / mmHG Vent. Rate : 080 BPM Atrial Rate : 080 BPM P-R Int : 158 ms QRS Dur : 076 ms QT Int : 388 ms P-R-T Axes : 066 028 044 degrees QTc Int : 447 ms Sinus rhythm with occasional Premature ventricular complexes Otherwise normal ECG When compared with ECG of 12-SEP-2023 12:56, No significant change was found Confirmed by Bobby Blanco ([id number]) on 09/14/2023 11:32:08 PM Referred By: Confirmed By:Bobby Blanco
[2023-09-15 05:55] LABS: Basophils # (auto) 0.03 K/uL (0.00-0.20); Basophils % (auto) 0.4 %; Hematocrit (blood only) 28.3 % (37.0-47.0); Hemoglobin 9.1 g/dl (12.0-16.0); Immature Granulocytes # (auto) 0.02 K/uL (0.01-0.20); Immature Granulocytes % (auto) 0.3 %; Lymphocytes % (auto) 10.3 %; Mean Corpuscular Hemoglobin 28.3 pg (25.0-34.0); Mean Corpuscular Hgb Conc 32.2 g/dL (32.0-36.0); Mean Corpuscular Volume 88.2 fL (80.0-100.0); Mean Platelet Volume 10.1 fL (9.4-12.4); Monocytes # (auto) 0.69 K/uL (0.11-0.59); Monocytes % (auto) 8.9 %; Neutrophils # (auto) 6.23 K/uL (1.40-6.50); Neutrophils % (auto) 80.1 %; Platelet Count 260 K/uL (130-400); RDW Coefficient of Variation 14.3 % (11.5-14.5); RDW Standard Deviation 45.7 fL (36.4-46.3); Red Blood Count 3.21 M/uL (4.20-5.40); White Blood Count 7.77 K/ul (4.8-10.8)
[2023-09-15] MEDS: ACETAMINOPHEN 325 MG TAB PO PRN (06:18)
[2023-09-15 06:19] LABS: BUN Creatinine Ratio 25.7 (10-20); Calcium 8.2 mg/dl (8.6-10.3); Est GFR (Non-African American) 35.4 ml/min; Magnesium 1.6 mg/dl (1.7-2.4); Potassium 3.6 mmol/L (3.5-5.1)
[2023-09-15] MEDS ORDERED: VIBEGRON 75 MG TAB PO SCH (09:00)
[2023-09-15] MEDS: MAGNESIUM SULFATE / D5W 1 GM/100 ML BAG IV ONE (09:16)
[2023-09-15] MEDS: FAMOTIDINE 20MG IV PUSH 20 MG/5 ML SYR IV STA (16:16)
[2023-09-15] MEDS: SUCRALFATE 1 GM/10 ML UDC PO SCH (16:16)
[2023-09-15] MEDS: NSS + 20MEQ KCL 20 MEQ/1,000 ML BAG IV SCH (16:23)
--- NOTE | 2023-09-15 17:56 | XRay Report ---
XR abdomen min 2V CLINICAL HISTORY: ?ileus, abd distension? TECHNIQUE: 2 views of the abdomen were obtained. Comparison: Comparison is made to chest radiograph 09/14/2023 FINDINGS: Lung bases are unremarkable. The osseous structures are grossly unremarkable. Gastric bubble is seen. No visualization of small bowel loops. A moderate amount of stool is noted within the large bowel. IMPRESSION: Small bowel loops are not seen, ileus/obstruction cannot be entirely excluded. If there is clinical c oncern, CT can be performed. ACT 112: Negative or not required by law. Electronically signed by: Ray Barillas M.D. 09/15/2023 5:55 PM
--- NOTE | 2023-09-15 20:42 | Hospitalist Progress Note ---
Date of Service September 15, 2023 Assessment & Plan (1) UTI (urinary tract infection): Plan: 2nd MDR toro had been on cefdinir as outpatient this has been d/c changed to ertapenem yesterday PM day #2 of IV ertapenem plan 7-day course repeat urine cx from admission yesterday remains negative (2) Abnormal abdominal x-ray: Plan: patient complains of frequent burping/belching, abdominal bloating, poor ostomy output 09/11 CT a/p without obstruction; copious stool seen; ?ileus 09/13 x-rays without obstruction I repeated her abdominal x-rays this evening -- ?ileus vs obstruction suspect ileus to ensure no early obstructive process, however, will obtain CT abd/pelvis with PO contrast NOW await study I informally spoke with on-call gen surgery; will involve them formally if she has early SBO keep on clears for now unless CT shows SBO gentle IV fluids replace low mag (3) Elevated lipase: Plan: mild elevation yesterday but most recent CT a/p on 09/11 did not show findings to suggest acute pancreatitis s/p IV fluids overnight lipase now normal uncertain if the lipase was simply elevated because of dehydration or she had a low-grade case of pancreatitis; favor former (4) History of endometrial cancer: Plan: RUTH/BSO in the past along with XRT (5) Hypertension: Plan: BETI on hold due to CKD stage 4 (6) 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 (7) Hydronephrosis: Plan: bilateral chronic CT a/p in 2019 and 2020 showed b/l hydro then as well 09/2020 urology office visit with Dr Gabriel showed the following documentation from Dr Gabriel -- "Recently underwent urethral dilation, cystogram and retrograde pyelograms to e valuate her hydronephrosis I believe that urethral stricturing was the underlying pathology as she had an extremely tight urethra that resuscitated dilation to be able to complete the remainder of the testing Her upper tracts appeared to not have any obstruction nor did they reflux Her bladder is relatively modest in capacity and I wonder if the low capacity bladder may have hidden untrue underlying urinary retention issue" has followed with urology since then with periodic visits (8) Hypomagnesemia: Plan: replace IV mag repeat level am (9) Hypercalcemia: Plan: total calcium level was 10.6 yesterday now resolved <9 today likely was 2nd to dehydration no h/o hyperparathyroidism monitor (10) Chronic kidney disease, stage IV (severe): Plan: baseline CrCl 20s BMP am for stability Plan updated at bedside await repeat CT a/p Admission and Anticipated Discharge Date Admission Date: September 14, 2023 Subjective patient c/o frequent burping/belching passing little flatus via ostomy passing little stool via ostomy c/o abdominal bloating but no pain no nausea or vomiting tolerating clear liquids but does not want her diet advanced appetite is poor tele overnight wnl walking the hallways with her Review of Systems Review of Systems: gen - no fevers cv - no chest pain pulm - no dyspnea; no cough GI - no pain - but bloated; ostomy with poor output; no melena or bright red blood Physical Exam Physical Exam: gen - thin, NAD mouth - MMM neck - no JVD heart - RRR, s1 s2, no murmur lungs - CTA b/l abd - mildly distended, BS+, parastomal hernia present, ostomy present with stoma beefy red, ostomy bag present with minimal amount of liquid stool; nontender ext - no edema, pulses 2+ b/l psych - a/o x 3 Results & Data Results & Data Vital Signs (Past 12 Hours) Vital Signs Temp Pulse Pulse Resp BP Pulse Ox O2 Del Method 09/15/23 20:32 36.7 C 85 18 189/104 H 97 Room Air 09/15/23 14:17 95 H 09/15/23 11:22 36.8 C 84 16 163/84 H 95 Room Air Laboratory Results Laboratory Results - last 24 hr 09/15/23 05:28 WBC 7.77 RBC 3.21 L Hgb 9.1 L Hct 28.3 L MCV 88.2 MCH 28.3 MCHC 32.2 RDW Std Deviation 45.7 RDW Coeff of Pardeep 14.3 Plt Count 260 MPV 10.1 Immature Gran % (Auto) 0.3 Neut % (Auto) 80.1 Lymph % (Auto) 10.3 [place] % (Auto) 8.9 Eos % (Auto) 0.0 Baso % (Auto) 0.4 Neut # (Auto) 6.23 Lymph # (Auto) 0.80 L [place] # (Auto) 0.69 H Eos # (Auto) 0.00 Baso # (Auto) 0.03 Immature Gran # (Auto) 0.02 Sodium 137 Potassium 3.6 Chloride 101 Carbon Dioxide 29 Anion Gap 7 BUN 36 H Creatinine 1.40 H Est Cr Clr Drug Dosing 23.0 Est GFR ( Amer) 41.0 Est GFR (Non-Af Amer) 35.4 BUN/Creatinine Ratio 25.7 H Glucose 100 H Calcium 8.2 L D Magnesium 1.6 L Lipase 65 Diagnostic Findings Abdomen X-Ray 09/15/23 15:58 XR abdomen min 2V CLINICAL HISTORY: ?ileus, abd distension? TECHNIQUE: 2 views of the abdomen were obtained. Comparison: Comparison is made to chest radiograph 09/14/2023 FINDINGS: Lung bases are unremarkable. The osseous structures are grossly unremarkable. Gastric bubble is seen. No visualization of small bowel loops. A moderate amount of stool is noted within the large bowel. IMPRESSION: Small bowel loops are not seen, ileus/obstruction cannot be entirely excluded. If there is clinical concern, CT can be performed. ACT 112: Negative or not required by law. Electronically signed by: Ray Barillas M.D. 09/15/2023 5:55 PM PG Care Time/CCT Total # of Minutes Spent Total Time Spent with Patient: Total time spent is greater than 50% in coordination of care (as documented) at patient's floor/unit and/or counseling patient: Coding Level of Care Code 31982 SUB INP/OBS CARE 3/50MIN Diagnoses UTI (urinary tract infection) N39.0 Abnormal abdominal x-ray R93.5 Elevated lipase R74.8 History of endometrial cancer Z85.42 Hypertension I10 [address] Z93.3 Hydronephrosis N13.30 Hydronephrosis type: unspecified Hypomagnesemia E83.42 Hypercalcemia E83.52 Chronic kidney disease, stage IV (severe) N18.4 (7) Hydronephrosis Hydronephrosis type: unspecified Qualified Code(s): N13.30 - Unspecified hydronephrosis
--- NOTE | 2023-09-16 00:34 | CT Scan Report ---
Exam(s): CT ABDOMEN + PELVIS With Contrast Oral - High Density Amt: GASTROGRAFFIN EXAM: CT Abdomen and Pelvis With Intravenous Contrast CLINICAL HISTORY: Reason for exam: ileus vs SBO, colostomy status. TECHNIQUE: Axial computed tomography images of the abdomen and pelvis with intravenous contrast. Automated exposure control was utilized for the study. A dose lowering technique was utilized adhering to the principles of ALARA. CONTRAST: Patient received GASTROGRAFFIN of Oral - High Density contrast COMPARISON: No relevant prior studies available. FINDINGS: Lung bases: Unremarkable. No mass. No consolidation. ABDOMEN: Liver: Hepatic steatosis. Gallbladder and bile ducts: Unremarkable. No calcified stones. No ductal dilation. Pancreas: Unremarkable. No mass. No ductal dilation. Spleen: Unremarkable. No splenomegaly. Adrenals: Unremarkable. No mass. Kidneys and ureters: Severe RIGHT and moderate LEFT hydroureteronephrosis. No obstructing stone. Distended urinary bladder, correlate for the need for Grullon catheter. Stomach and bowel: LEFT lower quadrant ostomy. Dilated small bowel measures up to 3.4 cm, consistent with bowel obstruction. The area of transition is suspected with the SMA crosses the small bowel. SMA syndrome not excluded. Surgical evaluation recommended. No mucosal thickening. PELVIS: Appendix: No findings to suggest acute appendicitis. Bladder: See above. Reproductive: Unremarkable as visualized. ABDOMEN and PELVIS: Intraperitoneal space: Unremarkable. No free air. No significant fluid collection. Bones/joints: Degenerative changes of the spine. No acute fracture. No dislocation. Soft tissues: Unremarkable. Vasculature: Atherosclerotic changes of the aorta. No abdominal aortic aneurysm. Lymph nodes: Unremarkable. No enlarged lymph nodes. IMPRESSION: 1. LEFT lower quadrant ostomy. Dilated small bowel measures up to 3.4 cm, consistent with bowel obstruction. The area of transition is suspected with the SMA crosses the small bowel. SMA syndrome not excluded. Surgical evaluation recommended. 2. Severe RIGHT and moderate LEFT hydroureteronephrosis. No obstructing stone. Distended urinary bladder, correlate for the need for Grullon catheter. Electronically signed by: Erwin Romero MD 09/16/23 00:33 AM
--- NOTE | 2023-09-16 01:16 | Surgery Consultation ---
Date of Consultation September 16, 2023 Assessment & Plan (1) SBO (small bowel obstruction): Patient has been admitted on the hospital service and is receiving treatment for urinary tract infection. From surgery perspective we recommend the following: At the present time the patient is asymptomatic from her small bowel obstruction Would recommend keeping her n.p.o. for the present time.; Consideration can be given to advancing her diet if her ostomy continues to have output and when her diet is advanced would be given with clear liquids Would recommend hydrating with IV fluids At the present time the patient has a benign abdominal exam and is not having any nausea or vomiting therefore I do not feel an NG tube will be required. If she does have deterioration of her abdominal exam or if she has any further nausea or vomiting this modality may need to be reconsidered At the present time the patient is nontoxic-appearing. She is not hypotensive or tachycardic and is afebrile and does not have leukocytosis. I therefore feel conservative management is indicated at this time. Additional recommendations to be forthcoming based on her clinical course as it unfolds Addendum (5:30 AM) Patient was revisited at bedside this morning. She continues to note that she has no abdominal pain. She has not had any nausea or vomiting. She notes that she has little to no ostomy output however. On physical exam patient's abdomen remains benign as it is soft without distention. There is no pain with palpation. There is no rebound tenderness or guarding. Continue care as outlined above. Check a.m. labs when available. Addendum (6:30 AM) Shortly after my morning visit with the patient I was notified by nursing staff that patient hadExperienced an episode of emesis of 200 cc of liquid bile. The patient actually requested NG tube placement by nursing staff so this order was placed. Nursing staff is in the process of placing NG tube. Once placed we will put it to low continuous suction and continue conservative management as outlined above. Supervising Physician Co-Signing Physician Notes I personally saw and evaluated the patient with Maxi Borja PA-C and agree with the assessment and plan. 82-year-old female with a small bowel obstruction Her CT images and results were personally viewed and interpreted by myself She does have some decreased ostomy output without much in the way of abdominal pain NG tube been placed and bilious fluid returned Keep n.p.o. with NG tube today, no plans for any surgical intervention History of Present Illness Reason for Consultation: Small bowel obstruction Attending Physician: Scott Mayo MD History of Present Illness This is an 82-year-old female who presented to [facility] emergency department on 7 for urinary tract infection. Patient was initially given antibiotics but due to urine culture results showing Morganella morganii the patient was instructed to report to the hospital for admission for need of intravenous antibiotics. Patient has since been admitted since 09/14/2023 where she has been receiving treatment for her urinary tract infection. The patient was noted to have frequent burping and belching along with abdominal bloating and decreased ostomy output and because of this the medical service obtained labs and imaging. She did have a chest x-ray and abdominal x-ray on 09/14/2023 that did not show an obstructive bowel gas pattern. This was followed up with an abdominal x-ray on 09/15/2023 where the interpreting radiologist was unable to fully exclude small bowel obstruction or an ileus. Because of this a CT scan of the abdomen pelvis with oral and IV contrast was obtained. This study showed that patient was noted to have severe right and moderate left hydronephrosis with no obstructing kidney stones. The patient was also noted to have dilated small bowel. I visited with the patient at the bedside and she currently denies any abdominal pain. She denies any nausea or vomiting. Patient also notes that her ostomy is putting out a very small amount of stool. She does report that she has had previous surgeries as she has had a hysterectomy. The patient notes that she did require pelvic radiation (she had a history of endometrial cancer) and this caused some issues with her bowel requiring ileostomy formation. The patient also notes that she has had small bowel obstructions in the past which have been treated successfully in a conservative manner. At the time of my interview the patient was resting comfortably in bed and she was in no distress. Allergies Allergy/AdvReac Type Severity Reaction Status Date / Time No Known Allergies Allergy Verified 09/12/23 15:48 Home Medications Medication Instructions Recorded Confirmed Type multivitamin (Multiple Vitamins 1 tab PO QDL 02/13/18 09/14/23 History tablet) omega 4-rcm-cjy-fish oil 1,000 mg 2,000 mg PO QDL 02/13/18 09/14/23 History (120 mg-180 mg) capsule (Fish Oil) calcium citrate 250 mg 1 tab PO QAM 05/08/19 09/14/23 History calcium-vitamin D3 5 mcg (200 unit) tablet (Citracal Regular) lutein 20 mg capsule 20 mg PO QPM 10/14/19 09/14/23 History lycopene 10 mg capsule 10 mg PO QPM 10/14/19 09/14/23 History mirabegron 50 mg tablet,extended 50 mg PO DAILY #90 tabs 04/09/23 09/14/23 Rx release 24 hr (Myrbetriq) nitrofurantoin macrocrystal 50 mg 50 mg PO QPM #90 caps 05/10/23 09/14/23 Rx capsule conjugated estrogens 0.625 mg/gram 0.25 applic vaginal 2XWK #30 grams 05/31/23 09/14/23 Rx vaginal cream lisinopril 10 mg tablet 10 mg PO HS #90 tabs 08/22/23 09/14/23 Rx ascorbic acid (vitamin C) 1,000 mg 1 g PO DAILY 09/12/23 09/14/23 History tablet (Vitamin C) Patient History Medical History Cancer SQUAMOUS CELL REMOVED SBO (small bowel obstruction) Cardiac murmur Questionable. Per PCP records in plan section but no murmur noted on physical exam per PCP notes Biliary sludge DVT prophylaxis Hyperbilirubinemia Abdominal pain SBO (small bowel obstruction) Vomiting Nausea Abdominal pain Pain in joint involving left ankle and foot Rhinorrhea Dehydration Hyponatremia Acute UTI (urinary tract infection) Sepsis Small bowel obstruction Hx of recurrence SBO, most recently with partial SBO (06/28) felt to be 2/2 previous surgeries and adhesions related to endometrial ca treatment Hypertension Colostomy in place Placed after proctosigmoidectomy for non healing rectal ulcer in 2007 Surgical History History of esophagogastroduodenoscopy (EGD) History of partial colectomy FOR RECTAL PROLAPSE History of colonoscopy MULTIPLE LAST ONE 2007 S/P tonsillectomy History of total abdominal hysterectomy 1993 S/P colostomy Family History Daughter Systemic lupus Mother Myocardial infarction Heart disease Brother Pancreatic cancer Brain cancer Lung cancer Father Alcohol abuse Denies family history of Ovarian cancer Prostate cancer Breast cancer Colorectal cancer Stroke Social History Smoking Status: Never smoker Second Hand Exposure: No; Do You Dip or Chew Tobacco: No; Hx Alcohol Use: Yes Alcohol type: beer Alcohol Intake Frequency: Monthly or Less Hx Substance Use: No Preferred Language: Georgian Communication Ability: Effective Visual Impairment: No Limitations Hearing Ability: Normal Manager Government Required: No Beliefs That Will Affect Care: None marital status: Current Living Situation: Spouse Current Living Situation Comment: Home with current occupational status: retired Other Information That Helps Us Care for You: No Feels Safe at Home: Yes Safety Concerns: Feels Safe At This Time Childhood Exposure to Second-Hand Smoke: Yes Dental Care, Regularly: Yes Physical Activity Frequency: Daily Seatbelt Use: always Sunscreen Use: Yes Assistive Devices: Glasses Review of Systems Review of Systems: All systems reviewed & are unremarkable except as noted in HPI & below Physical Exam Constitutional: WD/WN, vitals as above Eyes: no conjunctival abnormality ENMT: Ears: no hearing impairment and no external ear abnormality Mouth: no oropharynx abnormality Neck: trachea midline Respiratory: normal respiratory effort; no respiratory distress and no labored breathing Cardiovascular: Rate/Rhythm: regular rate and regular rhythm Gastrointestinal (Abdomen): Abdomen is soft with minimal distention. There is no rigidity, rebound tenderness or guarding, or pain with palpation. Patient's ostomy was pink and viable and had a small amount of brown stool in the collection bag. Musculoskeletal: No calf tenderness Skin: no rashes Neurologic: moves all extremities Psychiatric: A+Ox3, euthymic affect Results & Data Vital Signs (Past 12 Hours) Vital Signs Temp Pulse Pulse Resp BP BP Pulse Ox 09/15/23 22:57 37.4 C 80 18 185/92 H 96 09/15/23 21:55 84 09/15/23 21:55 196/106 H 09/15/23 20:32 36.7 C 85 18 189/104 H 97 09/15/23 14:17 95 H O2 Del Method 09/15/23 22:57 Room Air 09/15/23 21:55 09/15/23 21:55 09/15/23 20:32 Room Air 09/15/23 14:17 PG Care Time/CCT Total # of Minutes Spent Total Time Spent with Patient: Total time spent is greater than 50% in coordination of care (as documented) at patient's floor/unit and/or counseling patient: Coding Level of Care Code 01335 INT INP/OBS CARE 3/75MIN Diagnoses SBO (small bowel obstruction) K56.609
[2023-09-16] MEDS: ACETAMINOPHEN 1,000 MG/100 ML VIAL IV ONE (03:12)
[2023-09-16] MEDS: NSS + 20MEQ KCL 20 MEQ/1,000 ML BAG IV SCH (05:37)
[2023-09-16] MEDS: ONDANSETRON INJ 2 MG/ML 2 ML VIAL IV PRN (06:47)
[2023-09-16 07:13] LABS: Basophils # (auto) 0.03 K/uL (0.00-0.20); Basophils % (auto) 0.4 %; Eosinophils # (auto) 0.01 K/uL (0.00-0.50); Eosinophils % (auto) 0.1 %; Hematocrit (blood only) 32.3 % (37.0-47.0); Hemoglobin 10.5 g/dl (12.0-16.0); Immature Granulocytes # (auto) 0.03 K/uL (0.01-0.20); Immature Granulocytes % (auto) 0.4 %; Lymphocytes # (auto) 1.02 K/uL (1.20-3.40); Lymphocytes % (auto) 13.9 %; Mean Corpuscular Hemoglobin 28.5 pg (25.0-34.0); Mean Corpuscular Hgb Conc 32.5 g/dL (32.0-36.0); Mean Corpuscular Volume 87.5 fL (80.0-100.0); Mean Platelet Volume 10.4 fL (9.4-12.4); Monocytes # (auto) 0.59 K/uL (0.11-0.59); Neutrophils # (auto) 5.66 K/uL (1.40-6.50); Neutrophils % (auto) 77.2 %; Platelet Count 295 K/uL (130-400); RDW Coefficient of Variation 13.7 % (11.5-14.5); RDW Standard Deviation 43.8 fL (36.4-46.3); Red Blood Count 3.69 M/uL (4.20-5.40); White Blood Count 7.34 K/ul (4.8-10.8)
[2023-09-16 07:27] LABS: BUN Creatinine Ratio 21.3 (10-20); Calcium 8.1 mg/dl (8.6-10.3); Creatinine Clr Calc Pharmacy 31.3 ml/min; Est GFR (African American) 56.1 ml/min; Est GFR (Non-African American) 48.4 ml/min; Magnesium 1.8 mg/dl (1.7-2.4); Potassium 3.3 mmol/L (3.5-5.1)
--- NOTE | 2023-09-16 08:10 | XRay Report ---
XR KUB/Abdomen 1 view CLINICAL HISTORY: confirm NGT placement TECHNIQUE: 1 view of the abdomen was obtained. Comparison: Comparison is made to abdomen radiographs 09/15/2023 FINDINGS: Enteric tube terminates in the stomach. The osseous structures are grossly unremarkable. No significa nt bowel gas is seen apart from the gastric bubble. IMPRESSION: Satisfactory position of enteric tube. ACT 112: Negative or not required by law. Electronically signed by: Ray Barillas M.D. 09/16/2023 8:08 AM
--- NOTE | 2023-09-16 20:06 | Hospitalist Progress Note ---
Date of Service September 16, 2023 Assessment & Plan (1) SBO (small bowel obstruction): Plan: s/p NG tube placement overnight with copious bilious output has a parastomal hernia but this is not the cause of her SBO SBO is likely on the basis of adhesions given previous surgeries etc asked that if she needed surgical intervention that she is transferred to [facility] appreciate gen surg assistance NPO, NG tube, IV fluids, serial exams, KUBs as needed (2) UTI (urinary tract infection): Plan: 2nd MDR toro had been on cefdinir as outpatient this has been d/c changed to ertapenem day #3 of IV ertapenem plan 7-day course repeat urine cx from admission remains negative (3) Hypokalemia: Plan: replace with IV KCL in her fluids BMP am (4) Elevated lipase: Plan: mild elevation day of admission but most recent CT a/p on 09/11 did not show f indings to suggest acute pancreatitis repeat CT yesterday also with normal appearing pancreas most recent lipase now normal uncertain if the lipase was simply elevated because of dehydration or she had a low-grade case of pancreatitis; favor former (5) History of endometrial cancer: Plan: RUTH/BSO in the past along with XRT (6) Hypertension: Plan: BETI on hold due to CKD stage 4 (7) 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 (8) Hydronephrosis: Plan: bilateral chronic CT a/p in 2019 and 2020 showed b/l hydro then as well 09/2020 urology office visit with Dr Gabriel showed the following documentation from Dr Gabriel -- "Recently underwent urethral dilation, cystogram and retrograde pyelograms to evaluate her hydronephrosis I believe that urethral stricturing was the underlying pathology as she had an extremely tight urethra that resuscitated dilation to be able to complete the remainder of the testing Her upper tracts appeared to not have any obstruction nor did they reflux Her bladder is relatively modest in capacity and I wonder if the low capacity bladder may have hidden untrue underlying urinary retention issue" has followed with urology since then with periodic visits CT this admission with ongoing b/l hydronephrosis - certainly this will heighten her UTI risk should have uro f/u post discharge (9) Hypomagnesemia: Plan: replaced resolved (10) Hypercalcemia: Plan: total calcium level was 10.6 at admission now resolved likely was 2nd to dehydration no h/o hyperparathyroidism monitor (11) Chronic kidney disease, stage IV (severe): Plan: baseline CrCl 20s BMP today stable Plan updated at bedside extensively allow walks as tolerated for a few minutes here/there will have PT/OT see her formally as well Admission and Anticipated Discharge Date Admission Date: September 14, 2023 Subjective events of last 24 hours noted, particularly overnight CT a/p with SBO - NG tube placed after she had emesis acevedo placed for urinary retention she had copious NG tube output overnight - pure bile she does feel better - burping is resolved, abdominal bloating much improved, no pain no nausea wants to walk the hallway tele stable overnight Review of Systems Review of Systems: gen - no fevers or chills cv - no cp, no orthopnea pulm - no dyspnea Physical Exam Physical Exam: gen - thin, NAD - despite overnight events she looks better mouth - MMM nose - NG tube in place neck - no JVD heart - RRR, s1 s2, no murmur lungs - CTA b/l abd - distension improved; BS+, parastomal hernia present (reducible), ostomy present with stoma beefy red, ostomy bag present with scant amount of liquid stool (looks like the stool that was in bag yesterday); nontender ext - no edema, pulses 2+ b/l psych - a/o x 3 Results & Data Results & Data Vital Signs (Past 12 Hours) Vital Signs Temp Pulse Pulse Resp BP Pulse Ox O2 Del Method 09/16/23 13:58 85 09/16/23 11:43 37.0 C 77 16 155/85 H 93 Room Air 09/16/23 08:44 36.8 C 65 16 147/88 H 94 Room Air Laboratory Results Laboratory Results - last 24 hr 09/16/23 06:34 WBC 7.34 RBC 3.69 L Hgb 10.5 L Hct 32.3 L MCV 87.5 MCH 28.5 MCHC 32.5 RDW Std Deviation 43.8 RDW Coeff of Pardeep 13.7 Plt Count 295 MPV 10.4 Immature Gran % (Auto) 0.4 Neut % (Auto) 77.2 Lymph % (Auto) 13.9 Doddridge % (Auto) 8.0 Eos % (Auto) 0.1 Baso % (Auto) 0.4 Neut # (Auto) 5.66 Lymph # (Auto) 1.02 L Doddridge # (Auto) 0.59 Eos # (Auto) 0.01 Baso # (Auto) 0.03 Immature Gran # (Auto) 0.03 Sodium 134 L Potassium 3.3 L Chloride 100 Carbon Dioxide 27 Anion Gap 7 BUN 23 Creatinine 1.08 D Est Cr Clr Drug Dosing 31.3 Est GFR ( Amer) 56.1 Est GFR (Non-Af Amer) 48.4 BUN/Creatinine Ratio 21.3 H Glucose 109 H Calcium 8.1 L Magnesium 1.8 Diagnostic Findings Abdomen/Pelvis CT 09/15/23 19:16 Exam(s): CT ABDOMEN + PELVIS With Contrast Oral - High Density Amt: GASTROGRAFFIN EXAM: CT Abdomen and Pelvis With Intravenous Contrast CLINICAL HISTORY: Reason for exam: ileus vs SBO, colostomy status. TECHNIQUE: Axial computed tomography images of the abdomen and pelvis with intravenous contrast. Automated exposure control was utilized for the study. A dose lowering technique was utilized adhering to the principles of ALARA. CONTRAST: Patient received GASTROGRAFFIN of Oral - High Density contrast COMPARISON: No relevant prior studies available. FINDINGS: Lung bases: Unremarkable. No mass. No consolidation. ABDOMEN: Liver: Hepatic steatosis. Gallbladder and bile ducts: Unremarkable. No calcified stones. No ductal dilation. Pancreas: Unremarkable. No mass. No ductal dilation. Spleen: Unremarkable. No splenomegaly. Adrenals: Unremarkable. No mass. Kidneys and ureters: Severe RIGHT and moderate LEFT hydroureteronephrosis. No obstructing stone. Distended urinary bladder, correlate for the need for Acevedo catheter. Stomach and bowel: LEFT lower quadrant ostomy. Dilated small bowel measures up to 3.4 cm, consistent with bowel obstruction. The area of transition is suspected with the SMA crosses the small bowel. SMA syndrome not excluded. Surgical evaluation recommended. No mucosal thickening. PELVIS: Appendix: No findings to suggest acute appendicitis. Bladder: See above. Reproductive: Unremarkable as visualized. ABDOMEN and PELVIS: Intraperitoneal space: Unremarkable. No free air. No significant fluid collection. Bones/joints: Degenerative changes of the spine. No acute fracture. No dislocation. Soft tissues: Unremarkable. Vasculature: Atherosclerotic changes of the aorta. No abdominal aortic aneurysm. Lymph nodes: Unremarkable. No enlarged lymph nodes. IMPRESSION: 1. LEFT lower quadrant ostomy. Dilated small bowel measures up to 3.4 cm, consistent with bowel obstruction. The area of transition is suspected with the SMA crosses the small bowel. SMA syndrome not excluded. Surgical evaluation recommended. 2. Severe RIGHT and moderate LEFT hydroureteronephrosis. No obstructing stone. Distended urinary bladder, correlate for the need for Acevedo catheter. Electronically signed by: Erwin Romero MD 09/16/23 00:33 AM KUB X-Ray 09/16/23 07:28 XR KUB/Abdomen 1 view CLINICAL HISTORY: confirm NGT placement TECHNIQUE: 1 view of the abdomen was obtained. Comparison: Comparison is made to abdomen radiographs 09/15/2023 FINDINGS: Enteric tube terminates in the stomach. The osseous structures are grossly unremarkable. No significant bowel gas is seen apart from the gastric bubble. IMPRESSION: Satisfactory position of enteric tube. ACT 112: Negative or not required by law. Electronically signed by: Ray Barillas M.D. 09/16/2023 8:08 AM PG Care Time/CCT Total # of Minutes Spent Total Time Spent with Patient: Total time spent is greater than 50% in coordination of care (as documented) at patient's floor/unit and/or counseling patient: Coding Level of Care Code 93557 SUB INP/OBS CARE 2/35MIN Diagnoses SBO (small bowel obstruction) K56.609 UTI (urinary tract infection) N39.0 Hypokalemia E87.6 Elevated lipase R74.8 History of endometrial cancer Z85.42 Hypertension I10 [address]ostomy [address] Z93.3 Hydronephrosis N13.30 Hydronephrosis type: unspecified Hypomagnesemia E83.42 Hypercalcemia E83.52 Chronic kidney disease, stage IV (severe) N18.4 (8) Hydronephrosis Hydronephrosis type: unspecified Qualified Code(s): N13.30 - Unspecified hydronephrosis
[2023-09-16] MEDS ORDERED: MoRPHine SULFATE 2 MG/ML CARP IV PRN (20:33)
[2023-09-16] MEDS: PANTOprazole 40 MG in SYRINGE 0 ML IV ONE (21:43)
[2023-09-16] MEDS: HEPARIN SOD 5,000 UNIT/0.5 ML VIAL SQ SCH (21:43)
[2023-09-17 06:56] LABS: BUN Creatinine Ratio 23.5 (10-20); Calcium 8.1 mg/dl (8.6-10.3); Creatinine Clr Calc Pharmacy 32.5 ml/min; Est GFR (African American) 63.1 ml/min; Est GFR (Non-African American) 54.5 ml/min; Potassium 3.5 mmol/L (3.5-5.1)
--- NOTE | 2023-09-17 10:37 | Surgery Progress Note ---
Date of Service September 17, 2023 Assessment & Plan (1) SBO (small bowel obstruction): Plan: pt w/ history of pelvic radiation, and hysterectomy for endometrial ca here with SBO she reports feeling improved symptoms NGT in place, 3.1L drained since insertion Ostomy with only very small liquid stool in bag Will obtain KUB for further evaluation Continue current supportive care while awaiting more meaningful bowel fxn as above. feeling much better. no function via stoma yet. will recheck KUB. may consider SBFT tomorrow pending KUB results. Admission and Anticipated Discharge Date Admission Date: September 14, 2023 Subjective Pt reports feeling better. Feels as though she has abdominal gurgling and her ostomy wants to start functioning. Denies n/v. NGT in place. Physical Exam Physical Exam: awake/alert, no distress Gastrointestinal (Abdomen): soft, + ostomy viable with very small amount of liquid brown stool in bag Results & Data Vital Signs (Past 12 Hours) Vital Signs Temp Pulse Pulse Resp BP Pulse Ox O2 Del Method 09/17/23 10:13 80 09/17/23 08:01 98.8 F 89 16 168/85 H 95 Room Air 09/17/23 03:19 99.0 F 87 16 167/86 H 92 Room Air 09/17/23 00:19 169/86 H 09/17/23 00:00 88 09/16/23 23:28 98.8 F 77 18 173/91 H 96 Room Air PG Care Time/CCT Total # of Minutes Spent Total Time Spent with Patient: Total time spent is greater than 50% in coordination of care (as documented) at patient's floor/unit and/or counseling patient: Coding Level of Care Code 66548 SUB INP/OBS CARE 04/05MIN Diagnoses SBO (small bowel obstruction) K56.609
[2023-09-17] MEDS: PANTOprazole 40 MG in SYRINGE 0 ML IV SCH (11:23)
--- NOTE | 2023-09-17 12:05 | XRay Report ---
KUB CLINICAL HISTORY: Small bowel obstruction. FINDINGS: An AP, portable, supine abdominal radiograph is compared to study dated 09/16/2023 and correl ated with abdominal CT dated 09/15/2023. An enteric tube is unchanged in position and projects over the proximal stomach. An ostomy projects over the left lower quadrant. There is persistent gaseous diste ntion of the small bowel loops which measure up to 4.5 cm in diameter. This likely represents persist ent small bowel obstruction. No evidence of intraperitoneal free air is seen on this supine image. Th ere are no abnormal abdominal calcifications. Phleboliths are seen in the pelvis. The skeletal struct ures are osteopenic and appear intact. There is moderate lumbosacral spondylosis. A small pleural eff usion is noted on the left. IMPRESSION: Persistent small bowel obstruction. Electronically signed by: Chencho Vasques M.D. 09/17/2023 12:04 PM
--- NOTE | 2023-09-17 20:36 | Hospitalist Progress Note ---
Date of Service September 17, 2023 Assessment & Plan (1) SBO (small bowel obstruction): Plan: clinically improved +flatus +stool NG tube output is significantly decreased she feels better cont NG tube overnight defer management to gen surg but suspect we might be able to do a clamp trial in am tomorrow cont walking, IV fluids, etc has a parastomal hernia but this is not the cause of her SBO SBO is likely on the basis of adhesions given previous surgeries etc asked that if she needed surgical intervention that she is transferred to [facility] but doubt we will need such appreciate gen surg assistance (2) UTI (urinary tract infection): Plan: 2nd MDR morganella had been on cefdinir as outpatient this has been d/c changed to ertapenem day #4 of IV ertapenem plan 7-day course repeat urine cx from admission remains negative (3) Hypokalemia: Plan: replaced resolved repeat BMP am (4) Elevated lipase: Plan: mild elevation day of admission but most recent CT a/p on 09/11 did not show findings to suggest acute pancreatitis repeat CT yesterday also with normal appearing pancreas most recent lipase was normal uncertain if the lipase was simply elevated because of dehydration or she had a low-grade case of pancreatitis; favor former (5) History of endometrial cancer: Plan: RUTH/BSO in the past along with XRT (6) Hypertension: Plan: BETI on hold due to CKD stage 4 (7) 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 (8) Hydronephrosis: Plan: bilateral chronic CT a/p in 2019 and 2020 showed b/l hydro then as well 09/2020 urology office visit with Dr Gabriel showed the following documentation from Dr Gabriel -- "Recently underwent urethral dilation, cystogram and retrograde pyelograms to evaluate her hydronephrosis I believe that urethral stricturing was the underlying pathology as she had an extremely tight urethra that resuscitated dilation to be able to complete the remainder of the testing Her upper tracts appeared to not have any obstruction nor did they reflux Her bladder is relatively modest in capacity and I wonder if the low capacity bladder may have hidden untrue underlying urinary retention issue" has followed with urology since then with periodic visits CT this admission with ongoing b/l hydronephrosis - certainly this will heighten her UTI risk should have urology f/u post discharge she had urinary retention this admit requiring acevedo placement urinary retention could be due to the urethral issue or the UTI itself could consider acevedo trial before discharge (9) Hypomagnesemia: Plan: replaced resolved (10) Hypercalcemia: Plan: total calcium level was 10.6 at admission now resolved likely was 2nd to dehydration no h/o hyperparathyroidism monitor (11) Chronic kidney disease, stage IV (severe): Plan: baseline CrCl 20s BMP today again stable Creatinine remains better than baseline - suspect combination of holding her BETI and giving IV fluids check bmp am Plan updated at bedside extensively appreciate pt/ot evals progressing Admission and Anticipated Discharge Date Admission Date: September 14, 2023 Subjective feeling much better today no abd pain or bloating no burping no nausea or emesis she is passing stool via the ostomy along with flatus the stool is very firm walking the hallways denies any other complaints at bedside Review of Systems Review of Systems: cv - no cp pulm - no YOUNGER - acevedo is in place Physical Exam Physical Exam: gen - thin, NAD, sitting in chair, looks tired but overall appears well mouth - MMM nose - NG tube in place neck - no JVD heart - RRR, s1 s2, no murmur lungs - CTA b/l abd - distension improved/resolving; BS+, parastomal hernia present (reducible), ostomy present, formed very dark stool present in bag and also exuding from the stoma; abdomen nontender ext - no edema, pulses 2+ b/l psych - a/o x 3 Results & Data Results & Data Vital Signs (Past 12 Hours) Vital Signs Temp Pulse Pulse Resp BP Pulse Ox O2 Del Method 09/17/23 19:15 37 C 81 18 165/84 H 95 Room Air 09/17/23 15:47 37.0 C 87 16 164/90 H 95 Room Air 09/17/23 15:05 80 09/17/23 10:13 80 Laboratory Results Laboratory Results - last 24 hr 09/17/23 09/17/23 05:48 Unknown Sodium 137 Potassium 3.5 Chloride 104 Carbon Dioxide 26 Anion Gap 7 BUN 23 Creatinine 0.98 Est Cr Clr Drug Dosing 32.5 Est GFR ( Amer) 63.1 Est GFR (Non-Af Amer) 54.5 BUN/Creatinine Ratio 23.5 H Glucose 81 Calcium 8.1 L Stool Occult Bld Scrn Negative PG Care Time/CCT Total # of Minutes Spent Total Time Spent with Patient: Total time spent is greater than 50% in coordination of care (as documented) at patient's floor/unit and/or counseling patient: Coding Level of Care Code 49836 SUB INP/OBS CARE 2/35MIN Diagnoses SBO (small bowel obstruction) K56.609 UTI (urinary tract infection) N39.0 Hypokalemia E87.6 Elevated lipase R74.8 History of endometrial cancer Z85.42 Hypertension I10 Colostomy [address] Z93.3 Hydronephrosis N13.30 Hydronephrosis type: unspecified Hypomagnesemia E83.42 Hypercalcemia E83.52 Chronic kidney disease, stage IV (severe) N18.4 (8) Hydronephrosis Hydronephrosis type: unspecified Qualified Code(s): N13.30 - Unspecified hydronephrosis
--- NOTE | 2023-09-18 08:12 | XRay Report ---
KUB HISTORY: ng tube placement COMPARISON: None. FINDINGS: A nasogastric tube terminates in the stomach. This is unchanged in position. Trace bilatera l pleural effusions are noted. Mildly dilated gas-filled loops of small bowel have slightly improved. A left lower quadrant ostomy is again noted. No renal calculi. No ureteral calculi. No pneumoperito neum or pneumatosis. IMPRESSION: 1. Nasogastric tube terminates in the stomach. 2. Mildly dilated gas-filled loops of small bowel have slightly improved. ACT 112: Negative or not required by law. Electronically signed by: Abraham Mallory M.D. 09/18/2023 8:10 AM
--- NOTE | 2023-09-18 08:47 | Surgery Progress Note ---
Date of Service September 18, 2023 Assessment & Plan (1) SBO (small bowel obstruction): Plan: pt w/ history of pelvic radiation, and hysterectomy for endometrial ca here with SBO she reports feeling improved symptoms, denies abdominal pain/n/v NGT in place, minimal output overnight. the NGT has been clamped since 6a There was concern the NGT was dislodged yesterday evening therefore a repeat kub was performed and it does show improved small bowel dilation She reports + ostomy output. abdomen soft and non tender Since NGT has been clamped since 6 and we are 3 hours in lets continue w/ a clamp trial until 10, check residuals, if low okay to remove NGT and start clears Ostomy bag recently emptied per patient as above. sbft neg for SBO. will pull ngt/start clears. Admission and Anticipated Discharge Date Admission Date: September 14, 2023 Subjective Patient reports feeling well. No abdominal pain, nausea/vomiting. She is hungry. Reports more stool output from ostomy this AM. Physical Exam Physical Exam: awake/alert, no distress Gastrointestinal (Abdomen): Percussion/Palpation: abdomen soft; abdomen nontender + ostomy, just emptied Results & Data Vital Signs (Past 12 Hours) Vital Signs Temp Pulse Pulse Resp BP Pulse Ox O2 Del Method 09/18/23 07:32 99.0 F 86 18 168/91 H 94 Room Air 09/18/23 02:21 98.4 F 88 18 169/90 H 95 Room Air 09/18/23 00:00 87 09/17/23 23:20 98.2 F 75 18 80/48 L 09/17/23 22:36 98.6 F 82 18 165/87 H 95 Room Air PG Care Time/CCT Total # of Minutes Spent Total Time Spent with Patient: Total time spent is greater than 50% in coordination of care (as documented) at patient's floor/unit and/or counseling patient: Coding Level of Care Code 57357 SUB INP/OBS CARE 1/25MIN Diagnoses SBO (small bowel obstruction) K56.609
--- NOTE | 2023-09-18 09:41 | XRay Report ---
KUB HISTORY: Acute abdominal pain with small bowel obstruction sbo. verify ngt position ( suspect dislo ged) COMPARISON: 09/17/2023 FINDINGS: Distal tip of enteric tube projects over the expected location of the gastric body. No sign ificant change in the mildly dilated small bowel loops. No renal calculi. No ureteral calculi. No pn eumoperitoneum or pneumatosis. No fracture. IMPRESSION: 1. Unchanged positioning of the enteric tube. 2. Mildly dilated air-filled loops of small bowel redemonstrated. ACT 112: Negative or not required by law. The above report was generated using voice recognition software. It may contain grammatical, syntax o r spelling errors. Electronically signed by: Devendra Knowles M.D. 09/18/2023 9:40 AM
[2023-09-18] MEDS: THIAMINE HCL 200 MG in SODIUM CHLORIDE 0.9% 50 ML IV STA (09:42)
[2023-09-18 10:15] LABS: BUN Creatinine Ratio 32.7 (10-20); Calcium 8.7 mg/dl (8.6-10.3); Creatinine Clr Calc Pharmacy 29.5 ml/min; Est GFR (African American) 56.8 ml/min; Magnesium 1.8 mg/dl (1.7-2.4); Phosphorus 2.8 mg/dl (2.5-4.9); Potassium 3.7 mmol/L (3.5-5.1)
--- NOTE | 2023-09-18 12:53 | Fluoroscopy Report ---
[place] small bowel follow through CLINICAL HISTORY: Small bowel obstruction. Follow-up. COMPARISON STUDY: KUB 09/18/2023. FINDINGS: 4 overhead images of the abdomen and pelvis were performed over a 20 minute time interval. No fluoroscopic spot images were obtained. Health And Physical Education Professor image demonstrates a nasogastric tube within the sto mach. No dilated loops of small bowel identified. Contrast was injected through the indwelling nasoga stric tube. Contrast reached the cecum by 20 minutes. Therefore, no evidence for a small bowel obstru ction. Incidental note is made of a left lower quadrant ostomy. IMPRESSION: No evidence for a small bowel obstruction. ACT 112: Negative or not required by law. Electronically signed by: Abraham Mallory M.D. 09/18/2023 12:52 PM
--- NOTE | 2023-09-18 20:50 | Hospitalist Progress Note ---
Date of Service September 18, 2023 Assessment & Plan (1) SBO (small bowel obstruction): Plan: clinically and radiographically resolved +copious stool output via ostomy NG tube has been d/c clear liquid diet started defer further diet advancement to gen surg she is drinking fluids well -- can stop IV fluids later tonight repeat labs in am of note -- has a parastomal hernia but this was not the cause of her SBO SBO was likely on the basis of adhesions given previous surgeries etc appreciate gen surg assistance (2) UTI (urinary tract infection): Plan: 2nd MDR morganella (09/12/23 culture) had been on cefdinir as outpatient this was d/c upon admission abx changed to ertapenem day #5 of IV ertapenem today plan 7-day course repeat urine cx from admission remains negative (3) Hypokalemia: Plan: replaced resolved repeat BMP am (4) Elevated lipase: Plan: mild elevation day of admission but most recent CT a/p on 09/11 did not show findings to suggest acute pancreatitis repeat CT yesterday also with normal appearing pancreas most recent lipase was normal uncertain if the lipase was simply elevated because of dehydration or she had a low-grade case of pancreatitis; favor former (5) History of endometrial cancer: Plan: RUTH/BSO in the past along with XRT (6) Hypertension: Plan: BETI on hold due to CKD stage 4 BPs mildly high but acceptable (7) 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 no issues (8) Hydronephrosis: Plan: bilateral chronic CT a/p in 2019 and 2020 showed b/l hydro then as well 09/2020 urology office visit with Dr Gabriel showed the following documentation from Dr Gabriel -- "Recently underwent urethral dilation, cystogram and retrograde pyelograms to evaluate her hydronephrosis I believe that urethral stricturing was the underlying pathology as she had an extremely tight urethra that resuscitated dilation to be able to complete the remainder of the testing Her upper tracts appeared to not have any obstruction nor did they reflux Her bladder is relatively modest in capacity and I wonder if the low capacity bladder may have hidden untrue underlying urinary retention issue" has followed with urology since then with periodic visits CT this admission with ongoing b/l hydronephrosis - certainly this will heighten her UTI risk Hydronephrosis was severe on right, moderate on left on 09/15/23 CT abd/pelvis She had urinary retention this admit requiring acevedo placement Acevedo remains in place The chronicity of the hydronephrosis suggests her urethra may be an issue once again Or perhaps she is having urinary reflux chronically Acutely the UTI would have exacerbated urinary retention, exacerbated any pre- existing urinary reflux, etc. Will consult [facility] for their assistance Leave acevedo in place until they consult (9) Hypomagnesemia: Plan: replaced resolved (10) Hypercalcemia: Plan: total calcium level was 10.6 at admission now resolved likely was 2nd to dehydration no h/o hyperparathyroidism monitor (11) Chronic kidney disease, stage IV (severe): Plan: baseline CrCl 20s baseline Cr 1.5 to 1.6 Cr today is 1 and has been such for 3 days straight her creatinine has been much better than baseline this admission - perhaps combination of holding her BETI, giving IV fluids, and placing a acevedo repeat BMP in am for stability Plan updated at bedside extensively appreciate pt/ot evals has progressed very nicely of note - mild drop in bicarbonate level overnight - due to liquid stool via ostomy?? simply repeat BMP in am Admission and Anticipated Discharge Date Admission Date: September 14, 2023 Subjective tele stable overnight feels very good today NG tube with minimal drainage overnight was clamped this am for 6 hours no N/V NG tube then removed started on clears and tolerated such had an appetite copious stool/air output via ostomy today has emptied her ostomy bag at least 3x's today walking the hallways at bedside Review of Systems Review of Systems: cv - no cp pulm - no dyspnea GI - no abd pain or N/V/belching/burping Physical Exam Physical Exam: gen - thin, NAD, sitting at side of bed - looks very well today mouth - MMM neck - no JVD heart - RRR, s1 s2, no murmur lungs - CTA b/l abd - distension resolved; BS+, parastomal hernia present (reducible), ostomy present, liquid stool in bag, abdomen nontender ext - no edema, pulses 2+ b/l psych - a/o x 3 Results & Data Results & Data Vital Signs (Past 12 Hours) Vital Signs Temp Pulse Pulse Resp BP Pulse Ox O2 Del Method 09/18/23 20:16 36.5 C 78 18 166/82 H 97 Room Air 09/18/23 15:32 36.9 C 94 H 18 162/85 H 97 Room Air 09/18/23 14:16 81 Laboratory Results Laboratory Results - last 24 hr 09/18/23 09:36 Sodium 140 Potassium 3.7 Chloride 107 Carbon Dioxide 17 L Anion Gap 16 H BUN 35 H Creatinine 1.07 Est Cr Clr Drug Dosing 29.5 Est GFR ( Amer) 56.8 Est GFR (Non-Af Amer) 49.0 BUN/Creatinine Ratio 32.7 H Glucose 82 Calcium 8.7 Phosphorus 2.8 Magnesium 1.8 Diagnostic Findings KUB X-Ray 09/17/23 21:34 KUB HISTORY: ng tube placement COMPARISON: None. FINDINGS: A nasogastric tube terminates in the stomach. This is unchanged in position. Trace bilateral pleural effusions are noted. Mildly dilated gas-filled loops of small bowel have slightly improved. A left lower quadrant ostomy is again noted. No renal calculi. No ureteral calculi. No pneumoperitoneum or pneumatosis. IMPRESSION: 1. Nasogastric tube terminates in the stomach. 2. Mildly dilated gas-filled loops of small bowel have slightly improved. ACT 112: Negative or not required by law. Electronically signed by: Abraham Mallory M.D. 09/18/2023 8:10 AM KUB X-Ray 09/18/23 08:24 KUB HISTORY: Acute abdominal pain with small bowel obstruction sbo. verify ngt position ( suspect disloged) COMPARISON: 09/17/2023 FINDINGS: Distal tip of enteric tube projects over the expected location of the gastric body. No significant change in the mildly dilated small bowel loops. No renal calculi. No ureteral calculi. No pneumoperitoneum or pneumatosis. No fracture. IMPRESSION: 1. Unchanged positioning of the enteric tube. 2. Mildly dilated air-filled loops of small bowel redemonstrated. ACT 112: Negative or not required by law. The above report was generated using voice recognition software. It may contain grammatical, syntax or spelling errors. Electronically signed by: Devendra Knowles M.D. 09/18/2023 9:40 AM Small Bowel X-Ray 09/18/23 10:33 [place] small bowel follow through CLINICAL HISTORY: Small bowel obstruction. Follow-up. COMPARISON STUDY: KUB 09/18/2023. FINDINGS: 4 overhead images of the abdomen and pelvis were performed over a 20 minute time interval. No fluoroscopic spot images were obtained. Glass Bulb Machine Adjuster image demonstrates a nasogastric tube within the stomach. No dilated loops of small bowel identified. Contrast was injected through the indwelling nasogastric tube. Contrast reached the cecum by 20 minutes. Therefore, no evidence for a small bowel obstruction. Incidental note is made of a left lower quadrant ostomy. IMPRESSION: No evidence for a small bowel obstruction. ACT 112: Negative or not required by law. Electronically signed by: Abraham Mallory M.D. 09/18/2023 12:52 PM PG Care Time/CCT Total # of Minutes Spent Total Time Spent with Patient: Total time spent is greater than 50% in coordination of care (as documented) at patient's floor/unit and/or counseling patient: Coding Level of Care Code 89986 SUB INP/OBS CARE 2/35MIN Diagnoses SBO (small bowel obstruction) K56.609 UTI (urinary tract infection) N39.0 Hypokalemia E87.6 Elevated lipase R74.8 History of endometrial cancer Z85.42 Hypertension I10 Colostomy [address] Z93.3 Hydronephrosis N13.30 Hydronephrosis type: unspecified Hypomagnesemia E83.42 Hypercalcemia E83.52 Chronic kidney disease, stage IV (severe) N18.4 (8) Hydronephrosis Hydronephrosis type: unspecified Qualified Code(s): N13.30 - Unspecified hydronephrosis
[2023-09-19 07:07] LABS: BUN Creatinine Ratio 29.2 (10-20); Calcium 7.7 mg/dl (8.6-10.3); Creatinine Clr Calc Pharmacy 33.5 ml/min; Est GFR (African American) 64.7 ml/min; Est GFR (Non-African American) 55.9 ml/min; Magnesium 1.6 mg/dl (1.7-2.4); Phosphorus 1.6 mg/dl (2.5-4.9); Potassium 3.3 mmol/L (3.5-5.1)
--- NOTE | 2023-09-19 07:46 | Surgery Progress Note ---
Date of Service September 19, 2023 Assessment & Plan (1) SBO (small bowel obstruction): Plan: Patient here with SBO which appears to be resolved SBFT study showed no evidence of SBO. NGT was removed and she has been tolerating clears She denies pain/n/v. ostomy is functioning Will adv to fulls for bfast, then may adv to low fiber for lunch. if tolerates well may dispo when cleared by medical service We will follow peripherally at this point, but please call if any questions/concerns doing well. advance diet. will sign off. call if any issues/questions Admission and Anticipated Discharge Date Admission Date: September 14, 2023 Subjective Patient is feeling well this AM. Denies abdominal pain/n/v. Her ostomy is functioning well. Tolerating liquids thus far. Physical Exam Physical Exam: awake/alert, no distress Respiratory: normal respiratory effort Gastrointestinal (Abdomen): Percussion/Palpation: abdomen soft; abdomen nontender + ostomy with liquid stool in bag Results & Data Vital Signs (Past 12 Hours) Vital Signs Temp Pulse Pulse Resp BP BP Pulse Ox 09/19/23 07:20 70 09/19/23 03:54 99.3 F 72 18 146/67 H 94 09/19/23 00:15 99.3 F 72 18 142/74 H 95 09/18/23 21:59 75 09/18/23 20:16 97.7 F 78 18 166/82 H 97 O2 Del Method 09/19/23 07:20 09/19/23 03:54 Room Air 09/19/23 00:15 Room Air 09/18/23 21:59 09/18/23 20:16 Room Air PG Care Time/CCT Total # of Minutes Spent Total Time Spent with Patient: Total time spent is greater than 50% in coordination of care (as documented) at patient's floor/unit and/or counseling patient: Coding Level of Care Code 12932 SUB INP/OBS CARE 04/05MIN Diagnoses SBO (small bowel obstruction) K56.609
[2023-09-19] MEDS: THIAMINE HCL 200 MG in SODIUM CHLORIDE 0.9% 50 ML IV SCH (09:48)
[2023-09-19] MEDS: MAGNESIUM SULFATE / D5W 1 GM/100 ML BAG IV SCH (09:48)
[2023-09-19] MEDS: POTASSIUM CHLORIDE CRTAB 20 MEQ TABCR PO STA (09:48)
--- NOTE | 2023-09-19 15:09 | Hospitalist Progress Note ---
Date of Service September 19, 2023 Assessment & Plan (1) SBO (small bowel obstruction): Plan: 82-year-old woman admitted with small bowel obstruction, treated with bowel rest with NG tube and symptomatic care, General surgery consulted, bowel obstruction resolved of note -- has a parastomal hernia but this was not the cause of her SBO SBO was likely on the basis of adhesions given previous surgeries currently tolerating low fiber diet, monitor for recurrence of symptoms (2) UTI (urinary tract infection): Plan: 2nd MDR morganella (09/12/23 culture) had been on cefdinir as outpatient this was d/c upon admission abx changed to ertapenem day #6 of IV ertapenem today this should be sufficient duration if she is otherwise ready for discharge tomorrow repeat urine cx from admission remains negative (3) Hypokalemia: Plan: replaced, 20 mEq p.o. given today. 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 no issues (8) Hydronephrosis: Plan: bilateral chronic CT a/p in 2019 and 2020 showed b/l hydro then as well 09/2020 urology office visit with Dr Gabriel showed the following documentation from Dr Gabriel -- "Recently underwent urethral dilation, cystogram and retrograde pyelograms to evaluate her hydronephrosis I believe that urethral stricturing was the underlying pathology as she had an extremely tight urethra that resuscitated dilation to be able to complete the remainder of the testing Her upper tracts appeared to not have any obstruction nor did they reflux Her bladder is relatively modest in capacity and I wonder if the low capacity bladder may have hidden untrue underlying urinary retention issue" has followed with urology since then with periodic visits CT this admission with ongoing b/l hydronephrosis - certainly this will heighten her UTI risk Hydronephrosis was severe on right, moderate on left on 09/15/23 CT abd/pelvis She had urinary retention this admit requiring acevedo placement Acevedo remains in place The chronicity of the hydronephrosis suggests her urethra may be an issue once again Or perhaps she is having urinary reflux chronically Acutely the UTI would have exacerbated urinary retention, exacerbated any pre- existing urinary reflux, etc. consulted [facility] for their assistance Leave acevedo in place for now (9) Hypomagnesemia: Plan: replacing 09/18 (10) Hypercalcemia: Plan: total calcium level was 10.6 at admission now resolved likely was 2nd to dehydration no h/o hyperparathyroidism monitor (11) Chronic kidney disease, stage IV (severe): Plan: baseline CrCl 20s baseline Cr 1.5 to 1.6 Cr today is 1 and has been such for 3 days straight her creatinine has been much better than baseline this admission - perhaps combination of holding her BETI, giving IV fluids, and placing a acevedo -Cr <1 today Plan updated at bedside 09/17 appreciate pt/ot pa has progressed very nicely Admission and Anticipated Discharge Date Admission Date: September 14, 2023 Subjective doing well with respect to her bowels - tolerated low fiber diet for lunch, no nausea/emesis, no abdominal pain, good ostomy output urine in acevedo still pink never had dysuria - rather her original ED presenting symptoms 09/11 seem compatible with early SBO Physical Exam 2 Physical Exam: PHYSICAL EXAMINATION Last 24h vital signs reviewed, see documentation in flowsheet General: comfortable appearing, no distress, has just finished lunch HEENT: Normocephalic, atraumatic, pupils round and equal, sclerae anicteric, no conjunctival injection, moist mucus membranes Lungs: Normal respiratory effort. Clear to auscultation bilaterally. No RRW Heart: Regular rate and rhythm, no murmurs. No JVD Abdomen: Soft, nontender, nondistended. Bowel sounds present. pink ostomy left lower quadrant bag has just been emptied Extremities: Warm, dry, well-perfused. No extremity edema. Acevedo catheter with mildly pink clear drainage with some mucus and no clots Neuro: Alert and oriented x 4, face symmetric, moves 4 extremities well Psych: Normal affect and behavior Results & Data Results & Data Vital Signs (Past 12 Hours) Vital Signs Temp Pulse Pulse Resp BP BP Pulse Ox 09/19/23 14:41 77 09/19/23 11:35 36.7 C 67 16 148/77 H 97 09/19/23 08:23 36.8 C 65 16 157/78 H 96 09/19/23 07:20 70 09/19/23 03:54 37.4 C 72 18 146/67 H 94 O2 Del Method 09/19/23 14:41 09/19/23 11:35 Room Air 09/19/23 08:23 Room Air 09/19/23 07:20 09/19/23 03:54 Room Air Laboratory Results 09/16/23 06:34 09/19/23 06:11 PG Care Time/CCT Total # of Minutes Spent Total Time Spent with Patient: Total time spent is greater than 50% in coordination of care (as documented) at patient's floor/unit and/or counseling patient: Coding Level of Care Code 06104 SUB INP/OBS CARE 2MIN Diagnoses SBO (small bowel obstruction) K56.609 UTI (urinary tract infection) N39.0 Hypokalemia E87.6 Elevated lipase R74.8 History of endometrial cancer Z85.42 Hypertension I10 [address]ostomy [address] Z93.3 Hydronephrosis N13.30 Hydronephrosis type: unspecified Hypomagnesemia E83.42 Hypercalcemia E83.52 Chronic kidney disease, stage IV (severe) N18.4 (8) Hydronephrosis Hydronephrosis type: unspecified Qualified Code(s): N13.30 - Unspecified hydronephrosis
--- NOTE | 2023-09-19 16:28 | Urology Consultation ---
Date of Consultation September 19, 2023 Assessment & Plan (1) Acute UTI: (2) Hydronephrosis: (3) Urinary retention: Plan 82yo/F admitted with SBO and UTI. CT abdomen pelvis on arrival demonstrated severe right and moderate left hydronephrosis, no obstructing stone, and distended urinary bladder. Grullon catheter placed on admission for management of urinary retention. Afebrile and hemodynamically stable Labs show creatinine 0.96. Urine culture grew Morganella. Repeat urine culture negative. Blood cultures prelim no growth x48 hours. Grullon draining appropriately - urine is clear yellow. CT reviewed and shows chronic bilateral hydronephrosis which appears to have slightly worsened since prior imaging. Creatinine has improved after catheter placement. Would recommend maintaining Grullon catheter until outpatient follow-up with urology service. Will arrange follow-up for further work-up and possible voiding trial. Urology will sign off. Please call with any further questions or concerns. History of Present Illness Attending Physician: Shanta Hickman MD History of Present Illness 82-year-old female admitted with small bowel obstruction and UTI. CT abdomen pelvis on arrival demonstrated severe right and moderate left hydronephrosis, no obstructing stone, and distended urinary bladder. A Grullon catheter was placed on admit for management of urinary retention. INNA on admission which has resolved. Urine culture grew Morganella. Urology was asked to evaluate patient due to urinary retention and bilateral hydronephrosis. Patient is known to the urology service, follows with Dr. Gabriel. History of urethral dilation in July [address] Gabriel. History of recurrent UTI on Nitrofurantoin suppression. Patient seen at bedside today. Awake, resting bed on arrival. No acute distress. Grullon intact and draining clear yellow urine. Allergies Allergy/AdvReac Type Severity Reaction Status Date / Time No Known Allergies Allergy Verified 09/12/23 15:48 Home Medications Medication Instructions Recorded Confirmed Type multivitamin (Multiple Vitamins 1 tab PO QDL 02/13/18 09/14/23 History tablet) omega 5-yet-ffi-fish oil 1,000 mg 2,000 mg PO QDL 02/13/18 09/14/23 History (120 mg-180 mg) capsule (Fish Oil) calcium citrate 250 mg 1 tab PO QAM 05/08/19 09/14/23 History calcium-vitamin D3 5 mcg (200 unit) tablet (Citracal Regular) lutein 20 mg capsule 20 mg PO QPM 10/14/19 09/14/23 History lycopene 10 mg capsule 10 mg PO QPM 10/14/19 09/14/23 History mirabegron 50 mg tablet,extended 50 mg PO DAILY #90 tabs 04/09/23 09/14/23 Rx release 24 hr (Myrbetriq) nitrofurantoin macrocrystal 50 mg 50 mg PO QPM #90 caps 05/10/23 09/14/23 Rx capsule conjugated estrogens 0.625 mg/gram 0.25 applic vaginal 2XWK #30 grams 05/31/23 09/14/23 Rx vaginal cream lisinopril 10 mg tablet 10 mg PO HS #90 tabs 08/22/23 09/14/23 Rx ascorbic acid (vitamin C) 1,000 mg 1 g PO DAILY 09/12/23 09/14/23 History tablet (Vitamin C) Patient History Medical History Cancer SQUAMOUS CELL REMOVED SBO (small bowel obstruction) Cardiac murmur Questionable. Per PCP records in plan section but no murmur noted on physical exam per PCP notes Biliary sludge DVT prophylaxis Hyperbilirubinemia Abdominal pain SBO (small bowel obstruction) Vomiting Nausea Abdominal pain Pain in joint involving left ankle and foot Rhinorrhea Dehydration Hyponatremia Acute UTI (urinary tract infection) Sepsis Small bowel obstruction Hx of recurrence SBO, most recently with partial SBO (06/28) felt to be 2/2 previous surgeries and adhesions related to endometrial ca treatment Hypertension Colostomy in place Placed after proctosigmoidectomy for non healing rectal ulcer in 2007 Surgical History History of esophagogastroduodenoscopy (EGD) History of partial colectomy FOR RECTAL PROLAPSE History of colonoscopy MULTIPLE LAST ONE 2007 S/P tonsillectomy History of total abdominal hysterectomy 1993 S/P colostomy Family History Daughter Systemic lupus Mother Myocardial infarction Heart disease Brother Pancreatic cancer Brain cancer Lung cancer Father Alcohol abuse Denies family history of Ovarian cancer Prostate cancer Breast cancer Colorectal cancer Stroke Social History Smoking Status: Never smoker Second Hand Exposure: No; Do You Dip or Chew Tobacco: No; Hx Alcohol Use: Yes Alcohol type: beer Alcohol Intake Frequency: Monthly or Less Hx Substance Use: No Preferred Language: Latvian Communication Ability: Effective Visual Impairment: No Limitations Hearing Ability: Normal Assistant Professor Of Radiology Required: No Beliefs That Will Affect Care: None marital status: Current Living Situation: Spouse Current Living Situation Comment: Home with current occupational status: retired Other Information That Helps Us Care for You: No Feels Safe at Home: Yes Safety Concerns: Feels Safe At This Time Childhood Exposure to Second-Hand Smoke: Yes Dental Care, Regularly: Yes Physical Activity Frequency: Daily Seatbelt Use: always Sunscreen Use: Yes Assistive Devices: Glasses Review of Systems Review of Systems: All systems reviewed & are unremarkable except as noted in HPI & below Physical Exam Constitutional: no acute distress Neck: normal visual inspection Respiratory: no respiratory distress and no labored breathing Musculoskeletal: Head/Neck/Chest: normocephalic Skin: No visible rashes or lesions to exposed skin areas Neurologic: awake Psychiatric: A+Ox3, euthymic affect Genitourinary: Grullon catheter intact, draining clear yellow urine Results & Data Vital Signs (Past 12 Hours) Vital Signs Temp Pulse Pulse Resp BP BP Pulse Ox 09/19/23 16:05 36.9 C 75 20 123/71 98 09/19/23 14:41 77 09/19/23 11:35 36.7 C 67 16 148/77 H 97 09/19/23 08:23 36.8 C 65 16 157/78 H 96 09/19/23 07:20 70 O2 Del Method 09/19/23 16:05 Room Air 09/19/23 14:41 09/19/23 11:35 Room Air 09/19/23 08:23 Room Air 09/19/23 07:20 PG Care Time/CCT Total # of Minutes Spent Total Time Spent with Patient: Total time spent is greater than 50% in coordination of care (as documented) at patient's floor/unit and/or counseling patient: Coding Level of Care Code 83588 INT INP/OBS CARE 2/55MIN Diagnoses Acute UTI N39.0 Hydronephrosis N13.30 Hydronephrosis type: unspecified Urinary retention R33.9 (2) Hydronephrosis Hydronephrosis type: unspecified Qualified Code(s): N13.30 - Unspecified hydronephrosis
--- NOTE | 2023-09-20 09:26 | XRay Report ---
KUB CLINICAL HISTORY: Vomiting. Bowel obstruction. FINDINGS: An AP, portable, supine abdominal radiograph is compared to study dated 09/18/2023 and correl ated with abdominal CT dated 09/15/2023. An enteric tube has been removed. An ostomy projects over the left lower quadrant. There is persistent gaseous distention of the small bowel loops suggesting resid ual obstruction. Gas is also seen within the right colon. No evidence of intraperitoneal free air is identified on this supine image. Residual enteric contrast is observed. There are no abnormal abdomin al calcifications. Phleboliths are seen in the pelvis. The skeletal structures are osteopenic and ai ear intact. Small pleural effusions are suggested at the lung bases. IMPRESSION: 1. An enteric tube has been removed. 2. There is continued gaseous distention of the small bowel loops suggesting persistent obstruction. Electronically signed by: Chencho Vasques M.D. 09/20/2023 9:24 AM
[2023-09-20 09:31] LABS: Hematocrit (blood only) 32.5 % (37.0-47.0); Hemoglobin 10.8 g/dl (12.0-16.0); Mean Corpuscular Hemoglobin 28.8 pg (25.0-34.0); Mean Corpuscular Hgb Conc 33.2 g/dL (32.0-36.0); Mean Corpuscular Volume 86.7 fL (80.0-100.0); Platelet Count 302 K/uL (130-400); RDW Coefficient of Variation 14.1 % (11.5-14.5); RDW Standard Deviation 44.5 fL (36.4-46.3); Red Blood Count 3.75 M/uL (4.20-5.40); White Blood Count 7.68 K/ul (4.8-10.8)
[2023-09-20 09:51] LABS: Albumin Globulin Ratio 1.2 (0.9-2); Albumin Level 3.2 gm/dl (3.4-5.0); BUN Creatinine Ratio 25.5 (10-20); Bilirubin,Total 0.7 mg/dl (0.2-1.0); Calcium 8.1 mg/dl (8.6-10.3); Creatinine Clr Calc Pharmacy 30.3 ml/min; Est GFR (African American) 57.4 ml/min; Est GFR (Non-African American) 49.6 ml/min; Globulin 2.6 gm/dl (2.5-4.0); Potassium 3.4 mmol/L (3.5-5.1); Total Protein 5.8 gm/dl (6.0-8.3)
--- NOTE | 2023-09-20 10:21 | Surgery Progress Note ---
Date of Service September 20, 2023 Assessment & Plan (1) SBO (small bowel obstruction): Plan: emesis overnight and this AM KUB from this Am reading persistent obstruction tolerating clears for breakfast will continue this throughout the day NPO if vomiting occurs again abd soft non tender air and liquid stool in ostomy bag VSS encouraged ambulation will follow as above. asked to weigh in again secondary to n/v. I do not believe she is obstructed. had lengthy conversation with her and her tonight. I suspect more likely ileus related possibly to her urinary issues. will as GI to consider EGD as well to eval etiology of her n/v. SBFT went from mouth to stoma in20 mins with no indication of obstruction yesterday. if surgery needed wants transfer to [facility] where her other surgeries were done. they are also worried about her nutrition...will d/w primary service tomorrow. Admission and Anticipated Discharge Date Admission Date: September 14, 2023 Subjective pt seen at bedside reports no abd pain flatus and sm amt liquid stool in ostomy bag vomited last night once and once early this am had clear liquid for breakfast tolerating without n/v Review of Systems Gastrointestinal: + nausea and + vomiting; no abdominal pa in Physical Exam Gastrointestinal (Abdomen): Inspection/Auscultation: abdomen not distended Percussion/Palpation: abdomen soft; abdomen nontender and no guarding Results & Data Vital Signs (Past 12 Hours) Vital Signs Temp Pulse Pulse Resp BP BP Pulse Ox 09/20/23 07:34 99.1 F 83 16 169/93 H 96 09/20/23 03:16 99.1 F 70 18 141/70 H 95 09/19/23 23:44 195/97 H 09/19/23 23:20 72 09/19/23 22:38 98.8 F 88 20 193/89 H 94 O2 Del Method 09/20/23 07:34 Room Air 09/20/23 03:16 Room Air 09/19/23 23:44 09/19/23 23:20 09/19/23 22:38 Room Air Diagnostic Findings [facility] [place] [phone] XRay Report Patient: SHIVA GUO Admit Date: 09/14/23 MR#: [id number] Address1: [address] [place] [address] DR Acct ID:[id number] Address2: Date: 1940 [facility] Zip: [place] [address] Age: 82 Location: 2N Sex: F Room/Bed: [facility] Att Phy: Shanta Hickman MD Diagnosis: ABDOMINAL PAIN, UCX RESULTS Khushi Phy: Arian Shah MD Service Date: 09/20/23 Fam Phy: Interpreting Phy: Chencho Vasques [facility] Phy: Scott Mayo MD Ordering Phy: Shanta Hickman MD cc: ~ KUB CLINICAL HISTORY: Vomiting. Bowel obstruction. FINDINGS: An AP, portable, supine abdominal radiograph is compared to study dated 09/18/2023 and correlated with abdominal CT dated 09/15/2023. An enteric tube has been removed. An ostomy projects over the left lower quadrant. There is persistent gaseous distention of the small bowel loops suggesting residual obstruction. Gas is also seen within the right colon. No evidence of intraperitoneal free air is identified on this supine image. Residual enteric contrast is observed. There are no abnormal abdominal calcifications. Phleboliths are seen in the pelvis. The skeletal structures are osteopenic and appear intact. Small pleural effusions are suggested at the lung bases. IMPRESSION: 1. An enteric tube has been removed. 2. There is continued gaseous distention of the small bowel loops suggesting persistent obstruction. Electronically signed by: Chencho Vasques M.D. 09/20/2023 9:24 AM Dictated: 09/20/23922 Transcribed: 09/20/23922 PG Care Time/CCT Total # of Minutes Spent Total Time Spent with Patient: Total time spent is greater than 50% in coordination of care (as documented) at patient's floor/unit and/or counseling patient: Coding Level of Care Code 15700 SUB INP/OBS CARE 2/35MIN Diagnoses SBO (small bowel obstruction) K56.609
[2023-09-20] MEDS: POTASSIUM CHLORIDE / WTR 10 MEQ/100 ML PLCT IV SCH (10:48)
[2023-09-20] MEDS: SODIUM CHLOR 0.45% + 20MEQ KCL 20 MEQ/1,000 ML BAG IV SCH (11:24)
[2023-09-20] MEDS: SODIUM CHLORIDE 0.45 % 1,000 ML IV SCH ×2 (12:10→14:08)
[2023-09-20] MEDS: POTASSIUM CHLORIDE PWD 20 MEQ PACK PO ONE (14:13)
--- NOTE | 2023-09-20 17:05 | Hospitalist Progress Note ---
Date of Service September 20, 2023 Assessment & Plan (1) SBO (small bowel obstruction): Plan: 82-year-old woman admitted with small bowel obstruction thought related to adhesions, treated with bowel rest with NG tube and symptomatic care, General surgery consulted, bowel obstruction seemed to have resolved with no obstruction on SBFT 09/17. Diet was advanced but developed nausea/vomiting with persistent distention evening of 09/18 -ordered repeat KUB this AM with persistent dilation of bowel, CBC CMP lipase unremarkable -discussed with surgery who will reevaluate -clear liquid diet, make NPO if significant ongoing emesis -replace electrolytes -discussed with her at bedside this afternoon - he feels like this episode is different from several previous SBOs that she has had (2) UTI (urinary tract infection): Plan: 2nd MDR morganella (09/12/23 culture) had been on cefdinir as outpatient completed 7 days of ertapenem as of 09/19 (3) Hypokalemia: Plan: replaced, with another 20 mEq p.o. given today. couldn't tolerate IV replacement -AM BMP, mag (4) Elevated lipase: Plan: minimally elevated lipase without signs symptoms of acute pancreatitis, no findings compatible with pancreatitis on repeat CTs. 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 09/2020 underwent urethral dilation, cystogram and retrograde pyelograms by Dr. Gabriel who felt the urethral stricture was the cause of the hydro had acute urinary retention this admission and acevedo catheter was placed. Consulted urology who recommended continue acevedo until follow-up in Urology clinic which they will arrange. (9) Hypomagnesemia: Plan: replacing 09/18 (10) Hypercalcemia: Plan: total calcium level was 10.6 at admission now resolved likely was 2nd to dehydration no h/o hyperparathyroidism monitor (11) Chronic kidney disease, stage IV (severe): Plan: baseline CrCl 20s baseline Cr 1.5 to 1.6 Cr has been 1 throughout this week (has acevedo, BETI is held) Plan updated at bedside 09/17, 09/19 appreciate pt/ot pa Admission and Anticipated Discharge Date Admission Date: September 14, 2023 Subjective seemed to have resolved obstruction and tolerated advancement of diet through yesterday evening had large emesis last night, this am, and small emesis this afternoon however remains distended but no abdominal pain. continues to have stool from ostomy but less today Physical Exam 2 Physical Exam: PHYSICAL EXAMINATION Last 24h vital signs reviewed, see documentation in flowsheet General: sitting up in bed, no distress HEENT: Normocephalic, atraumatic, pupils round and equal, sclerae anicteric, no conjunctival injection, moist mucus membranes Lungs: Normal respiratory effort. Clear to auscultation bilaterally. No RRW Heart: Regular rate and rhythm, no murmurs. No JVD Abdomen: Soft, nontender, moderately distended distended. Bowel sounds present. pink ostomy with easily reducible wide parastomal hernia left lower quadrant, small amt of stool in bag Extremities: Warm, dry, well-perfused. No extremity edema. Acevedo catheter with clear urine Neuro: Alert and oriented x 4, face symmetric, moves 4 extremities well Psych: Normal affect and behavior Results & Data Results & Data Vital Signs (Past 12 Hours) Vital Signs Temp Pulse Pulse Resp BP Pulse Ox O2 Del Method 09/20/23 16:21 37.1 C 72 16 149/78 H 96 Room Air 09/20/23 11:36 36.9 C 69 16 156/82 H 96 Room Air 09/20/23 08:00 77 09/20/23 07:34 37.3 C 83 16 169/93 H 96 Room Air Laboratory Results 09/20/23 08:45 09/20/23 08:45 PG Care Time/CCT Total # of Minutes Spent Total Time Spent with Patient: Total time spent is greater than 50% in coordination of care (as documented) at patient's floor/unit and/or counseling patient: Coding Level of Care Code 31508 SUB INP/OBS CARE 3/50MIN Diagnoses SBO (small bowel obstruction) K56.609 UTI (urinary tract infection) N39.0 Hypokalemia E87.6 Elevated lipase R74.8 History of endometrial cancer Z85.42 Hypertension I10 Colostomy [address] Z93.3 Hydronephrosis N13.30 Hydronephrosis type: unspecified Hypomagnesemia E83.42 Hypercalcemia E83.52 Chronic kidney disease, stage IV (severe) N18.4 (8) Hydronephrosis Hydronephrosis type: unspecified Qualified Code(s): N13.30 - Unspecified hydronephrosis
[2023-09-21 05:59] LABS: Hematocrit (blood only) 29.8 % (37.0-47.0); Hemoglobin 9.7 g/dl (12.0-16.0); Mean Corpuscular Hemoglobin 28.3 pg (25.0-34.0); Mean Corpuscular Hgb Conc 32.6 g/dL (32.0-36.0); Mean Corpuscular Volume 86.9 fL (80.0-100.0); Mean Platelet Volume 10.3 fL (9.4-12.4); Platelet Count 265 K/uL (130-400); RDW Coefficient of Variation 14.1 % (11.5-14.5); RDW Standard Deviation 44.5 fL (36.4-46.3); Red Blood Count 3.43 M/uL (4.20-5.40); White Blood Count 5.08 K/ul (4.8-10.8)
[2023-09-21 06:10] LABS: BUN Creatinine Ratio 23.9 (10-20); Calcium 7.5 mg/dl (8.6-10.3); Est GFR (African American) 68.2 ml/min; Est GFR (Non-African American) 58.8 ml/min; Magnesium 1.6 mg/dl (1.7-2.4); Potassium 3.8 mmol/L (3.5-5.1)
[2023-09-21] MEDS ORDERED: TPN/PPN CONSULT PHARMACY STA (10:03)
[2023-09-21] MEDS ORDERED: DEXTROSE 10% 1,000 ML IV PRN (10:03)
--- NOTE | 2023-09-21 10:15 | Hospitalist Progress Note ---
Date of Service September 21, 2023 Assessment & Plan (1) Acute UTI: Plan: UCx on 09/11 grew Morganella Morganii; patient was instructed to return to the ED Start patient on ertapenem 1000 mg IV q24h IVF resuscitation with NSS at 100mL/hr x 2 L Strict I&O monitoring A.m. CBC, BMP, mag (2) Abdominal pain: Plan: Patient endorses 9/10 generalized abdominal pain on arrival Hx of SBO, patient reports it feels similar to past episodes Mildly elevated lipase at 101 However, A/P CT on 09/11 revealed no obstruction and unremarkable pancreas, and repeat KUB on 09/13 revealed no obstructive gas pattern Acetaminophen as needed for pain/fever Dilaudid IV every 4 hours as needed for breakthrough pain Zofran as needed for nausea/vomiting NPO for now except sips/chips and p.o. meds, then advance to clear liquid diet as tolerated (3) Hypertension: Plan: Hold lisinopril for now given renal function (4) History of recurrent UTI (urinary tract infection): Plan Disposition: Admit to [facility] telemetry Full code NPO (except p.o. meds) then advance to clear liquid diet as tolerated VTE PPx: SCDs Admission and Anticipated Discharge Date Admission Date: September 14, 2023 Subjective had a good night with no emesis and large ostomy output, feels hungry spoke with GI this am, going to hold off on endoscopy today since she seems to be improving Physical Exam 2 Physical Exam: PHYSICAL EXAMINATION Last 24h vital signs reviewed, see documentation in flowsheet General: sitting up in bed, no distress, color is better today HEENT: Normocephalic, atraumatic, pupils round and equal, sclerae anicteric, no conjunctival injection, moist mucus membranes Lungs: Normal respiratory effort. Clear to auscultation bilaterally. No RRW Heart: Regular rate and rhythm, no murmurs. No JVD Abdomen: Soft, nontender, moderately distended. active Bowel sounds present. pink ostomy with easily reducible wide parastomal hernia left lower quadrant, bag was just emptied Extremities: Warm, dry, well-perfused. No extremity edema. Grullon catheter with clear urine Neuro: Alert and oriented x 4, face symmetric, moves 4 extremities well Psych: Normal affect and behavior Results & Data Results & Data Vital Signs (Past 12 Hours) Vital Signs Temp Pulse Pulse Resp BP Pulse Ox O2 Del Method 09/21/23 08:19 128/80 09/21/23 07:45 36.6 C 77 173/81 H 97 Room Air 09/21/23 07:26 66 09/21/23 04:33 37.3 C 72 16 156/69 H 98 Room Air 09/20/23 23:59 37.2 C 75 18 168/75 H 97 Room Air 09/20/23 22:48 73 Laboratory Results 09/21/23 05:24 09/21/23 05:24 PG Care Time/CCT Total # of Minutes Spent Total Time Spent with Patient: Total time spent is greater than 50% in coordination of care (as documented) at patient's floor/unit and/or counseling patient: Coding Diagnoses Acute UTI N39.0 Abdominal pain R10.84 Abdominal location: generalized Hypertension I10 History of recurrent UTI (urinary tract infection) Z87.440 (2) Abdominal pain Abdominal location: generalized Qualified Code(s): R10.84 - Generalized abdominal pain
--- NOTE | 2023-09-21 10:25 | Hospitalist Progress Note ---
Date of Service September 21, 2023 Assessment & Plan (1) SBO (small bowel obstruction): Plan: 82-year-old woman admitted with small bowel obstruction thought related to adhesions, treated with bowel rest with NG tube and symptomatic care, General surgery consulted, bowel obstruction seemed to have resolved with no obstruction on SBFT 09/17. Diet was advanced but developed nausea/vomiting with persistent distention evening of 09/18. Back to clears 09/19 but has had no further nausea, good appetite and large stool output overnight. GI consulted to consider endoscopy but deferring for today since improving. could be an ileus related to UTI. -repeat KUB this AM with persistent dilation of bowel but gas present throughout improved compared to yeterday by my interpretation of the film read is pending -surgery and GI consulting -clear liquid diet. Starting PPN, discussed with pharmacist. -momnitor and replace electrolytes -discussed with her at bedside 09/19 and by phone 09/20 (2) UTI (urinary tract infection): Plan: 2nd MDR morganella (09/12/23 culture) had been on cefdinir as outpatient completed 7 days of ertapenem as of 09/19 stop gemtesa since having urinary obstruction and UTI (3) Hypokalemia: Plan: replaced, K wnl today (4) Elevated lipase: Plan: minimally elevated lipase without signs symptoms of acute pancreatitis, no findings compatible with pancreatitis on repeat CTs. 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 09/2020 underwent urethral dilation, cystogram and retrograde pyelograms by Dr. Gabriel who felt the urethral stricture was the cause of the hydro had acute urinary retention this admission and acevedo catheter was placed. Consulted urology who recommended continue acevedo until follow-up in Urology clinic which they will arrange. (9) Hypomagnesemia: Plan: replaced (10) Hypercalcemia: Plan: total calcium level was 10.6 at admission now resolved likely was 2nd to dehydration no h/o hyperparathyroidism monitor (11) Chronic kidney disease, stage IV (severe): Plan: baseline CrCl 20s baseline Cr 1.5 to 1.6 Cr has been 1 throughout this week (has acevedo, IV fluids, BETI is held) Plan DVT ppx - SQ heparin q12 Admission and Anticipated Discharge Date Admission Date: September 14, 2023 Physical Exam 2 Physical Exam: PHYSICAL EXAMINATION Last 24h vital signs reviewed, see documentation in flowsheet General: sitting up in bed, no distress, eating clears tray, color is better HEENT: Normocephalic, atraumatic, pupils round and equal, sclerae anicteric, no conjunctival injection, moist mucus membranes Lungs: Normal respiratory effort. Clear to auscultation bilaterally. No RRW Heart: Regular rate and rhythm, no murmurs. No JVD Abdomen: Soft, nontender, mod distended improved?. Active normal bowel sounds present. pink ostomy with easily reducible wide parastomal hernia left lower quadrant, no stool in bag just emptied Extremities: Warm, dry, well-perfused. No extremity edema. Acevedo catheter with clear urine Neuro: Alert and oriented x 4, face symmetric, moves 4 extremities well Psych: Normal affect and behavior Results & Data Results & Data Vital Signs (Past 12 Hours) Vital Signs Temp Pulse Pulse Resp BP Pulse Ox O2 Del Method 09/21/23 08:19 128/80 09/21/23 07:45 36.6 C 77 173/81 H 97 Room Air 09/21/23 07:26 66 09/21/23 04:33 37.3 C 72 16 156/69 H 98 Room Air 09/20/23 23:59 37.2 C 75 18 168/75 H 97 Room Air 09/20/23 22:48 73 Laboratory Results 09/21/23 05:24 09/21/23 05:24 PG Care Time/CCT Total # of Minutes Spent Total Time Spent with Patient: Total time spent is greater than 50% in coordination of care (as documented) at patient's floor/unit and/or counseling patient: Coding Level of Care Code 69232 SUB INP/OBS CARE 3/50MIN Diagnoses SBO (small bowel obstruction) K56.609 UTI (urinary tract infection) N39.0 Hypokalemia E87.6 Elevated lipase R74.8 History of endometrial cancer Z85.42 Hypertension I10 [address] Z93.3 Hydronephrosis N13.30 Hydronephrosis type: unspecified Hypomagnesemia E83.42 Hypercalcemia E83.52 Chronic kidney disease, stage IV (severe) N18.4 (8) Hydronephrosis Hydronephrosis type: unspecified Qualified Code(s): N13.30 - Unspecified hydronephrosis
[2023-09-21] MEDS ORDERED: TPN/PPN CONSULT PHARMACY PRN (10:30)
--- NOTE | 2023-09-21 10:35 | XRay Report ---
KUB HISTORY: Recent small bowel obstruction. COMPARISON: KUB 09/20/2023. FINDINGS: Mild gaseous distention of the small bowel loops suggestive of a persistent obstruction. Th e left lower quadrant ostomy is again noted. There is gas within the nondistended colon. No renal ca lculi. No ureteral calculi. No pneumoperitoneum or pneumatosis. IMPRESSION: Mild gaseous distention of the small bowel suggesting a persistent obstruction. ACT 112: Negative or not required by law. Electronically signed by: Abraham Mallory M.D. 09/21/2023 10:34 AM
[2023-09-21 11:01] LABS: BUN Creatinine Ratio 22.1 (10-20); Bilirubin,Total 0.7 mg/dl (0.2-1.0); Calcium 8.2 mg/dl (8.6-10.3); Est GFR (African American) 65.6 ml/min; Est GFR (Non-African American) 56.6 ml/min; Magnesium 1.6 mg/dl (1.7-2.4); Phosphorus 1.6 mg/dl (2.5-4.9); Potassium 3.3 mmol/L (3.5-5.1)
--- NOTE | 2023-09-21 11:05 | Gastrointestinal Consultation ---
<Statement entered by Mike Seth MD - 09/21/23 17:40> Patient seen and examined. Case discussed with PA. Also spoke with patient's bedside. She feels improved and has had good ostomy output today. No N/V Tolerating po Agree to advance diet as tolerated. No current need for endoscopic evaluation. IP GI Service will sign off. Please recall as needed. Date of Consultation September 21, 2023 Assessment & Plan (1) Nausea & vomiting: (2) SBO (small bowel obstruction): Plan Patient's nausea and vomiting has seemed to have resolved. we had discussed about an EGD to evaluate but given that her symptoms have improved, she would like to hold off. I think this is reasonable due to recent SBO. she is going to discuss further with her and let us know if she would want any endoscopic procedures. - continue with protonix 40mg IV daily. - she was asking to see how she does with her diet. Can assess how she does with breakfast. History of Present Illness Reason for Consultation: nausea / vomiting Requesting Physician: Dylan Pringle DO Attending Physician: Shanta Hickman MD History of Present Illness Patient is an 82 year old female with past medical history of HTN, endometrial cancer, recurrent UTI, CKD stage III, and urethral stricture. She originally presented to [facility] on 09/11 for UTI and was given antibiotics; she was then called back to the hospital for IV antibiotics after culture results on 09/13. Urine culture on 09/11 grew Morganella morganii. During this admission she had imaging suggestive of ileus and SBO. she had some ongoing nausea/vomiting and a GI consultation was recommended. she has a history of a colostomy with 15 inches of colon removed in 2007 secondary to rectal ulcers from past treatment of endometrial cancer. She has had numerous SBO in the past that were felt to be related to past abdominal surgeries related to her endometrial cancer. She tells me that today she actually feels well. no further nausea/vomiting since yesterday. she feels her appetite is coming back. she also has seen her ostomy output has increased. no abdominal pain. no blood in the stools or melena. Allergies Allergy/AdvReac Type Severity Reaction Status Date / Time No Known Allergies Allergy Verified 09/12/23 15:48 Home Medications Medication Instructions Recorded Confirmed Type multivitamin (Multiple Vitamins 1 tab PO QDL 02/13/18 09/14/23 History tablet) omega 7-ltp-xab-fish oil 1,000 mg 2,000 mg PO QDL 02/13/18 09/14/23 History (120 mg-180 mg) capsule (Fish Oil) calcium citrate 250 mg 1 tab PO QAM 05/08/19 09/14/23 History calcium-vitamin D3 5 mcg (200 unit) tablet (Citracal Regular) lutein 20 mg capsule 20 mg PO QPM 10/14/19 09/14/23 History lycopene 10 mg capsule 10 mg PO QPM 10/14/19 09/14/23 History mirabegron 50 mg tablet,extended 50 mg PO DAILY #90 tabs 04/09/23 09/14/23 Rx release 24 hr (Myrbetriq) nitrofurantoin macrocrystal 50 mg 50 mg PO QPM #90 caps 05/10/23 09/14/23 Rx capsule conjugated estrogens 0.625 mg/gram 0.25 applic vaginal 2XWK #30 grams 05/31/23 09/14/23 Rx vaginal cream lisinopril 10 mg tablet 10 mg PO HS #90 tabs 08/22/23 09/14/23 Rx ascorbic acid (vitamin C) 1,000 mg 1 g PO DAILY 09/12/23 09/14/23 History tablet (Vitamin C) Patient History Medical History Cancer SQUAMOUS CELL REMOVED SBO (small bowel obstruction) Cardiac murmur Questionable. Per PCP records in plan section but no murmur noted on physical exam per PCP notes Biliary sludge DVT prophylaxis Hyperbilirubinemia Abdominal pain SBO (small bowel obstruction) Vomiting Nausea Abdominal pain Pain in joint involving left ankle and foot Rhinorrhea Dehydration Hyponatremia Acute UTI (urinary tract infection) Sepsis Small bowel obstruction Hx of recurrence SBO, most recently with partial SBO (06/28) felt to be 2/2 previous surgeries and adhesions related to endometrial ca treatment Hypertension Colostomy in place Placed after proctosigmoidectomy for non healing rectal ulcer in 2007 Surgical History History of esophagogastroduodenoscopy (EGD) History of partial colectomy FOR RECTAL PROLAPSE History of colonoscopy MULTIPLE LAST ONE 2007 S/P tonsillectomy History of total abdominal hysterectomy 1992 S/P colostomy Family History Daughter Systemic lupus Mother Myocardial infarction Heart disease Brother Pancreatic cancer Brain cancer Lung cancer Father Alcohol abuse Denies family history of Ovarian cancer Prostate cancer Breast cancer Colorectal cancer Stroke Social History Smoking Status: Never smoker Second Hand Exposure: No; Do You Dip or Chew Tobacco: No; Hx Alcohol Use: Yes Alcohol type: beer Alcohol Intake Frequency: Monthly or Less Hx Substance Use: No Preferred Language: Egyptian Communication Ability: Effective Visual Impairment: No Limitations Hearing Ability: Normal Cook Helper Vegetable Required: No Beliefs That Will Affect Care: None marital status: Current Living Situation: Spouse Current Living Situation Comment: Home with current occupational status: retired Other Information That Helps Us Care for You: No Feels Safe at Home: Yes Safety Concerns: Feels Safe At This Time Childhood Exposure to Second-Hand Smoke: Yes Dental Care, Regularly: Yes Physical Activity Frequency: Daily Seatbelt Use: always Sunscreen Use: Yes Assistive Devices: Glasses Review of Systems Review of Systems: All systems reviewed & are unremarkable except as noted in HPI & below Physical Exam Constitutional: WD/WN, vitals as above Respiratory: normal respiratory effort, lungs clear to auscultation Cardiovascular: RRR, no murmur, no edema Gastrointestinal (Abdomen): ostomy in place. nontender, soft, normal bowel sounds. Psychiatric: Orientation: alert and oriented x 3 Affect: euthymic affect Results & Data Vital Signs (Past 12 Hours) Vital Signs Temp Pulse Pulse Resp BP Pulse Ox O2 Del Method 09/21/23 11:03 97.5 F L 70 124/69 98 Room Air 09/21/23 08:19 128/80 09/21/23 07:45 97.9 F 77 173/81 H 97 Room Air 09/21/23 07:26 66 09/21/23 04:33 99.1 F 72 16 156/69 H 98 Room Air 09/20/23 23:59 99.0 F 75 18 168/75 H 97 Room Air Coding Level of Care Code 54679 INT INP/OBS CARE 2/55MIN Diagnoses Nausea & vomiting R11.2 SBO (small bowel obstruction) K56.606
--- NOTE | 2023-09-21 11:08 | Surgery Progress Note ---
Date of Service September 21, 2023 Assessment & Plan (1) SBO (small bowel obstruction): Plan: would continue on clear liquids as tolerated instructed to back off if feeling sick VSS + ostomy o/p Abd soft non tender KUB from this am still showing some distention of bowels , this may be a ongoing/chronic ? Will follow Admission and Anticipated Discharge Date Admission Date: September 14, 2023 Subjective Pt reports she is feeling much better than yesterday Well rested, no abd pain Reports ostomy bag was full this AM Stated she had a clear liquid breakfast and it tasted good , tolerating without n/v Review of Systems Respiratory: no dyspnea Cardiovascular: no chest pain Gastrointestinal: no abdominal pain, no nausea and no vomiting Physical Exam 2 Constitutional: cooperative and comfortable; no acute distress Respiratory: normal respiratory effort and able to speak in complete sentences ; no respiratory distress Cardiovascular: Rate/Rhythm: regular rate Gastrointestinal (Abdomen): Inspection/Auscultation: + abdominal surgical drain present (colostomy ); abdomen not distended Percussion/Palpation: abdomen soft; no guarding Results & Data Vital Signs (Past 12 Hours) Vital Signs Temp Pulse Pulse Resp BP Pulse Ox O2 Del Method 09/21/23 08:19 128/80 09/21/23 07:45 97.9 F 77 173/81 H 97 Room Air 09/21/23 07:26 66 09/21/23 04:33 99.1 F 72 16 156/69 H 98 Room Air 09/20/23 23:59 99.0 F 75 18 168/75 H 97 Room Air PG Care Time/CCT Total # of Minutes Spent Total Time Spent with Patient: Total time spent is greater than 50% in coordination of care (as documented) at patient's floor/unit and/or counseling patient: Coding Level of Care Code 94745 SUB INP/OBS CARE 04/05MIN Diagnoses SBO (small bowel obstruction) K56.609
[2023-09-21] MEDS ORDERED: SODIUM PHOSPHATE 3 MMOL/1 ML INFUSION IV STA (11:18)
[2023-09-21] MEDS: SODIUM PHOSPHATE 21 MMOL in SODIUM CHLORIDE 0.9% 500 ML IV ONE (12:34)
[2023-09-21] MEDS: POTASSIUM CHLORIDE CRTAB 20 MEQ TABCR PO STA (12:34)
[2023-09-21] MEDS ORDERED: [UNRECOGNIZED DRUG - REMARK] ONE (15:59)
[2023-09-21 18:41] LABS: Phosphorus 3.5 mg/dl (2.5-4.9)
[2023-09-21 18:42] LABS: Potassium 3.7 mmol/L (3.5-5.1)
[2023-09-22 06:49] LABS: BUN Creatinine Ratio 20.9 (10-20); Calcium 7.8 mg/dl (8.6-10.3); Creatinine Clr Calc Pharmacy 36.5 ml/min; Est GFR (African American) 73.9 ml/min; Est GFR (Non-African American) 63.8 ml/min; Magnesium 1.5 mg/dl (1.7-2.4); Phosphorus 2.4 mg/dl (2.5-4.9)
--- NOTE | 2023-09-22 07:31 | Hospitalist Progress Note ---
Date of Service September 22, 2023 Assessment & Plan (1) SBO (small bowel obstruction): Plan: 82-year-old woman admitted with small bowel obstruction thought related to adhesions, treated with bowel rest with NG tube and symptomatic care, General surgery consulted, bowel obstruction seemed to have resolved with no obstruction on SBFT 09/17. Diet was advanced but developed nausea/vomiting with persistent distention evening of 09/18. Back to clears 09/19 but after that has had no further nausea, good appetite and large stool output from colostomy. GI consulted to consider endoscopy 09/20 but deferring since improving. could be an ileus related to UTI. - tolerating full liquid diet well, if continues to do well we will try low fiber for dinner - General surgery consulted, signed off - replacing hypomagnesemia with 2 g IV today. phosphorus was repleted now normal at 2.4. potassium is normal (2) UTI (urinary tract infection): Plan: 2nd MDR morganella (09/12/23 culture) had been on cefdinir as outpatient completed 7 days of ertapenem as of 09/19 stop gemtesa since having urinary obstruction and UTI (3) Hypokalemia: Plan: replaced hypophosphatemia and hypomagnesemia also replaced (4) Elevated lipase: Plan: minimally elevated lipase without signs symptoms of acute pancreatitis, no findings compatible with pancreatitis on repeat CTs. 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 09/2020 underwent urethral dilation, cystogram and retrograde pyelograms by Dr. Gabriel who felt the urethral stricture was the cause of the hydro had acute urinary retention this admission and acevedo catheter was placed. Consulted urology who recommended continue acevedo until follow-up in Urology clinic which they will arrange. (9) Chronic kidney disease, stage IV (severe): Plan: INNA on CKD-3 Resolved - Cr now better than previous baseline after relief of urinary obstruction Cr has been 1 throughout this week (has curtis IV fluids, BETI is held) Plan DVT ppx - SQ heparin q12 may be able to return home tomorrow Admission and Anticipated Discharge Date Admission Date: September 14, 2023 Subjective doing well very well this morning had 2 large stools in her ostomy bag no nausea abdomen does not feel bloated tolerated full liquid diet well for breakfast Physical Exam 2 Physical Exam: PHYSICAL EXAMINATION Last 24h vital signs reviewed, see documentation in flowsheet General: awake alert sitting up in bed HEENT: Normocephalic, atraumatic, pupils round and equal, sclerae anicteric, no conjunctival injection, moist mucus membranes Lungs: Normal respiratory effort. Clear to auscultation bilaterally. No RRW Heart: Regular rate and rhythm, no murmurs. No JVD Abdomen: Soft, nontender, remains mildly distended. Active normal bowel sounds present. pink ostomy with easily reducible wide parastomal hernia left lower quadrant Extremities: Warm, dry, well-perfused. No extremity edema. Acevedo catheter with clear urine Neuro: Alert and oriented x 4, face symmetric, moves 4 extremities well Psych: Normal affect and behavior Results & Data Results & Data Vital Signs (Past 12 Hours) Vital Signs Temp Pulse Pulse Resp BP Pulse Ox O2 Del Method 09/22/23 07:11 65 09/22/23 02:00 36.8 C 66 16 119/72 96 Room Air 09/21/23 22:17 36.8 C 70 18 126/74 96 Room Air 09/21/23 22:02 71 Laboratory Results 09/21/23 05:24 09/22/23 05:19 PG Care Time/CCT Total # of Minutes Spent Total Time Spent with Patient: Total time spent is greater than 50% in coordination of care (as documented) at patient's floor/unit and/or counseling patient: Coding Level of Care Code 67479 SUB INP/OBS CARE 2/35MIN Diagnoses SBO (small bowel obstruction) K56.609 UTI (urinary tract infection) N39.0 Hypokalemia E87.6 Elevated lipase R74.8 History of endometrial cancer Z85.42 Hypertension I10 [address]ostomy [address] Z93.3 Hydronephrosis N13.30 Hydronephrosis type: unspecified Chronic kidney disease, stage IV (severe) N18.4 (8) Hydronephrosis Hydronephrosis type: unspecified Qualified Code(s): N13.30 - Unspecified hydronephrosis
[2023-09-22] MEDS: MAGNESIUM SULFATE / D5W 1 GM/100 ML BAG IV SCH (08:04)
--- NOTE | 2023-09-22 10:07 | Surgery Progress Note ---
Date of Service September 22, 2023 Assessment & Plan (1) SBO (small bowel obstruction): Plan: Patient does not show signs of obstruction or ileus at this time. May advance diet as tolerated. Surgery will sign off at this time. Please re-consult if needed. Admission and Anticipated Discharge Date Admission Date: September 14, 2023 Subjective Patient states she feel great this am. She denies N/V, F/C. She is able to tolerate a clear liquid diet without issues. States her colostomy has put out increased amounts of stool and is also putting out gas. Physical Exam Constitutional: not ill appearing, not in distress and not diaphoretic Respiratory: normal respiratory effort; no respiratory distress, no labored breathing and does not use accessory muscles Gastrointestinal (Abdomen): Percussion/Palpation: abdomen soft; abdomen nontender, no guarding and abdomen not rigid Parastomal hernia containing bowel. Slightly protuberant mid to left abdomen, mostly secondary to the parastomal hernia, but non-distended. stoma visible and viable. Bag had been emptied. Benign abdomen Results & Data Vital Signs (Past 12 Hours) Vital Signs Temp Pulse Pulse Resp BP Pulse Ox O2 Del Method 09/22/23 07:54 36.7 C 72 16 159/90 H 98 Room Air 09/22/23 07:11 65 09/22/23 02:00 36.8 C 66 16 119/72 96 Room Air 09/21/23 22:17 36.8 C 70 18 126/74 96 Room Air PG Care Time/CCT Total # of Minutes Spent Total Time Spent with Patient: Total time spent is greater than 50% in coordination of care (as documented) at patient's floor/unit and/or counseling patient: Coding Level of Care Code 50986 SUB INP/OBS CARE 25MIN Diagnoses SBO (small bowel obstruction) K56.609
[2023-09-22] MEDS ORDERED: [UNRECOGNIZED DRUG - REMARK] ONE (15:59)
[2023-09-23 06:29] LABS: BUN Creatinine Ratio 21.5 (10-20); Calcium 7.9 mg/dl (8.6-10.3); Creatinine Clr Calc Pharmacy 35.9 ml/min; Est GFR (African American) 67.3 ml/min; Magnesium 1.7 mg/dl (1.7-2.4); Phosphorus 2.9 mg/dl (2.5-4.9); Potassium 4.2 mmol/L (3.5-5.1)
[2023-09-23] MEDS: MAGNESIUM SULFATE / D5W 1 GM/100 ML BAG IV SCH (08:07)
[2023-09-23] MEDS: PANTOprazole 40 MG TAB PO SCH (08:14)
--- NOTE | 2023-09-23 10:41 | Discharge Summary ---
Discharge Summary Date of Service September 23, 2023 Principal Dx & Hospital Course #1 = Principal Diagnosis (1) SBO (small bowel obstruction): 82-year-old woman admitted with small bowel obstruction thought related to adhesions, treated with bowel rest with NG tube and symptomatic care, General surgery consulted, bowel obstruction seemed to have resolved with no obstruction on SBFT 09/17. Diet was advanced but developed nausea/vomiting with persistent distention evening of 09/18. Back to clears with nausea 09/19 but after that had no further nausea/vomiting, good appetite and large stool output from colostomy. GI consulted to consider endoscopy 09/20 but deferring since improving. Could have been partial SBO or an ileus related to UTI. - tolerating low fiber diet well - continue this for about a week then normalize - continues to have some distention on exam and KUB despite being asymptomatic - may have element of chronic bowel distention. Multiple episodes of SBO in past. - General surgery consulted, signed off - replacing low normal magnesium with 2 g IV today (2) UTI (urinary tract infection): 2nd MDR morganella (09/12/23 culture) had been on cefdinir as outpatient completed 7 days of ertapenem as of 09/19 stop mirabegron since having urinary obstruction and UTI (3) Hypokalemia: replaced hypophosphatemia and hypomagnesemia also replaced (4) Elevated lipase: minimally elevated lipase without signs symptoms of acute pancreatitis, no findings compatible with pancreatitis on repeat CTs. 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 09/2020 underwent urethral dilation, cystogram and retrograde pyelograms by Dr. Gabriel who felt the urethral stricture was the cause of the hydro had acute urinary retention with persistent hydronephrosis on CT this admission and acevedo catheter was placed. Consulted urology who recommended continue acevedo until follow-up in Urology clinic which they will arrange -discharged with acevedo (9) Chronic kidney disease, stage IV (severe): INNA on CKD-3 Resolved - Cr now better than previous baseline after relief of urinary obstruction Cr has been 1 throughout this week (had acevedo, IV fluids, BETI was held) Notes For Next Care Provider Urology follow up Discharged with acevedo Unclear whether SBO or ileus related to UTI (completed treatment) Medication Changes From Visit Stopped mirabegron because of urinary retention Admission HPI Per Admitting Provider Zina is an 82-year-old female with PMH of HTN, endometrial cancer, recurrent UTI, CKD stage III, and urethral stricture. She originally presented to [facility] on 09/11 for UTI and was given antibiotics; she was then called back to the hospital for IV antibiotics after culture results on 09/13. Urine culture on 09/11 grew Morganella morganii. At time of admission, patient endorses generalized, intermittent abdominal pain. She has not taken any pain medicine at home prior to coming to the hospital. She rates it 9/10 at present, and characterizes it as a strong, achy pain. No alleviating factors; she has not eaten over the past 24 hours that she has been unable to keep things down. Associated nausea and vomiting. She was prescribed cefdinir upon discharge 2 days ago, and reports she has been taking it. She also had a fever at home last night at 99.3 F. Did not take Tylenol. Clinically, she denies urinary symptoms such as burning with urination, dysuria, or lower back pain. She reports that her generalized abdominal pain is more in alignment with what she felt during her small bowel obstruction in 2020. She reports it feels different than prior UTIs. Blowing her nose exacerbates stomach pain. Patient denies smoking, tobacco use, and recent alcohol use. Patient's vitals are stable at time of admission ED course: Zosyn 4.5 g IV Morphine sulfate 2 mg IV Zofran 4 mg IV x 2 NSS 500 mL IV ROS: Patient endorses fever, generalized abdominal pain, and N/V (last night and this morning). Patient denies chills, night-sweats, dizziness, lightheadedness, ARNETT,chest pain, cough, SOB, pleuritic CP, hematemesis, diarrhea, burning with urination, lower back pain, blood in urine/stool, dysuria, saddle anesthesia, or numbness/tingling in the arms or legs. Discharge Exam PHYSICAL EXAMINATION Last 24h vital signs reviewed, see documentation in flowsheet General: awake alert sitting up in bed exam unchanged 09/22: HEENT: Normocephalic, atraumatic, pupils round and equal, sclerae anicteric, no conjunctival injection, moist mucus membranes Lungs: Normal respiratory effort. Clear to auscultation bilaterally. No RRW Heart: Regular rate and rhythm, no murmurs. No JVD Abdomen: Soft, nontender, remains mildly distended. Active normal bowel sounds present. pink ostomy with easily reducible wide parastomal hernia left lower quadrant Extremities: Warm, dry, well-perfused. No extremity edema. Acevedo catheter with clear urine Neuro: Alert and oriented x 4, face symmetric, moves 4 extremities well Psych: Normal affect and behavior Updated Medication List Medication Instructions Recorded Confirmed Type multivitamin (Multiple Vitamins 1 tab PO QDL 02/13/18 09/14/23 History tablet) omega 2-ypm-gdf-fish oil 1,000 mg 2,000 mg PO QDL 02/13/18 09/14/23 History (120 mg-180 mg) capsule (Fish Oil) calcium citrate 250 mg 1 tab PO QAM 05/08/19 09/14/23 History calcium-vitamin D3 5 mcg (200 unit) tablet (Citracal Regular) lutein 20 mg capsule 20 mg PO QPM 10/14/19 09/14/23 History lycopene 10 mg capsule 10 mg PO QPM 10/14/19 09/14/23 History nitrofurantoin macrocrystal 50 mg 50 mg PO QPM #90 caps 05/10/23 09/14/23 Rx capsule conjugated estrogens 0.625 mg/gram 0.25 applic vaginal 2XWK #30 grams 05/31/23 09/14/23 Rx vaginal cream lisinopril 10 mg tablet 10 mg PO HS #90 tabs 08/22/23 09/14/23 Rx ascorbic acid (vitamin C) 1,000 mg 1 g PO DAILY 09/12/23 09/14/23 History tablet (Vitamin C) Hospital Stay Data Consultations 09/14/23 14:53 ED Decision to Admit Stat 09/16/23 00:58 Consult General Surgery Routine 09/19/23 05:54 Consult Urology Routine 09/20/23 22:08 Consult Gastroenterology Routine Diagnostic Imagining Performed 09/15/23 19:16 CT Abd and Pelvis [CT abd pelvis oral con only] Urgent 09/18/23 10:33 FL small bowel follow through Routine Chest/Abdomen X-ray 09/14/23 13:22 XR abdomen 2V w PA chest CLINICAL HISTORY: eval for obst TECHNIQUE: 2 views of the abdomen were obtained. A single view of the chest was obtained. Comparison: Comparison is made to chest radiograph 03/02/2020 FINDINGS: No lines and tubes are seen. Calcified aortic knob is seen. The lungs are clear. No evidence of pleural effusion or pneumothorax. Degenerative changes are seen in the visualized skeleton. The bowel gas pattern is nonobstructive. A moderate amount of stool is noted within the large bowel. IMPRESSION: Nonobstructive bowel gas pattern. ACT 112: Negative or not required by law. Electronically signed by: Ray Barillas M.D. 09/14/2023 3:16 PM Abdomen X-Ray 09/15/23 15:58 XR abdomen min 2V CLINICAL HISTORY: ?ileus, abd distension? TECHNIQUE: 2 views of the abdomen were obtained. Comparison: Comparison is made to chest radiograph 09/14/2023 FINDINGS: Lung bases are unremarkable. The osseous structures are grossly unremarkable. Gastric bubble is seen. No visualization of small bowel loops. A moderate amount of stool is noted within the large bowel. IMPRESSION: Small bowel loops are not seen, ileus/obstruction cannot be entirely excluded. If there is clinical concern, CT can be performed. ACT 112: Negative or not required by law. Electronically signed by: Ray Barillas M.D. 09/15/2023 5:55 PM Abdomen/Pelvis CT 09/15/23 19:16 Exam(s): CT ABDOMEN + PELVIS With Contrast Oral - High Density Amt: GASTROGRAFFIN EXAM: CT Abdomen and Pelvis With Intravenous Contrast CLINICAL HISTORY: Reason for exam: ileus vs SBO, colostomy status. TECHNIQUE: Axial computed tomography images of the abdomen and pelvis with intravenous contrast. Automated exposure control was utilized for the study. A dose lowering technique was utilized adhering to the principles of ALARA. CONTRAST: Patient received GASTROGRAFFIN of Oral - High Density contrast COMPARISON: No relevant prior studies available. FINDINGS: Lung bases: Unremarkable. No mass. No consolidation. ABDOMEN: Liver: Hepatic steatosis. Gallbladder and bile ducts: Unremarkable. No calcified stones. No ductal dilation. Pancreas: Unremarkable. No mass. No ductal dilation. Spleen: Unremarkable. No splenomegaly. Adrenals: Unremarkable. No mass. Kidneys and ureters: Severe RIGHT and moderate LEFT hydroureteronephrosis. No obstructing stone. Distended urinary bladder, correlate for the need for Acevedo catheter. Stomach and bowel: LEFT lower quadrant ostomy. Dilated small bowel measures up to 3.4 cm, consistent with bowel obstruction. The area of transition is suspected with the SMA crosses the small bowel. SMA syndrome not excluded. Surgical evaluation recommended. No mucosal thickening. PELVIS: Appendix: No findings to suggest acute appendicitis. Bladder: See above. Reproductive: Unremarkable as visualized. ABDOMEN and PELVIS: Intraperitoneal space: Unremarkable. No free air. No significant fluid collection. Bones/joints: Degenerative changes of the spine. No acute fracture. No dislocation. Soft tissues: Unremarkable. Vasculature: Atherosclerotic changes of the aorta. No abdominal aortic aneurysm. Lymph nodes: Unremarkable. No enlarged lymph nodes. IMPRESSION: 1. LEFT lower quadrant ostomy. Dilated small bowel measures up to 3.4 cm, consistent with bowel obstruction. The area of transition is suspected with the SMA crosses the small bowel. SMA syndrome not excluded. Surgical evaluation recommended. 2. Severe RIGHT and moderate LEFT hydroureteronephrosis. No obstructing stone. Distended urinary bladder, correlate for the need for Acevedo catheter. Electronically signed by: Erwin Romero MD 09/16/23 00:33 AM KUB X-Ray 09/16/23 07:28 XR KUB/Abdomen 1 view CLINICAL HISTORY: confirm NGT placement TECHNIQUE: 1 view of the abdomen was obtained. Comparison: Comparison is made to abdomen radiographs 09/15/2023 FINDINGS: Enteric tube terminates in the stomach. The osseous structures are grossly un remarkable. No significant bowel gas is seen apart from the gastric bubble. IMPRESSION: Satisfactory position of enteric tube. ACT 112: Negative or not required by law. Electronically signed by: Ray Barillas M.D. 09/16/2023 8:08 AM KUB X-Ray 09/17/23 10:09 KUB CLINICAL HISTORY: Small bowel obstruction. FINDINGS: An AP, portable, supine abdominal radiograph is compared to study dated 09/16/2023 and correlated with abdominal CT dated 09/15/2023. An enteric tube is unchanged in position and projects over the proximal stomach. An ostomy projects over the left lower quadrant. There is persistent gaseous distention of the small bowel loops which measure up to 4.5 cm in diameter. This likely represents persistent small bowel obstruction. No evidence of intraperitoneal free air is seen on this supine image. There are no abnormal abdominal calcifications. Phleboliths are seen in the pelvis. The skeletal structures are osteopenic and appear intact. There is moderate lumbosacral spondylosis. A small pleural effusion is noted on the left. IMPRESSION: Persistent small bowel obstruction. Electronically signed by: Chencho Vasques M.D. 09/17/2023 12:04 PM KUB X-Ray 09/17/23 21:34 KUB HISTORY: ng tube placement COMPARISON: None. FINDINGS: A nasogastric tube terminates in the stomach. This is unchanged in position. Trace bilateral pleural effusions are noted. Mildly dilated gas-filled loops of small bowel have slightly improved. A left lower quadrant ostomy is again noted. No renal calculi. No ureteral calculi. No pneumoperitoneum or pneumatosis. IMPRESSION: 1. Nasogastric tube terminates in the stomach. 2. Mildly dilated gas-filled loops of small bowel have slightly improved. ACT 112: Negative or not required by law. Electronically signed by: Abraham Mallory M.D. 09/18/2023 8:10 AM KUB X-Ray 09/18/23 08:24 KUB HISTORY: Acute abdominal pain with small bowel obstruction sbo. verify ngt position ( suspect disloged) COMPARISON: 09/17/2023 FINDINGS: Distal tip of enteric tube projects over the expected location of the gastric body. No significant change in the mildly dilated small bowel loops. No renal calculi. No ureteral calculi. No pneumoperitoneum or pneumatosis. No fracture. IMPRESSION: 1. Unchanged positioning of the enteric tube. 2. Mildly dilated air-filled loops of small bowel redemonstrated. ACT 112: Negative or not required by law. The above report was generated using voice recognition software. It may contain grammatical, syntax or spelling errors. Electronically signed by: Devendra Knowles M.D. 09/18/2023 9:40 AM Small Bowel X-Ray 09/18/23 10:33 FL small bowel follow through CLINICAL HISTORY: Small bowel obstruction. Follow-up. COMPARISON STUDY: KUB 09/18/2023. FINDINGS: 4 overhead images of the abdomen and pelvis were performed over a 20 minute time interval. No fluoroscopic spot images were obtained. [facility] Call[facility] Nurse image demonstrates a nasogastric tube within the stomach. No dilated loops of small bowel identified. Contrast was injected through the indwelling nasogastric tube. Contrast reached the cecum by 20 minutes. Therefore, no evidence for a small bowel obstruction. Incidental note is made of a left lower quadrant ostomy. IMPRESSION: No evidence for a small bowel obstruction. ACT 112: Negative or not required by law. Electronically signed by: Abraham Mallory M.D. 09/18/2023 12:52 PM KUB X-Ray 09/20/23 08:27 KUB CLINICAL HISTORY: Vomiting. Bowel obstruction. FINDINGS: An AP, portable, supine abdominal radiograph is compared to study dated 09/18/2023 and correlated with abdominal CT dated 09/15/2023. An enteric tube has been removed. An ostomy projects over the left lower quadrant. There is persistent gaseous distention of the small bowel loops suggesting residual obstruction. Gas is also seen within the right colon. No evidence of intraperitoneal free air is identified on this supine image. Residual enteric contrast is observed. There are no abnormal abdominal calcifications. Phleboliths are seen in the pelvis. The skeletal structures are osteopenic and appear intact. Small pleural effusions are suggested at the lung bases. IMPRESSION: 1. An enteric tube has been removed. 2. There is continued gaseous distention of the small bowel loops suggesting persistent obstruction. Electronically signed by: Chencho Vasques M.D. 09/20/2023 9:24 AM KUB X-Ray 09/21/23 08:05 KUB HISTORY: Recent small bowel obstruction. COMPARISON: KUB 09/20/2023. FINDINGS: Mild gaseous distention of the small bowel loops suggestive of a persistent obstruction. The left lower quadrant ostomy is again noted. There is gas within the nondistended colon. No renal calculi. No ureteral calculi. No pneumoperitoneum or pneumatosis. IMPRESSION: Mild gaseous distention of the small bowel suggesting a persistent obstruction. ACT 112: Negative or not required by law. Electronically signed by: Abraham Mallory M.D. 09/21/2023 10:34 AM Pending Results Patient Have Any Pending Studies at Discharge: No Discharge Instructions Given to Patient (Per Discharging Provider) You were treated with IV antibiotics for urinary tract infection You were treated for partial small bowl obstruction versus ileus (bowel slowdown) This seems to have resolved Follow a low-fiber diet for about a week, then if you are doing well resume your usual diet You had urinary retention requiring acevedo catheter placement. Your kidney function improved after placing the catheter. Most likely your ureteral stricture has recurred. You will go home with acevedo catheter and keep in place until you see Dr. Gabriel. Catheters typically get changed once a month. Call the Urologist if you are having any catheter related problems. Seek medical attention if the catheter is clogged/not draining Urology is supposed to schedule the follow up appointment, but call if you have not heard from the clinic by Sunday or Sunday Stop/hold the myrbetriq because you currently have a catheter and also this medication can contribute to urinary retention discuss with the urologist whether to resume this med in the future It has been a pleasure taking care of you in the hospital Shanta Hickman MD Total Time Total Time Spent Total Time Spent (In Minutes): I personally spent: 40 minutes today on clinical care activities including: reviewing chart notes and vital signs reviewing labs reviewing studies examining and counseling the patient arranging outpatient follow-up writing orders documentation Coding Level of Care Code 62331 INP/OBS DISCH >30 MIN Diagnoses SBO (small bowel obstruction) K56.609 UTI (urinary tract infection) N39.0 Hypokalemia E87.6 Elevated lipase R74.8 History of endometrial cancer Z85.42 Hypertension I10 [address] Z93.3 Hydronephrosis N13.30 Hydronephrosis type: unspecified Chronic kidney disease, stage IV (severe) N18.4
== END 2023-09-23 17:45 | disposition home or self-care (01) | DRG 389 ==
LOC: ED 12:25 → SUATTDRO 15:39 → 2N 15:39